=== PATIENT | female | born 1950 | race Caucasian/White ===

== ENCOUNTER 2019-11-19 10:35 | Outpatient (RCR) | payer MEDICARE, SELFPAY ==
[2019-11-18 21:00] VITALS: BP 155/68; PULSE 62; RESP 17; O2SAT 100
[2019-11-18 22:06] VITALS: BP 164/74; PULSE 69; RESP 18; O2SAT 100
[2019-11-19 11:00] VITALS: BP 130/63; PULSE 74; RESP 16; TEMP 36.9; O2SAT 100
== END 2020-02-17 23:59 | disposition home or self-care (01) ==
LOC: ANHVASCINF 10:35
PROVIDERS: PCP Family Medicine; Visit Provider Internal Medicine Nephrology
DX: N17.8 Other acute kidney failure (principal); M31.7 Microscopic polyangiitis; N05.7 Unspecified nephritic syndrome with diffuse crescentic glomerulonephritis
CPT/HCPCS: 96365; 96368; J2930

== ENCOUNTER 2020-03-14 13:57 | Inpatient (IN) | payer MEDICARE, SELFPAY ==
[2020-03-14] VITALS (19 sets, daily range): BP systolic 121–173; BP diastolic 90–115; PULSE 69–98; RESP 12–25; TEMP 36.1–37; O2SAT 96–100
--- NOTE | ~2020-03-14 | CT_ITS ---
EXAMINATION: CT brain wo con INDICATION: Confusion and generalized weakness COMPARISON: None TECHNIQUE: Standard unenhanced head CT. The dose-length product (DLP) was 605.33 mGy-cm. The mA was a djusted according to patient size. Iterative reconstruction technique was employed. FINDINGS: There is no acute intraparenchymal hemorrhage. No evidence of mass lesion. No evidence of a cute infarction. There is mild periventricular and subcortical hypodensity probably related to small vessel ischemic disease. There is mild prominence of the sulci and ventricles related to cerebral atr ophy. Intracranial calcified cerebral atherosclerosis is noted. There are no extra-axial collections. There is no mass effect or midline shift. The orbits and soft tissues are unremarkable. The visuali zed sinuses and mastoid air cells are well aerated. IMPRESSION: 1. No acute intracranial abnormality. 2. Age related findings. Reviewed, dictated and finalized at location A.
--- NOTE | ~2020-03-14 | MR_ITS ---
EXAMINATION: MRA brain wo con DATE: 03/16/2020 13:52 INDICATION: Altered mental status. TECHNIQUE: Magnetic resonance angiography (MRA) of the brain was performed without intravenous contra st with T1-weighted SPGR by the 3D [id number] technique. Maximum intensity projection 3D-reconstr uctions were obtained. COMPARISON: Head CT 03/14/2020 FINDINGS: Left vertebral artery is dominant. There is no significant stenosis of basilar artery or the posterio r cerebral arteries. There is no significant stenosis of the intracranial internal carotid arteries o r anterior or middle cerebral arteries. Anterior communicating artery is normal. The posterior commun icating arteries are normal. There is no aneurysm. IMPRESSION: 1. No aneurysm or significant intracranial arterial stenosis. Reviewed, dictated and finalized at location A.
--- NOTE | ~2020-03-14 | CT_ITS ---
EXAMINATION: CT abdomen pelvis wo con EXAM DATE: 03/18/2020 22:07 INDICATION: Abdominal pain. TECHNIQUE: Spiral CT of the abdomen and pelvis was performed without contrast. Axial, coronal and s agittal images were reviewed. The dose-length product (DLP) for this examination was 222.90 mGy-cm. The exposure was tailored according to patient size (auto mA exposure control), and iterative recons truction (ASIR) was used as additional dose reduction technique. There is no prior study for compari son. FINDINGS: The liver, spleen, adrenal glands and pancreas are unremarkable. There are cholecystectomy clips. There is no nephrolithiasis or hydronephrosis. The uterus is unremarkable. The bladder i s unremarkable. There is no retroperitoneal or pelvic lymphadenopathy. There is mild scattered art eriosclerotic disease. The appendix is not positively visualized. There is no pericecal inflammatory change to suggest appe ndicitis. There is small sliding gastroesophageal hiatal hernia. There is small duodenal diverticul um. Rectal vault measures 9 cm in diameter, fecal impaction. There is rather extensive adjacent inflammat ion, and inflammation in the presacral space, with pneumatosis suspected in the rectosigmoid wall, an d also small foci of extraluminal gas in the presacral space. There is moderate descending and sigmoi d colonic diverticulosis. No free intraperitoneal gas. There is mild cardiomegaly. Small pericardi al effusion. The lung bases are unremarkable. There are no osteoblastic or osteolytic lesions ident ified. IMPRESSION: 1. Fecal impaction, stercoral colitis. Rectosigmoid colonic pneumatosis with extraluminal gas in the presacral space, probably microperforation or leaked externally from the pneumatosis. No abscess or gross free intraperitoneal air. 2. Bladder is severely distended. 3. Moderate descending and sigmoid colonic colitis. Reviewed, dictated and finalized at location G. IMPRESSION: 1. Fecal impaction, stercoral colitis. Rectosigmoid colonic pneumatosis with e xtraluminal gas in the presacral space, probably microperforation or leaked ext ernally from the pneumatosis. No abscess or gross free intraperitoneal air. 2. Bladder is severely distended. 3. Moderate descending and sigmoid colonic colitis.
--- NOTE | ~2020-03-14 | XR_ITS ---
EXAMINATION: XR abdomen obstructive series DATE: 03/27/2020 15:35 INDICATION: Generalized abdominal pain. TECHNIQUE: Supine and upright views of the abdomen. FINDINGS: No prior studies for comparison. The visualized lung parenchyma is normal.. There is a nonobstructive bowel gas pattern. Gas and stool are seen throughout the colon to the level of the rectum. There is no free air. There are cholecyst ectomy clips. IMPRESSION: 1. No acute abdominal abnormality. Reviewed, dictated and finalized at location A.
--- NOTE | ~2020-03-14 | BM_ITS ---
EXAMINATION: CCL bone marrow asp w bx diag DATE: 03/18/2020 09:24 INDICATION: Pancytopenia. TECHNIQUE: A time-out was performed to verify the patient's name, date of , and procedure to b e performed. The procedure including the risks, benefits, and alternatives was discussed with the pat ient. Risks discussed included bleeding and infection. The patient understood the risks and agreed to proceed. The skin overlying the right ilium was prepped and draped in usual sterile fashion. Anest hetic was administered with 1% lidocaine subcutaneously. An 11 gauge needle was inserted into the efrain um with fluoroscopic guidance. Bone marrow was aspirated. An 8 gauge needle was then inserted into th e ilium with fluoroscopic guidance. A small core bone marrow biopsy was obtained. There were no immed iate complications. Fluoroscopy exposure time was 0.0 minutes. The total number of images was 19. FINDINGS: Real-time fluoroscopy demonstrates a marker overlying the right posterior superior iliac sp ine. IMPRESSION: 1. Fluoro-guided bone marrow aspiration. 2. Fluoro-guided bone marrow core biopsy. Reviewed, dictated and finalized at location A.
--- NOTE | ~2020-03-14 | MR_ITS ---
EXAMINATION: MR brain/brain stem wo con EXAM DATE: 03/17/2020 14:06 INDICATION: Encephalopathy. Immunocompromised. TECHNIQUE: Magnetic resonance imaging (MRI) of the brain/brain stem obtained without contrast. Sagitt al T1, axial diffusion, gradient echo (T2*), T1, T2, FLAIR sequences obtained. Comparison is made to prior examination from 03/14/2020. FINDINGS: There is abnormal increased T2, flair signal intensity within white matter of the cerebellu m, and scattered regions of subcortical white matter, peritrigonal white matter. Parietal and occipit al lobes appear more affected than other regions. There is also vaguely increased signal intensity wi thin the thalami bilaterally. Overall nonspecific encephalitis with differential diagnosis including progressive multifocal leukoencephalopathy (PML, reportedly this patient is immunocompromised), CMV, acute necrotizing encephalitis (possibly COVID 19 etiology), posterior reversible encephalopathy synd charli (PRES). Distribution is not typical for herpes or prion disease. No abscess, acute infarction, extra-axial collections or obstructive hydrocephalus. No acute hemorrha ge. Flow voids are seen in the cerebral arteries on the T2 weighted sequences consistent with their e xpected patency. IMPRESSION: Abnormal signal in the thalami, scattered subcortical white matter, cerebellar white ana paula er. Nonspecific encephalopathy with differential diagnosis including PML, viral encephalopathy, acute necrotizing encephalitis, PRES. I discussed abnormal findings with Dr. Zuñiga at 03/17/2020 15:27 CDT. Reviewed, dictated and finalized at location A. IMPRESSION: Abnormal signal in the thalami, scattered subcortical white matter, cerebellar white matter. Nonspecific encephalopathy with differential diagnosi s including PML, viral encephalopathy, acute necrotizing encephalitis, PRES. I discussed abnormal findings with Dr. Zuñiga at 03/17/2020 15:27 CDT.
--- NOTE | ~2020-03-14 | XR_ITS ---
XR chest 1V DATE: 03/14/2020 14:31 INDICATION: Weakness, confusion TECHNIQUE: AP view on 03/14/2020 at 1429 hours COMPARISON: None FINDINGS: Normal heart size. No hilar or mediastinal enlargement. No pulmonary infiltrate or consolid ation, pleural effusion or pulmonary vascular congestion or pneumothorax. Surgical clips overlie the right upper quadrant, consistent with cholecystectomy. There is evidence of bilateral rotator cuff atrophy. Bilateral glenohumeral osteoarthritis. Moderate osteopenia. An IV line is noted at the left antecubital fossa. IMPRESSION: No active cardiopulmonary disease Reviewed, dictated and finalized at location A.
--- NOTE | 2020-03-14 14:06 | ECG_ITS ---
Measurements Intervals [place] Rate: 93 P: 42 PA: 132 QRS: 11 QRSD: 97 T: 33 QT: 345 QTc: 430 Interpretive Statements SINUS RHYTHM POSSIBLE LEFT ATRIAL ENLARGEMENT DELAYED PRECORDIAL R/S TRANSITION BORDERLINE ECG Electronically Signed On 03-14-2020 15:17:50 CDT by Crispin Christiansen D.O.
--- NOTE | 2020-03-14 14:14 | ED.AMS ---
HPI - Altered Mental Status General Chief Complaint: Altered Mental Status Stated Complaint: weakness Time Seen by Provider: 03/14/20 14:05 History of Present Illness HPI narrative: Patient presents via EMS from home, for increasing weakness and confusion. Her was going to bring her but she fell coming out of the house, so they called EMS at that time. He says that she has had increasing weakness and confusion over the last week and a half. She had kidney failure in November and has been on a tapering prednisone dose since. Her only other medicines are an antidepressant and thyroid pills. She denies any pain or illness. She says her appetite is good and her bowels are moving, but her says she hardly eats at all. She is only oriented x2, and cannot give the current year number. She has a lot of bruising and petechiae, and her assures me that she has not been falling being injured or any other known cause of the bruising. He tells me that she does not smoke drink or do any drugs MD complaint: altered mental status, confusion and decreased responsiveness Related Data Allergies Allergy/AdvReac Type Severity Reaction Status Date / Time Penicillins Allergy Unknown Verified 03/14/20 14:06 Review of Systems Review of Systems: Narrative: CONSTITUTIONAL: Denies fever, chills, or sweats. EYES: Denies visual changes, redness, or discharge. ENT: Denies rhinorrhea, congestion, sore throat, or otalgia. CARDIOVASCULAR: Denies chest pain, palpitations, or edema. RESPIRATORY: Denies cough or dyspnea. GASTROINTESTINAL: Denies abdominal pain, nausea, vomiting, or diarrhea. GENITOURINARY: Denies dysuria or hematuria. SKIN: Denies rash or itching. MUSCULOSKELETAL: Denies back pain, joint pain, or myalgia. NEUROLOGIC: Denies headache, numbness, or weakness. PSYCHIATRIC: Denies anxiety or depression. All systems reviewed & are unremarkable except as noted in HPI and below (The adds information concerning her decreased appetite and bruising) [facility] Social History Social History (Updated 03/14/20 @ 14:19 by Megan Iyer MD) Smoking status: Never smoker Alcohol intake: never Substance use: never Gender identity (if verbalized by the patient): Female Exam Narrative: Exam Narrative: GENERAL:pale looking, poor eye contact, and in no acute distress. HEAD: Normocephalic, atraumatic. EYES: PERRLA and EOMI. ENT: Nares clear, no rhinorrhea or epistaxis. Mucous membranes moist. NECK: Supple. CHEST: Clear to auscultation. No respiratory distress. HEART: Regular rate and rhythm. No murmur heard. Normal peripheral pulses. ABDOMEN: Soft, nontender, nondistended, normal active bowel sounds. EXTREMITIES: Normal range of motion. No edema. SKIN: Warm, dry, multiple petechiae and bruises throughout the extremities and trunk, and around her mouth. NEURO: No focal deficits. Alert and oriented X2 PSYCH: Flat affect Course Reevaluation(s) Reevaluation #1: In to see the patient and her , to explain that her CAT scan came out fine, but that her blood counts are low and she will need a red blood cell transfusion. She and her agree with this. She denies having any bone marrow problems or cancer that she knows of. Date: 03/14/20 Time: 15:18 Consultations Consultation #1: Call for the hospitalist, to admit the patient. Naa accepts for Dr. Hicks, and requests an oncology consult. Date: 03/14/20 Time: 16:04 Consultation #2: Called for Dr. Strauss for an oncology consult. He called right back and requests an anemia panel done before the transfusion, and to be sure the diff is done on the CBC. He will consult. Date: 03/14/20 Time: 16:18 Vital Signs Vital signs: Vital Signs Temperature 98.2 F 03/14/20 13:57 Pulse Rate 98 03/14/20 13:57 Respiratory Rate 25 H 03/14/20 13:57 Blood Pressure 121/91 H 03/14/20 13:57 Pulse Oximetry 100 03/14/20 13:57 Temperature 98.2 F 03/14/20 13:57 Pulse Rate 98
[2020-03-14] MEDS: SODIUM CHLORIDE 0.9% IV 1,000 ML 999 ML IV CONT (14:17)
[2020-03-14 14:41] LABS: Glucose Point of Care 198 (65-105)
[2020-03-14 14:55] LABS: Mean Corpuscular HGB Conc 32.3 g/dl (32-36); Mean Corpuscular Hemoglobin 34.7 pg (26-34); Mean Corpuscular Volume 107.4 fl (80-100); Mean Platelet Volume 9.5 fl (7.4-10.4); Platelet Count Result 48 k/mm3 (150-375); Red Blood Count 1.76 M/mm3 (4.2-5.4); Red Cell Distribution Width 18.5 % (11.5-14.5); White Blood Count 2.8 K/mm3 (4.5-10.0)
[2020-03-14 14:59] LABS: Hematocrit 18.9 % (37.0-47.0); Hemoglobin 6.1 g/dL (12.0-15.0)
[2020-03-14 15:05] LABS: Prothrombin Time 12.7 Seconds (11.1-14.7)
[2020-03-14 15:06] LABS: Partial Thromboplastin Time 26.4 SECONDS (22.3-36.8)
[2020-03-14 15:08] LABS: Alanine Aminotransferase 23 U/L (4-35); Albumin Level 2.7 g/dL (3.5-5.1); Alkaline Phosphatase 73 U/L (38-126); Aspartate Amino Transferase 23 U/L (14-36); Bilirubin,Total 0.7 mg/dL (0.2-1.3); Blood Urea Nitrogen 27 mg/dL (7-17); Calcium 8.9 mg/dL (8.4-10.2); Carbon Dioxide 32 mmol/L (22-30); Chloride 102 mmol/L (98-107); Estimated CRCL calculation 29 ml/min; Estimated Glomerular Filt Rate 41; Glucose 191 mg/dL (65-105); Potassium 3.4 mmol/L (3.4-5.0); Sodium 136 mmol/L (137-145)
[2020-03-14 15:16] LABS: Band Neutrophils Percent 9 % (0-6); Lymphocytes Absolute Manual 0.53 K/mm3 (1.1-4.5); Monocytes Absolute Manual 0.08 K/mm3 (0.1-0.90); Monocytes Percent Manual 3 % (3-9); Neutrophils Absolute Manual 2.18 K/mm3 (1.7-7.2); Neutrophils Percent Manual 69 % (46-73); Total Cells Counted 100
[2020-03-14 15:17] LABS: Anisocytosis 2+ (NORMAL); D Dimer 0.93 ug/mL (<0.48); Platelet Estimate Decreased (Adequate)
[2020-03-14 15:18] LABS: Hypochromasia 2+ (NORMAL)
[2020-03-14 15:23] LABS: Troponin I 0.036 ng/mL (0.000-0.034)
[2020-03-14 15:45] LABS: Add Urine Microscopic? YES; Appearance Urine Clear (Clear); Bilirubin Urine Negative (Negative); Blood Urine 1+ (Negative); Color Urine Yellow (Yellow); Glucose Urine UA Negative (Negative); Ketones Urine Negative (Negative); Leukocyte Esterase Ur Negative LEU/UL (Negative); Mucus Urine Rare /lpf; Nitrate Urine Negative (Negative); Protein Urine 1+ mg/dL (Negative); Specific Grav Ur 1.012 (1.001-1.035); Squamous Epithelial Cell Urine Rare /hpf (Few); Urobilinogen Urine Negative mg/dL (<2.0)
[2020-03-14 16:01] LABS: Amphetamine Screen Urine Negative (Negative); Barbiturate Screen Urine Negative (Negative); Benzodiazepines Screen Urine Negative (Negative); Cannabinoid Screen Urine Negative (Negative); Cocaine Screen Urine Negative (Negative); Methadone Screen Urine Negative (Negative); Opiate Screen Urine Negative (Negative); Phencyclidine Screen Urine Negative (Negative)
[2020-03-14 16:51] LABS: Hemoglobin 6.4 g/dL (12.0-15.0)
[2020-03-14 16:52] LABS: Hematocrit 19.4 % (37.0-47.0)
[2020-03-14 18:13] LABS: Iron 98 ug/dL (37-170)
[2020-03-14 18:21] LABS: Percent Iron Saturation 53 % (20-50)
[2020-03-14] MEDS: SODIUM CHLORIDE 0.9% IV 1,000 ML 125 ML IV CONT (18:55)
--- NOTE | 2020-03-14 20:03 | PM.IMHP ---
H&P: HPI History of Present Illness Chief complaint: PANCYTOPENIA AND CONFUSION Narrative: This is a 69 year female with known glomerulonephritis who is being treated by Nephrology, Dr. Cage and presented to the hospital with her who complained that she had increased weakness and confusion for the past few days. The patient is known to have been on a prednisone taper since November and has also been on cyclophosphamide. The patient's had also reported that she had fallen today while trying to get into the car. She herself is quite confused and cannot tell me why she came to the hospital today. The patient was evaluated in the ER tonight and found to have pancytopenia. She has already been transfused 1 unit of pRBCs and she tells me that she is feeling better already. Currently she denies any fever, cough, shortness of breath, chest pain, headache, dizziness, abdominal pain, dysuria, hematuria, diarrhea, nausea, vomiting, rectal bleeding, black stools or focal neurological symptoms. Hematology, Dr. Strauss has been consulted by ER provider and we have been asked to admit the patient for further care. Review of Systems Review of Systems: All systems reviewed & are unremarkable except as noted in HPI and below PMFSH Past Medical History Medical History CKD (chronic kidney disease) Glomerulonephritis Hypothyroidism Surgical History Surgical History History of 2 sections History of cholecystectomy Family History Family History Mother Diabetes mellitus Social History Social History Smoking status: Unknown if ever smoked Alcohol intake: never Substance use: never Gender identity (if verbalized by the patient): Female Meds Home Medications and Allergies Home Medications Medication Instructions Recorded Confirmed Type cyclophosphamide 50 mg PO DAILY 03/14/20 03/14/20 History escitalopram oxalate 10 mg PO DAILY 03/14/20 03/14/20 History levothyroxine 75 mcg PO DAILY 03/14/20 03/14/20 History prednisone 40 mg PO BID 03/14/20 03/14/20 History Allergies Allergy/AdvReac Type Severity Reaction Status Date / Time Penicillins Allergy Unknown Verified 03/14/20 14:06 Vital Signs Vital Signs - 24 hr 03/14/20 13:57 03/14/20 14:19 03/14/20 17:07 Temperature 36.8 C 36.8 C Pulse Rate 98 82 Respiratory Rate 25 H 16 Blood Pressure 121/91 H 155/97 H Pulse Oximetry 100 100 100 03/14/20 17:12 03/14/20 17:18 03/14/20 17:23 Temperature 36.8 C 36.8 C 37.0 C Pulse Rate 81 80 90 Respiratory Rate 20 20 20 Blood Pressure 155/97 H 145/94 H 145/98 H Pulse Oximetry 97 96 96 03/14/20 17:24 03/14/20 17:25 03/14/20 17:35 Temperature 36.8 C 36.3 C L Pulse Rate 78 85 82 Respiratory Rate 24 H 12 18 Blood Pressure 145/98 H 145/98 H 172/115 H Pulse Oximetry 97 100 100 03/14/20 18:00 03/14/20 18:35 03/14/20 19:36 Temperature 36.6 C Pulse Rate 82 74 69 Respiratory Rate 16 Blood Pressure 149/105 H 169/90 H Pulse Oximetry 99 03/14/20 19:42 Temperature 36.2 C L Pulse Rate 84 Respiratory Rate 18 Blood Pressure 158/93 H Pulse Oximetry 98 Exam Const: General: cooperative, alert and awake Nutritional Appearance: well nourished Orientation/consciousness: oriented to person, oriented to place and No oriented to time HENMT: Head: normal to inspection General nose exam: Normal external nose present Face and sinus: normal facial exam Mouth: Yes Normal oral and palatal mucosa present and Yes oropharynx normal Eyes: Pupils: Equal, round and reactive pupils present EOM: EOMs intact bilaterally Neck: Neck: supple and no JVD Thyroid: thyroid normal Lymphatic: lymphadenopathy not noted Resp: Effort & Inspection: normal respiratory effort Auscultation: georgette
[2020-03-15] VITALS (14 sets, daily range): BP systolic 139–151; BP diastolic 82–101; PULSE 68–107; RESP 15–20; TEMP 36–36.8; O2SAT 97–100; BMI 23.2
[2020-03-15 00:13] LABS: Hematocrit 30.4 % (37.0-47.0); Hemoglobin 9.9 g/dL (12.0-15.0)
[2020-03-15 05:09] LABS: Blood Urea Nitrogen 20 mg/dL (7-17); Calcium 8.1 mg/dL (8.4-10.2); Carbon Dioxide 29 mmol/L (22-30); Chloride 107 mmol/L (98-107); Estimated CRCL calculation 42 ml/min; Estimated Glomerular Filt Rate > 60; Glucose 84 mg/dL (65-105); Potassium 2.9 mmol/L (3.4-5.0); Sodium 138 mmol/L (137-145)
[2020-03-15 05:20] LABS: Troponin I 0.171 ng/mL (0.000-0.034)
[2020-03-15] MEDS: SODIUM CHLORIDE 0.9% IV 1,000 ML 125 ML IV CONT ×2 (06:13→20:44)
[2020-03-15] MEDS: LEVOTHYROXINE SODIUM 75 MCG TABLET PO (06:49)
[2020-03-15 06:54] LABS: Basophils Percent Auto 0.6 % (0.2-1.2); Hematocrit 29.8 % (37.0-47.0); Hemoglobin 10.1 g/dL (12.0-15.0); Immature Granulocyte Absolute 0.17 K/mm3 (0.00-0.031); Immature Granulocyte Percent A 4.9 % (0-0.5); Immature Platelet Fraction Pct 0.8 % (0.9-11.2); Lymphocytes Absolute Auto 0.34 K/mm3 (0.9-3.2); Lymphocytes Percent Auto 9.7 % (18.3-44.2); Mean Corpuscular HGB Conc 33.9 g/dl (32-36); Mean Corpuscular Hemoglobin 31.1 pg (26-34); Mean Corpuscular Volume 91.7 fl (80-100); Monocytes Absolute Auto 0.2 K/mm3 (0.1-0.6); Neutrophils Absolute Auto 2.8 K/mm3 (1.3-6.7); Neutrophils Percent Auto 78.8 % (45.5-73.1); Nucleated Red Blood Cells Perc 0.9 % (0.0-0.2); Platelet Count Result 49 k/mm3 (150-375); Red Blood Count 3.25 M/mm3 (4.2-5.4); Red Cell Distribution Width 23.6 % (11.5-14.5); White Blood Count 3.5 K/mm3 (4.5-10.0)
[2020-03-15] MEDS: POTASSIUM CHLORIDE 20 MEQ TABLET 40 MEQ PO ×3 (08:45→18:25)
[2020-03-15] MEDS: predniSONE 10 MG TABLET 40 MG PO (08:45)
[2020-03-15] MEDS: ESCITALOPRAM OXALATE 10 MG TABLET PO (08:45)
--- NOTE | 2020-03-15 09:49 | ADMGEN ---
This patient, Megan Raza, was admitted to IMU Room 206-02 03/14/2020 at 1732. Patient/family oriented to hospital policies and general routines including ID bracelet, bed and alarms, visiting hours, pain management, procedures, bathroom and other care routines, personal items, smoking policy, room service/diet, and visiting hours. Valuables list has been completed. Information on how to activate the Rapid Response Team has been discussed. Patient/Family are encouraged to report perceived risks to care and to ask questions if they do not understand what they are told or what they should do.
--- NOTE | 2020-03-15 09:54 | PM.CNNEP ---
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 Her creatinine is now normal. She does have a bit of protein and blood in the urine which can take longer to resolve. For now it looks like she is in remission. She is on cyclophosphamide and has pancytopenia. The cyclophosphamide can be held. She is on prednisone 40 mg twice a day. We can cut this does back a little bit as well. (2) Petechial rash: Code(s): R23.3 - Spontaneous ecchymoses Status: Acute Assessment and Plan: Most likely due to the low platelets. This may be due to the cyclophosphamide. Dr. Jessica camara is on the case (3) Encephalopathy: Code(s): G93.40 - Encephalopathy, unspecified Status: Acute Assessment and Plan: Etiology of this is unclear. I do not think it is the vasculitis because everything else about this is better. She does not have a fever. Her B12 is okay and thyroids only slightly high which probably would not explain this. Consider infection. Possibly the immunosuppressives are preventing her from having a fever. We should probably get blood cultures and put her on broad-spectrum antibiotics. Will have Neurology see her. (4) Abnormal glucose: Code(s): R73.09 - Other abnormal glucose Status: Acute Assessment and Plan: His high sugars probably from the steroids. Will cut back the dose. (5) Pancytopenia: Code(s): D61.818 - Other pancytopenia Status: Acute Assessment and Plan: Dr. ceja showed to see. (6) Protein malnutrition: Code(s): E46 - Unspecified protein-calorie malnutrition Status: Acute Assessment and Plan: Albumin level is low. She has not been eating. (7) Hypothyroidism: Qualifiers: Hypothyroidism type: unspecified Qualified Code(s): E03.9 - Hypothyroidism, unspecified Code(s): E03.9 - Hypothyroidism, unspecified Status: Chronic Assessment and Plan: TSH is only slightly abnormal. History of Present Illness Reason for Consult Consult date: 03/15/20 Chief Complaint Chief complaint: PANCYTOPENIA AND CONFUSION History of Present Illness Narrative: Megan is a very pleasant 69-year-old lady who has acute kidney injury from ANCA positive glomerulonephritis. This is biopsy proven. She received pulse steroids and then Prednisone. She is also on oral cyclophosphamide. She was on 50 mg once a day. She had a [facility] health visit with Dr. Cage on 03/04 and she was feeling poorly. Her creatinine was actually better at 1.07 as compared to before her platelet count was 116 and her hemoglobin was 7 so her Cytoxan was cut to every other day. At the time of the visit she was feeling weak. She did not have much of an appetite. Her weakness progressed and she had trouble getting in and out of the car even and so her brought her over to the emergency room. She also was been a bit confused he said. In the emergency room she was evaluated. Was clear and CT of the brain showed no acute abnormality. Her white count was down to 3.5, hemoglobin 6.4, and platelet count 49. These are all lower than she had been as an outpatient. Her creatinine is normal. Her potassium is low. She has had no fever. Past history: Hypothyroidism, Anca positive glomerulonephritis. Social history: She does not smoke but she used to. She occasionally drinks alcohol. She lives at home with her . Family history negative for kidney disease or kidney stones. Allergies: Penicillin Review of Systems Constitutional: Constitutional: Reports no additional constitutional complaints Eyes: Eyes: Reports no additional eye complaints ENT: Reports system reviewed and no
[2020-03-15] MEDS: AZTREONAM 1 GM in DEXTROSE 5% IN WATER 50 ML IVPB ×2 (12:08→20:43)
--- NOTE | 2020-03-15 18:02 | PM.IMPN ---
Progress Note: A&P Assessment and Plan (1) Encephalopathy: Code(s): G93.40 - Encephalopathy, unspecified Status: Acute Assessment and Plan: Likely secondary to anemia, metabolic, or drug induced from prednisone or cyclophosphamide. CT brain WNL. TSH B12 levels are normal (2) Pancytopenia: Code(s): D61.818 - Other pancytopenia Status: Acute Assessment and Plan: Secondary to cyclophosphamide therapy. After 2 units of packed cells hemoglobin and absolute neutrophil count well in normal range Nephrology started vancomycin (3) CKD (chronic kidney disease): Qualifiers: Chronic kidney disease stage: stage 3 (moderate) Qualified Code(s): N18.3 - Chronic kidney disease, stage 3 (moderate) Code(s): N18.9 - Chronic kidney disease, unspecified Status: Chronic Assessment and Plan: appears to be secondary to GN. Continue nephrology recommendations. Creatinine at 1.0 today. Hold cyclophosphamide. And prednisone decreased to 20 b.i.d. per Nephrology (4) Abnormal glucose: Code(s): R73.09 - Other abnormal glucose Status: Acute Assessment and Plan: may be prednisone induced. r/o diabetes mellitus. Check HgbA1c. Accuchecks, SSI Coverage, (5) Elevated troponin: Code(s): R79.89 - Other specified abnormal findings of blood chemistry Status: Acute Assessment and Plan: No chest pain tonight. r/o ACS. Flat response no acute coronary syndrome (6) Petechial rash: Code(s): R23.3 - Spontaneous ecchymoses Status: Acute Assessment and Plan: Secondary to thrombocytopenia. Continue serial checking (7) Hypothyroidism: Qualifiers: Hypothyroidism type: unspecified Qualified Code(s): E03.9 - Hypothyroidism, unspecified Code(s): E03.9 - Hypothyroidism, unspecified Status: Chronic Assessment and Plan: Continue levothyroxine PO. TSH borderline high may need further adjustment later Subjective Date/time seen: 03/15/20 18:02 Interval history: Date of visit 03-15. 69-year-old white female with ANCA positive glomerular nephritis admitted with altered mental status, weakness, and pancytopenia. Cytoxan has been held and she received 2 units of packed cells. Today she is alert and oriented and conversant but states that she continues be very tired and continues to sleep like she has at home. Exam Narrative: Exam Narrative: Blood pressure 144/94 pulse 76 saturating 98% on room air afebrile Neck supple no adenopathy Pupils equal reactive to light sclera anicteric Lungs clear CV regular rate rhythm Abdomen soft nontender Extremities without edema distal pulses are 2+ Neuro drowsy but easily arousable, moves all extremities well with no focal deficits and appears oriented at present time Objective Data Vital Signs Vital Signs: Vital Signs - 24 hr 03/14/20 18:35 03/14/20 19:36 03/14/20 19:42 Temperature 36.6 C 36.2 C L Pulse Rate 74 69 84 Respiratory Rate 16 18 Blood Pressure 149/105 H 169/90 H 158/93 H Pulse Oximetry 99 98 03/14/20 19:54 03/14/20 20:00 03/14/20 20:54 Temperature 36.2 C L 36.2 C L Pulse Rate 73 86 77 Respiratory Rate 18 18 Blood Pressure 160/90 H 167/99 H Pulse Oximetry 98 99 03/14/20 21:54 03/14/20 22:00 03/14/20 23:42 Temperature 36.1 C L 36.1 C L Pulse Rate 76 90 80 Respiratory Rate 18 18 Blood Pressure 172/107 H 173/105 H Pulse Oximetry 98 100 03/15/20 00:00 03/15/20 02:00 03/15/20 04:00 Temperature 36.2 C L Pulse Rate 88 70 69 Respiratory Rate 16 Blood Pressure 151/94 H Pulse Oximetry 100 98 03/15/20 05:40 03/15/20 08:00 03/15/20 10:00 Temperature 36.2 C L Pulse Rate 82 79 87 Respiratory Rate 15 Blood Pressure 145/96 H Pulse Oximetry 99 03/15/20 11:46 03/15/20 12:00 03/15/20 14:00 Temperature 36.0 C L Pulse Rate 79 75 85 Respiratory Rate 20 Blood Pressure 146/101 H Pulse Oximetry 98 03/15/20
[2020-03-15] MEDS: predniSONE 20 MG TABLET PO (18:20)
[2020-03-16] VITALS (12 sets, daily range): BP systolic 142–169; BP diastolic 90–108; PULSE 69–101; RESP 18–20; TEMP 36.3–36.7; O2SAT 94–100; BMI 23.1
[2020-03-16 05:00] LABS: Basophils Percent Auto 0.6 % (0.2-1.2); Hematocrit 30.3 % (37.0-47.0); Hemoglobin 9.8 g/dL (12.0-15.0); Immature Granulocyte Absolute 0.18 K/mm3 (0.00-0.031); Immature Platelet Fraction Pct 1.3 % (0.9-11.2); Immature Reticulocyte Fraction 22.8 % (3.0-15.9); Lymphocytes Absolute Auto 0.36 K/mm3 (0.9-3.2); Mean Corpuscular HGB Conc 32.3 g/dl (32-36); Mean Corpuscular Hemoglobin 30.5 pg (26-34); Mean Corpuscular Volume 94.4 fl (80-100); Mean Platelet Volume 8.9 fl (7.4-10.4); Monocytes Absolute Auto 0.2 K/mm3 (0.1-0.6); Monocytes Percent Auto 5.6 % (2.6-8.5); Neutrophils Absolute Auto 2.8 K/mm3 (1.3-6.7); Neutrophils Percent Auto 78.8 % (45.5-73.1); Nucleated Red Blood Cells Perc 0.6 % (0.0-0.2); Platelet Count Result 51 k/mm3 (150-375); Red Blood Count 3.21 M/mm3 (4.2-5.4); Red Cell Distribution Width 23.5 % (11.5-14.5); Reticulocyte Hemoglobin Conten 37.6 pg (28.2-35.7); Reticulocyte Percent 3.79 % (0.7-4.3); Reticulocytes Absolute 0.12 B/L (32.2-175.7); White Blood Count 3.6 K/mm3 (4.5-10.0)
[2020-03-16 05:07] LABS: Albumin Level 2.8 g/dL (3.5-5.1); Blood Urea Nitrogen 18 mg/dL (7-17); Calcium 7.3 mg/dL (8.4-10.2); Carbon Dioxide 22 mmol/L (22-30); Chloride 111 mmol/L (98-107); Estimated CRCL calculation 40 ml/min; Estimated Glomerular Filt Rate > 60; Glucose 140 mg/dL (65-105); Lactate Dehydrogenase 1351 U/L (313-618); Phosphorus 2.1 mg/dL (2.5-4.5); Potassium 4.8 mmol/L (3.4-5.0); Sodium 137 mmol/L (137-145)
[2020-03-16 05:39] LABS: Hemoglobin A1C 6.3 % (<5.7)
[2020-03-16] MEDS: AZTREONAM 1 GM in DEXTROSE 5% IN WATER 50 ML IVPB ×3 (05:55→20:34)
[2020-03-16] MEDS: SODIUM CHLORIDE 0.9% IV 1,000 ML 125 ML IV CONT ×2 (05:57→17:48)
[2020-03-16] MEDS: predniSONE 20 MG TABLET PO ×2 (09:16→17:12)
[2020-03-16] MEDS: ESCITALOPRAM OXALATE 10 MG TABLET PO (09:16)
--- NOTE | 2020-03-16 09:21 | PCPTNOTE ---
Attempted to see patient for PT, however patient declined, reports she just wants to rest at this time.
--- NOTE | 2020-03-16 10:34 | CONS_ITS ---
DATE OF CONSULTATION: Patient of Adama Vaughn MD. HISTORY OF PRESENT ILLNESS: 69-year-old lady has been admitted to [facility] through the emergency room for the complaint of confusion. The patient has been treated by the Nephrology, presented to the hospital with her , complained of increasing weakness along with confusion of several days duration. The patient had been on prednisone, which was being tapered since November and has also been on cyclophosphamide. On the day of presentation to the hospital, she had fallen as per the . She herself was quite confused, was unable to give the account. The patient was initially evaluated in the ER and found to have pancytopenia. She has already been transfused 1 unit of packed RBCs and she was feeling somewhat better on the day of presentation, though she complained of no fever, shortness of breath, chest pain, headache, dizziness. She has been seen by the sebd teacher and has been consulted by the ER provider on presentation and was asked to be admitted to the hospital. PAST HISTORY: Consistent with: 1. Chronic kidney disease. 2. Glomerulonephritis. 3. Hypothyroidism. 4. x2. 5. Cholecystectomy. SOCIAL HISTORY: Never smoker or drinker. MEDICATIONS: At the time of admission to the hospital, she was taking cyclophosphamide 50 mg daily, escitalopram 10 mg daily, levothyroxine 75 mcg daily, prednisone 40 mg twice a day. ALLERGIES: SHE IS ALLERGIC TO PENICILLIN. PHYSICAL EXAMINATION: VITAL SIGNS: Up until now, evaluation revealed her to be afebrile with blood pressure 121/90, and pulse ox 100. GENERAL: General physical examination was fair. HEENT: Head normocephalic with no cranial bruit. EAR, NOSE, THROAT EXAMINATION: Normal. NECK: Supple with no cervical bruit. No thyromegaly. No lymphadenopathy. HEART: Regular. LUNGS: Clear. No rhonchi or crepitation. ABDOMEN: Soft with normal bowel sounds. SKIN: With diffuse petechiae, rash all over her body. NEUROLOGIC: Awake, alert, oriented x3, except not oriented to time. Pupils round regular. Melendez of vision full. Extraocular movements full. Face symmetrical. Tongue midline. Motor examination revealed her to have strength symmetrical. Reflexes sluggish but symmetrical. Plantars downgoing and so as the sensory examination. LABORATORY DATA: Evaluation up until now has revealed her to CBC with WBC 2.8, hemoglobin only 6.1 with a platelet count of only 48,000. Basic metabolic panel is normal with sodium 136, BUN 27, creatinine 1.30, glucose 191, calcium 8.9. Troponin 0.036. Herpetic enzymes normal, but albumin is only 2.7. UA is negative. CT scan of the head revealed no bleed or space-occupying lesion. Chest x-ray also revealed no acute cardiopulmonary disease. The patient has been admitted with the diagnosis of encephalopathy of acute in nature in addition to ongoing diagnosis of pancytopenia, chronic kidney disease, and hypothyroidism. At this stage, she is receiving all her medication as such. In the meantime, because of her underlying confusion, even though the CT scan has been done and is negative, I will obtain the MRI of the brain and further recommendation accordingly, in addition to the carotid study. NAI DIANE M.D. SIGN BOARD ERECTOR SIGN BOARD ERECTOR D I MT: Domitila
--- NOTE | 2020-03-16 14:49 | PCOTNOTE ---
Attempted to see patient this PM for skilled OT, however patient refused. Patient sleeping upon therapist arrival. Therapist woke patient, patient declined to participate in any functional ADL task or mobility at this time. Patient educated on importance of participating in therapy, however, patient stated, Just leave me alone, I just want to sleep. Patient not seen for OT this date. Will continue plan of care tomorrow, 03/17/2020.
--- NOTE | 2020-03-16 15:30 | PCPTNOTE ---
Patient refused treatment this session. Pt states I just want to sleep.
--- NOTE | 2020-03-16 17:25 | P.PNNP_ITS ---
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 * creatinine is normal following use of cytoxan and prednisone * still with a bit of protein and blood in the urine which can take longer to resolve * holding cytoxan and weaning prednisone given current medical issues * continue supportive therapy (2) Encephalopathy: Code(s): G93.40 - Encephalopathy, unspecified Status: Acute Assessment and Plan: * etiology of this is unclear * seems less likely her vasculitis given that it is improving * infection?? -- on antibiotics * Neurology recommendations noted (3) Abnormal glucose: Code(s): R73.09 - Other abnormal glucose Status: Acute Assessment and Plan: * presumably from steroids * will cut back the dosage and wean (4) Pancytopenia: Code(s): D61.818 - Other pancytopenia Status: Acute Assessment and Plan: * from cytoxan?? * somewhat surprising since she was on such a low dose * PRBC transfusion for anemia -- H/H better * Dr. Strauss to evaluate (5) Protein malnutrition: Code(s): E46 - Unspecified protein-calorie malnutrition Status: Acute Assessment and Plan: * albumin low * due to poor intake * liberalize diet Will continue to follow Subjective Date/time seen: 03/16/20 17:25 Sleeping comfortably before I woke her up -- overall, she states she is feeling better; no apparent distress at the time of my visit or earlier today. Exam Narrative: Exam Narrative: General: WD/WN female in NAD Heart: normal S1 and S2; no rub Lungs: clear to auscultation Abdomen: soft, nontender, nondistended, positive bowel sounds Extremities: no cyanosis or clubbing; no edema Skin: warm and dry Objective Data Vital Signs Vital Signs: Vital Signs Temp Pulse Resp BP Pulse Ox 03/16/20 16:00 36.3 C L 73 18 167/108 H 03/16/20 12:00 36.4 C L 86 20 160/100 H 98 03/16/20 10:00 88 03/16/20 08:00 36.6 C 70 18 169/99 H 100 03/16/20 06:00 79 03/16/20 04:00 36.7 C 81 18 142/91 H 97 03/16/20 02:00 98 03/16/20 00:00 36.6 C 87 20 157/99 H 94 03/15/20 22:00 91 03/15/20 20:00 73 03/15/20 19:51 36.6 C 79 20 146/82 H 97 03/15/20 18:00 98 Intake/Output Intake/Output: Intake & Output 03/13/20 03/14/20 03/15/20 03/16/20 23:59 23:59 23:59 23:59 Intake Total 1700 2400 1350 Output Total 550 1775 350 Balance 6459 577 2576 Meds/Results Medications: Active Medications Generic Name Dose Route Start Last Admin Trade Name Freq PRN Reason Stop Dose Admin Acetaminophen 650 mg 03/14/20 20:26 Tylenol Tablet PO Q4H PRN Mild Pain (1-3) or Fever Escitalopram Oxalate 10 mg 03/15/20 09:00 03/16/20 09:16 Lexapro PO 10 mg DAILY LAURYN Administration Sodium Chloride 1,000 mls @ 125 mls/hr 03/14/20 16:15 03/16/20 11:55 Normal Saline Iv IV CONT Not Given .Q8H LAURYN
--- NOTE | 2020-03-16 17:25 | PM.PNNEP ---
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 creatinine is normal following use of cytoxan and prednisone still with a bit of protein and blood in the urine which can take longer to resolve holding cytoxan and weaning prednisone given current medical issues continue supportive therapy (2) Encephalopathy: Code(s): G93.40 - Encephalopathy, unspecified Status: Acute Assessment and Plan: etiology of this is unclear seems less likely her vasculitis given that it is improving infection?? -- on antibiotics Neurology recommendations noted (3) Abnormal glucose: Code(s): R73.09 - Other abnormal glucose Status: Acute Assessment and Plan: presumably from steroids will cut back the dosage and wean (4) Pancytopenia: Code(s): D61.818 - Other pancytopenia Status: Acute Assessment and Plan: from cytoxan?? somewhat surprising since she was on such a low dose PRBC transfusion for anemia -- H/H better Dr. Strauss to evaluate (5) Protein malnutrition: Code(s): E46 - Unspecified protein-calorie malnutrition Status: Acute Assessment and Plan: albumin low due to poor intake liberalize diet Will continue to follow Subjective Date/time seen: 03/16/20 17:25 Sleeping comfortably before I woke her up -- overall, she states she is feeling better; no apparent distress at the time of my visit or earlier today. Exam Narrative: Exam Narrative: General: WD/WN female in NAD Heart: normal S1 and S2; no rub Lungs: clear to auscultation Abdomen: soft, nontender, nondistended, positive bowel sounds Extremities: no cyanosis or clubbing; no edema Skin: warm and dry Objective Data Vital Signs Vital Signs: Vital Signs Temp Pulse Resp BP Pulse Ox 03/16/20 16:00 36.3 C L 73 18 167/108 H 03/16/20 12:00 36.4 C L 86 20 160/100 H 98 03/16/20 10:00 88 03/16/20 08:00 36.6 C 70 18 169/99 H 100 03/16/20 06:00 79 03/16/20 04:00 36.7 C 81 18 142/91 H 97 03/16/20 02:00 98 03/16/20 00:00 36.6 C 87 20 157/99 H 94 03/15/20 22:00 91 03/15/20 20:00 73 03/15/20 19:51 36.6 C 79 20 146/82 H 97 03/15/20 18:00 98 Intake/Output Intake/Output: Intake & Output 03/13/20 03/14/20 03/15/20 03/16/20 23:59 23:59 23:59 23:59 Intake Total 1700 2400 1350 Output Total 550 1775 350 Balance 3194 047 4077 Meds/Results Medications: Active Medications Generic Name Dose Route Start Last Admin Trade Name Freq PRN Reason Stop Dose Admin Acetaminophen 650 mg 03/14/20 20:26 Tylenol Tablet PO Q4H PRN Mild Pain (1-3) or Fever Escitalopram Oxalate 10 mg 03/15/20 09:00 03/16/20 09:16 Lexapro PO 10 mg DAILY LAURYN Administration Sodium Chloride 1,000 mls @ 125 mls/hr 03/14/20 16:15 03/16/20 11:55 Normal Saline Iv IV CONT Not Given .Q8H LAURYN Aztreonam 1 gm/ Dextrose 50 mls @ 100 mls/hr 03/15/20 12:00 03/16/20 15:00 IVPB Infused Q8HR LAURYN Infusion Vancomycin HCl 1,000 mg in 250 mls @ 250 mls/hr 03/15/20 12:00 03/16/20 14:27 Vancomycin 1,000 Mg/D5w 250 Ml IVPB Infused Q24H LAURYN Infusion Levothyroxine Sodium 75 mcg 03/15/20 06:30 03/16/20 05:55 Synthroid PO Not Given DAILY@0630 LAURYN Prednisone 20 mg 03/15/20 17:00 03/16/20 09:16 Prednisone PO 20 mg BID LAURYN Administration Radiology Results: ITS Impressions Head CT 03/14/20 14:26 IMPRESSION: 1. No acute intracranial abnormality. 2. Age related findings. Chest X-Ray 03/14/20 14:44 IMPRESSION: No active cardiopulmonary disease Brain MRA 03/16/20 14:35 IMPRESSION: 1. No aneurysm or significan
--- NOTE | 2020-03-16 18:09 | CONS_ITS ---
DATE OF CONSULTATION: 03/16/2020 REASON FOR CONSULTATION: Pancytopenia. HISTORY OF PRESENTING ILLNESS: This is a 69-year-old female, who was recently diagnosed with glomerulonephritis in November of 2019. The patient is a poor historian due to patient mental status at this time. History was obtained with a discussion with the nursing staff and the on the phone. According to the , patient was diagnosed with glomerulonephritis and has been treated by Dr. Cage. She was started on cyclophosphamide and the prednisone. Cyclophosphamide was discontinued 5 days ago due to improvement in the kidney function. She was on prednisone taper. She developed mental status changes with refusal to eat, depression and she got incoherent about 2 weeks ago. She also has been losing weight. She came into the ER with a blood was checked that showed WBC of 2.8 with hemoglobin of 6.1, and platelet of 48,000. She denies any bleeding. She denies any melena or hematochezia. Denies any fever, chills, or cough. She denies any shortness of breath. REVIEW OF SYSTEMS: 12-point review of system was reviewed and as per HPI, otherwise negative. PAST MEDICAL HISTORY: Chronic kidney disease, glomerulonephritis, hypothyroidism. PAST SURGICAL HISTORY: x2, cholecystectomy. FAMILY HISTORY: Positive for diabetes in the mother. SOCIAL HISTORY: Denies any history of smoking and drinking. The patient is . HOME MEDICATIONS: Reviewed. ALLERGIES: REVIEWED. PHYSICAL EXAMINATION: GENERAL: This patient is slightly disoriented. VITAL SIGNS: Per nursing note. HEENT: Normocephalic, atraumatic. Clear oropharynx. LUNGS: Clear to auscultation bilaterally. CARDIOVASCULAR: Regular rate and rhythm. No murmurs. ABDOMEN: Soft, nontender, nondistended. Bowel sounds are positive in all 4 quadrants. No hepatosplenomegaly. EXTREMITIES: No edema. NEUROLOGIC: Grossly intact. LABORATORY DATA: WBC 3.6, hemoglobin 9.8, platelet 51,000, MCV 94.4, immature granulocyte 5%, neutrophils 78%, lymphocytes 10%, reticulocyte count 3.79. D-dimer 0.93. Creatinine 0.9, iron 98, iron saturation 53%, LDH 1351, vitamin B12 963. ASSESSMENT AND PLAN: Pancytopenia. The patient has a history of glomerulonephritis diagnosed early 2019. The patient was treated with Cytoxan as well as prednisone. Cytoxan was discontinued recently due to improvement in kidney function. The patient was on prednisone taper when she developed mental status changes, confusion, depression, loss of appetite. Labs reviewed. Brain MRA showed no aneurysm or intracranial arterial stenosis. CT head was also performed that showed no intracranial pathology. I have reviewed labs. The patient does have pancytopenia with normal WBC count and no evidence of iron deficiency. LDH is elevated with normal reticulocyte percentage. Total bilirubin and liver enzymes were also normal. I am concerned about underlying bone marrow problem like leukemia with elevated immature granulocytes. I have discussed this with the and will proceed with bone marrow aspiration and biopsy. Other possible etiologies for pancytopenia could be Cytoxan-induced pancytopenia. TTP and HUS are less likely, given the fact there is no schistocytes in the peripheral smear and kidney function is normal. PNH is also consideration, but less likely. We will proceed with bone marrow aspiration and biopsy. I have answered all the patient's 's questions to his satisfaction. MONICA MARQUIS M.D. HVAC SERVICE TECHNICIAN HVAC SERVICE TECHNICIAN D I MT: Domitila
--- NOTE | 2020-03-16 18:33 | PM.IMPN ---
Progress Note: A&P Assessment and Plan (1) Encephalopathy: Code(s): G93.40 - Encephalopathy, unspecified Status: Acute Assessment and Plan: Likely secondary to anemia, metabolic, or drug induced from prednisone or cyclophosphamide. CT brain WNL. TSH B12 levels are normal (2) Pancytopenia: Code(s): D61.818 - Other pancytopenia Status: Acute Assessment and Plan: Secondary to cyclophosphamide therapy. After 2 units of packed cells hemoglobin and absolute neutrophil count well in normal range Nephrology started vancomycin heme to do bone marrow to r/o other etiologies (3) CKD (chronic kidney disease): Qualifiers: Chronic kidney disease stage: stage 3 (moderate) Qualified Code(s): N18.3 - Chronic kidney disease, stage 3 (moderate) Code(s): N18.9 - Chronic kidney disease, unspecified Status: Chronic Assessment and Plan: appears to be secondary to GN. Continue nephrology recommendations. Creatinine at 1.0 today. Holding cyclophosphamide. And prednisone decreased to 20 b.i.d. per Nephrology (4) Abnormal glucose: Code(s): R73.09 - Other abnormal glucose Status: Acute Assessment and Plan: may be prednisone induced. r/o diabetes mellitus. HgbA1c 6.3 . Accuchecks, SSI Coverage, (5) Elevated troponin: Code(s): R79.89 - Other specified abnormal findings of blood chemistry Status: Acute Assessment and Plan: No chest pain tonight. Flat response no acute coronary syndrome (6) Petechial rash: Code(s): R23.3 - Spontaneous ecchymoses Status: Acute Assessment and Plan: Secondary to thrombocytopenia. Continue serial checking bone marrow , no schistoctes to suggest TTP but elevated LDH, (7) Hypothyroidism: Qualifiers: Hypothyroidism type: unspecified Qualified Code(s): E03.9 - Hypothyroidism, unspecified Code(s): E03.9 - Hypothyroidism, unspecified Status: Chronic Assessment and Plan: Continue levothyroxine PO. TSH borderline high may need further adjustment later Subjective Date/time seen: 03/16/20 18:33 Interval history: Date of visit 03-16. 69-year-old white female with ANCA positive glomerular nephritis admitted with altered mental status, weakness, and pancytopenia. Cytoxan has been held and she received 2 units of packed cells. Today she is alert and to person only and conversant but states that she continues be very tired and continues to sleep like she has at home. Exam Narrative: Exam Narrative: Blood pressure 160/80 pulse 82 saturating 98% on room air afebrile Neck supple no adenopathy Pupils equal reactive to light sclera anicteric Lungs clear CV regular rate rhythm Abdomen soft nontender Extremities without edema distal pulses are 2+ Neuro drowsy but easily arousable, moves all extremities well with no focal deficits and responds that it is 1950! Objective Data Vital Signs Vital Signs: Vital Signs - 24 hr 03/15/20 19:51 03/15/20 20:00 03/15/20 22:00 Temperature 36.6 C Pulse Rate 79 73 91 Respiratory Rate 20 Blood Pressure 146/82 H Pulse Oximetry 97 03/16/20 00:00 03/16/20 02:00 03/16/20 04:00 Temperature 36.6 C 36.7 C Pulse Rate 87 98 81 Respiratory Rate 20 18 Blood Pressure 157/99 H 142/91 H Pulse Oximetry 94 97 03/16/20 06:00 03/16/20 08:00 03/16/20 10:00 Temperature 36.6 C Pulse Rate 79 70 88 Respiratory Rate 18 Blood Pressure 169/99 H Pulse Oximetry 100 03/16/20 12:00 03/16/20 16:00 Temperature 36.4 C L 36.3 C L Pulse Rate 86 73 Respiratory Rate 20 18 Blood Pressure 160/100 H 167/108 H Pulse Oximetry 98 Intake/Output Intake/Output: Intake & Output 03/13/20 03/14/20 03/15/20 03/16/20 23:59 23:59 23:59 23:59 Intake Total 1700 2400 2550 Output Total 550 1775 1650 Balance 1150 625 900 Meds/Results Medications: Active Medications Generic Name Dose Route Start Last Admin Trade Nam
[2020-03-17] VITALS (16 sets, daily range): BP systolic 148–163; BP diastolic 91–106; PULSE 71–96; RESP 16–22; TEMP 36.4–36.7; O2SAT 94–100
[2020-03-17] MEDS: SODIUM CHLORIDE 0.9% IV 1,000 ML 125 ML IV CONT ×3 (01:57→20:30)
[2020-03-17 04:45] LABS: Basophils Percent Auto 0.7 % (0.2-1.2); Hematocrit 28.5 % (37.0-47.0); Hemoglobin 9.2 g/dL (12.0-15.0); Immature Granulocyte Absolute 0.15 K/mm3 (0.00-0.031); Immature Platelet Fraction Pct 0.8 % (0.9-11.2); Lymphocytes Absolute Auto 0.36 K/mm3 (0.9-3.2); Mean Corpuscular HGB Conc 32.3 g/dl (32-36); Mean Corpuscular Hemoglobin 30.5 pg (26-34); Mean Corpuscular Volume 94.4 fl (80-100); Mean Platelet Volume 8.9 fl (7.4-10.4); Monocytes Absolute Auto 0.2 K/mm3 (0.1-0.6); Monocytes Percent Auto 7.3 % (2.6-8.5); Neutrophils Absolute Auto 2.3 K/mm3 (1.3-6.7); Platelet Count Result 54 k/mm3 (150-375); Red Blood Count 3.02 M/mm3 (4.2-5.4); Red Cell Distribution Width 22.6 % (11.5-14.5)
[2020-03-17 04:56] LABS: Alanine Aminotransferase 28 U/L (4-35); Albumin Level 2.6 g/dL (3.5-5.1); Alkaline Phosphatase 66 U/L (38-126); Aspartate Amino Transferase 25 U/L (14-36); Bilirubin,Total 0.5 mg/dL (0.2-1.3); Blood Urea Nitrogen 15 mg/dL (7-17); Carbon Dioxide 23 mmol/L (22-30); Chloride 113 mmol/L (98-107); Estimated CRCL calculation 50 ml/min; Estimated Glomerular Filt Rate > 60; Glucose 95 mg/dL (65-105); Lactate Dehydrogenase 1282 U/L (313-618); Potassium 3.8 mmol/L (3.4-5.0); Sodium 138 mmol/L (137-145)
[2020-03-17] MEDS: AZTREONAM 1 GM in DEXTROSE 5% IN WATER 50 ML IVPB ×3 (05:55→20:28)
[2020-03-17] MEDS: LEVOTHYROXINE SODIUM 75 MCG TABLET PO (05:56)
--- NOTE | 2020-03-17 08:00 | NEURO_ITS ---
TEST: ELECTROENCEPHALOGRAM DIAGNOSIS: ALTERED MENTAL STATUS PATIENT NUMBER: [id number] EEG NUMBER: [id number] RECORDING DATE: 03/17/20 CONDITION OF RECORDING: Drowsy and sleep EEG DESCRIPTION: Record consists of low to medium voltage 5-7hz theta mixed with low voltage waxing and waning alpha and 15-21hz beta during drowsiness. Bilateral symmetrical sleep activity is seen during sleep. Hyperventilation and photic stimulation were not done. Nonparoxysmal. Nonfocal. Nonlateralizing. IMPRESSION: No significant abnormalities noted. MTDD
[2020-03-17] MEDS: predniSONE 20 MG TABLET PO ×2 (09:35→15:59)
[2020-03-17] MEDS: ESCITALOPRAM OXALATE 10 MG TABLET PO (09:35)
[2020-03-17 10:34] LABS: Hematocrit 29.1 % (37.0-47.0); Hemoglobin 9.8 g/dL (12.0-15.0)
--- NOTE | 2020-03-17 11:37 | PCOTNOTE ---
Attempted to work with patient for skilled OT this date. Initially, patient agreeable to participate in sponge bathing seated EOB and then sitting up in chair near bed side. However, during few minutes therapist spent to gather supplies, when therapist returned, patient declined to participate in sponge bath. Patient educated over importance of participating in therapy in order to go home, however, patient stated, I don't think I'm ever gonna go home, so why it doesn't even matter? Patient still very confused. Patient declined to participate in any other activities. Patient not seen for OT.
--- NOTE | 2020-03-17 11:43 | P.PNNP_ITS ---
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 * creatinine is normal following use of cytoxan and prednisone * still with a bit of protein and blood in the urine which can take longer to resolve * holding cytoxan and weaning prednisone given current medical issues * continue supportive therapy (2) Encephalopathy: Code(s): G93.40 - Encephalopathy, unspecified Status: Acute Assessment and Plan: * etiology of this is unclear * seems less likely her vasculitis given that it is improving * infection?? -- on antibiotics * medications?? * Neurology recommendations noted (3) Abnormal glucose: Code(s): R73.09 - Other abnormal glucose Status: Acute Assessment and Plan: * presumably from steroids * will cut back the dosage and wean (4) Pancytopenia: Code(s): D61.818 - Other pancytopenia Status: Acute Assessment and Plan: * from cytoxan?? * somewhat surprising since she was on such a low dose * PRBC transfusion for anemia -- H/H better * Dr. Strauss recommendations noted -- plan for bone marrow biopsy (5) Protein malnutrition: Code(s): E46 - Unspecified protein-calorie malnutrition Status: Acute Assessment and Plan: * albumin low * due to poor intake * liberalize diet Will continue to follow Subjective Date/time seen: 03/17/20 11:43 Still quite sleepy and conversant with stimulation; oriented 1 - 2 at the time of my visit; no apparent distress noted. Exam Narrative: Exam Narrative: General: WD/WN female in NAD Heart: normal S1 and S2; no rub Lungs: clear to auscultation Abdomen: soft, nontender, nondistended, positive bowel sounds Extremities: no cyanosis or clubbing; no edema Skin: warm and intact Objective Data Vital Signs Vital Signs: Vital Signs Temp Pulse Resp BP Pulse Ox 03/17/20 10:00 81 03/17/20 08:00 36.5 C 93 18 161/100 H 100 03/17/20 06:00 78 03/17/20 04:00 36.6 C 78 20 160/98 H 94 03/17/20 02:00 81 03/17/20 00:00 71 03/16/20 23:45 36.6 C 99 20 150/90 H 96 03/16/20 22:00 88 03/16/20 20:00 69 03/16/20 19:25 36.6 C 81 20 152/92 H 97 03/16/20 16:00 36.3 C L 73 18 167/108 H 03/16/20 12:00 36.4 C L 86 20 160/100 H 98 Intake/Output Intake/Output: Intake & Output 03/14/20 03/15/20 03/16/20 03/17/20 23:59 23:59 23:59 23:59 Intake Total 1700 2400 2550 1100 Output Total 550 1775 1650 Balance 1150 500 441 3041 Meds/Results Medications: Active Medications Generic Name Dose Route Start Last Admin Trade Name Freq PRN Reason Stop Dose Admin Acetaminophen 650 mg 03/14/20 20:26 Tylenol Tablet PO Q4H PRN Mild Pain (1-3) or Fever Escitalopram Oxalate 10 mg 03/15/20 09:00 03/17/20 09:35 Lexapro PO 10 mg DAILY LAURYN Administration
--- NOTE | 2020-03-17 11:43 | PM.PNNEP ---
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 -- on antibiotics medications?? Neurology recommendations noted (3) Abnormal glucose: Code(s): R73.09 - Other abnormal glucose Status: Acute Assessment and Plan: presumably from steroids will cut back the dosage and wean (4) Pancytopenia: Code(s): D61.818 - Other pancytopenia Status: Acute Assessment and Plan: from cytoxan?? somewhat surprising since she was on such a low dose PRBC transfusion for anemia -- H/H better Dr. Strauss recommendations noted -- plan for bone marrow biopsy (5) Protein malnutrition: Code(s): E46 - Unspecified protein-calorie malnutrition Status: Acute Assessment and Plan: albumin low due to poor intake liberalize diet Will continue to follow Subjective Date/time seen: 03/17/20 11:43 Still quite sleepy and conversant with stimulation; oriented 1 - 2 at the time of my visit; no apparent distress noted. Exam Narrative: Exam Narrative: General: WD/WN female in NAD Heart: normal S1 and S2; no rub Lungs: clear to auscultation Abdomen: soft, nontender, nondistended, positive bowel sounds Extremities: no cyanosis or clubbing; no edema Skin: warm and intact Objective Data Vital Signs Vital Signs: Vital Signs Temp Pulse Resp BP Pulse Ox 03/17/20 10:00 81 03/17/20 08:00 36.5 C 93 18 161/100 H 100 03/17/20 06:00 78 03/17/20 04:00 36.6 C 78 20 160/98 H 94 03/17/20 02:00 81 03/17/20 00:00 71 03/16/20 23:45 36.6 C 99 20 150/90 H 96 03/16/20 22:00 88 03/16/20 20:00 69 03/16/20 19:25 36.6 C 81 20 152/92 H 97 03/16/20 16:00 36.3 C L 73 18 167/108 H 03/16/20 12:00 36.4 C L 86 20 160/100 H 98 Intake/Output Intake/Output: Intake & Output 03/14/20 03/15/20 03/16/20 03/17/20 23:59 23:59 23:59 23:59 Intake Total 1700 2400 2550 1100 Output Total 550 1775 1650 Balance 1150 958 584 5696 Meds/Results Medications: Active Medications Generic Name Dose Route Start Last Admin Trade Name Freq PRN Reason Stop Dose Admin Acetaminophen 650 mg 03/14/20 20:26 Tylenol Tablet PO Q4H PRN Mild Pain (1-3) or Fever Escitalopram Oxalate 10 mg 03/15/20 09:00 03/17/20 09:35 Lexapro PO 10 mg DAILY LAURYN Administration Sodium Chloride 1,000 mls @ 125 mls/hr 03/14/20 16:15 03/17/20 01:57 Normal Saline Iv IV CONT 125 mls/hr .Q8H LAURYN Administration Aztreonam 1 gm/ Dextrose 50 mls @ 100 mls/hr 03/15/20 12:00 03/17/20 07:50 IVPB Infused Q8HR LAURYN Infusion Vancomycin HCl 1,000 mg in 250 mls @ 250 mls/hr 03/15/20 12:00 03/16/20 14:27 Vancomycin 1,000 Mg/D5w 250 Ml IVPB Infused Q24H LAURYN Infusion Levothyroxine Sodium 75 mcg 03/15/20 06:30 03/17/20 05:56 Synthroid PO 75 mcg DAILY@0630 LAURYN Administration Prednisone 20 mg 03/15/20 17:00 03/17/20 09:35 Prednisone PO 20 mg BID LAURYN Administration Radiology Results: ITS Impressions Head CT 03/14/20 14:26 IMPRESSION: 1. No acute intracranial abnormality. 2. Age rela
[2020-03-17 13:04] LABS: Vitamin B6 7.4 ng/mL (2.1-21.7)
--- NOTE | 2020-03-17 13:16 | PC.NURSE ---
Patient left floor for MRI, saline locked. 13:16
--- NOTE | 2020-03-17 14:33 | PC.NURSE ---
Patient returned from MRI at 13:59
--- NOTE | 2020-03-17 15:43 | WPDONCPN ---
Progress Note: A/P - Additional Plan Pancytopenia. Patient was on Cytoxan for glomerulonephritis but at the low dose. Bone marrow biopsy has been ordered for tomorrow morning. I have discussed this case with the in detail. Labs noted and remains unchanged. Glomerulonephritis. Nephrology input noted. He had Cytoxan has been discontinued. Mental status changes. MRI showed encephalopathy since likely secondary to viral encephalitis versus PML. Patient was on immunosuppressive therapy for the glomerulonephritis. - Time Spent With Patient Total time spent is greater than 50% in coordination of care (as documented) at patient's floor/unit and/or counseling patient: 15 - 25 minutes Subjective Interval history: Pancytopenia Glomerulonephritis Mental status changes secondary to encephalopathy Review of Systems - Review of Systems Patient remains quite sedated but looks comfortable. No fevers and chills. No cough no signs of infection. - Neurologic Reports system reviewed and no additional complaints, except as documented Exam Vital signs: Temp Pulse Resp BP Pulse Ox 36.7 C 85 20 149/91 H 100 03/17/20 11:50 03/17/20 14:00 03/17/20 11:50 03/17/20 11:50 03/17/20 11:50 Narrative: Lungs are clear to auscultation bilaterally Cardiovascular regular rate rhythm no murmurs Abdomen soft nontender nondistended Extremities no edema PN: Objective Data - Labs CBC & Chem 7: 03/17/20 10:28 03/17/20 04:27 Labs: Laboratory Results - last 24 hr 03/14/20 03/17/20 03/17/20 16:40 04:27 04:27 WBC 3.0 L RBC 3.02 L Hgb 9.2 L Hct 28.5 L MCV 94.4 MCH 30.5 MCHC 32.3 RDW 22.6 H Plt Count 54 L MPV 8.9 Immature Gran % (Auto) 5.0 H Neut % (Auto) 75.0 H Lymph % (Auto) 12.0 L [place] % (Auto) 7.3 Eos % (Auto) 0.0 Baso % (Auto) 0.7 Lymph # (Auto) 0.36 L [place] # (Auto) 0.2 Eos # (Auto) 0.0 Baso # (Auto) 0.0 Abs Immat Gran (auto) 0.15 H Absolute Neuts (auto) 2.3 Absolute Nucleated RBC 0.0 Nucleated RBC % 0.0 % Immature Plt Fraction 0.8 L Sodium 138 Potassium 3.8 Chloride 113 H Carbon Dioxide 23 BUN 15 Creatinine 0.70 Estim Creat Clear Calc 50 Estimated GFR > 60 Glucose 95 Calcium 7.0 L Total Bilirubin 0.5 AST 25 ALT 28 Alkaline Phosphatase 66 Lactate Dehydrogenase 1282 H Total Protein 5.0 L Albumin 2.6 L Vitamin B6 7.4 03/17/20 10:28 WBC RBC Hgb 9.8 L Hct 29.1 L MCV MCH MCHC RDW Plt Count MPV Immature Gran % (Auto) Neut % (Auto) Lymph % (Auto) [place] % (Auto) Eos % (Auto) Baso % (Auto) Lymph # (Auto) [place] # (Auto) Eos # (Auto) Baso # (Auto) Abs Immat Gran (auto) Absolute Neuts (auto) Absolute Nucleated RBC Nucleated RBC % % Immature Plt Fraction Sodium Potassium Chloride Carbon Dioxide BUN Creatinine Estim Creat Clear Calc Estimated GFR Glucose Calcium Total Bilirubin AST ALT Alkaline Phosphatase Lactate Dehydrogenase Total Protein Albumin Vitamin B6
--- NOTE | 2020-03-17 16:46 | PM.IMPN ---
Progress Note: A&P Assessment and Plan (1) Encephalopathy: Code(s): G93.40 - Encephalopathy, unspecified Status: Acute Assessment and Plan: Brain MRI showing abnormal signal in the thalami, scattered subcortical white matter and cerebellar white matter. Nonspecific encephalopathy with differential diagnosis including PML, viral encephalopathy, acute necrotizing encephalitis, or PRES. Discussed with radiology. Certain chemo agents can also cause this type of find. Cytoxan has been stopped. Mental status improving. Neurology is following. Continue to monitor for now. Discussed with patient's (2) Pancytopenia: Code(s): D61.818 - Other pancytopenia Status: Acute Assessment and Plan: Secondary to cyclophosphamide therapy. WBC 3.0 today with ANC 2250 Hgb 6.1 on admission; After 2 units of PRBC, Hgb running 9-10 range and stable Plt count running 40-50K range Nephrology started vancomycin and Aztreonam. CXR clear, UCx negative, BCx NGTD. H/O following as well and appreciate all involved. (3) CKD (chronic kidney disease): Qualifiers: Chronic kidney disease stage: stage 3 (moderate) Qualified Code(s): N18.3 - Chronic kidney disease, stage 3 (moderate) Code(s): N18.9 - Chronic kidney disease, unspecified Status: Chronic Assessment and Plan: Laura has CKD but currently, Cr running normal. 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 Nephrology following and appreciate their recommendations. Holding cyclophosphamide and prednisone has been decreased to 20 b.i.d. (4) Abnormal glucose: Code(s): R73.09 - Other abnormal glucose Status: Acute Assessment and Plan: A1c 6.3. Glucose elevated at 191 on admission and may be prednisone induced. Fasting glucose okay. (5) Elevated troponin: Code(s): R79.89 - Other specified abnormal findings of blood chemistry Status: Acute Assessment and Plan: No complaints of chest pain. Trop 0.036 on admission and climbed to 0.171. Will repeat Troponin. (6) Petechial rash: Code(s): R23.3 - Spontaneous ecchymoses Status: Acute Assessment and Plan: Secondary to thrombocytopenia. (7) Hypothyroidism: Qualifiers: Hypothyroidism type: unspecified Qualified Code(s): E03.9 - Hypothyroidism, unspecified Code(s): E03.9 - Hypothyroidism, unspecified Status: Chronic Assessment and Plan: TSH 4.72. Continue levothyroxine PO. Subjective Date/time seen: 03/17/20 16:46 Interval history: Date of visit 03-17. 69yo female with ANCA positive glomerular nephritis admitted with altered mental status, weakness, and pancytopenia. Cytoxan has been held and she received 2 units of packed cells. Assuming care. Chart reviewed. Patient is alert but mildly confused. She denies any chest pain, abdominal pain, palpitations or cough. No shortness of breath or headache. No nausea, vomiting or diarrhea. She is not eating well but cannot describe why. Exam Narrative: Exam Narrative: AF 97.5 148/97 96 22 94% Gen - NARD Chest - CTA bilaterally, nml RR CV - RRR S1/S2; telemetry showing no significant dysrhythmias. Abd - Soft, NT/ND, Positive BS Ext - No pedal edema. 2+ DP pulses bilaterally. Neuro -alert and oriented x3 (except month). Psych -normal mood but flat affect Skin -multiple petechiae mostly in the chest and abdomen Objective Data Vital Signs Vital Signs: Vital Signs - 24 hr 03/16/20 19:25 03/16/20 20:00 03/16/20 22:00 Temperature 97.8 F Pulse Rate 81 69 88 Respiratory Rate 20 Blood Pressure 152/92 H Pulse Oximetry 97 03/16/20 23:45 03/17/20 00:00 03/17/20 02:00 Temperature 97.9 F Pulse Rate 99 71 81 Respiratory Rate 20 Blood Pressure 150/90 H Pulse Oximetry 96 03/17/20 04:00 03/17/20 06:00 03/17/20 08:00 Temperature 97.9 F 97.7 F Pulse Rate 78 78 93 Respiratory
[2020-03-18] VITALS (16 sets, daily range): BP systolic 148–175; BP diastolic 90–101; PULSE 63–108; RESP 16–24; TEMP 35.9–36.6; O2SAT 97–100
[2020-03-18 04:40] LABS: Basophils Percent Auto 0.6 % (0.2-1.2); Hematocrit 27.4 % (37.0-47.0); Hemoglobin 9.1 g/dL (12.0-15.0); Immature Granulocyte Absolute 0.17 K/mm3 (0.00-0.031); Immature Granulocyte Percent A 5.5 % (0-0.5); Immature Platelet Fraction Pct 1.1 % (0.9-11.2); Lymphocytes Absolute Auto 0.35 K/mm3 (0.9-3.2); Lymphocytes Percent Auto 11.4 % (18.3-44.2); Mean Corpuscular HGB Conc 33.2 g/dl (32-36); Mean Corpuscular Hemoglobin 30.8 pg (26-34); Mean Corpuscular Volume 92.9 fl (80-100); Mean Platelet Volume 8.9 fl (7.4-10.4); Monocytes Absolute Auto 0.3 K/mm3 (0.1-0.6); Monocytes Percent Auto 8.4 % (2.6-8.5); Neutrophils Absolute Auto 2.3 K/mm3 (1.3-6.7); Neutrophils Percent Auto 74.1 % (45.5-73.1); Platelet Count Result 61 k/mm3 (150-375); Red Blood Count 2.95 M/mm3 (4.2-5.4); Red Cell Distribution Width 21.8 % (11.5-14.5); White Blood Count 3.1 K/mm3 (4.5-10.0)
[2020-03-18 04:55] LABS: Albumin Level 2.7 g/dL (3.5-5.1); Blood Urea Nitrogen 13 mg/dL (7-17); Calcium 7.1 mg/dL (8.4-10.2); Carbon Dioxide 20 mmol/L (22-30); Chloride 111 mmol/L (98-107); Estimated CRCL calculation 44 ml/min; Estimated Glomerular Filt Rate > 60; Glucose 79 mg/dL (65-105); Lactate Dehydrogenase 1190 U/L (313-618); Phosphorus 2.1 mg/dL (2.5-4.5); Sodium 137 mmol/L (137-145)
[2020-03-18 05:10] LABS: Troponin I 0.058 ng/mL (0.000-0.034)
[2020-03-18 05:26] LABS: Hypochromasia 1+ (NORMAL); Platelet Estimate Decreased (Adequate)
[2020-03-18 05:29] LABS: Macrocytosis 1+ (NORMAL)
[2020-03-18] MEDS: SODIUM CHLORIDE 0.9% IV 1,000 ML 125 ML IV CONT (05:33)
[2020-03-18] MEDS: AZTREONAM 1 GM in DEXTROSE 5% IN WATER 50 ML IVPB ×3 (05:34→20:19)
[2020-03-18] MEDS: ESCITALOPRAM OXALATE 10 MG TABLET PO (07:54)
[2020-03-18] MEDS: predniSONE 20 MG TABLET PO ×2 (07:54→17:15)
--- NOTE | 2020-03-18 09:19 | PCPTNOTE ---
Attempted therapy session. Pt out of room for a bone marrow sample. Will attempt again.
--- NOTE | 2020-03-18 10:28 | PM.CNNEP ---
History of Present Illness Reason for Consult Consult date: 03/18/20 Chief Complaint Chief complaint: PANCYTOPENIA AND CONFUSION PMFSH Past Medical History Medical History CKD (chronic kidney disease) Glomerulonephritis Hypothyroidism Surgical History Surgical History History of 2 sections History of cholecystectomy Family History Family History Mother Diabetes mellitus Social History Social History Smoking status: Unknown if ever smoked Alcohol intake: never Substance use: never Gender identity (if verbalized by the patient): Female Spiritual care concerns: No Meds Home Medications and Allergies Home Medications Medication Instructions Recorded Confirmed Type cyclophosphamide 50 mg PO DAILY 03/14/20 03/14/20 History escitalopram oxalate 10 mg PO DAILY 03/14/20 03/14/20 History levothyroxine 75 mcg PO DAILY 03/14/20 03/14/20 History prednisone 40 mg PO BID 03/14/20 03/14/20 History Allergies Allergy/AdvReac Type Severity Reaction Status Date / Time Penicillins Allergy Unknown Verified 03/14/20 14:06 Vital Signs Vital Signs Temp Pulse Resp BP Pulse Ox 03/18/20 07:55 36.3 C L 86 24 H 148/92 H 100 03/18/20 06:00 70 03/18/20 04:18 36.5 C 81 16 175/101 H 97 03/18/20 04:00 63 03/18/20 02:00 78 03/18/20 00:00 86 03/17/20 23:56 36.5 C 85 16 163/106 H 99 03/17/20 22:00 86 03/17/20 20:00 82 03/17/20 19:50 36.4 C L 85 16 152/102 H 98 03/17/20 18:00 85 03/17/20 16:00 96 03/17/20 15:56 36.4 C L 78 22 H 148/97 H 94 03/17/20 14:00 85 03/17/20 12:00 75 03/17/20 11:50 36.7 C 86 20 149/91 H 100 Results Lab Results Result Diagrams: 03/18/20 04:08 03/18/20 04:08 Lab results: Most recent lab results Calcium 7.1 mg/dL (8.4-10.2) L 03/18/20 04:08 Phosphorus 2.1 mg/dL (2.5-4.5) L 03/18/20 04:08 Magnesium 2.0 mg/dL (1.6-2.3) 03/14/20 14:45 Magnesium Cancelled 03/14/20 14:45
[2020-03-18] MEDS: KCL 20 MEQ/D5/0.9% SOD CHL 1,000 ML 70 ML IV CONT ×2 (10:29→20:19)
[2020-03-18] MEDS: POTASSIUM/PHOSPHORUS/SODIUM 1.5 GM PACKET 1 PACKET PO (10:30)
--- NOTE | 2020-03-18 11:48 | WPDNEUROPN ---
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: Code(s): N05.9 - Unspecified nephritic syndrome with unspecified morphologic changes; I77.89 - Other specified disorders of arteries and arterioles Status: Acute (2) Encephalopathy: Code(s): G93.40 - Encephalopathy, unspecified Status: Acute (3) Petechial rash: Code(s): R23.3 - Spontaneous ecchymoses Status: Acute (4) Elevated troponin: Code(s): R79.89 - Other specified abnormal findings of blood chemistry Status: Acute (5) Abnormal glucose: Code(s): R73.09 - Other abnormal glucose Status: Acute (6) CKD (chronic kidney disease): Qualifiers: Chronic kidney disease stage: stage 3 (moderate) Qualified Code(s): N18.3 - Chronic kidney disease, stage 3 (moderate) Code(s): N18.9 - Chronic kidney disease, unspecified Status: Chronic (7) Glomerulonephritis: Code(s): N05.9 - Unspecified nephritic syndrome with unspecified morphologic changes Status: Acute (8) Pancytopenia: Code(s): D61.818 - Other pancytopenia Status: Acute (9) Chronic renal insufficiency: Qualifiers: Chronic kidney disease stage: unspecified stage Qualified Code(s): N18.9 - Chronic kidney disease, unspecified Code(s): N18.9 - Chronic kidney disease, unspecified Status: Acute (10) Protein malnutrition: Code(s): E46 - Unspecified protein-calorie malnutrition Status: Acute (11) Positive D dimer: Code(s): R79.89 - Other specified abnormal findings of blood chemistry Status: Acute (12) Non-ST elevated myocardial infarction (non-STEMI): Code(s): I21.4 - Non-ST elevation (NSTEMI) myocardial infarction Status: Acute (13) Hypothyroidism: Qualifiers: Hypothyroidism type: unspecified Qualified Code(s): E03.9 - Hypothyroidism, unspecified Code(s): E03.9 - Hypothyroidism, unspecified Status: Chronic (14) Petechiae: Code(s): R23.3 - Spontaneous ecchymoses Status: Acute (15) Confusion: Code(s): R41.0 - Disorientation, unspecified Status: Acute (16) Renal failure: Code(s): N19 - Unspecified kidney failure Status: Acute Additional Plan reviewed treatment noted ,unchanged at present Exam Const: General: cooperative, comfortable and no acute distress Orientation/consciousness: oriented to person and oriented to place Limitations: no limitations Eyes: General: appearance normal, both eyes and all related structures Neck: Neck: normal visual inspection, full ROM and no lymphadenopathy Resp: Effort & Inspection: normal respiratory effort and able to speak in complete sentences Cardio: Rate: regular rate GI: Auscultation: normal bowel sounds Skin: General skin exam: no rashes or lesions noted Neuro: General: oriented to person, oriented to place, moves all extremities, no meningeal signs, no focal motor deficits and CN's II-XI intact bilaterally Cranial nerves: Yes Equal, round and reactive pupils present, Yes Bilaterally intact EOM present, Yes Nystagmus not present, Yes Normal facial strength present, Yes facial symmetry, Yes Midline tongue present and Yes Ability to bilaterally rotate head present Cognition (Neuro): normal cognition Speech: normal speech Motor exam (neuro): Pronator motor function not present Sensory Exam: normal sensation Deep tendon reflexes (DTR's): Right triceps reflex intensity grade: 1+, Left triceps reflex intensity grade: 1+, Rt Biceps (C5, C6): 1+, Left biceps reflex intensity grade: 1+, Right brachioradialis reflex intensity grade: 1+, Left brachioradialis reflex intensity grade: 1+, Right patellar reflex intensity grade: 1+, Left patellar reflex intensity grade: 1+, Right ankle reflex intensity grade: 1+ and Left ankle reflex intensity grade: 1+ Plantar Reflex Respon
[2020-03-18 12:32] LABS: Vancomycin Trough 12.3 ug/mL (10.0-20.0)
--- NOTE | 2020-03-18 16:30 | PM.IMPN ---
Progress Note: A&P Assessment and Plan (1) Encephalopathy: Code(s): G93.40 - Encephalopathy, unspecified Status: Acute Assessment and Plan: Brain MRI showing abnormal signal in the thalami, scattered subcortical white matter and cerebellar white matter. Nonspecific encephalopathy with differential diagnosis including PML, viral encephalopathy, acute necrotizing encephalitis, or PRES. Cytoxan stopped. Mental status improving. Neurology is following. Continue to monitor for now. (2) Pancytopenia: Code(s): D61.818 - Other pancytopenia Status: Acute Assessment and Plan: Secondary to cyclophosphamide therapy. WBC 3.1 today with ANC 2300 Hgb 6.1 on admission; After 2 units of PRBC, Hgb running 9-10 range and stable Plt count running 40-50K range past few days but better today at 61K Nephrology started vancomycin and Aztreonam. CXR clear, UCx negative, BCx NGTD. H/O following as well and appreciate all involved. (3) CKD (chronic kidney disease): Qualifiers: Chronic kidney disease stage: stage 3 (moderate) Qualified Code(s): N18.3 - Chronic kidney disease, stage 3 (moderate) Code(s): N18.9 - Chronic kidney disease, unspecified Status: Chronic Assessment and Plan: Laura has CKD but currently, Cr running normal. 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 Nephrology following and appreciate their recommendations. Holding cyclophosphamide; prednisone has been decreased to 20 b.i.d. Appetite poor. Supplements ordered. (4) Abnormal glucose: Code(s): R73.09 - Other abnormal glucose Status: Acute Assessment and Plan: A1c 6.3. Glucose elevated at 191 on admission and may be prednisone induced. Fasting glucose normal today. (5) Elevated troponin: Code(s): R79.89 - Other specified abnormal findings of blood chemistry Status: Acute Assessment and Plan: No complaints of chest pain. Trop 0.036 on admission and climbed to 0.171 but back down on repeat to 0.06. Probably related to cardiac strain from the severe anemia. (6) Petechial rash: Code(s): R23.3 - Spontaneous ecchymoses Status: Acute Assessment and Plan: Secondary to thrombocytopenia. As above (7) Hypothyroidism: Qualifiers: Hypothyroidism type: unspecified Qualified Code(s): E03.9 - Hypothyroidism, unspecified Code(s): E03.9 - Hypothyroidism, unspecified Status: Chronic Assessment and Plan: TSH 4.72. Continue levothyroxine PO. Additional Plan Hypokalemia with hypophos - Will replace and start maintenance IVF. Follow levels. Subjective Date/time seen: 03/18/20 16:30 Interval history: 69yo female with ANCA positive glomeruler nephritis admitted with altered mental status, weakness, and pancytopenia. Cytoxan has been held and she received 2 units of packed cells. She feels better. She is not eating much. She denies CP or abd pain. No SOB. Not out of bed. Exam Narrative: Exam Narrative: AF 97.2 [id number] 88 20 100% Gen - NARD lying almost flat in bed Chest - CTA bilaterally, nml RR CV - RRR S1/S2; telemetry showing occasional sinus tachycardia but otherwise no significant dysrhythmias. Abd - Soft, NT/ND, Positive BS Ext - No pedal edema. Neuro -alert and oriented x4 but still confused (thought her bx was 2 days ago). Psych -normal mood; more animated today Skin -multiple petechiae diffusely but with coalescing in the chest wall. Objective Data Vital Signs Vital Signs: Vital Signs - 24 hr 03/17/20 18:00 03/17/20 19:50 03/17/20 20:00 Temperature 97.5 F L Pulse Rate 85 85 82 Respiratory Rate 16 Blood Pressure 152/102 H Pulse Oximetry 98 03/17/20 22:00 03/17/20 23:56 03/18/20 00:00 Temperature 97.7 F Pulse Rate 86 85 86 Respiratory Rate 16 Blood Pressure 163/106 H Pulse Oximetry 99 03/18/20 02:00 03/18/20 04:00 03/18/20 04:18 Temp
--- NOTE | 2020-03-18 16:31 | WPDONCPN ---
Progress Note: A/P - Additional Plan Pancytopenia. Bone marrow biopsy was performed today and pathology is pending. Labs noted. Platelet slightly improved. No need for transfusion. Glomerulonephritis. Cytoxan has been discontinued. Kidney function remains normal. Mental status changes. This has much improved today. Neurology is following the patient. - Time Spent With Patient Total time spent is greater than 50% in coordination of care (as documented) at patient's floor/unit and/or counseling patient: 15 - 25 minutes Subjective Interval history: Pancytopenia Glomerulonephritis Mental status changes secondary to encephalopathy Review of Systems - Review of Systems Patient is much more awake and alert today. She denies any fevers and chills .Left upper extremity bleeding. Denies any headache. Remains tired and fatigued. - Neurologic Reports system reviewed and no additional complaints, except as documented Exam Vital signs: Katlyn Melo. Assessment of coma and impaired consciousness. A practical scale. Lancet 1974; 2:81-4. Narrative: Lungs are clear to auscultation bilaterally Cardiovascular regular rate rhythm no murmurs Abdomen soft nontender nondistended bowel sounds are positive Extremities no edema there is some bleeding from the left upper extremity skin is noted. PN: Objective Data - Labs CBC & Chem 7: 03/18/20 04:08 03/18/20 04:08 Labs: Laboratory Results - last 24 hr 03/18/20 03/18/20 03/18/20 04:08 04:08 04:08 WBC 3.1 L RBC 2.95 L Hgb 9.1 L Hct 27.4 L MCV 92.9 MCH 30.8 MCHC 33.2 RDW 21.8 H Plt Count 61 L MPV 8.9 Immature Gran % (Auto) 5.5 H Neut % (Auto) 74.1 H Lymph % (Auto) 11.4 L [place] % (Auto) 8.4 Eos % (Auto) 0.0 Baso % (Auto) 0.6 Lymph # (Auto) 0.35 L [place] # (Auto) 0.3 Eos # (Auto) 0.0 Baso # (Auto) 0.0 Abs Immat Gran (auto) 0.17 H Absolute Neuts (auto) 2.3 Absolute Nucleated RBC 0.0 Nucleated RBC % 0.0 Platelet Estimate Decreased % Immature Plt Fraction 1.1 Hypochromasia 1+ Macrocytosis 1+ Sodium 137 Potassium 3.0 L Chloride 111 H Carbon Dioxide 20 L BUN 13 Creatinine 0.80 Estim Creat Clear Calc 44 Estimated GFR > 60 Glucose 79 Calcium 7.1 L Phosphorus 2.1 L Ferritin 809.00 H Lactate Dehydrogenase 1190 H Troponin I 0.058 H* C-Reactive Protein 1.0 Albumin 2.7 L Vancomycin Trough 03/18/20 10:47 WBC RBC Hgb Hct MCV MCH MCHC RDW Plt Count MPV Immature Gran % (Auto) Neut % (Auto) Lymph % (Auto) [place] % (Auto) Eos % (Auto) Baso % (Auto) Lymph # (Auto) [place] # (Auto) Eos # (Auto) Baso # (Auto) Abs Immat Gran (auto) Absolute Neuts (auto) Absolute Nucleated RBC Nucleated RBC % Platelet Estimate % Immature Plt Fraction Hypochromasia Macrocytosis Sodium Potassium Chloride Carbon Dioxide BUN Creatinine Estim Creat Clear Calc Estimated GFR Glucose Calcium Phosphorus Ferritin Lactate Dehydrogenase Troponin I C-Reactive Protein Albumin Vancomycin Trough 12.3
--- NOTE | 2020-03-18 18:29 | P.PNNP_ITS ---
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 * creatinine is normal following use of cytoxan and prednisone * still with a bit of protein and blood in the urine which can take longer to resolve * holding cytoxan and weaning prednisone given current medical issues * continue supportive therapy (2) Encephalopathy: Code(s): G93.40 - Encephalopathy, unspecified Status: Acute Assessment and Plan: * etiology of this is unclear * mental staus is improving * seems less likely her vasculitis given that it is improving prior to admission * Neurology recommendations noted * MRI of brain noted * continue supportive therapy (3) Abnormal glucose: Code(s): R73.09 - Other abnormal glucose Status: Acute Assessment and Plan: * presumably from steroids * will cut back the dosage and wean (4) Pancytopenia: Code(s): D61.818 - Other pancytopenia Status: Acute Assessment and Plan: * from cytoxan?? * somewhat surprising since she was on such a low dose * PRBC transfusion for anemia -- H/H better * s/p bone marrow biopsy today * Dr. Strauss following (5) Hypertension: Code(s): I10 - Essential (primary) hypertension Status: Acute Assessment and Plan: * never an issue previously * given her history of #1 and proteinuria, consider adding TRISTEN-I * follow trend of hemodynamics (6) Protein malnutrition: Code(s): E46 - Unspecified protein-calorie malnutrition Status: Acute Assessment and Plan: * albumin low * due to poor intake * liberalize diet Will continue to follow Subjective Date/time seen: 03/18/20 18:29 Status post bone marrow biopsy today; mental status seems to be improving in general; appetite still remains suboptimal; no other acute issues or problems to report at this time. Exam Narrative: Exam Narrative: General: WD/WN female in NAD Heart: normal S1 and S2; no rub Lungs: clear to auscultation Abdomen: soft, nontender, nondistended, positive bowel sounds Extremities: no cyanosis or clubbing; no edema Skin: warm and dry Objective Data Vital Signs Vital Signs: Vital Signs Temp Pulse Resp BP Pulse Ox 03/18/20 16:22 36.2 C L 88 20 148/90 H 100 03/18/20 16:00 106 H 03/18/20 14:00 95 03/18/20 12:00 103 H 03/18/20 11:46 35.9 C L 107 H 22 H 152/94 H 99 03/18/20 10:00 102 H 03/18/20 08:00 85 03/18/20 07:55 36.3 C L 86 24 H 148/92 H 100 03/18/20 06:00 70 03/18/20 04:18 36.5 C 81 16 175/101 H 97 03/18/20 04:00 63 03/18/20 02:00 78 03/18/20 00:00 86 03/17/20 23:56 36.5 C 85 16 163/106 H 99 03/17/20 22:00 86 03/17/20 20:00 82 03/17/20 19:50 36.4 C L 85 16 152/102 H 98 Intake/Output Intake/Output: Intake & Output 03/15/20 03/16/20 03/17/20 03/18/20 23:59 23:59 23:59 23:59 Intake Total 2400 255
--- NOTE | 2020-03-18 18:29 | PM.PNNEP ---
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 creatinine is normal following use of cytoxan and prednisone still with a bit of protein and blood in the urine which can take longer to resolve holding cytoxan and weaning prednisone given current medical issues continue supportive therapy (2) Encephalopathy: Code(s): G93.40 - Encephalopathy, unspecified Status: Acute Assessment and Plan: etiology of this is unclear mental staus is improving seems less likely her vasculitis given that it is improving prior to admission Neurology recommendations noted MRI of brain noted continue supportive therapy (3) Abnormal glucose: Code(s): R73.09 - Other abnormal glucose Status: Acute Assessment and Plan: presumably from steroids will cut back the dosage and wean (4) Pancytopenia: Code(s): D61.818 - Other pancytopenia Status: Acute Assessment and Plan: from cytoxan?? somewhat surprising since she was on such a low dose PRBC transfusion for anemia -- H/H better s/p bone marrow biopsy today Dr. Strauss following (5) Hypertension: Code(s): I10 - Essential (primary) hypertension Status: Acute Assessment and Plan: never an issue previously given her history of #1 and proteinuria, consider adding TRISTEN-I follow trend of hemodynamics (6) Protein malnutrition: Code(s): E46 - Unspecified protein-calorie malnutrition Status: Acute Assessment and Plan: albumin low due to poor intake liberalize diet Will continue to follow Subjective Date/time seen: 03/18/20 18:29 Status post bone marrow biopsy today; mental status seems to be improving in general; appetite still remains suboptimal; no other acute issues or problems to report at this time. Exam Narrative: Exam Narrative: General: WD/WN female in NAD Heart: normal S1 and S2; no rub Lungs: clear to auscultation Abdomen: soft, nontender, nondistended, positive bowel sounds Extremities: no cyanosis or clubbing; no edema Skin: warm and dry Objective Data Vital Signs Vital Signs: Vital Signs Temp Pulse Resp BP Pulse Ox 03/18/20 16:22 36.2 C L 88 20 148/90 H 100 03/18/20 16:00 106 H 03/18/20 14:00 95 03/18/20 12:00 103 H 03/18/20 11:46 35.9 C L 107 H 22 H 152/94 H 99 03/18/20 10:00 102 H 03/18/20 08:00 85 03/18/20 07:55 36.3 C L 86 24 H 148/92 H 100 03/18/20 06:00 70 03/18/20 04:18 36.5 C 81 16 175/101 H 97 03/18/20 04:00 63 03/18/20 02:00 78 03/18/20 00:00 86 03/17/20 23:56 36.5 C 85 16 163/106 H 99 03/17/20 22:00 86 03/17/20 20:00 82 03/17/20 19:50 36.4 C L 85 16 152/102 H 98 Intake/Output Intake/Output: Intake & Output 03/15/20 03/16/20 03/17/20 03/18/20 23:59 23:59 23:59 23:59 Intake Total 2400 2550 3450 2357 Output Total 1775 1650 Balance 189 916 5821 2357 Meds/Results Medications: Active Medications Generic Name Dose Route Start Last Admin Trade Name Freq PRN Reason Stop Dose Admin Acetaminophen 650 mg 03/14/20 20:26 Tylenol Tablet PO Q4H PRN Mild Pain (1-3) or Fever Escitalopram Oxalate 10 mg 03/15/20 09:00 03/18/20 07:54 Lexapro PO 10 mg DAILY LAURYN Administration Aztreonam 1 gm/ Dextrose 50 mls @ 100 mls/hr 03/15/20 12:00 03/18/20 16:44 IVPB Infused Q8HR LAURYN Infusion Vancomycin HCl 1,000 mg in 250 mls @ 250 mls/hr 03/15/20 12:00 03/18/20 17:21 Vancomycin 1,000 Mg/D5w 250 Ml IVPB Infused Q24H LAURYN Infusion Potassium Ch
[2020-03-19] VITALS (17 sets, daily range): BP systolic 136–160; BP diastolic 81–101; PULSE 53–114; RESP 16–20; TEMP 35.8–37.2; O2SAT 97–100
[2020-03-19] MEDS: polyethylene glycoL 3350 17 GM POWD.PACK PO ×2 (04:30→10:05)
[2020-03-19 04:44] LABS: Basophils Percent Auto 0.5 % (0.2-1.2); Hemoglobin 8.4 g/dL (12.0-15.0); Immature Granulocyte Absolute 0.19 K/mm3 (0.00-0.031); Immature Granulocyte Percent A 4.4 % (0-0.5); Lymphocytes Absolute Auto 0.27 K/mm3 (0.9-3.2); Lymphocytes Percent Auto 6.2 % (18.3-44.2); Mean Corpuscular HGB Conc 33.6 g/dl (32-36); Mean Corpuscular Hemoglobin 30.8 pg (26-34); Mean Corpuscular Volume 91.6 fl (80-100); Mean Platelet Volume 8.6 fl (7.4-10.4); Monocytes Absolute Auto 0.3 K/mm3 (0.1-0.6); Monocytes Percent Auto 5.8 % (2.6-8.5); Neutrophils Absolute Auto 3.6 K/mm3 (1.3-6.7); Neutrophils Percent Auto 83.1 % (45.5-73.1); Platelet Count Result 72 k/mm3 (150-375); Red Blood Count 2.73 M/mm3 (4.2-5.4); White Blood Count 4.3 K/mm3 (4.5-10.0)
[2020-03-19 04:55] LABS: Albumin Level 2.6 g/dL (3.5-5.1); Blood Urea Nitrogen 16 mg/dL (7-17); Calcium 7.6 mg/dL (8.4-10.2); Carbon Dioxide 23 mmol/L (22-30); Chloride 111 mmol/L (98-107); Estimated CRCL calculation 44 ml/min; Estimated Glomerular Filt Rate > 60; Glucose 257 mg/dL (65-105); Phosphorus 2.4 mg/dL (2.5-4.5); Potassium 3.1 mmol/L (3.4-5.0); Sodium 138 mmol/L (137-145)
[2020-03-19 05:24] LABS: Hypochromasia 1+ (NORMAL); Microcytosis 1+ (NORMAL); Platelet Estimate Decreased (Adequate)
[2020-03-19] MEDS: AZTREONAM 1 GM in DEXTROSE 5% IN WATER 50 ML IVPB ×3 (05:30→21:48)
[2020-03-19] MEDS: LEVOTHYROXINE SODIUM 75 MCG TABLET PO (05:30)
--- NOTE | 2020-03-19 09:13 | WPDNEUROPN ---
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: Code(s): N05.9 - Unspecified nephritic syndrome with unspecified morphologic changes; I77.89 - Other specified disorders of arteries and arterioles Status: Acute (3) Encephalopathy: Code(s): G93.40 - Encephalopathy, unspecified Status: Acute (4) Petechial rash: Code(s): R23.3 - Spontaneous ecchymoses Status: Acute (5) Elevated troponin: Code(s): R79.89 - Other specified abnormal findings of blood chemistry Status: Acute (6) Abnormal glucose: Code(s): R73.09 - Other abnormal glucose Status: Acute (7) CKD (chronic kidney disease): Qualifiers: Chronic kidney disease stage: stage 3 (moderate) Qualified Code(s): N18.3 - Chronic kidney disease, stage 3 (moderate) Code(s): N18.9 - Chronic kidney disease, unspecified Status: Chronic (8) Glomerulonephritis: Code(s): N05.9 - Unspecified nephritic syndrome with unspecified morphologic changes Status: Acute (9) Pancytopenia: Code(s): D61.818 - Other pancytopenia Status: Acute (10) Chronic renal insufficiency: Qualifiers: Chronic kidney disease stage: unspecified stage Qualified Code(s): N18.9 - Chronic kidney disease, unspecified Code(s): N18.9 - Chronic kidney disease, unspecified Status: Acute (11) Positive D dimer: Code(s): R79.89 - Other specified abnormal findings of blood chemistry Status: Acute (12) Protein malnutrition: Code(s): E46 - Unspecified protein-calorie malnutrition Status: Acute (13) Non-ST elevated myocardial infarction (non-STEMI): Code(s): I21.4 - Non-ST elevation (NSTEMI) myocardial infarction Status: Acute (14) Hypothyroidism: Qualifiers: Hypothyroidism type: unspecified Qualified Code(s): E03.9 - Hypothyroidism, unspecified Code(s): E03.9 - Hypothyroidism, unspecified Status: Chronic (15) Confusion: Code(s): R41.0 - Disorientation, unspecified Status: Acute (16) Petechiae: Code(s): R23.3 - Spontaneous ecchymoses Status: Acute (17) Renal failure: Code(s): N19 - Unspecified kidney failure Status: Acute (18) Hypothyroidism: Code(s): E03.9 - Hypothyroidism, unspecified Status: Acute Additional Plan 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 generally week Review of Systems Review of Systems: All systems reviewed & are unremarkable except as noted in HPI and below Exam Const: General: alert, awake and anxious Nutritional Appearance: malnourished Orientation/consciousness: oriented to person and oriented to place Limitations: no limitations Eyes: General: appearance normal, both eyes and all related structures Visual Pathak: normal visual pathak by confrontation Alignment and Position: alignment normal Periorbital: periorbital findings normal Eyelids: eyelids normal Conjunctivae: conjunctivae normal Sclera: sclerae normal Cornea: corneas normal Pupils: Equal, round and reactive pupils present EOM: EOMs intact bilaterally Neck: Neck: full ROM Resp: Effort & Inspection: able to speak in complete sentences Auscultation: clear to auscultation bilaterally Cardio: Rate: regular rate Rhythm: regular rhythm GI: Auscultation: normal bowel sounds Skin: Lesions: lesion noted (petechiae) Neuro: General: oriented to person, oriented to place and moves all extremities Cranial nerves: Yes CN's II-XII intact bilaterally, Yes Equal, round and reactive pupils present, Yes Nystagmus not present, Yes Normal facial strength present, Yes Midline tongue present, Yes Ability to bilaterally rotate head present and Yes Ability to bilaterally elevate sh
[2020-03-19] MEDS: predniSONE 10 MG TABLET PO ×2 (10:05→18:27)
[2020-03-19] MEDS: ESCITALOPRAM OXALATE 10 MG TABLET PO (10:05)
[2020-03-19] MEDS: POTASSIUM/PHOSPHORUS/SODIUM 1.5 GM PACKET 1 PACKET PO (10:05)
--- NOTE | 2020-03-19 11:24 | PCDIET ---
Nutrition Follow-Up Complete: Nutrition Diagnosis: Inadequate oral intake r/t food refusal as evidence by 0% intake of all meals over the last three days. Nutrition Goal: Oral intake of 50% of meals and supplements. Goal not met. Spoke with MAXWELL Valdez via phone due to COVID-19 precautions. RN reports patient took cranberry juice this morning and ate ice cream yesterday. Recommend Ensure Clear (240kcal, 8g protein) TID with meals. Ensure Enlive has been stopped due to clear liquid diet order. Clear liquids appropriate, given stercoral colitis and fecal impaction; however, if unable/unexpected to advance diet in the next few days, would recommend nutrition support. Last recorded weight is 58 kg which is increased from last review. +I/O. Bowel Motility: No documented bowel movement. Labs Reviewed: Glu (257), K (3.1), PO4 (2.4), Aleshia Ca (8.72) Meds Noted: Aztreonam, Miralax, KCl, Prednisone, Vancomycin Additional Notes: s/p Dulcolax and Phos-NaK. Left arm with skin tears. No documented pressure sores. Will continue to monitor with same goal. Nutrition Monitoring and Evaluation: Follow up every 3 days.
--- NOTE | 2020-03-19 14:13 | PM.IMPN ---
Progress Note: A&P Assessment and Plan (1) Fecal impaction: Code(s): K56.41 - Fecal impaction Status: Acute Assessment and Plan: Patient complaining of back pain last night prompting CT scan. CT scan showing fecal impaction with stercoral colitis and rectosigmoid colonic pneumatosis with extraluminal gas in the presacral space and moderate descending and sigmoid colonic colitis. The small amount of presacral gas could potentially have been introduced during the bone biopsy procedure, rather than from the colon. Miralax started. No rectal suppositories or rectal exam given her immunodeficient state. General surgery consult due the pneumotosis. Plan for supportive care and abx for now. Gonzalez placed due to urine retention probably from the distended rectum. (2) Encephalopathy: Code(s): G93.40 - Encephalopathy, unspecified Status: Acute Assessment and Plan: Brain MRI showing abnormal signal in the thalami, scattered subcortical white matter and cerebellar white matter. Nonspecific encephalopathy with differential diagnosis including PML, viral encephalopathy, acute necrotizing encephalitis, or PRES. Cytoxan stopped. Mental status improving slowly. Still very weak. Discussed with Neurology. They recommend repeat brain MRI in 2-3 weeks. Continue to monitor. Continue PT/OT. Increase activity as toelrated. (3) Pancytopenia: Code(s): D61.818 - Other pancytopenia Status: Acute Assessment and Plan: Secondary to Cytoxan therapy. WBC 4.3 today with ANC 3570 Hgb 6.1 on admission; After 2 units of PRBC, Hgb was running 9-10 range but has dropped to 8.4 today Plt count slowly improving at 72K Nephrology started vancomycin and Aztreonam which should cover for colitis (4) CKD (chronic kidney disease): Qualifiers: Chronic kidney disease stage: stage 3 (moderate) Qualified Code(s): N18.3 - Chronic kidney disease, stage 3 (moderate) Code(s): N18.9 - Chronic kidney disease, unspecified Status: Chronic Assessment and Plan: Patietn has CKD but currently, Cr running normal. 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 Nephrology following and appreciate their recommendations. Holding cyclophosphamide; prednisone has been continued but weaning the dose. Appetite remains poor. Supplements ordered. (5) Abnormal glucose: Code(s): R73.09 - Other abnormal glucose Status: Acute Assessment and Plan: A1c 6.3. Glucose elevated at 191 on admission and now up to 257 this morning. May be prednisone induced. Prednisone being weaned. Continue to monitor for now. Also on dextrose in IV fluids. (6) Elevated troponin: Code(s): R79.89 - Other specified abnormal findings of blood chemistry Status: Acute Assessment and Plan: No complaints of chest pain. Trop 0.036 on admission and climbed to 0.171 but back down on repeat to 0.06. Probably related to cardiac strain from the severe anemia. (7) Petechial rash: Code(s): R23.3 - Spontaneous ecchymoses Status: Acute Assessment and Plan: Secondary to thrombocytopenia. (8) Hypothyroidism: Qualifiers: Hypothyroidism type: unspecified Qualified Code(s): E03.9 - Hypothyroidism, unspecified Code(s): E03.9 - Hypothyroidism, unspecified Status: Chronic Assessment and Plan: TSH 4.72. Continue levothyroxine PO. 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 Patient complained of back pain last night at the site of the bone bx site. She had a CT scan performed showing fecal impaction and intraluminal free air. Patient is oriented but has no memory of events last night. Patient up to the chair today but sherman
--- NOTE | 2020-03-19 16:42 | P.PNNP_ITS ---
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 * creatinine is normal following use of cytoxan and prednisone * still with a bit of protein and blood in the urine which can take longer to resolve * holding cytoxan and weaning prednisone given current medical issues * continue supportive therapy (2) Encephalopathy: Code(s): G93.40 - Encephalopathy, unspecified Status: Acute Assessment and Plan: * etiology of this is unclear * mental staus is improving * seems less likely her vasculitis given that it is improving prior to admission * Neurology recommendations noted * MRI of brain noted * continue supportive therapy (3) Abnormal glucose: Code(s): R73.09 - Other abnormal glucose Status: Acute Assessment and Plan: * presumably from steroids * will cut back the dosage and wean (4) Pancytopenia: Code(s): D61.818 - Other pancytopenia Status: Acute Assessment and Plan: * from cytoxan?? * somewhat surprising since she was on such a low dose * PRBC transfusion for anemia -- H/H better * s/p bone marrow biopsy yesterday * Dr. Strauss following (5) Hypertension: Code(s): I10 - Essential (primary) hypertension Status: Acute Assessment and Plan: * never an issue previously * given her history of #1 and proteinuria, consider adding TRISTEN-I * follow trend of hemodynamics (6) Protein malnutrition: Code(s): E46 - Unspecified protein-calorie malnutrition Status: Acute Assessment and Plan: * albumin low * due to poor intake * liberalize diet Will continue to follow Subjective Date/time seen: 03/19/20 16:42 Mentation noted to be improving albeit slowly; CT scan of abdomen done overnight for abdominal complaints with results noted; no apparent distress noted aside from ongoing weakness. Exam Narrative: Exam Narrative: General: WD/WN female in NAD Heart: normal S1 and S2; no rub Lungs: clear to auscultation Abdomen: soft, nontender, nondistended, positive bowel sounds Extremities: no cyanosis or clubbing; no edema Skin: warm and intact Objective Data Vital Signs Vital Signs: Vital Signs Temp Pulse Resp BP Pulse Ox 03/19/20 16:34 35.8 C L 78 16 144/81 H 98 03/19/20 12:23 35.9 C L 87 20 139/86 100 03/19/20 10:00 83 03/19/20 08:03 35.9 C L 83 20 139/85 100 03/19/20 08:00 84 03/19/20 06:00 80 03/19/20 04:00 37.0 C 66 18 160/101 H 100 03/19/20 02:00 67 03/19/20 00:00 37.2 C 79 18 136/90 97 03/18/20 22:00 71 03/18/20 20:00 36.6 C 86 18 157/97 H 100 03/18/20 18:00 108 H Intake/Output Intake/Output: Intake & Output 03/16/20 03/17/20 03/18/20 03/19/20 23:59 23:59 23:59 23:59 Intake Total 2550 3450 3020 170 Output Total 1650 1800 Balance 900 3450 3020 -1630 Meds/Results Medications: Active Medications
--- NOTE | 2020-03-19 16:42 | PM.PNNEP ---
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 creatinine is normal following use of cytoxan and prednisone still with a bit of protein and blood in the urine which can take longer to resolve holding cytoxan and weaning prednisone given current medical issues continue supportive therapy (2) Encephalopathy: Code(s): G93.40 - Encephalopathy, unspecified Status: Acute Assessment and Plan: etiology of this is unclear mental staus is improving seems less likely her vasculitis given that it is improving prior to admission Neurology recommendations noted MRI of brain noted continue supportive therapy (3) Abnormal glucose: Code(s): R73.09 - Other abnormal glucose Status: Acute Assessment and Plan: presumably from steroids will cut back the dosage and wean (4) Pancytopenia: Code(s): D61.818 - Other pancytopenia Status: Acute Assessment and Plan: from cytoxan?? somewhat surprising since she was on such a low dose PRBC transfusion for anemia -- H/H better s/p bone marrow biopsy yesterday Dr. Strauss following (5) Hypertension: Code(s): I10 - Essential (primary) hypertension Status: Acute Assessment and Plan: never an issue previously given her history of #1 and proteinuria, consider adding TRISTEN-I follow trend of hemodynamics (6) Protein malnutrition: Code(s): E46 - Unspecified protein-calorie malnutrition Status: Acute Assessment and Plan: albumin low due to poor intake liberalize diet Will continue to follow Subjective Date/time seen: 03/19/20 16:42 Mentation noted to be improving albeit slowly; CT scan of abdomen done overnight for abdominal complaints with results noted; no apparent distress noted aside from ongoing weakness. Exam Narrative: Exam Narrative: General: WD/WN female in NAD Heart: normal S1 and S2; no rub Lungs: clear to auscultation Abdomen: soft, nontender, nondistended, positive bowel sounds Extremities: no cyanosis or clubbing; no edema Skin: warm and intact Objective Data Vital Signs Vital Signs: Vital Signs Temp Pulse Resp BP Pulse Ox 03/19/20 16:34 35.8 C L 78 16 144/81 H 98 03/19/20 12:23 35.9 C L 87 20 139/86 100 03/19/20 10:00 83 03/19/20 08:03 35.9 C L 83 20 139/85 100 03/19/20 08:00 84 03/19/20 06:00 80 03/19/20 04:00 37.0 C 66 18 160/101 H 100 03/19/20 02:00 67 03/19/20 00:00 37.2 C 79 18 136/90 97 03/18/20 22:00 71 03/18/20 20:00 36.6 C 86 18 157/97 H 100 03/18/20 18:00 108 H Intake/Output Intake/Output: Intake & Output 03/16/20 03/17/20 03/18/20 03/19/20 23:59 23:59 23:59 23:59 Intake Total 2550 3450 3020 170 Output Total 1650 1800 Balance 900 3450 3020 -1630 Meds/Results Medications: Active Medications Generic Name Dose Route Start Last Admin Trade Name Freq PRN Reason Stop Dose Admin Acetaminophen 650 mg 03/14/20 20:26 Tylenol Tablet PO Q4H PRN Mild Pain (1-3) or Fever Hydrocodone Bitart/Acetaminophen 1 tab 03/18/20 22:42 [place] 5-325 Mg PO Q4H PRN Pain Rated 4-6 Escitalopram Oxalate 10 mg 03/15/20 09:00 03/19/20 10:05 Lexapro PO 10 mg DAILY LAURYN Administration Aztreonam 1 gm/ Dextrose 50 mls @ 100 mls/hr 03/15/20 12:00 03/19/20 15:05 IVPB 100 mls/hr Q8HR LAURYN Administration Vancomycin HCl 1,000 mg in 250 mls @ 250 mls/hr 03/15/20 12:00 03/19/20 15:04 Vancomycin 1,000 Mg/D5w 250 Ml IVPB 250 mls/hr Q24H LAURYN Administration Potassium Chlo
[2020-03-19] MEDS: KCL 20 MEQ/D5/0.9% SOD CHL 1,000 ML 70 ML IV CONT (18:24)
[2020-03-20] VITALS (15 sets, daily range): BP systolic 140–167; BP diastolic 86–99; PULSE 71–104; RESP 18–22; TEMP 36–36.9; O2SAT 99–100
[2020-03-20 04:48] LABS: Basophils Percent Auto 0.2 % (0.2-1.2); Hematocrit 24.1 % (37.0-47.0); Immature Granulocyte Absolute 0.22 K/mm3 (0.00-0.031); Immature Granulocyte Percent A 4.7 % (0-0.5); Immature Platelet Fraction Pct 1.1 % (0.9-11.2); Lymphocytes Absolute Auto 0.24 K/mm3 (0.9-3.2); Lymphocytes Percent Auto 5.1 % (18.3-44.2); Mean Corpuscular HGB Conc 33.2 g/dl (32-36); Mean Corpuscular Hemoglobin 30.5 pg (26-34); Mean Platelet Volume 8.8 fl (7.4-10.4); Monocytes Absolute Auto 0.3 K/mm3 (0.1-0.6); Monocytes Percent Auto 5.8 % (2.6-8.5); Neutrophils Percent Auto 84.2 % (45.5-73.1); Platelet Count Result 75 k/mm3 (150-375); Red Blood Count 2.62 M/mm3 (4.2-5.4); Red Cell Distribution Width 22.2 % (11.5-14.5); White Blood Count 4.7 K/mm3 (4.5-10.0)
[2020-03-20 05:06] LABS: Albumin Level 2.5 g/dL (3.5-5.1); Blood Urea Nitrogen 13 mg/dL (7-17); Calcium 7.4 mg/dL (8.4-10.2); Carbon Dioxide 23 mmol/L (22-30); Chloride 112 mmol/L (98-107); Estimated CRCL calculation 50 ml/min; Estimated Glomerular Filt Rate > 60; Glucose 164 mg/dL (65-105); Magnesium 1.4 mg/dL (1.6-2.3); Phosphorus 2.4 mg/dL (2.5-4.5); Potassium 3.1 mmol/L (3.4-5.0); Sodium 139 mmol/L (137-145)
[2020-03-20] MEDS: AZTREONAM 1 GM in DEXTROSE 5% IN WATER 50 ML IVPB ×3 (05:47→21:21)
[2020-03-20] MEDS: LEVOTHYROXINE SODIUM 75 MCG TABLET PO (05:47)
[2020-03-20] MEDS: POTASSIUM CHLORIDE 20 MEQ TABLET 40 MEQ PO (08:38)
[2020-03-20] MEDS: ESCITALOPRAM OXALATE 10 MG TABLET PO (08:38)
[2020-03-20] MEDS: MAGNESIUM SULF 2 GM/WATER 50ML 2 GM/50 ML BAG IVPB (08:38)
[2020-03-20] MEDS: polyethylene glycoL 3350 17 GM POWD.PACK PO ×2 (08:39→17:48)
[2020-03-20] MEDS: predniSONE 10 MG TABLET PO ×2 (08:39→17:48)
[2020-03-20] MEDS: POTASSIUM/PHOSPHORUS/SODIUM 1.5 GM PACKET 1 PACKET PO (09:21)
--- NOTE | 2020-03-20 10:01 | PM.CNGS ---
Assessment and Plan Assessment and plan (1) Stercoral ulcer of large intestine: Code(s): K63.3 - Ulcer of intestine Status: Acute Assessment and Plan: exam benign, cont serial exams, Miralax, if no results over weekend may need decompression via endoscopy (2) Pancytopenia: Code(s): D61.818 - Other pancytopenia Status: Acute Assessment and Plan: s/p BM bx, await results (3) CKD (chronic kidney disease): Qualifiers: Chronic kidney disease stage: stage 3 (moderate) Qualified Code(s): N18.3 - Chronic kidney disease, stage 3 (moderate) Code(s): N18.9 - Chronic kidney disease, unspecified Status: Chronic Assessment and Plan: cont current mgmt and workup History of Present Illness Consult details Consult date: 03/20/20 Reason for consult: other (stercoral ulcer) Requesting physician: Adama Vaughn MD Narrative: Pt is a 69 y/o F presenting to hospital c/o weakness, MS changes. Pt c multiple med issues including CKD. Pt found to be pancytopenic and extensive workup including BM bx done while in house. Pt began to c/o some pain at bx site and subsequent CT significant for stercoal ulcer, fecal impaction. Pt reports no h/o constipation and currently not uncomfortable. Pt reports no BM in last few days. Pt denies any significant rectal or abd pain. Pt seems very weak and depressed during interview and exam. Review of Systems Constitutional: Constitutional: Reports body ache(s), Denies chills, Reports fatigue, Reports lethargy and Reports weakness Eyes: Eyes: Reports no additional eye complaints and Denies loss of vision ENT: Reports Normal hearing present, Denies dysphagia, Denies headache(s), Denies hearing loss and Denies sore throat Cardiovascular: Cardiovascular: Denies chest pain, Denies syncope, Denies irregular heart rhythm, Denies leg edema, Denies palpitations and Denies dyspnea Respiratory: Respiratory: Denies cough and Denies dyspnea Gastrointestinal: Gastrointestinal: Denies abdominal pain, Denies bloating, Denies change in bowel habits, Denies change in stool character, Reports constipation, Denies dysphagia, Denies heartburn, Denies diarrhea, Denies nausea and Denies vomiting Genitourinary: Genitourinary: Denies urinary frequency, Denies dysuria and Denies urinary urgency Musculoskeletal: Musculoskeletal: Reports back pain, Reports myalgias, Reports arthralgias and Denies muscle cramps Integumentary/Breasts: Skin/Breast: Denies non-healing lesions and Denies rash Neurologic: Denies syncope, Denies headache(s) and Denies loss of vision Psychiatric: Psychiatric: Reports depression Endocrine: Endocrine: Denies change in body appearance and Denies fatigue Hematologic/Lymphatic: Hematologic/Lymphatic: Denies easy bleeding, Denies easy bruising and Denies lymphadenopathy PMFSH Past Medical History Medical History CKD (chronic kidney disease) Glomerulonephritis Hypothyroidism Surgical History Surgical History History of 2 sections History of cholecystectomy Family History Family History Mother Diabetes mellitus Social History Social History Smoking status: Unknown if ever smoked Alcohol intake: never Substance use: never Gender identity (if verbalized by the patient): Female Spiritual care concerns: No Meds Home Medications and Allergies Home Medications Medication Instructions Recorded Confirmed Type cyclophosphamide 50 mg PO DAILY 03/14/20 03/14/20 History escitalopram oxalate 10 mg PO DAILY 03/14/20 03/14/20 History levothyroxine 75 mcg PO DAILY 03/14/20 03/14/20 History prednisone 40 mg PO BID 03/14/20 03/14/20 History Allergies Allergy/AdvReac Type Severity Reaction Status Date
--- NOTE | 2020-03-20 13:28 | PCDIET ---
Nutrition Follow-Up Complete: Nutrition Diagnosis: Inadequate oral intake r/t food refusal as evidence by 0% intake of all meals over the last three days. Nutrition Goal: Intake of 50% of meals and supplements. Goal not met. Spoke with patient via phone due to COVID-19 precautions. Patient reports tolerating clear liquid diet, but is only taking small amounts. Does report taking Ensure Clear (240kcal, 8g protein) with meals. Encouraged patient to continue this for improved kcal/protein intake. If unable to advance diet in the next 2-3 days, would consider supplemental parenteral nutrition. Last recorded weight is 57 kg which is decreased from last review. -I/O. Bowel Motility: Still no BM, per patient. Labs Reviewed: Glu (164), K (3.1), Aleshia Ca (8.6), PO4 (2.6), Mg (1.4) Meds Noted: Aztreonam, Miralax, KCl, Prednisone, Vancomycin, Phos-NaK, Magnesium Sulfate Additional Notes: Skin tears on arms. No other skin breakdown documented. Will continue to monitor with same goal. Nutrition Monitoring and Evaluation: Follow up every 3 days.
[2020-03-20] MEDS: KCL 20 MEQ/D5/0.9% SOD CHL 1,000 ML 70 ML IV CONT (13:31)
--- NOTE | 2020-03-20 14:11 | PCOTNOTE ---
Attempted to see patient this pm. Assisted patient to sitting edge of bed, and patient start crying hysterically. Pt stated Every time I get up, I get dizzy. I can't do it. I can't do it. Pt laid herself back down and repeated that she Can't do it. Encouraged patient to participate, however patient refused.
--- NOTE | 2020-03-20 14:38 | P.PNNP_ITS ---
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 * creatinine is normal following use of cytoxan and prednisone * still with a bit of protein and blood in the urine which can take longer to resolve * holding cytoxan and weaning prednisone given current medical issues * continue supportive therapy (2) Encephalopathy: Code(s): G93.40 - Encephalopathy, unspecified Status: Acute Assessment and Plan: * etiology of this is unclear * mental staus is improving * seems less likely her vasculitis given that it is improving prior to admission * Neurology recommendations noted * MRI of brain noted * continue supportive therapy (3) Abnormal glucose: Code(s): R73.09 - Other abnormal glucose Status: Acute Assessment and Plan: * presumably from steroids * will cut back the dosage and wean (4) Pancytopenia: Code(s): D61.818 - Other pancytopenia Status: Acute Assessment and Plan: * from cytoxan?? * somewhat surprising since she was on such a low dose * PRBC transfusion for anemia -- H/H better (but dropping again) * s/p bone marrow biopsy * Dr. Strauss following (5) Hypertension: Code(s): I10 - Essential (primary) hypertension Status: Acute Assessment and Plan: * never an issue previously * given her history of #1 and proteinuria, consider adding TRISTEN-I * follow trend of hemodynamics (6) Stercoral ulcer of large intestine: Code(s): K63.3 - Ulcer of intestine Status: Acute Assessment and Plan: * Surgery recommendations noted * follow clinical exam (7) Protein malnutrition: Code(s): E46 - Unspecified protein-calorie malnutrition Status: Acute Assessment and Plan: * albumin low * due to poor intake * liberalize diet Will continue to follow Subjective Date/time seen: 03/20/20 14:38 No apparent distress noted -- sitting up in bed at times but has yet to do much physical activity out of bed; eating some but not much in general. Exam Narrative: Exam Narrative: General: WD/WN female in NAD Heart: normal S1 and S2; no rub Lungs: clear to auscultation Abdomen: soft, nontender, nondistended, positive bowel sounds Extremities: no cyanosis or clubbing; no edema Skin: warm and intact Objective Data Vital Signs Vital Signs: Vital Signs Temp Pulse Resp BP Pulse Ox 03/20/20 12:00 36.6 C 96 20 142/92 H 100 03/20/20 10:00 79 03/20/20 08:00 36.0 C L 89 18 155/97 H 100 03/20/20 06:00 92 03/20/20 04:00 36.5 C 82 20 167/99 H 99 03/20/20 02:00 71 03/20/20 00:00 94 100 03/19/20 23:53 36.4 C 53 L 20 153/83 H 98 03/19/20 22:00 74 03/19/20 20:00 82 100 03/19/20 19:41 36.8 C 85 20 139/86 100 03/19/20 18:00 114 H 03/19/20 16:34 35.8 C L 78 16 144/81 H 98 03/19/20 16:00 83 Intake/Output Intake/Output: Intake & Output 03/17/20 04/2
--- NOTE | 2020-03-20 14:38 | PM.PNNEP ---
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 creatinine is normal following use of cytoxan and prednisone still with a bit of protein and blood in the urine which can take longer to resolve holding cytoxan and weaning prednisone given current medical issues continue supportive therapy (2) Encephalopathy: Code(s): G93.40 - Encephalopathy, unspecified Status: Acute Assessment and Plan: etiology of this is unclear mental staus is improving seems less likely her vasculitis given that it is improving prior to admission Neurology recommendations noted MRI of brain noted continue supportive therapy (3) Abnormal glucose: Code(s): R73.09 - Other abnormal glucose Status: Acute Assessment and Plan: presumably from steroids will cut back the dosage and wean (4) Pancytopenia: Code(s): D61.818 - Other pancytopenia Status: Acute Assessment and Plan: from cytoxan?? somewhat surprising since she was on such a low dose PRBC transfusion for anemia -- H/H better (but dropping again) s/p bone marrow biopsy Dr. Strauss following (5) Hypertension: Code(s): I10 - Essential (primary) hypertension Status: Acute Assessment and Plan: never an issue previously given her history of #1 and proteinuria, consider adding TRISTEN-I follow trend of hemodynamics (6) Stercoral ulcer of large intestine: Code(s): K63.3 - Ulcer of intestine Status: Acute Assessment and Plan: Surgery recommendations noted follow clinical exam (7) Protein malnutrition: Code(s): E46 - Unspecified protein-calorie malnutrition Status: Acute Assessment and Plan: albumin low due to poor intake liberalize diet Will continue to follow Subjective Date/time seen: 03/20/20 14:38 No apparent distress noted -- sitting up in bed at times but has yet to do much physical activity out of bed; eating some but not much in general. Exam Narrative: Exam Narrative: General: WD/WN female in NAD Heart: normal S1 and S2; no rub Lungs: clear to auscultation Abdomen: soft, nontender, nondistended, positive bowel sounds Extremities: no cyanosis or clubbing; no edema Skin: warm and intact Objective Data Vital Signs Vital Signs: Vital Signs Temp Pulse Resp BP Pulse Ox 03/20/20 12:00 36.6 C 96 20 142/92 H 100 03/20/20 10:00 79 03/20/20 08:00 36.0 C L 89 18 155/97 H 100 03/20/20 06:00 92 03/20/20 04:00 36.5 C 82 20 167/99 H 99 03/20/20 02:00 71 03/20/20 00:00 94 100 03/19/20 23:53 36.4 C 53 L 20 153/83 H 98 03/19/20 22:00 74 03/19/20 20:00 82 100 03/19/20 19:41 36.8 C 85 20 139/86 100 03/19/20 18:00 114 H 03/19/20 16:34 35.8 C L 78 16 144/81 H 98 03/19/20 16:00 83 Intake/Output Intake/Output: Intake & Output 03/17/20 03/18/20 03/19/20 03/20/20 23:59 23:59 23:59 23:59 Intake Total 3450 3020 1640 1650 Output Total 4100 675 Balance 3450 3020 -2460 975 Meds/Results Medications: Active Medications Generic Name Dose Route Start Last Admin Trade Name Freq PRN Reason Stop Dose Admin Acetaminophen 650 mg 03/14/20 20:26 Tylenol Tablet PO Q4H PRN Mild Pain (1-3) or Fever Hydrocodone Bitart/Acetaminophen 1 tab 03/18/20 22:42 [place] 5-325 Mg PO Q4H PRN Pain Rated 4-6 Escitalopram Oxalate 10 mg 03/15/20 09:00 03/20/20 08:38 Lexapro PO 10 mg DAILY LAURYN Administration Aztreonam 1 gm/ Dextrose 50 mls @ 100 mls/hr 03/15/20 12:00 03/20/20 07:00
--- NOTE | 2020-03-20 15:07 | PCPTNOTE ---
Attempted therapy session at 14:50 Physician in with Pt. Will continue per POC tomorrow.
--- NOTE | 2020-03-20 15:33 | PM.IMPN ---
Progress Note: A&P Assessment and Plan (1) Fecal impaction: Code(s): K56.41 - Fecal impaction Status: Acute Assessment and Plan: Patient complaining of back pain at bx site prompting CT scan. CT scan showing fecal impaction with stercoral colitis and rectosigmoid colonic pneumatosis with extraluminal gas in the presacral space and moderate descending and sigmoid colonic colitis. The small amount of presacral gas could potentially have been introduced during the bone biopsy procedure, rather than from the colon. Currently on Miralax without benefit. 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 General surgery following and appreciate their input. Continue supportive care and abx for now. Gonzalez in place due to urine retention probably from the distended rectum. Replace electrolytes. Advance Miralax. Discussed with by phone. Advance diet (2) Encephalopathy: Code(s): G93.40 - Encephalopathy, unspecified Status: Acute Assessment and Plan: Brain MRI showing abnormal signal in the thalami, scattered subcortical white matter and cerebellar white matter. Nonspecific encephalopathy with differential diagnosis including PML, viral encephalopathy, acute necrotizing encephalitis, or PRES. [place] related to the the Cytoxan and this has been stopped. Mental status improving slowly. Still very weak but improving with PT/OT. Discussed with Neurology. They recommend repeat brain MRI in 2-3 weeks. Continue to monitor. Continue PT/OT. Increase activity as tolerated. (3) Pancytopenia: Code(s): D61.818 - Other pancytopenia Status: Acute Assessment and Plan: Secondary to Cytoxan therapy. WBC normal today Hgb 6.1 on admission; After 2 units of PRBC, Hgb was running 9-10 range but has dropped to 8.0 today Plt count slowly improving at 75K Pathology of BM Bx showing no lymphoma or other malignancy. Nephrology started vancomycin and Aztreonam which should cover for colitis. Continue to monitor (4) CKD (chronic kidney disease): Qualifiers: Chronic kidney disease stage: stage 3 (moderate) Qualified Code(s): N18.3 - Chronic kidney disease, stage 3 (moderate) Code(s): N18.9 - Chronic kidney disease, unspecified Status: Chronic Assessment and Plan: Patient has CKD but currently Cr running normal. 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 Nephrology following and appreciate their recommendations. Holding cyclophosphamide; prednisone has been continued but weaning the dose. Appetite remains poor. Supplements ordered. Remains on maintenance fluids. Advance diet (5) Abnormal glucose: Code(s): R73.09 - Other abnormal glucose Status: Acute Assessment and Plan: A1c 6.3. Glucose reviewed on 03/20/20 and elevated at times. May be prednisone induced. Also on maintenance fluids with dextrose in IV fluids. Prednisone being weaned so this should help. Continue to monitor for now. (6) Elevated troponin: Code(s): R79.89 - Other specified abnormal findings of blood chemistry Status: Acute Assessment and Plan: No complaints of chest pain. Trop 0.036 on admission and climbed to 0.171 but back down on repeat to 0.06. Probably related to cardiac strain from the severe anemia. No ASA due to above. (7) Petechial rash: Code(s): R23.3 - Spontaneous ecchymoses Status: Acute Assessment and Plan: Secondary to thrombocytopenia. (8) Hypothyroidism: Qualifiers: Hypothyroidism type: unspecified Qualified Code(s): E03.9 - Hypothyroidism, unspecified Code(s): E03.9 - Hypothyroidism, unspecified Status: Chronic Assessment and Plan: TSH 4.72. Continue levothyroxine PO. Subjective Date/time seen: 03/20/20 15:33 Interval history: 69yo female with ANCA positive glomeruler nephritis admitted with altered mental status,
[2020-03-21] VITALS (16 sets, daily range): BP systolic 147–165; BP diastolic 88–104; PULSE 74–128; RESP 12–18; TEMP 36.1–36.3; O2SAT 98–100
[2020-03-21 05:26] LABS: Basophils Percent Auto 0.7 % (0.2-1.2); Hematocrit 24.2 % (37.0-47.0); Immature Granulocyte Percent A 6.6 % (0-0.5); Lymphocytes Absolute Auto 0.29 K/mm3 (0.9-3.2); Lymphocytes Percent Auto 6.4 % (18.3-44.2); Mean Corpuscular HGB Conc 33.1 g/dl (32-36); Mean Corpuscular Volume 93.8 fl (80-100); Monocytes Absolute Auto 0.2 K/mm3 (0.1-0.6); Monocytes Percent Auto 4.6 % (2.6-8.5); Neutrophils Absolute Auto 3.7 K/mm3 (1.3-6.7); Neutrophils Percent Auto 81.7 % (45.5-73.1); Platelet Count Result 84 k/mm3 (150-375); Red Blood Count 2.58 M/mm3 (4.2-5.4); Red Cell Distribution Width 22.5 % (11.5-14.5); White Blood Count 4.5 K/mm3 (4.5-10.0)
[2020-03-21 05:43] LABS: Albumin Level 2.5 g/dL (3.5-5.1); Blood Urea Nitrogen 11 mg/dL (7-17); Calcium 7.8 mg/dL (8.4-10.2); Carbon Dioxide 23 mmol/L (22-30); Chloride 112 mmol/L (98-107); Estimated CRCL calculation 58 ml/min; Estimated Glomerular Filt Rate > 60; Glucose 150 mg/dL (65-105); Magnesium 1.9 mg/dL (1.6-2.3); Phosphorus 2.3 mg/dL (2.5-4.5); Potassium 3.6 mmol/L (3.4-5.0); Sodium 138 mmol/L (137-145)
[2020-03-21] MEDS: AZTREONAM 1 GM in DEXTROSE 5% IN WATER 50 ML IVPB ×3 (06:13→22:08)
[2020-03-21] MEDS: LEVOTHYROXINE SODIUM 75 MCG TABLET PO (06:15)
[2020-03-21] MEDS: KCL 20 MEQ/D5/0.9% SOD CHL 1,000 ML 70 ML IV CONT ×2 (07:31→23:13)
[2020-03-21] MEDS: ESCITALOPRAM OXALATE 10 MG TABLET PO (08:53)
[2020-03-21] MEDS: predniSONE 10 MG TABLET PO ×2 (08:53→16:39)
[2020-03-21] MEDS: polyethylene glycoL 3350 17 GM POWD.PACK PO ×2 (08:53→16:39)
--- NOTE | 2020-03-21 10:54 | P.PNNP_ITS ---
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 * creatinine is normal following use of cytoxan and prednisone * still with a bit of protein and blood in the urine which can take longer to resolve * holding cytoxan and weaning prednisone given current medical issues * continue supportive therapy (2) Encephalopathy: Code(s): G93.40 - Encephalopathy, unspecified Status: Acute Assessment and Plan: * etiology of this is unclear * mental staus is improving * seems less likely her vasculitis given that it is improving prior to admission * Neurology recommendations noted * MRI of brain noted * continue supportive therapy (3) Abnormal glucose: Code(s): R73.09 - Other abnormal glucose Status: Acute Assessment and Plan: * presumably from steroids * will cut back the dosage and wean (4) Pancytopenia: Code(s): D61.818 - Other pancytopenia Status: Acute Assessment and Plan: * from cytoxan?? * somewhat surprising since she was on such a low dose * PRBC transfusion for anemia -- H/H better (but dropping again) * s/p bone marrow biopsy * Dr. Strauss following (5) Hypertension: Code(s): I10 - Essential (primary) hypertension Status: Acute Assessment and Plan: * never an issue previously * given her history of #1 and proteinuria, consider adding TRISTEN-I * follow trend of hemodynamics (6) Stercoral ulcer of large intestine: Onset Date: ~03/20/20 Code(s): K63.3 - Ulcer of intestine Status: Acute Assessment and Plan: * Surgery recommendations noted * follow clinical exam (7) Protein malnutrition: Code(s): E46 - Unspecified protein-calorie malnutrition Status: Acute Assessment and Plan: * albumin low * due to poor intake * liberalize diet Will continue to follow Subjective Date/time seen: 03/21/20 10:54 Still feels weak/tired but better overall; still with issues related to constipation despite interventions to date although does not appears in any d isress with regard to this issue; no acute distress voiced at the time of my visit. Exam Narrative: Exam Narrative: General: WD/WN female in NAD Heart: normal S1 and S2; no rub Lungs: clear to auscultation Abdomen: soft, nontender, nondistended, positive bowel sounds Extremities: no cyanosis or clubbing; no edema Skin: + petechia noted Objective Data Vital Signs Vital Signs: Vital Signs Temp Pulse Resp BP Pulse Ox 03/21/20 10:09 88 03/21/20 08:00 36.3 C L 87 12 155/96 H 100 03/21/20 06:00 80 03/21/20 04:00 83 18 100 03/21/20 03:52 36.1 C L 79 18 155/88 H 100 03/21/20 02:00 76 03/21/20 00:00 81 18 99 03/20/20 23:55 36.3 C L 82 18 158/92 H 99 03/20/20 22:00 88 03/20/20 20:00 80 20 99 03/20/20 19:36 36.1 C L 88 20 150/94 H 99 03/20/20 18:00 88 03/20/20 16:30 36.9 C 89 22 H 140/86 99 03/20/20 16:00 87 05/0
--- NOTE | 2020-03-21 10:54 | PM.PNNEP ---
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 creatinine is normal following use of cytoxan and prednisone still with a bit of protein and blood in the urine which can take longer to resolve holding cytoxan and weaning prednisone given current medical issues continue supportive therapy (2) Encephalopathy: Code(s): G93.40 - Encephalopathy, unspecified Status: Acute Assessment and Plan: etiology of this is unclear mental staus is improving seems less likely her vasculitis given that it is improving prior to admission Neurology recommendations noted MRI of brain noted continue supportive therapy (3) Abnormal glucose: Code(s): R73.09 - Other abnormal glucose Status: Acute Assessment and Plan: presumably from steroids will cut back the dosage and wean (4) Pancytopenia: Code(s): D61.818 - Other pancytopenia Status: Acute Assessment and Plan: from cytoxan?? somewhat surprising since she was on such a low dose PRBC transfusion for anemia -- H/H better (but dropping again) s/p bone marrow biopsy Dr. Strauss following (5) Hypertension: Code(s): I10 - Essential (primary) hypertension Status: Acute Assessment and Plan: never an issue previously given her history of #1 and proteinuria, consider adding TRISTEN-I follow trend of hemodynamics (6) Stercoral ulcer of large intestine: Onset Date: ~03/20/20 Code(s): K63.3 - Ulcer of intestine Status: Acute Assessment and Plan: Surgery recommendations noted follow clinical exam (7) Protein malnutrition: Code(s): E46 - Unspecified protein-calorie malnutrition Status: Acute Assessment and Plan: albumin low due to poor intake liberalize diet Will continue to follow Subjective Date/time seen: 03/21/20 10:54 Still feels weak/tired but better overall; still with issues related to constipation despite interventions to date although does not appears in any disress with regard to this issue; no acute distress voiced at the time of my visit. Exam Narrative: Exam Narrative: General: WD/WN female in NAD Heart: normal S1 and S2; no rub Lungs: clear to auscultation Abdomen: soft, nontender, nondistended, positive bowel sounds Extremities: no cyanosis or clubbing; no edema Skin: + petechia noted Objective Data Vital Signs Vital Signs: Vital Signs Temp Pulse Resp BP Pulse Ox 03/21/20 10:09 88 03/21/20 08:00 36.3 C L 87 12 155/96 H 100 03/21/20 06:00 80 03/21/20 04:00 83 18 100 03/21/20 03:52 36.1 C L 79 18 155/88 H 100 03/21/20 02:00 76 03/21/20 00:00 81 18 99 03/20/20 23:55 36.3 C L 82 18 158/92 H 99 03/20/20 22:00 88 03/20/20 20:00 80 20 99 03/20/20 19:36 36.1 C L 88 20 150/94 H 99 03/20/20 18:00 88 03/20/20 16:30 36.9 C 89 22 H 140/86 99 03/20/20 16:00 87 03/20/20 14:00 90 03/20/20 12:00 36.6 C 96 20 142/92 H 100 Intake/Output Intake/Output: Intake & Output 03/18/20 03/19/20 03/20/20 03/21/20 23:59 23:59 23:59 23:59 Intake Total 3020 1640 2135 1240 Output Total 4100 1575 850 Balance 3020 -2460 560 390 Meds/Results Medications: Active Medications Generic Name Dose Route Start Last Admin Trade Name Freq PRN Reason Stop Dose Admin Acetaminophen 650 mg 03/14/20 20:26 Tylenol Tablet PO Q4H PRN Mild Pain (1-3) or Fever Hydrocodone Bitart/Acetaminophen 1 tab 03/18/20 22:42 [place] 5-325 Mg PO Q4H PRN Pain Rated 4-6 Escitalopram
--- NOTE | 2020-03-21 13:39 | PCOTNOTE ---
Patient refused treatment this date. Pt. initially agreed to tx, but once she was up on the side of the bed she stated no that's it, I am not doing anything else, I am going back to sleep . An attempt was made to motivate pt. to participate but she refused. Educated pt. on importance of participation.
--- NOTE | 2020-03-21 16:50 | PM.PNGS ---
Progress Note: A&P Assessment and Plan (1) Fecal impaction: Onset Date: ~03/20/20 Code(s): K56.41 - Fecal impaction Status: Acute Assessment and Plan: Patient and MiraLax last night and this morning without significant results. Will try duplex suppository x1 today. Agree with GI consultation and consideration of inspection of the rectum via sigmoidoscopy if patient does not start having bowel movements overnight. (2) Stercoral ulcer of large intestine: Onset Date: ~03/20/20 Code(s): K63.3 - Ulcer of intestine Status: Acute Assessment and Plan: Seen at CT scan several days ago. (3) Pancytopenia: Code(s): D61.818 - Other pancytopenia Status: Acute Assessment and Plan: Hemoglobin stable today. Platelet count adequate about 84,000 now. White count at low normal range. (4) Chronic renal insufficiency: Qualifiers: Chronic kidney disease stage: unspecified stage Qualified Code(s): N18.9 - Chronic kidney disease, unspecified Code(s): N18.9 - Chronic kidney disease, unspecified Status: Acute (5) Hypothyroidism: Code(s): E03.9 - Hypothyroidism, unspecified Status: Acute Assessment and Plan: Consider flexible sigmoidoscopy in the next several days if patient does not start having stools that are reasonable. Agree with continuing b.i.d. MiraLax Will try 1 dulcalax suppository this afternoon. Subjective Subjective Date/Time Seen: 03/21/20 15:50 Patient is sleeping on her left side when I entered the room. She awakened easily. She denies abdominal pain. She denies rectal pain. Has not had a bowel movement today. Review of Systems Constitutional: Constitutional: Reports no additional constitutional complaints ENT: Reports other (Mucous Membranes moist.) Cardiovascular: Cardiovascular: Denies dyspnea Respiratory: Respiratory: Denies pain on inspiration and Denies dyspnea Gastrointestinal: Gastrointestinal: Denies belching, Denies GI cramping, Denies dyspepsia and Denies vomiting Comments: States her appetite is poor. Nurse reports patient ate 15% of lunch. Musculoskeletal: Musculoskeletal: Reports other (No calf swelling or edema) Integumentary/Breasts: Skin/Breast: Reports system reviewed and no additional complaints, except as docu Exam Const: General: cooperative, no acute distress, alert and awake Orientation/consciousness: patient oriented x3 HENMT: Mouth: Yes moist mucous membranes Neck: Neck: normal visual inspection Resp: Effort & Inspection: normal respiratory effort Auscultation: clear to auscultation bilaterally Cardio: Jugular venous distension: no JVD Rate: regular rate Rhythm: regular rhythm GI: Percussion: Yes normal to percussion Auscultation: Hyperactive bowel sounds present Rectal Exam: deferred Neuro: General: patient oriented x3 and moves all extremities Speech: normal speech Psych: Mental Status: mental status grossly normal Speech and movement: Normal speech and movement present Affect: normal affect Thought content: Yes Normal thought content present Objective Data Vital Signs Vital Signs: Vital Signs - 24 hr 03/20/20 18:00 03/20/20 19:36 03/20/20 20:00 Temperature 36.1 C L Pulse Rate 88 88 80 Respiratory Rate 20 20 Blood Pressure 150/94 H Pulse Oximetry 99 99 03/20/20 22:00 03/20/20 23:55 03/21/20 00:00 Temperature 36.3 C L Pulse Rate 88 82 81 Respiratory Rate 18 18 Blood Pressure 158/92 H Pulse Oximetry 99 99 03/21/20 02:00 03/21/20 03:52 03/21/20 04:00 Temperature 36.1 C L Pulse Rate 76 79 83 Respiratory Rate 18 18 Blood Pressure 155/88 H Pulse Oximetry 100 100 03/21/20 06:00 03/21/20 08:00 03/21/20 10:09 Temperature 36.3 C L Pulse Rate 80 87 88 Respiratory Rate 12 Blood Pressure 155/96 H Pulse Oximetry 100 03/21/20 11:47 03/21/20 12:00 03/21/20 14:21 Temperature 36.3 C L Pulse Ra
--- NOTE | 2020-03-21 17:07 | PM.IMPN ---
Progress Note: A&P Assessment and Plan (1) Fecal impaction: Onset Date: ~03/20/20 Code(s): K56.41 - Fecal impaction Status: Acute Assessment and Plan: Patient complaining of back pain at bx site prompting CT scan. CT scan showing fecal impaction with stercoral colitis and rectosigmoid colonic pneumatosis with extraluminal gas in the presacral space and moderate descending and sigmoid colonic colitis. The small amount of presacral gas could potentially have been introduced during the bone biopsy procedure, rather than from the colon. Currently on Miralax without benefit. 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 General surgery following and appreciate their input. Continue supportive care and abx for now. Gonzalez in place due to urine retention probably from the distended rectum. Replace electrolytes. Advance Miralax. today 03/21/2020 patient stats she is passing gas but no BM and does not remember when she had BM, she denies any abdominal pain, nausea or vomiting, patient is seen by surgery no intervention is needed recommend consult GI, will consult GI for their recommendation hx of chronic back pain, (2) Encephalopathy: Code(s): G93.40 - Encephalopathy, unspecified Status: Acute Assessment and Plan: Brain MRI showing abnormal signal in the thalami, scattered subcortical white matter and cerebellar white matter. Nonspecific encephalopathy with differential diagnosis including PML, viral encephalopathy, acute necrotizing encephalitis, or PRES. [place] related to the the Cytoxan and this has been stopped. Mental status improving slowly. Still very weak but improving with PT/OT. Discussed with Neurology. They recommend repeat brain MRI in 2-3 weeks. Continue to monitor. Continue PT/OT. Increase activity as tolerated. (3) Pancytopenia: Code(s): D61.818 - Other pancytopenia Status: Acute Assessment and Plan: Secondary to Cytoxan therapy. WBC normal today Hgb 6.1 on admission; After 2 units of PRBC, Hgb was running 9-10 range but has dropped to 8.0 today Plt count slowly improving at 75K Pathology of BM Bx showing no lymphoma or other malignancy. Nephrology started vancomycin and Aztreonam which should cover for colitis. Continue to monitor (4) CKD (chronic kidney disease): Qualifiers: Chronic kidney disease stage: stage 3 (moderate) Qualified Code(s): N18.3 - Chronic kidney disease, stage 3 (moderate) Code(s): N18.9 - Chronic kidney disease, unspecified Status: Chronic Assessment and Plan: Patient has CKD but currently Cr running normal. 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 Nephrology following and appreciate their recommendations. Holding cyclophosphamide; prednisone has been continued but weaning the dose. Appetite remains poor. Supplements ordered. Remains on maintenance fluids. Advance diet (5) Abnormal glucose: Code(s): R73.09 - Other abnormal glucose Status: Acute Assessment and Plan: A1c 6.3. Glucose reviewed on 03/20/20 and elevated at times. May be prednisone induced. Also on maintenance fluids with dextrose in IV fluids. Prednisone being weaned so this should help. Continue to monitor for now. (6) Elevated troponin: Code(s): R79.89 - Other specified abnormal findings of blood chemistry Status: Acute Assessment and Plan: No complaints of chest pain. Trop 0.036 on admission and climbed to 0.171 but back down on repeat to 0.06. Probably related to cardiac strain from the severe anemia. No ASA due to above. (7) Petechial rash: Code(s): R23.3 - Spontaneous ecchymoses Status: Acute Assessment and Plan: Secondary to thrombocytopenia. (8) Hypothyroidism: Qualifiers: Hypothyroidism type: unspecified Qualified Code(s): E03.9 - Hypothyroidism, unspecified Code(s): E03.9 - H
[2020-03-22] VITALS (11 sets, daily range): BP systolic 132–176; BP diastolic 79–107; PULSE 70–101; RESP 16–20; TEMP 36–36.8; O2SAT 98–100
[2020-03-22 04:37] LABS: Basophils Percent Auto 0.2 % (0.2-1.2); Eosinophils Percent Auto 0.2 % (0-4.4); Hematocrit 24.4 % (37.0-47.0); Immature Granulocyte Absolute 0.29 K/mm3 (0.00-0.031); Immature Granulocyte Percent A 6.4 % (0-0.5); Lymphocytes Percent Auto 6.6 % (18.3-44.2); Mean Corpuscular HGB Conc 32.8 g/dl (32-36); Mean Corpuscular Hemoglobin 30.8 pg (26-34); Mean Corpuscular Volume 93.8 fl (80-100); Mean Platelet Volume 8.8 fl (7.4-10.4); Monocytes Absolute Auto 0.2 K/mm3 (0.1-0.6); Monocytes Percent Auto 5.3 % (2.6-8.5); Neutrophils Absolute Auto 3.7 K/mm3 (1.3-6.7); Neutrophils Percent Auto 81.3 % (45.5-73.1); Platelet Count Result 94 k/mm3 (150-375); Red Cell Distribution Width 22.9 % (11.5-14.5); White Blood Count 4.6 K/mm3 (4.5-10.0)
[2020-03-22 04:55] LABS: Albumin Level 2.4 g/dL (3.5-5.1); Blood Urea Nitrogen 11 mg/dL (7-17); Calcium 7.8 mg/dL (8.4-10.2); Carbon Dioxide 24 mmol/L (22-30); Chloride 112 mmol/L (98-107); Estimated CRCL calculation 58 ml/min; Estimated Glomerular Filt Rate > 60; Glucose 121 mg/dL (65-105); Magnesium 1.7 mg/dL (1.6-2.3); Phosphorus 2.7 mg/dL (2.5-4.5); Potassium 3.9 mmol/L (3.4-5.0); Sodium 138 mmol/L (137-145)
[2020-03-22] MEDS: AZTREONAM 1 GM in DEXTROSE 5% IN WATER 50 ML IVPB ×3 (06:04→21:22)
[2020-03-22] MEDS: LEVOTHYROXINE SODIUM 75 MCG TABLET PO (06:06)
--- NOTE | 2020-03-22 08:01 | WPDGICN ---
Assessment and Plan Assessment and plan (1) Stercoral ulcer of large intestine: Onset Date: ~03/20/20 Code(s): K63.3 - Ulcer of intestine Status: Acute Assessment and Plan: Plan is to continue MiraLax daily. Will give her a dose of magnesium citrate today. To collect suppositories will be given b.i.d. if necessary. Consider flex sig in several days after she is cleansed to assess rectal abnormality seen on CT scan. Abnormality seen on CT scanner of some concern. But no evidence for free perforation. Surgery is following. I have discussed the case with them in no surgery is anticipated. (2) Fecal impaction: Onset Date: ~03/20/20 Code(s): K56.41 - Fecal impaction Status: Acute Assessment and Plan: If laxatives failed to clear her fecal impaction in soap suds enemas may be of some benefit. Will defer this as she has begun to have some bowel movements already from the MiraLax. 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: Code(s): N05.9 - Unspecified nephritic syndrome with unspecified morphologic changes; I77.89 - Other specified disorders of arteries and arterioles Status: Acute (4) CKD (chronic kidney disease): Qualifiers: Chronic kidney disease stage: stage 3 (moderate) Qualified Code(s): N18.3 - Chronic kidney disease, stage 3 (moderate) Code(s): N18.9 - Chronic kidney disease, unspecified Status: Chronic (5) Pancytopenia: Code(s): D61.818 - Other pancytopenia Status: Acute (6) Confusion: Code(s): R41.0 - Disorientation, unspecified Status: Acute GI Consult Note Consult date/time: 03/22/20 08:01 HPI: Megan Raza is a 69 year old female seen in evaluation at the request of the hospitalist. Patient admitted 03/14/2020 with altered mental status. She was felt to have some degree of encephalopathy. For past history is significant for ANCA positive [place] earlier nephritis. She has been treated with Cytoxan and was found to have pancytopenia. She reports no bowel movements for 1 week until last evening when laxatives were given. Her history is difficult to obtain because of encephalopathy. Nursing staff reports much of the history. She complained of back pain several days ago a CT scan of the abdomen was subsequently performed on 03/18/2020. CT scan suggested a stercoral ulceration. Fecal impaction and acquire question of air within the colon and in the presacral space. Patient denies any specific abdominal pain. She was given MiraLax last evening with a small to moderate amount of stool return. No bleeding was described. Review of Systems Review of Systems: ROS unobtainable: Yes unobtainable due to mental status PMFSH Past Medical History Medical History CKD (chronic kidney disease) Glomerulonephritis Hypothyroidism Surgical History Surgical History History of 2 sections History of cholecystectomy Family History Family History Mother Diabetes mellitus Social History Social History Smoking status: Unknown if ever smoked Alcohol intake: never Substance use: never Gender identity (if verbalized by the patient): Female Spiritual care concerns: No Meds Home Medications and Allergies Home Medications Medication Instructions Recorded Confirmed Type cyclophosphamide 50 mg PO DAILY 03/14/20 03/14/20 History escitalopram oxalate 10 mg PO DAILY 03/14/20 03/14/20 History levothyroxine 75 mcg PO DAILY 03/14/20 03/14/20 History prednisone 40 mg PO BID 03/14/20 03/14/20 History Allergies Allergy/AdvReac Type Severity Reaction Status Date / Time Penicillins Allergy Unknown Verified 03/14/20 14:06 Vital Signs Vital
[2020-03-22] MEDS: ESCITALOPRAM OXALATE 10 MG TABLET PO (09:36)
[2020-03-22] MEDS: predniSONE 10 MG TABLET PO ×2 (09:36→17:51)
[2020-03-22] MEDS: polyethylene glycoL 3350 17 GM POWD.PACK PO ×2 (09:37→17:44)
[2020-03-22] MEDS: MAGNESIUM CITRATE 300 ML BTL PO (09:37)
--- NOTE | 2020-03-22 09:45 | P.PNNP_ITS ---
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 * creatinine is normal following use of cytoxan and prednisone (disease in remission as creatinine was in the 3ish range prior to treatment) * still with a bit of protein and blood in the urine which can take longer to resolve * holding cytoxan and weaning prednisone given current medical issues * continue supportive therapy (2) Encephalopathy: Code(s): G93.40 - Encephalopathy, unspecified Status: Acute Assessment and Plan: * etiology of this is unclear * mental staus is better (still fluctuates) * seems less likely her vasculitis given that it is improving prior to admission * Neurology recommendations noted * MRI of brain noted * continue supportive therapy (3) Abnormal glucose: Code(s): R73.09 - Other abnormal glucose Status: Acute Assessment and Plan: * presumably from steroids * will cut back the dosage and wean (4) Pancytopenia: Code(s): D61.818 - Other pancytopenia Status: Acute Assessment and Plan: * from cytoxan?? * somewhat surprising since she was on such a low dose * PRBC transfusion for anemia -- H/H better (but dropping again) * s/p bone marrow biopsy * Dr. Strauss following (5) Hypertension: Code(s): I10 - Essential (primary) hypertension Status: Acute Assessment and Plan: * never an issue previously * given her history of #1 and proteinuria, consider adding TRISTEN-I * follow trend of hemodynamics (6) Stercoral ulcer of large intestine: Onset Date: ~03/20/20 Code(s): K63.3 - Ulcer of intestine Status: Acute Assessment and Plan: * Surgery recommendations noted * seen by Gastroenterology today * follow clinical exam (7) Protein malnutrition: Code(s): E46 - Unspecified protein-calorie malnutrition Status: Acute Assessment and Plan: * albumin low * due to poor intake * liberalize diet Will continue to follow Subjective Date/time seen: 03/22/20 09:45 Seen by Gastroenterology this AM with recommendations noted; answers questions to some degree with stimulation but then quickly falls back to sleep; finally has some small bowel movements yesterday evening and she states she felt better following this. Exam Narrative: Exam Narrative: General: WD/WN female in NAD Heart: normal S1 and S2; no rub Lungs: clear to auscultation Abdomen: soft, nontender, nondistended, positive bowel sounds Extremities: no cyanosis or clubbing; no edema Skin: warm and intact Objective Data Vital Signs Vital Signs: Vital Signs Temp Pulse Resp BP Pulse Ox 03/22/20 08:24 36.7 C 94 20 157/93 H 99 03/22/20 05:55 88 03/22/20 04:00 36.0 C L 86 16 176/107 H 100 03/22/20 02:00 70 03/22/20 00:00 76 18 98 03/21/20 23:54 36.1 C L 76 18 150/98 H 98 03/21/20 22:00 106 H 03/21/20 20:00 74 18 98 03/21/20 19:44 36.2 C L 80 18 165/104 H 99 03/21/20 18:19 78 03/21/20 16:00 3
--- NOTE | 2020-03-22 09:45 | PM.PNNEP ---
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 creatinine is normal following use of cytoxan and prednisone (disease in remission as creatinine was in the 3ish range prior to treatment) still with a bit of protein and blood in the urine which can take longer to resolve holding cytoxan and weaning prednisone given current medical issues continue supportive therapy (2) Encephalopathy: Code(s): G93.40 - Encephalopathy, unspecified Status: Acute Assessment and Plan: etiology of this is unclear mental staus is better (still fluctuates) seems less likely her vasculitis given that it is improving prior to admission Neurology recommendations noted MRI of brain noted continue supportive therapy (3) Abnormal glucose: Code(s): R73.09 - Other abnormal glucose Status: Acute Assessment and Plan: presumably from steroids will cut back the dosage and wean (4) Pancytopenia: Code(s): D61.818 - Other pancytopenia Status: Acute Assessment and Plan: from cytoxan?? somewhat surprising since she was on such a low dose PRBC transfusion for anemia -- H/H better (but dropping again) s/p bone marrow biopsy Dr. Strauss following (5) Hypertension: Code(s): I10 - Essential (primary) hypertension Status: Acute Assessment and Plan: never an issue previously given her history of #1 and proteinuria, consider adding TRISTEN-I follow trend of hemodynamics (6) Stercoral ulcer of large intestine: Onset Date: ~03/20/20 Code(s): K63.3 - Ulcer of intestine Status: Acute Assessment and Plan: Surgery recommendations noted seen by Gastroenterology today follow clinical exam (7) Protein malnutrition: Code(s): E46 - Unspecified protein-calorie malnutrition Status: Acute Assessment and Plan: albumin low due to poor intake liberalize diet Will continue to follow Subjective Date/time seen: 03/22/20 09:45 Seen by Gastroenterology this AM with recommendations noted; answers questions to some degree with stimulation but then quickly falls back to sleep; finally has some small bowel movements yesterday evening and she states she felt better following this. Exam Narrative: Exam Narrative: General: WD/WN female in NAD Heart: normal S1 and S2; no rub Lungs: clear to auscultation Abdomen: soft, nontender, nondistended, positive bowel sounds Extremities: no cyanosis or clubbing; no edema Skin: warm and intact Objective Data Vital Signs Vital Signs: Vital Signs Temp Pulse Resp BP Pulse Ox 03/22/20 08:24 36.7 C 94 20 157/93 H 99 03/22/20 05:55 88 03/22/20 04:00 36.0 C L 86 16 176/107 H 100 03/22/20 02:00 70 03/22/20 00:00 76 18 98 03/21/20 23:54 36.1 C L 76 18 150/98 H 98 03/21/20 22:00 106 H 03/21/20 20:00 74 18 98 03/21/20 19:44 36.2 C L 80 18 165/104 H 99 03/21/20 18:19 78 03/21/20 16:00 36.2 C L 94 12 154/102 H 99 03/21/20 14:21 87 03/21/20 12:00 128 H 03/21/20 11:47 36.3 C L 92 12 147/89 H 99 03/21/20 10:09 88 Intake/Output Intake/Output: Intake & Output 03/19/20 03/20/20 03/21/20 03/22/20 23:59 23:59 23:59 23:59 Intake Total 1640 2135 2630 350 Output Total 4100 1575 1650 750 Balance -2460 560 980 -400 Meds/Results Medications: Active Medications Generic Name Dose Route Start Last Admin Trade Name Freq PRN Reason Stop Dose Admin Acetaminophen 650 mg 03/14/20 20:26 Tylenol Tablet PO Q4H PRN Mild Pain (1-3) or Fever
[2020-03-22 11:49] LABS: Vancomycin Trough 14.9 ug/mL (10.0-20.0)
--- NOTE | 2020-03-22 13:19 | PM.IMPN ---
Progress Note: A&P Assessment and Plan (1) Fecal impaction: Onset Date: ~03/20/20 Code(s): K56.41 - Fecal impaction Status: Acute Assessment and Plan: Patient complaining of back pain at bx site prompting CT scan. CT scan showing fecal impaction with stercoral colitis and rectosigmoid colonic pneumatosis with extraluminal gas in the presacral space and moderate descending and sigmoid colonic colitis. The small amount of presacral gas could potentially have been introduced during the bone biopsy procedure, rather than from the colon. Currently on Miralax without benefit. 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 General surgery following and appreciate their input. Continue supportive care and abx for now. Gonzalez in place due to urine retention probably from the distended rectum. Replace electrolytes. Advance Miralax. 03/22/20 13:19 on 03/21/2020 patient stated she is passing gas but no BM and does not remember when she had BM, patient was continued on MiraLax and abx, today patient did have BMs, patient is seen by GI today and added magnesium citrate and if needed recommended soap duds anema, today patient is feeling better after BMs and pain is better denies any nausea or vomiting fever or chills, patient symptoms are improving will continue present management and monitor (2) Encephalopathy: Code(s): G93.40 - Encephalopathy, unspecified Status: Acute Assessment and Plan: Brain MRI showing abnormal signal in the thalami, scattered subcortical white matter and cerebellar white matter. Nonspecific encephalopathy with differential diagnosis including PML, viral encephalopathy, acute necrotizing encephalitis, or PRES. [place] related to the the Cytoxan and this has been stopped. Mental status improving slowly. Still very weak but improving with PT/OT. Discussed with Neurology. They recommend repeat brain MRI in 2-3 weeks. Continue to monitor. Continue PT/OT. Increase activity as tolerated. (3) Pancytopenia: Code(s): D61.818 - Other pancytopenia Status: Acute Assessment and Plan: Secondary to Cytoxan therapy. WBC normal today Hgb 6.1 on admission; After 2 units of PRBC, Hgb was running 9-10 range but has dropped to 8.0 today Plt count slowly improving at 75K Pathology of BM Bx showing no lymphoma or other malignancy. Nephrology started vancomycin and Aztreonam which should cover for colitis. Continue to monitor (4) CKD (chronic kidney disease): Qualifiers: Chronic kidney disease stage: stage 3 (moderate) Qualified Code(s): N18.3 - Chronic kidney disease, stage 3 (moderate) Code(s): N18.9 - Chronic kidney disease, unspecified Status: Chronic Assessment and Plan: Patient has CKD but currently Cr running normal. 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 Nephrology following and appreciate their recommendations. Holding cyclophosphamide; prednisone has been continued but weaning the dose. Appetite remains poor. Supplements ordered. Remains on maintenance fluids. Advance diet (5) Abnormal glucose: Code(s): R73.09 - Other abnormal glucose Status: Acute Assessment and Plan: A1c 6.3. Glucose reviewed on 03/20/20 and elevated at times. May be prednisone induced. Also on maintenance fluids with dextrose in IV fluids. Prednisone being weaned so this should help. Continue to monitor for now. (6) Elevated troponin: Code(s): R79.89 - Other specified abnormal findings of blood chemistry Status: Acute Assessment and Plan: No complaints of chest pain. Trop 0.036 on admission and climbed to 0.171 but back down on repeat to 0.06. Probably related to cardiac strain from the severe anemia. No ASA due to above. (7) Petechial rash: Code(s): R23.3 - Spontaneous ecchymoses Status: Acute Assessment and Plan: Secondary to thrombocytopenia
--- NOTE | 2020-03-22 13:34 | PM.PNGS ---
Progress Note: A&P Assessment and Plan (1) Fecal impaction: Onset Date: ~03/20/20 Code(s): K56.41 - Fecal impaction Status: Acute Assessment and Plan: Patient on MiraLax BID with some results. Will try dulcalax suppository x1 today. Agree with GI consultation and consideration of inspection of the rectum via sigmoidoscopy if patient does not start having bowel movements overnight. ( Review GI is note and agree with possible cleansing followed by inspection of the rectum lower sigmoid later in the week. (2) Stercoral ulcer of large intestine: Onset Date: ~03/20/20 Code(s): K63.3 - Ulcer of intestine Status: Acute Assessment and Plan: Seen at CT scan several days ago. No evidence of rectal bleeding yet. (3) Pancytopenia: Code(s): D61.818 - Other pancytopenia Status: Acute Assessment and Plan: Hemoglobin stable today. Platelet count adequate about 84,000 now. White count at low normal range. (4) Chronic renal insufficiency: Qualifiers: Chronic kidney disease stage: unspecified stage Qualified Code(s): N18.9 - Chronic kidney disease, unspecified Code(s): N18.9 - Chronic kidney disease, unspecified Status: Acute (5) Hypothyroidism: Code(s): E03.9 - Hypothyroidism, unspecified Status: Acute Assessment and Plan: Consider flexible sigmoidoscopy in the next several days if patient does not start having stools that are reasonable. Agree with continuing b.i.d. MiraLax Will try 1 dulcalax suppository this afternoon for further rectal cleansing. Subjective Subjective Date/Time Seen: 03/22/20 09:34 Patient lying in bed when I entered the room. Denies much abdominal pain. In explain her petechiae. I discussed her low platelets with her. She states she did have bowel movement and didn't notice any blood in it. Review of Systems Constitutional: Constitutional: Reports no additional constitutional complaints, Reports body ache(s), Denies chills, Denies fatigue, Denies headache(s), Reports lethargy and Reports weakness Eyes: Eyes: Reports no additional eye complaints and Denies loss of vision ENT: Reports Normal hearing present, Denies dysphagia, Denies headache(s), Denies hearing loss, Denies sore throat and Reports other (Mucous Membranes moist.) Cardiovascular: Cardiovascular: Denies chest pain, Denies syncope, Denies irregular heart rhythm, Denies leg edema, Denies palpitations and Denies dyspnea Respiratory: Respiratory: Denies cough, Denies pain on inspiration and Denies dyspnea Gastrointestinal: Gastrointestinal: Denies abdominal pain, Denies belching, Denies bloating, Denies change in bowel habits, Denies change in stool character, Reports constipation, Denies GI cramping, Denies dysphagia, Denies dyspepsia, Denies heartburn, Denies diarrhea, Denies nausea and Denies vomiting Comments: Did pass a bowel movement last evening without a suppository. She was not able to explain the density of the stool. Genitourinary: Genitourinary: Denies urinary frequency, Denies dysuria and Denies urinary urgency Musculoskeletal: Musculoskeletal: Reports back pain, Reports myalgias, Reports arthralgias, Denies muscle cramps and Reports other (No calf swelling or edema) Integumentary/Breasts: Skin/Breast: Reports system reviewed and no additional complaints, except as docu, Denies non-healing lesions and Denies rash Neurologic: Reports Normal hearing present, Denies syncope, Denies headache(s), Denies loss of vision and Reports weakness Psychiatric: Psychiatric: Reports depression Endocrine: Endocrine: Denies change in body appearance, Denies fatigue and Denies palpitations Hematologic/Lymphatic: Hematologic/Lymphatic: Denies easy bleeding, Denies easy bruising and Denies lymphadenopathy Exam Const: General: cooperative, no acute distress, alert and awake Orientation/consciousness: patient oriented x3 HENMT: Head: no
--- NOTE | 2020-03-22 13:35 | PC.NURSE ---
This patient, Megan Raza, was transferred to [facility] on 03/22/20 at 1335. Personal belongings sent with patient. Belongings list checked and signed with receiving RN. Report given to MAXWELL Rodriguez. Appropriate documentation sent with patient.
--- NOTE | 2020-03-22 15:24 | PC.NURSE ---
This patient, Megan Raza, was received from 206[ ] on 03/22/20 at 1525. Personal belongings list checked and signed. Patient/family oriented to unit policies and routines
[2020-03-22] MEDS: KCL 20 MEQ/D5/0.9% SOD CHL 1,000 ML 70 ML IV CONT (17:42)
--- NOTE | 2020-03-22 18:12 | PC.NURSE ---
CHARTING WAS DONE BY ADRIAN GRAY RN BUT MAXIMINO NAME APPEARED IN CHARTING
--- NOTE | 2020-03-22 18:38 | PC.NURSE ---
This patient, Megan Raza, was received from [ IMU] on 03/22/20 at 1325 . Personal belongings list checked and signed. Patient/family oriented to unit policies and routines
[2020-03-23] MEDS: KCL 20 MEQ/D5/0.9% SOD CHL 1,000 ML 70 ML IV CONT ×2 (04:32→17:01)
[2020-03-23] MEDS: AZTREONAM 1 GM in DEXTROSE 5% IN WATER 50 ML IVPB ×3 (05:54→21:26)
[2020-03-23 05:57] LABS: Basophils Percent Auto 0.9 % (0.2-1.2); Hematocrit 23.8 % (37.0-47.0); Hemoglobin 7.8 g/dL (12.0-15.0); Immature Granulocyte Absolute 0.29 K/mm3 (0.00-0.031); Immature Granulocyte Percent A 6.3 % (0-0.5); Lymphocytes Absolute Auto 0.23 K/mm3 (0.9-3.2); Mean Corpuscular HGB Conc 32.8 g/dl (32-36); Mean Corpuscular Hemoglobin 30.7 pg (26-34); Mean Corpuscular Volume 93.7 fl (80-100); Mean Platelet Volume 8.7 fl (7.4-10.4); Monocytes Absolute Auto 0.2 K/mm3 (0.1-0.6); Monocytes Percent Auto 5.2 % (2.6-8.5); Neutrophils Absolute Auto 3.8 K/mm3 (1.3-6.7); Neutrophils Percent Auto 82.6 % (45.5-73.1); Platelet Count Result 111 k/mm3 (150-375); Red Blood Count 2.54 M/mm3 (4.2-5.4); Red Cell Distribution Width 22.5 % (11.5-14.5); White Blood Count 4.6 K/mm3 (4.5-10.0)
[2020-03-23 06:00] LABS: Albumin Level 2.5 g/dL (3.5-5.1); Blood Urea Nitrogen 12 mg/dL (7-17); Calcium 7.8 mg/dL (8.4-10.2); Carbon Dioxide 25 mmol/L (22-30); Chloride 111 mmol/L (98-107); Estimated CRCL calculation 58 ml/min; Estimated Glomerular Filt Rate > 60; Glucose 128 mg/dL (65-105); Magnesium 1.9 mg/dL (1.6-2.3); Phosphorus 2.8 mg/dL (2.5-4.5); Potassium 3.3 mmol/L (3.4-5.0); Sodium 137 mmol/L (137-145)
[2020-03-23 06:20] VITALS: BP 164/82; PULSE 85; RESP 20; TEMP 36.5; O2SAT 100
[2020-03-23] MEDS: LEVOTHYROXINE SODIUM 75 MCG TABLET PO (06:23)
--- NOTE | 2020-03-23 08:52 | WPDGIPROGNO ---
Progress Note: A&P Additional Plan Patient reports large bowel movement yesterday after laxatives. No bleeding described. Physical exam reveals her to be alert. Lungs are clear. Heart without murmur. Abdomen is softer and nontender. Impression 1. Constipation. Fecal impaction identified by CT scan appears improved with laxative therapy. Plan to continue stool softeners long-term. 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 Plan is for endoscopy to evaluate this in the morning. Preparation today. 3. Glomerular nephritis. Chronic kidney disease followed by your Nephrology service. 4. Pancytopenia felt to be secondary to medications. Currently stable. Subjective Date/time seen: 03/23/20 08:52 Objective Data Vital Signs Vital Signs: Vital Signs - 24 hr 03/22/20 10:11 03/22/20 12:00 03/22/20 13:25 Temperature 36.8 C Pulse Rate 97 91 101 H Respiratory Rate 18 Blood Pressure 132/79 Pulse Oximetry 100 03/22/20 15:20 03/22/20 22:54 03/23/20 06:20 Temperature 36.7 C 36.5 C Pulse Rate 91 80 85 Respiratory Rate 20 20 20 Blood Pressure 152/89 H 164/82 H Pulse Oximetry 99 99 100 Intake/Output Intake/Output: Intake & Output 03/20/20 03/21/20 03/22/20 03/23/20 23:59 23:59 23:59 23:59 Intake Total 2135 2630 2100 1600 Output Total 1575 1650 3200 700 Balance 560 980 -1100 900 Meds/Results Medications: Active Medications Generic Name Dose Route Start Last Admin Trade Name Rubénq PRN Reason Stop Dose Admin Acetaminophen 650 mg 03/14/20 20:26 Tylenol Tablet PO Q4H PRN Mild Pain (1-3) or Fever Hydrocodone Bitart/Acetaminophen 1 tab 03/18/20 22:42 03/21/20 22:09 Lawler 5-325 Mg PO 1 tab Q4H PRN Administration Pain Rated 4-6 Bisacodyl 10 mg 03/22/20 07:41 Dulcolax Suppository RECTAL BID PRN Constipation Escitalopram Oxalate 10 mg 03/15/20 09:00 03/22/20 09:36 Lexapro PO 10 mg DAILY LAURYN Administration Aztreonam 1 gm/ Dextrose 50 mls @ 100 mls/hr 03/15/20 12:00 03/23/20 06:24 IVPB Infused Q8HR LAURYN Infusion Vancomycin HCl 1,000 mg in 250 mls @ 250 mls/hr 03/15/20 12:00 03/22/20 13:25 Vancomycin 1,000 Mg/D5w 250 Ml IVPB Infused Q24H LAURYN Infusion Potassium Chloride/Dextrose/Sod Cl 1,000 mls @ 70 mls/hr 03/18/20 09:00 03/23/20 04:32 Kcl 20 Meq/D5/0.9% Sod Chl IV CONT 70 mls/hr .[id number] LAURYN Administration Levothyroxine Sodium 75 mcg 03/15/20 06:30 03/23/20 06:23 Synthroid PO 75 mcg DAILY@0630 LAURYN Administration Polyethylene Glycol 17 gm 03/20/20 17:00 03/22/20 17:44 Miralax PO 17 gm BID LAURYN Administration Prednisone 10 mg 03/19/20 09:00 03/22/20 17:51 Prednisone PO 10 mg BID LAURYN Administration Radiology Results: ITS Impressions Head CT 03/14/20 14:26 IMPRESSION: 1. No acute intracranial abnormality. 2. Age related findings. Chest X-Ray 03/14/20 14:44 IMPRESSION: No active cardiopulmonary disease Brain MRA 03/16/20 14:35 IMPRESSION: 1. No aneurysm or significant intracranial arterial stenosis. Brain MRI 03/17/20 15:02 IMPRESSION: Abnormal signal in the thalami, scattered subcortical white matter, cerebellar white matter. Nonspecific encephalopathy with differential diagnosis including PML, viral encephalopathy, acute necrotizing encephalitis, PRES. I discussed abnormal findings with Dr. Zuñiga at 03/17/2020 15:27 CDT. Biopsy,Fluoroscopy Guided 03/18/20 09:36 IMPRESSION: 1. Fluoro-guided bone marrow aspiration. 2. Fluoro-guided bone marrow core biopsy. Abdomen/Pelvis CT 03/18/20 22:12 IMPRESSION: 1. Fecal impaction, stercoral colitis. Rectosigmoid colonic pneumatosis with extraluminal gas in the presacral space, probably microperforation or leaked externally from the pneumatosis. No abscess or gross free intraperitoneal air. 2. Bladder is severely distended. 3. Moderate descending and sigmoid colonic colitis
[2020-03-23] MEDS: polyethylene glycoL 3350 17 GM POWD.PACK PO ×2 (09:12→17:00)
[2020-03-23] MEDS: ESCITALOPRAM OXALATE 10 MG TABLET PO (09:12)
[2020-03-23] MEDS: POTASSIUM CHLORIDE 20 MEQ PACKET (FOR LIQUID) 40 MEQ PO (09:12)
[2020-03-23] MEDS: predniSONE 10 MG TABLET PO ×2 (09:13→17:00)
--- NOTE | 2020-03-23 10:15 | WPDNEUROPN ---
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: Code(s): N05.9 - Unspecified nephritic syndrome with unspecified morphologic changes; I77.89 - Other specified disorders of arteries and arterioles Status: Acute (5) Encephalopathy: Code(s): G93.40 - Encephalopathy, unspecified Status: Acute (6) Petechial rash: Code(s): R23.3 - Spontaneous ecchymoses Status: Acute (7) Abnormal glucose: Code(s): R73.09 - Other abnormal glucose Status: Acute (8) Elevated troponin: Code(s): R79.89 - Other specified abnormal findings of blood chemistry Status: Acute (9) CKD (chronic kidney disease): Qualifiers: Chronic kidney disease stage: stage 3 (moderate) Qualified Code(s): N18.3 - Chronic kidney disease, stage 3 (moderate) Code(s): N18.9 - Chronic kidney disease, unspecified Status: Chronic (10) Glomerulonephritis: Code(s): N05.9 - Unspecified nephritic syndrome with unspecified morphologic changes Status: Acute (11) Pancytopenia: Code(s): D61.818 - Other pancytopenia Status: Acute (12) Chronic renal insufficiency: Qualifiers: Chronic kidney disease stage: unspecified stage Qualified Code(s): N18.9 - Chronic kidney disease, unspecified Code(s): N18.9 - Chronic kidney disease, unspecified Status: Acute (13) Protein malnutrition: Code(s): E46 - Unspecified protein-calorie malnutrition Status: Acute (14) Positive D dimer: Code(s): R79.89 - Other specified abnormal findings of blood chemistry Status: Acute (15) Non-ST elevated myocardial infarction (non-STEMI): Code(s): I21.4 - Non-ST elevation (NSTEMI) myocardial infarction Status: Acute (16) Hypothyroidism: Qualifiers: Hypothyroidism type: unspecified Qualified Code(s): E03.9 - Hypothyroidism, unspecified Code(s): E03.9 - Hypothyroidism, unspecified Status: Chronic (17) Petechiae: Code(s): R23.3 - Spontaneous ecchymoses Status: Acute (18) Confusion: Code(s): R41.0 - Disorientation, unspecified Status: Acute (19) Renal failure: Code(s): N19 - Unspecified kidney failure Status: Acute (20) Hypothyroidism: Code(s): E03.9 - Hypothyroidism, unspecified Status: Acute Additional Plan improving slowly Exam Const: General: cooperative, comfortable and no acute distress Nutritional Appearance: average body habitus Orientation/consciousness: oriented to person and oriented to place Limitations: no limitations Eyes: General: appearance normal, both eyes and all related structures Neck: Neck: full ROM Resp: Effort & Inspection: normal respiratory effort and able to speak in complete sentences Auscultation: clear to auscultation bilaterally Cardio: Rate: regular rate Rhythm: regular rhythm GI: Auscultation: normal bowel sounds Skin: General skin exam: no rashes or lesions noted Neuro: General: patient oriented x3 and moves all extremities Cranial nerves: Yes CN's II-XII intact bilaterally, Yes Nystagmus not present, Yes Normal facial strength present, Yes Midline tongue present, Yes Symmetric palate elevation present, Yes Normal hearing present and Yes Ability to bilaterally rotate head present Cognition (Neuro): normal cognition Speech: normal speech Gait exam (Neuro): Unable to assess gait Motor exam (neuro): 5/5 motor strength present throughout (decreased) and Normal motor muscle tone present throughout D
--- NOTE | 2020-03-23 10:41 | PM.PNGS ---
Progress Note: A&P Assessment and Plan (1) Fecal impaction: Onset Date: ~03/20/20 Code(s): K56.41 - Fecal impaction Status: Acute Assessment and Plan: Fecal impaction and stercoral colitis noted on CT currently on laxatives and seems to be clinically improving. Bowels are moving and abdominal exam benign. Currently refusing any further testing or treatment. No surgical indication at this time. We will sign off at this point and the patient can follow-up with Dr. Ford as an outpatient in our office. Agree with GI and I discussed with the patient that she will need a sigmoidoscopy at some point. Could consider doing this as an outpatient if she is refusing care at this time, but this is deferred to GI. Please let us know if you need anything further prior to discharge. (2) Stercoral ulcer of large intestine: Onset Date: ~03/20/20 Code(s): K63.3 - Ulcer of intestine Status: Acute Assessment and Plan: Seen at CT scan several days ago. See plan above. (3) Pancytopenia: Code(s): D61.818 - Other pancytopenia Status: Acute Assessment and Plan: [place] this is secondary to medications. Hemoglobin at 7.8 today. Platelet count up to 111,000. Hematology following. (4) Chronic renal insufficiency: Qualifiers: Chronic kidney disease stage: unspecified stage Qualified Code(s): N18.9 - Chronic kidney disease, unspecified Code(s): N18.9 - Chronic kidney disease, unspecified Status: Acute Assessment and Plan: Recently treated for glomerulonephritis. Nephrology following. (5) Hypothyroidism: Code(s): E03.9 - Hypothyroidism, unspecified Status: Acute Assessment and Plan: Formulated plan of care with Dr. Ford today after discussing the patient's case. (6) Encephalopathy: Code(s): G93.40 - Encephalopathy, unspecified Status: Acute Subjective Subjective Date/Time Seen: 03/23/20 10:00 Patient reports: no new complaints, feels better, flatus and bowel movement Interval history: Patient reports frustration immediately when speaking to her after entering the room. She reports that she is refusing any care at this point and will not do any further testing. She tells me she is currently refusing to take any more laxatives and refusing endoscopy at this time. She did allow me to examine her and she did answer my questions. Denies any abdominal pain, nausea, vomiting, or bloating. Reports multiple large bowel movements through the night and denies any blood in BMs. No new complaints today. Review of Systems Review of Systems: All systems reviewed & are unremarkable except as noted in HPI and below Gastrointestinal: Gastrointestinal: Denies abdominal pain, Denies bloating, Denies nausea and Denies vomiting Exam Const: General: comfortable, no acute distress, alert and awake Orientation/consciousness: patient oriented x3 GI: Inspection: normal to inspection and non-distended GI Palp: Yes Soft to palpation, No Tenderness to palpation present (GI), No Guarding due to palpation present (GI), No Rigid due to palpation and No Rebound tenderness present Auscultation: normal bowel sounds Skin: General skin exam: normal color and petechiae (diffusely spread) Neuro: General: moves all extremities and no focal motor deficits Speech: normal speech Psych: Speech and movement: Psychomotor agitation in speech present Affect: Irritable affect present Attitude: cooperative Insight: Fair insight present (Psych) Judgement: Fair judgement present (Psych) Objective Data Vital Signs Vital Signs: Vital Signs - 24 hr 03/22/20 12:00 03/22/20 13:25 03/22/20 15:20 Temperature 36.8 C Pulse Rate 91 101 H 91 Respiratory Rate 18 20 Blood Pressure 132/79 Pulse Oximetry 100 99 03/22/20 22:54 03/23/20 06:20 Temperature 36.7 C 36.5 C Pulse Rate 80 85 Respiratory Rate 20 20 Blood Pressure 152/89 H 164/82 H Pulse Oximetry 99
--- NOTE | 2020-03-23 11:15 | PCNFU ---
Nutrition Follow-Up Complete: Inadequate oral intake r/t food refusal as evidence by 0% intake of all meals over the last three days Goal: PO intake of 50% of meals and supplements limited progress towards goal. We will continue current goal. Pt current nutrition is Soft and Bite Sized,Level 6. Nutrition recommendation:Soft and Bite Sized, Level 6 Last recorded weight is 57.1 kg. Bowel Motility:+BM 5/3-Multiple reported. Labs Reviewed:K 3.3,Glu 128,Cr 0.6,Hct 23.8, Hgb 7.8 Meds Noted:Prednisone,Vancomycin,Synthroid,Miralax. Additional Notes: Spoke with nursing via Telephone due to COVID 19 precautions. Patient will be Clear Liquid for dinner and NPO after midnight for endoscopy tomorrow. Oral Intake has been poor. 5/3-refused all meal trays. Breakfast today had 20% of eggs, cream of wheat, OJ and coffee. Ensure Clear will come on clear liquid tray at dinner meal providing an additional 240 kcals and 8 gms proteins. PO intake is encouraged. Monitoring: PO intake, wt, labs every three days
--- NOTE | 2020-03-23 12:10 | PM.IMPN ---
Progress Note: A&P Assessment and Plan (1) Fecal impaction: Onset Date: ~03/20/20 Code(s): K56.41 - Fecal impaction Status: Acute Assessment and Plan: Patient complaining of back pain at bx site prompting CT scan. CT scan showing fecal impaction with stercoral colitis and rectosigmoid colonic pneumatosis with extraluminal gas in the presacral space and moderate descending and sigmoid colonic colitis. The small amount of presacral gas could potentially have been introduced during the bone biopsy procedure, rather than from the colon. Currently on Miralax without benefit. 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 General surgery following and appreciate their input. Continue supportive care and abx for now. Gonzalez in place due to urine retention probably from the distended rectum. Replace electrolytes. Advance Miralax. 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 Nonspecific encephalopathy with differential diagnosis including PML, viral encephalopathy, acute necrotizing encephalitis, or PRES. Lexa related to the the Cytoxan and this has been stopped. Mental status improving slowly. Still very weak but improving with PT/OT. Discussed with Neurology. They recommend repeat brain MRI in 2-3 weeks. Continue to monitor. Continue PT/OT. Increase activity as tolerated. patient is slowly improving. (3) Pancytopenia: Code(s): D61.818 - Other pancytopenia Status: Acute Assessment and Plan: Secondary to Cytoxan therapy. WBC normal today Hgb 6.1 on admission; After 2 units of PRBC, Hgb was running 9-10 range but has dropped to 8.0 today Plt count slowly improving at 111k today Pathology of BM Bx showing no lymphoma or other malignancy. Nephrology started vancomycin and Aztreonam which should cover for colitis. Continue to monitor (4) CKD (chronic kidney disease): Qualifiers: Chronic kidney disease stage: stage 3 (moderate) Qualified Code(s): N18.3 - Chronic kidney disease, stage 3 (moderate) Code(s): N18.9 - Chronic kidney disease, unspecified Status: Chronic Assessment and Plan: Patient has CKD but currently Cr running normal. 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 Nephrology following and appreciate their recommendations. Holding cyclophosphamide; prednisone has been continued but weaning the dose. Appetite remains poor. Supplements ordered. Remains on maintenance fluids. Advance diet (5) Abnormal glucose: Code(s): R73.09 - Other abnormal glucose Status: Acute Assessment and Plan: A1c 6.3. Glucose reviewed on 03/20/20 and elevated at times. May be prednisone induced. Also on maintenance fluids with dextrose in IV fluids. Prednisone being weaned so this should help. Continue to monitor for now. (6) Elevated troponin: Code(s): R79.89 - Other specified abnormal findings of blood chemistry Status: Acute Assessment and Plan: No complaints of chest pain. Trop 0.036 on admission and climbed to 0.171 but back down on repeat to 0.06. Probably related to cardiac strain from the severe anemia. No ASA due to above. (7) Petechial rash: Code(s): R23.3 - Spon
[2020-03-23 13:54] VITALS: BP 145/92; PULSE 95; RESP 14; TEMP 36.6; O2SAT 99
[2020-03-23] MEDS: PEG (High)/E-LYTE SOLN 4,000 ML BTL 4000 ML PO (14:07)
--- NOTE | 2020-03-23 15:27 | PC.NURSE ---
1500 pt leaves floor to [facility] via bed w/all belongings and d/c instructions.
--- NOTE | 2020-03-23 16:16 | P.PNNP_ITS ---
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 (2) Encephalopathy: Code(s): G93.40 - Encephalopathy, unspecified Status: Acute Assessment and Plan: * etiology of this is unclear * This seems to be doing pretty well. (3) Abnormal glucose: Code(s): R73.09 - Other abnormal glucose Status: Acute Assessment and Plan: * presumably from steroids * will cut back the dosage and wean (4) Pancytopenia: Code(s): D61.818 - Other pancytopenia Status: Acute Assessment and Plan: * from cytoxan?? * somewhat surprising since she was on such a low dose * PRBC transfusion for anemia -- H/H better (but dropping again) * bone marrow biopsy done * Dr. Strauss following (5) Hypertension: Code(s): I10 - Essential (primary) hypertension Status: Acute Assessment and Plan: * never an issue previously * given her history of #1 and proteinuria, consider adding TRISTEN-I * bp is good at 145 (6) Stercoral ulcer of large intestine: Onset Date: ~03/20/20 Code(s): K63.3 - Ulcer of intestine Status: Acute Assessment and Plan: * Surgery recommendations noted * seen by Gastroenterology today (7) Protein malnutrition: Code(s): E46 - Unspecified protein-calorie malnutrition Status: Acute Assessment and Plan: * albumin low * due to poor intake * liberalize diet Subjective Date/time seen: 03/23/20 16:16 Interval history: The patient is sad. She is tired of being in the hospital. She did realize that agreeing to colonoscopy required her to undergo this prep. She does not think she can get through this but will try. She also agreed to do a bone marrow biopsy. Long discussion with the patient. Review of Systems Cardiovascular: Cardiovascular: Reports no additional cardiovascular complaints Respiratory: Respiratory: Reports no additional respiratory complaints Gastrointestinal: Gastrointestinal: Reports no additional gastrointestinal complaints Genitourinary: Genitourinary: Reports no additional female genitourinary complaints Exam Narrative: Exam Narrative: WDWN in NAD skin no rash head ncat lungs clear cor reg no rub abd BS+ nontender and soft ext no edema. Objective Data Vital Signs Vital Signs: Vital Signs - 24 hr 03/22/20 22:54 03/23/20 06:20 03/23/20 13:54 Temperature 36.7 C 36.5 C 36.6 C Pulse Rate 80 85 95 Respiratory Rate 20 20 14 Blood Pressure 152/89 H 164/82 H 145/92 H Pulse Oximetry 99 100 99 Intake/Output Intake/Output: Intake & Output 03/20/20 03/21/20 03/22/20 03/23/20 23:59 23:59 23:59 23:59 Intake Total 9032 2135 0349
--- NOTE | 2020-03-23 16:16 | PM.PNNEP ---
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 (2) Encephalopathy: Code(s): G93.40 - Encephalopathy, unspecified Status: Acute Assessment and Plan: etiology of this is unclear This seems to be doing pretty well. (3) Abnormal glucose: Code(s): R73.09 - Other abnormal glucose Status: Acute Assessment and Plan: presumably from steroids will cut back the dosage and wean (4) Pancytopenia: Code(s): D61.818 - Other pancytopenia Status: Acute Assessment and Plan: from cytoxan?? somewhat surprising since she was on such a low dose PRBC transfusion for anemia -- H/H better (but dropping again) bone marrow biopsy done Dr. Strauss following (5) Hypertension: Code(s): I10 - Essential (primary) hypertension Status: Acute Assessment and Plan: never an issue previously given her history of #1 and proteinuria, consider adding TRISTEN-I bp is good at 145 (6) Stercoral ulcer of large intestine: Onset Date: ~03/20/20 Code(s): K63.3 - Ulcer of intestine Status: Acute Assessment and Plan: Surgery recommendations noted seen by Gastroenterology today (7) Protein malnutrition: Code(s): E46 - Unspecified protein-calorie malnutrition Status: Acute Assessment and Plan: albumin low due to poor intake liberalize diet Subjective Date/time seen: 03/23/20 16:16 Interval history: The patient is sad. She is tired of being in the hospital. She did realize that agreeing to colonoscopy required her to undergo this prep. She does not think she can get through this but will try. She also agreed to do a bone marrow biopsy. Long discussion with the patient. Review of Systems Cardiovascular: Cardiovascular: Reports no additional cardiovascular complaints Respiratory: Respiratory: Reports no additional respiratory complaints Gastrointestinal: Gastrointestinal: Reports no additional gastrointestinal complaints Genitourinary: Genitourinary: Reports no additional female genitourinary complaints Exam Narrative: Exam Narrative: WDWN in NAD skin no rash head ncat lungs clear cor reg no rub abd BS+ nontender and soft ext no edema. Objective Data Vital Signs Vital Signs: Vital Signs - 24 hr 03/22/20 22:54 03/23/20 06:20 03/23/20 13:54 Temperature 36.7 C 36.5 C 36.6 C Pulse Rate 80 85 95 Respiratory Rate 20 20 14 Blood Pressure 152/89 H 164/82 H 145/92 H Pulse Oximetry 99 100 99 Intake/Output Intake/Output: Intake & Output 03/20/20 03/21/20 03/22/20 03/23/20 23:59 23:59 23:59 23:59 Intake Total 2135 2630 2100 1910 Output Total 1575 1650 3200 700 Balance 560 980 -1100 1210 Meds/Results Medications: Active Medications Generic Name Dose Route Start Last Admin Trade Name Freq PRN Reason Stop Dose Admin Acetaminophen 650 mg 03/14/20 20:26 Tylenol Tablet PO Q4H PRN Mild Pain (1-3) or Fever Hydrocodone Bitart/Acetaminophen 1 tab 03/18/20 22:42 03/21/20 22:09 [place] 5-325 Mg PO 1 tab Q4H PRN Administration Pain Rated 4-6 Bisacodyl 10 mg 03/22/20 07:41 Dulcolax Suppository RECTAL BID PRN Constipation Escitalopram Oxalate 10 mg 03/15/20 09:00 03/23/20 09:12 Lexapro PO 10 mg DAILY LAURYN Administration Aztreonam 1 gm/
[2020-03-23 22:00] VITALS: BP 160/96; PULSE 94; RESP 16; TEMP 36.6; O2SAT 99
[2020-03-24] VITALS (7 sets, daily range): BP systolic 115–176; BP diastolic 72–111; PULSE 87–107; RESP 14–26; TEMP 36.6–36.7; O2SAT 97–99
[2020-03-24] MEDS: AZTREONAM 1 GM in DEXTROSE 5% IN WATER 50 ML IVPB ×3 (05:35→21:19)
--- NOTE | 2020-03-24 06:59 | WPDANESEPPF ---
Anes - Initial Pre Proc Eval Procedure: Operation Date: 03/18/20 08:30 Proposed Procedures p Bone Aspiration + Biopsy - Manny Khan MD Operation Date: 03/24/20 07:30 Proposed Procedures p Colonoscopy - Blaze Loaiza MD Date/Time: 03/24/20 06:59 Surgeon: Ronald Power MD Pre Op Diagnosis: PANCYTOPENIA AND CONFUSION Patient Data Age: 69 Gender: F Height: 5 ft 1 in Weight: 57.1 kg Last Vital Signs Temp 36.6 C 03/24/20 06:50 Pulse 107 H 03/24/20 06:50 Resp 20 03/24/20 06:50 BP 156/111 H 03/24/20 06:50 Pulse Ox 98 03/24/20 06:50 Allergies Allergy/AdvReac Type Severity Reaction Status Date / Time Penicillins Allergy Unknown Verified 03/14/20 14:06 Home Medications Medication Instructions Recorded Confirmed Type cyclophosphamide 50 mg PO DAILY 03/14/20 03/14/20 History escitalopram oxalate 10 mg PO DAILY 03/14/20 03/14/20 History levothyroxine 75 mcg PO DAILY 03/14/20 03/14/20 History prednisone 40 mg PO BID 03/14/20 03/14/20 History Laboratory Tests 03/23/20 05:16 WBC 4.6 K/mm3 K/mm3 (4.5-10.0) RBC 2.54 M/mm3 L M/mm3 (4.2-5.4) Hgb 7.8 g/dL L g/dL (12.0-15.0) Hct 23.8 % L % (37.0-47.0) MCV 93.7 fl fl (80-100) MCH 30.7 pg pg (26-34) MCHC 32.8 g/dl g/dl (32-36) RDW 22.5 % H % (11.5-14.5) Plt Count 111 k/mm3 L k/mm3 (150-375) MPV 8.7 fl fl (7.4-10.4) Immature Gran % (Auto) 6.3 % H % (0-0.5) Neut % (Auto) 82.6 % H % (45.5-73.1) Lymph % (Auto) 5.0 % L % (18.3-44.2) [place] % (Auto) 5.2 % % (2.6-8.5) Eos % (Auto) 0.0 % % (0-4.4) Baso % (Auto) 0.9 % % (0.2-1.2) Lymph # (Auto) 0.23 K/mm3 L K/mm3 (0.9-3.2) [place] # (Auto) 0.2 K/mm3 K/mm3 (0.1-0.6) Eos # (Auto) 0.0 K/mm3 K/mm3 (0-0.3) Baso # (Auto) 0.0 K/mm3 K/mm3 (0.0-0.1) Abs Immat Gran (auto) 0.29 K/mm3 H K/mm3 (0.00-0.031) Absolute Neuts (auto) 3.8 K/mm3 K/mm3 (1.3-6.7) Absolute Nucleated RBC 0.0 K/mm3 K/mm3 (0.0-0.012) Nucleated RBC % 0.0 % % (0.0-0.2) Patient hx anesthesia problems: none Family hx anesthesia problems: none [facility] Past Medical History Medical History CKD (chronic kidney disease) Glomerulonephritis Hypothyroidism Surgical History Surgical History History of 2 sections History of cholecystectomy Family History Family History Mother Diabetes mellitus Social History Social History Smoking status: Unknown if ever smoked Alcohol intake: never Substance use: never Gender identity (if verbalized by the patient): Female Spiritual care concerns: No Anes - Eval Final PreProcedure Day of Procedure 03/24/20 06:59 Patient weight: normal Heart: regular rate and rhythm Lungs: clear to auscultation Airway: Mallampati scale class III Neurological: alert and oriented Last oral intake: >/= 8 hours ASA classification: IV Emergent: no Anesthetic plan: proceed Anesthesia type and monitoring: general GIVS and standard monitoring Informed Consent: The patient's anesthetic plan and its attendant risks and benefits were discussed with the patient/family/POA. Questions were solicited and answers provided to the satisfaction of the patient/family/POA.
[2020-03-24] MEDS: LACTATED RINGERS 1,000 ML 150 ML IV CONT (07:16)
--- NOTE | 2020-03-24 07:36 | WPDGIPROGNO ---
Progress Note: A&P Additional Plan Patient not prepped at adequately for colonoscopy today. Physical exam reveals abdomen to be soft and nontender. Large amount of stool reported. Digital rectal exam reveals fecal impaction Remains. Impression 1. Inadequate prep for colonoscopy. 2. Fecal impaction. patient disimpacted under anesthesia at colonoscopy unable to be performed today. 3. Abnormal CT scan stercal colitis suspected. Plan is for repeat attempt at colonoscopy tomorrow after additional colon prep today. 4. Chronic kidney disease. Glomerular nephritis followed by Nephrology service. Subjective Date/time seen: 03/24/20 07:36 Objective Data Vital Signs Vital Signs: Vital Signs - 24 hr 03/23/20 13:54 03/23/20 22:00 03/24/20 06:50 Temperature 36.6 C 36.6 C 36.6 C Pulse Rate 95 94 107 H Respiratory Rate 14 16 20 Blood Pressure 145/92 H 160/96 H 156/111 H Pulse Oximetry 99 99 98 Intake/Output Intake/Output: Intake & Output 03/21/20 03/22/20 03/23/20 03/24/20 23:59 23:59 23:59 23:59 Intake Total 2630 2100 3360 50 Output Total 1650 3200 2200 Balance 980 -1100 1160 50 Meds/Results Medications: Active Medications Generic Name Dose Route Start Last Admin Trade Name Freq PRN Reason Stop Dose Admin Acetaminophen 650 mg 03/14/20 20:26 Tylenol Tablet PO Q4H PRN Mild Pain (1-3) or Fever Hydrocodone Bitart/Acetaminophen 1 tab 03/18/20 22:42 03/21/20 22:09 [place] 5-325 Mg PO 1 tab Q4H PRN Administration Pain Rated 4-6 Bisacodyl 10 mg 03/22/20 07:41 Dulcolax Suppository RECTAL BID PRN Constipation Escitalopram Oxalate 10 mg 03/15/20 09:00 03/23/20 09:12 Lexapro PO 10 mg DAILY LAURYN Administration Aztreonam 1 gm/ Dextrose 50 mls @ 100 mls/hr 03/15/20 12:00 03/24/20 06:05 IVPB Infused Q8HR LAURYN Infusion Vancomycin HCl 1,000 mg in 250 mls @ 250 mls/hr 03/15/20 12:00 03/23/20 13:11 Vancomycin 1,000 Mg/D5w 250 Ml IVPB Infused Q24H LAURYN Infusion Potassium Chloride/Dextrose/Sod Cl 1,000 mls @ 70 mls/hr 03/18/20 09:00 03/23/20 17:01 Kcl 20 Meq/D5/0.9% Sod Chl IV CONT 70 mls/hr .[id number] LAURYN Administration Lactated Ringer's 1,000 mls @ 150 mls/hr 03/24/20 06:05 03/24/20 07:33 Lr - Lactated Ringers Iv IV CONT 0 mls/hr .[id number] LAURYN Infusion Levothyroxine Sodium 75 mcg 03/15/20 06:30 03/24/20 05:36 Synthroid PO Not Given DAILY@0630 LAURYN Polyethylene Glycol 17 gm 03/20/20 17:00 03/23/20 17:00 Miralax PO 17 gm BID LAURYN Administration Prednisone 10 mg 03/19/20 09:00 03/23/20 17:00 Prednisone PO 10 mg BID LAURYN Administration Radiology Results: ITS Impressions Head CT 03/14/20 14:26 IMPRESSION: 1. No acute intracranial abnormality. 2. Age related findings. Chest X-Ray 03/14/20 14:44 IMPRESSION: No active cardiopulmonary disease Brain MRA 03/16/20 14:35 IMPRESSION: 1. No aneurysm or significant intracranial arterial stenosis. Brain MRI 03/17/20 15:02 IMPRESSION: Abnormal signal in the thalami, scattered subcortical white matter, cerebellar white matter. Nonspecific encephalopathy with differential diagnosis including PML, viral encephalopathy, acute necrotizing encephalitis, PRES. I discussed abnormal findings with Dr. Zuñiga at 03/17/2020 15:27 CDT. Biopsy,Fluoroscopy Guided 03/18/20 09:36 IMPRESSION: 1. Fluoro-guided bone marrow aspiration. 2. Fluoro-guided bone marrow core biopsy. Abdomen/Pelvis CT 03/18/20 22:12 IMPRESSION: 1. Fecal impaction, stercoral colitis. Rectosigmoid colonic pneumatosis with extraluminal gas in the presacral space, probably microperforation or leaked externally from the pneumatosis. No abscess or gross free intraperitoneal air. 2. Bladder is severely distended. 3. Moderate descending and sigmoid colonic colitis.
[2020-03-24] MEDS: predniSONE 10 MG TABLET PO ×2 (09:15→17:00)
[2020-03-24] MEDS: ESCITALOPRAM OXALATE 10 MG TABLET PO (09:15)
[2020-03-24] MEDS: polyethylene glycoL 3350 17 GM POWD.PACK PO ×2 (09:15→17:00)
[2020-03-24] MEDS: KCL 20 MEQ/D5/0.9% SOD CHL 1,000 ML 70 ML IV CONT (09:15)
--- NOTE | 2020-03-24 11:03 | P.PNNP_ITS ---
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 * On prednisone 10 mg twice a day. Off Cytoxan. * Seems like she is in remission. (2) Encephalopathy: Code(s): G93.40 - Encephalopathy, unspecified Status: Acute Assessment and Plan: * etiology of this is unclear * This seems to be doing pretty well. (3) Abnormal glucose: Code(s): R73.09 - Other abnormal glucose Status: Acute Assessment and Plan: * presumably from steroids (4) Pancytopenia: Code(s): D61.818 - Other pancytopenia Status: Acute Assessment and Plan: * from cytoxan?? * somewhat surprising since she was on such a low dose * PRBC transfusion for anemia -- H/H better (but dropping again) * bone marrow biopsy done and shows no lymphoma nor other neoplasm. Just a hypocellular marrow with maturing trilineage hemoatopoiesis. * Dr. Strauss following (5) Hypertension: Code(s): I10 - Essential (primary) hypertension Status: Acute Assessment and Plan: * never an issue previously * given her history of #1 and proteinuria, consider adding TRISTEN-I * bp is good at 145 (6) Stercoral ulcer of large intestine: Onset Date: ~03/20/20 Code(s): K63.3 - Ulcer of intestine Status: Acute Assessment and Plan: * Surgery recommendations noted * seen by Gastroenterology today (7) Protein malnutrition: Code(s): E46 - Unspecified protein-calorie malnutrition Status: Acute Assessment and Plan: * albumin low * due to poor intake * liberalize diet Subjective Date/time seen: 03/24/20 11:03 Interval history: The patient had the colonoscopy yesterday. Was an inadequate prep. She apparently needs repeat tomorrow. Review of Systems Cardiovascular: Cardiovascular: Reports no additional cardiovascular complaints Respiratory: Respiratory: Reports no additional respiratory complaints Gastrointestinal: Gastrointestinal: Reports no additional gastrointestinal complaints Genitourinary: Genitourinary: Reports no additional female genitourinary complaints Exam Narrative: Exam Narrative: WDWN in NAD skin no rash head ncat lungs clear to auscultation cor reg no rub abd BS+ nontender and soft ext no edema. Objective Data Vital Signs Vital Signs: Vital Signs - 24 hr 03/23/20 13:54 03/23/20 22:00 03/24/20 06:00 Temperature 36.6 C 36.6 C 36.6 C Pulse Rate 95 94 102 H Respiratory Rate 14 16 20 Blood Pressure 145/92 H 160/96 H 176/89 H Pulse Oximetry 99 99 99 03/24/20 06:50 03/24/20 07:37 03/24/20 07:47 Temperature 36.6 C Pulse Rate 107 H 87 87 Respiratory Rate 20 14 26 H Blood Pressure 156/111 H 115/72 120/83 Pulse Oximetry 98 97 97 03/24/20
--- NOTE | 2020-03-24 11:03 | PM.PNNEP ---
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 On prednisone 10 mg twice a day. Off Cytoxan. Seems like she is in remission. (2) Encephalopathy: Code(s): G93.40 - Encephalopathy, unspecified Status: Acute Assessment and Plan: etiology of this is unclear This seems to be doing pretty well. (3) Abnormal glucose: Code(s): R73.09 - Other abnormal glucose Status: Acute Assessment and Plan: presumably from steroids (4) Pancytopenia: Code(s): D61.818 - Other pancytopenia Status: Acute Assessment and Plan: from cytoxan?? somewhat surprising since she was on such a low dose PRBC transfusion for anemia -- H/H better (but dropping again) bone marrow biopsy done and shows no lymphoma nor other neoplasm. Just a hypocellular marrow with maturing trilineage hemoatopoiesis. Dr. Strauss following (5) Hypertension: Code(s): I10 - Essential (primary) hypertension Status: Acute Assessment and Plan: never an issue previously given her history of #1 and proteinuria, consider adding TRISTEN-I bp is good at 145 (6) Stercoral ulcer of large intestine: Onset Date: ~03/20/20 Code(s): K63.3 - Ulcer of intestine Status: Acute Assessment and Plan: Surgery recommendations noted seen by Gastroenterology today (7) Protein malnutrition: Code(s): E46 - Unspecified protein-calorie malnutrition Status: Acute Assessment and Plan: albumin low due to poor intake liberalize diet Subjective Date/time seen: 03/24/20 11:03 Interval history: The patient had the colonoscopy yesterday. Was an inadequate prep. She apparently needs repeat tomorrow. Review of Systems Cardiovascular: Cardiovascular: Reports no additional cardiovascular complaints Respiratory: Respiratory: Reports no additional respiratory complaints Gastrointestinal: Gastrointestinal: Reports no additional gastrointestinal complaints Genitourinary: Genitourinary: Reports no additional female genitourinary complaints Exam Narrative: Exam Narrative: WDWN in NAD skin no rash head ncat lungs clear to auscultation cor reg no rub abd BS+ nontender and soft ext no edema. Objective Data Vital Signs Vital Signs: Vital Signs - 24 hr 03/23/20 13:54 03/23/20 22:00 03/24/20 06:00 Temperature 36.6 C 36.6 C 36.6 C Pulse Rate 95 94 102 H Respiratory Rate 14 16 20 Blood Pressure 145/92 H 160/96 H 176/89 H Pulse Oximetry 99 99 99 03/24/20 06:50 03/24/20 07:37 03/24/20 07:47 Temperature 36.6 C Pulse Rate 107 H 87 87 Respiratory Rate 20 14 26 H Blood Pressure 156/111 H 115/72 120/83 Pulse Oximetry 98 97 97 03/24/20 07:57 Temperature Pulse Rate 88 Respiratory Rate 18 Blood Pressure 121/81 Pulse Oximetry 97 Intake/Output Intake/Output: Intake & Output 03/21/20 03/22/20 03/23/20 03/24/20 23:59 23:59 23:59 23:59 Intake Total 2630 2100 3360 4850 Output Total 1650 3200 2200 2000 Balance 980 -1100 1160 2850 Meds/Results Medications: Active Medications Generic Name Dose Route Start Last Admin Trade Name Freq PRN Reason Stop Dose Admin Acetaminophen 650 mg 03/14/20 20:26 Tylenol Tablet PO Q4H PRN Mild Pain (1-3) or Fever Hydrocodone Bitart/Acetaminophen 1 tab 03/18/20 22:42 03/21/20 22:09 [place] 5-325 Mg PO 1 tab Q4H PRN Administration Pain Rated 4-6 B
--- NOTE | 2020-03-24 12:59 | PM.IMPN ---
Progress Note: A&P Assessment and Plan (1) Fecal impaction: Onset Date: ~03/20/20 Code(s): K56.41 - Fecal impaction Status: Acute Assessment and Plan: Awaiting colonscopy, continue bowel prep (2) Encephalopathy: Code(s): G93.40 - Encephalopathy, unspecified Status: Acute Assessment and Plan: Brain MRI showing abnormal signal in the thalami, scattered subcortical white matter and cerebellar white matter. pt will need repeat brain MRI in 2-3 weeks. Continue to monitor. Continue PT/OT. Pt will be discharged to [facility] on dischrage. (3) Pancytopenia: Code(s): D61.818 - Other pancytopenia Status: Acute Assessment and Plan: Secondary to Cytoxan therapy. 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 Nephrology following and appreciate their recommendations. Holding cyclophosphamide; prednisone has been continued (5) Abnormal glucose: Code(s): R73.09 - Other abnormal glucose Status: Acute Assessment and Plan: A1c 6.3. on prednisone Continue to monitor for now. (6) Elevated troponin: Code(s): R79.89 - Other specified abnormal findings of blood chemistry Status: Acute Assessment and Plan: No complaints of chest pain. . (7) Petechial rash: Code(s): R23.3 - Spontaneous ecchymoses Status: Acute Assessment and Plan: Secondary to thrombocytopenia. (8) Hypothyroidism: Qualifiers: Hypothyroidism type: unspecified Qualified Code(s): E03.9 - Hypothyroidism, unspecified Code(s): E03.9 - Hypothyroidism, unspecified Status: Chronic Assessment and Plan: TSH 4.72. Continue levothyroxine PO. Subjective Date/time seen: 03/24/20 12:59 Interval history: Patient stated she is passing gas but no BM and does not remember when she had BM, pt shows - Stercal proctitis seen on a CT scan, pt to have colonscopy tomorrow, inadequate bowel prep today. 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 Review of Systems Review of Systems: All systems reviewed & are unremarkable except as noted in HPI and below Exam Narrative: Exam Narrative: Patient appears chronically ill, tired appearing Resp: Effort & Inspection: normal respiratory effort Auscultation: clear to auscultation bilaterally Cardio: Rate: regular rate Rhythm: regular rhythm Heart sounds: no murmurs GI: Inspection: normal to inspection Auscultation: normal bowel sounds Neuro: Motor exam (neuro): 5/5 motor strength present throughout Sensory Exam: normal sensation Extrem: General: normal to inspection and no edema Psych: Mental Status: mental status grossly normal Affect: normal affect and Anxious affect present Objective Data Vital Signs Vital Signs: Vital Signs - 24 hr 03/23/20 13:54 03/23/20 22:00 03/24/20 06:00 Temperature 36.6 C 36.6 C 36.6 C Pulse Rate 95 94 102 H Respiratory Rate 14 16 20 Blood Pressure 145/92 H 160/96 H 176/89 H Pulse Oximetry 99 99 99 03/24/20 06:50 03/24/20 07:37 03/24/20 07:47 Temperature 36.6 C Pulse Rate 107 H 87 87 Respiratory Rate 20 14 26 H Blood Pressure 156/111 H 115/72 120/83 Pulse Oximetry 98 97 97 03/24/20 07:57 Temperature Pulse Rate 88 Respiratory Rate 18 Blood Pressure 121/81 Pulse Oximetry 97 Intake/Output Intake/Output: Intake & Output 03/21/20 03/22/20 03/23/20 03/24/20 23:59 23:59 23:59 23:59 Intake Total 2630 2100 3360 4850 Output Total 1650 3200 2200 2000 Balance 980 -1100 1160 2850 Meds/Results Medications: Active Medications Generic Name Dose Route Start Last Admin Trade Name Freq PRN Reason
[2020-03-24] MEDS: BISACODYL 10 MG SUPPOSITORY RECTAL (14:27)
--- NOTE | 2020-03-24 16:34 | PCPTNOTE ---
The patient treatment was not able to be completed today due to prep for G.I. procedure tomorrow. Will plan to continue treatment per plan of care.
--- NOTE | 2020-03-24 17:00 | P.PNONC_ITS ---
Progress Note: A/P - Additional Plan Pancytopenia. Bone marrow biopsy showed hypocellular bone marrow without any evidence of leukemia and lymphoma. Differential diagnosis include autoimmune pancytopenia/infection more possibility of myelodysplasia. Platelet count has been slowly improving. Hemoglobin remains low. No need for blood transfusion. Cytoxan has been discontinued. Most likely hemoglobin was improved upon a clin ical recovery. Glomerulonephritis. Kidney function remains normal. She is on low-dose steroid. Mental status changes. Clinically she has been improving. We will see her in the office after discharge for repeat blood count and monitoring. - Time Spent With Patient Total time spent is greater than 50% in coordination of care (as documented) at patient's floor/unit and/or counseling patient: 15 - 25 minutes Subjective Interval history: Pancytopenia Glomerulonephritis Mental status changes secondary to encephalopathy Review of Systems - Review of Systems Patient seems to be much more awake and alert today. She remains tired and weak. Denies any bleeding and bruising. Denies any abdominal pain. No other new complaints. - Neurologic Reports system reviewed and no additional complaints, except as documented, Reports hearing normal, Reports weakness, Denies syncope, Denies headache(s), Denies loss of vision Exam Vital signs: Katlyn Melo. Assessment of coma and impaired consciousness. A practical scale. Lancet 1974; 2:81-4. Narrative: Lungs are clear to auscultation bilaterally Cardiovascular regular rate rhythm no murmurs Abdomen soft nontender nondistended bowel sounds are positive Extremities no edema PN: Objective Data - Labs CBC & Chem 7: 03/23/20 05:16 03/23/20 05:16
[2020-03-25] VITALS (7 sets, daily range): BP systolic 101–157; BP diastolic 71–98; PULSE 85–103; RESP 15–27; TEMP 36.1–36.6; O2SAT 97–100
[2020-03-25] MEDS: KCL 20 MEQ/D5/0.9% SOD CHL 1,000 ML 70 ML IV CONT ×2 (01:05→21:28)
[2020-03-25] MEDS: AZTREONAM 1 GM in DEXTROSE 5% IN WATER 50 ML IVPB ×3 (05:34→21:30)
[2020-03-25] MEDS: LEVOTHYROXINE SODIUM 75 MCG TABLET PO (05:35)
--- NOTE | 2020-03-25 09:09 | P.CDI_ITS ---
CDI Query Clarification Request -Encephalopathy has been documented - [place] related to the the Cytoxan and this has been stopped has been documented Please further specify type of encephalopathy: * Toxic * Metabolic * Hypertensive * Anoxid * Hepatic * Other * Unable to determine
--- NOTE | 2020-03-25 09:09 | WPDCDIQUERY2 ---
CDI Query Clarification Request -Encephalopathy has been documented - [place] related to the the Cytoxan and this has been stopped has been documented Please further specify type of encephalopathy: Toxic Metabolic Hypertensive Anoxid Hepatic Other Unable to determine
--- NOTE | 2020-03-25 10:11 | WPDANESEFPP ---
Anes - Eval Final PreProcedure Day of Procedure 03/25/20 10:11 Patient weight: normal Heart: regular rate and rhythm Lungs: clear to auscultation Airway: Mallampati scale class III Neurological: alert and oriented Last oral intake: >/= 8 hours ASA classification: IV Emergent: no Anesthetic plan: proceed Anesthesia type and monitoring: general GIVS and standard monitoring Informed Consent: The patient's anesthetic plan and its attendant risks and benefits were discussed with the patient/family/POA. Questions were solicited and answers provided to the satisfaction of the patient/family/POA.
[2020-03-25] MEDS: LACTATED RINGERS 1,000 ML 150 ML IV CONT (10:28)
[2020-03-25] MEDS: MAGNESIUM CITRATE 300 ML BTL PO (12:25)
--- NOTE | 2020-03-25 13:09 | PC.NURSE ---
Patient is upset about having to do bowel prep for another colonoscopy. Dr. Owen was at bedside and educated patient on the reason for the bowel prep. Patient visibly upset and requesting to speak to her . 's number dialed for the patient. This RN spoke with the and updated him on the situation. plans to try to convince the patient to cooperate with the plan of care. Patient is currently A&Ox4 and verbalizes understanding of all education given to her.
--- NOTE | 2020-03-25 14:16 | PM.IMPN ---
Progress Note: A&P Assessment and Plan (1) Fecal impaction: Onset Date: ~03/20/20 Code(s): K56.41 - Fecal impaction Status: Acute Assessment and Plan: Awaiting colonscopy, continue bowel prep, Pt is very disraught that she did not have colonoscopy yet and feels like she is not getting anywhere since admission. (2) Encephalopathy: Code(s): G93.40 - Encephalopathy, unspecified Status: Acute Assessment and Plan: Brain MRI showing abnormal signal in the thalami, scattered subcortical white matter and cerebellar white matter. pt will need repeat brain MRI in 2-3 weeks. Continue to monitor. Continue PT/OT. Pt will be discharged to [facility] on dischrage. (3) Pancytopenia: Code(s): D61.818 - Other pancytopenia Status: Acute Assessment and Plan: Secondary to Cytoxan therapy. 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 Nephrology following and appreciate their recommendations. Holding cyclophosphamide; prednisone has been continued (5) Abnormal glucose: Code(s): R73.09 - Other abnormal glucose Status: Acute Assessment and Plan: A1c 6.3. on prednisone Continue to monitor for now. (6) Elevated troponin: Code(s): R79.89 - Other specified abnormal findings of blood chemistry Status: Acute Assessment and Plan: No complaints of chest pain. . (7) Petechial rash: Code(s): R23.3 - Spontaneous ecchymoses Status: Acute Assessment and Plan: Secondary to thrombocytopenia. (8) Hypothyroidism: Qualifiers: Hypothyroidism type: unspecified Qualified Code(s): E03.9 - Hypothyroidism, unspecified Code(s): E03.9 - Hypothyroidism, unspecified Status: Chronic Assessment and Plan: TSH 4.72. Continue levothyroxine PO. Subjective Date/time seen: 03/25/20 14:16 Interval history: Patient stated she is passing gas but no BM and does not remember when she had BM, pt shows - Stercal proctitis seen on a CT scan, pt to have colonoscopy tomorrow, unfortunately could not have colonoscopy because of inadequate prep. Pt has a known history of GN and anemic with hb of 7.8. Pt is very disraught that she did not have colonoscopy yet and feels like she is not getting anywhere since admission. Review of Systems Review of Systems: All systems reviewed & are unremarkable except as noted in HPI and below Gastrointestinal: Gastrointestinal: Reports constipation Exam Narrative: Exam Narrative: Patient appears chronically ill, tired appearing, refusing examination Objective Data Vital Signs Vital Signs: Vital Signs - 24 hr 03/24/20 22:00 03/25/20 06:00 03/25/20 10:00 Temperature 36.6 C 36.6 C Pulse Rate 104 H 86 103 H Respiratory Rate 18 18 20 Blood Pressure 149/99 H 157/94 H 154/94 H Pulse Oximetry 98 97 97 03/25/20 11:27 03/25/20 11:37 03/25/20 11:47 Temperature Pulse Rate 90 85 86 Respiratory Rate 15 27 H 25 H Blood Pressure 101/71 114/76 156/98 H Pulse Oximetry 100 98 98 Intake/Output Intake/Output: Intake & Output 03/22/20 03/23/20 03/24/20 03/25/20 23:59 23:59 23:59 23:59 Intake Total 2100 3360 5860 1250 Output Total 3200 2200 2950 1100 Balance -1100 1160 2910 150 Meds/Results Medications: Active Medications Generic Name Dose Route Start Last Admin Trade Name Freq PRN Reason Stop Dose Admin Acetaminophen 650 mg 03/14/20 20:26 Tylenol Tablet PO Q4H PRN Mild Pain (1-3) or Fever Hydrocodone Bitart/Acetaminophen 1 tab 03/18/20 22:42 03/21/20 22:09 [place] 5-325 Mg PO 1 tab Q4H PRN Administration Pain
[2020-03-25] MEDS: polyethylene glycoL 3350 17 GM POWD.PACK PO (17:50)
[2020-03-25] MEDS: predniSONE 10 MG TABLET PO (17:50)
--- NOTE | 2020-03-25 18:36 | P.PNNP_ITS ---
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 Off Cytoxan. * Seems like she is in remission. (2) Encephalopathy: Code(s): G93.40 - Encephalopathy, unspecified Status: Acute Assessment and Plan: * etiology of this is unclear * This seems to be doing pretty well. (3) Abnormal glucose: Code(s): R73.09 - Other abnormal glucose Status: Acute Assessment and Plan: * presumably from steroids (4) Pancytopenia: Code(s): D61.818 - Other pancytopenia Status: Acute Assessment and Plan: * from cytoxan?? * somewhat surprising since she was on such a low dose * PRBC transfusion for anemia -- H/H better (but dropping again) * bone marrow biopsy done and shows no lymphoma nor other neoplasm. Just a hypocellular marrow with maturing trilineage hemoatopoiesis. * Dr. Strauss following (5) Hypertension: Code(s): I10 - Essential (primary) hypertension Status: Acute Assessment and Plan: * never an issue previously * given her history of #1 and proteinuria, consider adding TRISTNE-I * bp is good at 145 (6) Stercoral ulcer of large intestine: Onset Date: ~03/20/20 Code(s): K63.3 - Ulcer of intestine Status: Acute Assessment and Plan: * Surgery recommendations noted * seen by Gastroenterology today (7) Protein malnutrition: Code(s): E46 - Unspecified protein-calorie malnutrition Status: Acute Assessment and Plan: * albumin low * On clear liquid diet. Subjective Date/time seen: 03/25/20 18:36 Interval history: The patient had the colonoscopy again today. Fecal impaction found. Patient has no appetite. Review of Systems Cardiovascular: Cardiovascular: Reports no additional cardiovascular complaints Respiratory: Respiratory: Reports no additional respiratory complaints Gastrointestinal: Gastrointestinal: Reports no additional gastrointestinal complaints Genitourinary: Genitourinary: Reports no additional female genitourinary complaints Exam Narrative: Exam Narrative: WDWN in NAD skin no rash or subcu nodules head ncat lungs clear to auscultation cor reg no rub or gallop abd BS+ nontender and soft ext no edema. Or cyanosis Objective Data Vital Signs Vital Signs: Vital Signs - 24 hr 03/24/20 22:00 03/25/20 06:00 03/25/20 10:00 Temperature 36.6 C 36.6 C Pulse Rate 104 H 86 103 H Respiratory Rate 18 18 20 Blood Pressure 149/99 H 157/94 H 154/94 H Pulse Oximetry 98 97 97 03/25/20 11:27 03/25/20 11:37 03/25/20 11:47 Temperature Pulse Rate 90 85 86 Respiratory Rate 15 27 H 25 H Blood Pressure 101/71 114/76 156/98 H Pulse Oximetry 100 98 98 Intake/Output Intake/Outpu
--- NOTE | 2020-03-25 18:36 | PM.PNNEP ---
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 Off Cytoxan. Seems like she is in remission. (2) Encephalopathy: Code(s): G93.40 - Encephalopathy, unspecified Status: Acute Assessment and Plan: etiology of this is unclear This seems to be doing pretty well. (3) Abnormal glucose: Code(s): R73.09 - Other abnormal glucose Status: Acute Assessment and Plan: presumably from steroids (4) Pancytopenia: Code(s): D61.818 - Other pancytopenia Status: Acute Assessment and Plan: from cytoxan?? somewhat surprising since she was on such a low dose PRBC transfusion for anemia -- H/H better (but dropping again) bone marrow biopsy done and shows no lymphoma nor other neoplasm. Just a hypocellular marrow with maturing trilineage hemoatopoiesis. Dr. Strauss following (5) Hypertension: Code(s): I10 - Essential (primary) hypertension Status: Acute Assessment and Plan: never an issue previously given her history of #1 and proteinuria, consider adding TRISTEN-I bp is good at 145 (6) Stercoral ulcer of large intestine: Onset Date: ~03/20/20 Code(s): K63.3 - Ulcer of intestine Status: Acute Assessment and Plan: Surgery recommendations noted seen by Gastroenterology today (7) Protein malnutrition: Code(s): E46 - Unspecified protein-calorie malnutrition Status: Acute Assessment and Plan: albumin low On clear liquid diet. Subjective Date/time seen: 03/25/20 18:36 Interval history: The patient had the colonoscopy again today. Fecal impaction found. Patient has no appetite. Review of Systems Cardiovascular: Cardiovascular: Reports no additional cardiovascular complaints Respiratory: Respiratory: Reports no additional respiratory complaints Gastrointestinal: Gastrointestinal: Reports no additional gastrointestinal complaints Genitourinary: Genitourinary: Reports no additional female genitourinary complaints Exam Narrative: Exam Narrative: WDWN in NAD skin no rash or subcu nodules head ncat lungs clear to auscultation cor reg no rub or gallop abd BS+ nontender and soft ext no edema. Or cyanosis Objective Data Vital Signs Vital Signs: Vital Signs - 24 hr 03/24/20 22:00 03/25/20 06:00 03/25/20 10:00 Temperature 36.6 C 36.6 C Pulse Rate 104 H 86 103 H Respiratory Rate 18 18 20 Blood Pressure 149/99 H 157/94 H 154/94 H Pulse Oximetry 98 97 97 03/25/20 11:27 03/25/20 11:37 03/25/20 11:47 Temperature Pulse Rate 90 85 86 Respiratory Rate 15 27 H 25 H Blood Pressure 101/71 114/76 156/98 H Pulse Oximetry 100 98 98 Intake/Output Intake/Output: Intake & Output 03/22/20 03/23/20 03/24/20 03/25/20 23:59 23:59 23:59 23:59 Intake Total 2100 3360 5860 1790 Output Total 3200 2200 2950 1100 Balance -1100 1160 2910 690 Meds/Results Medications: Active Medications Generic Name Dose Route Start Last Admin Trade Name Freq PRN Reason Stop Dose Admin Acetaminophen 650 mg 03/14/20 20:26 Tylenol Tablet PO Q4H PRN Mild Pain (1-3) or Fever Hydrocodone Bitart/Acetaminophen 1 tab 03/18/20 22:42 03/21/20 22:09 [place] 5-325 Mg PO 1 tab Q4H PRN Administration Pain Rated 4-6 Bisacodyl 10 mg 03/22/20 07:41 03/24/20 14:27 Dulcolax Suppository RECTAL 10 mg BID PRN Administration Con
[2020-03-26] MEDS: LEVOTHYROXINE SODIUM 75 MCG TABLET PO (05:45)
[2020-03-26] MEDS: AZTREONAM 1 GM in DEXTROSE 5% IN WATER 50 ML IVPB ×3 (05:45→22:01)
[2020-03-26 05:58] VITALS: BP 159/98; PULSE 83; RESP 18; TEMP 36.3; O2SAT 98
[2020-03-26 06:25] LABS: Hematocrit 23.3 % (37.0-47.0); Hemoglobin 7.8 g/dL (12.0-15.0); Mean Corpuscular HGB Conc 33.5 g/dl (32-36); Mean Corpuscular Hemoglobin 31.2 pg (26-34); Mean Corpuscular Volume 93.2 fl (80-100); Mean Platelet Volume 8.4 fl (7.4-10.4); Platelet Count Result 135 k/mm3 (150-375); Red Cell Distribution Width 21.6 % (11.5-14.5); White Blood Count 4.5 K/mm3 (4.5-10.0)
[2020-03-26 06:45] LABS: Blood Urea Nitrogen 9 mg/dL (7-17); Calcium 7.6 mg/dL (8.4-10.2); Carbon Dioxide 31 mmol/L (22-30); Chloride 107 mmol/L (98-107); Estimated CRCL calculation 58 ml/min; Estimated Glomerular Filt Rate > 60; Glucose 81 mg/dL (65-105); Sodium 139 mmol/L (137-145)
--- NOTE | 2020-03-26 08:09 | WPDGIPROGNO ---
Progress Note: A&P Additional Plan Patient had another attempted colonoscopy yesterday but remained impacted. She was disimpacted once again. Laxatives and enemas were given again last evening. Physical exam reveals her to be alert. Vital signs are stable. She is anicteric. Lungs are clear. Heart without murmur. Abdomen is soft and nontender. Impression 1. Fecal impaction. 2. Abnormal CT scan suggesting a air in the wall of the rectum. 3. Glomerular nephritis with chronic kidney disease. Cytoxan on hold because of pancytopenia. Plan is for daily laxatives. Frequent enemas are suggest at this point to relieve her impaction. Consider repeat attempt at colonoscopy on Monday. Subjective Date/time seen: 03/26/20 08:09 Objective Data Vital Signs Vital Signs: Vital Signs - 24 hr 03/25/20 10:00 03/25/20 11:27 03/25/20 11:37 Temperature Pulse Rate 103 H 90 85 Respiratory Rate 20 15 27 H Blood Pressure 154/94 H 101/71 114/76 Pulse Oximetry 97 100 98 03/25/20 11:47 03/25/20 18:35 03/25/20 22:00 Temperature 36.1 C L 36.6 C Pulse Rate 86 91 87 Respiratory Rate 25 H 16 16 Blood Pressure 156/98 H 155/96 H 150/90 H Pulse Oximetry 98 98 98 03/26/20 05:58 Temperature 36.3 C L Pulse Rate 83 Respiratory Rate 18 Blood Pressure 159/98 H Pulse Oximetry 98 Intake/Output Intake/Output: Intake & Output 03/23/20 03/24/20 03/25/20 03/26/20 23:59 23:59 23:59 23:59 Intake Total 3360 5860 3530 Output Total 2200 2950 2600 706 Balance 1160 2910 930 -706 Meds/Results Medications: Active Medications Generic Name Dose Route Start Last Admin Trade Name Freq PRN Reason Stop Dose Admin Acetaminophen 650 mg 03/14/20 20:26 Tylenol Tablet PO Q4H PRN Mild Pain (1-3) or Fever Hydrocodone Bitart/Acetaminophen 1 tab 03/18/20 22:42 03/21/20 22:09 [place] 5-325 Mg PO 1 tab Q4H PRN Administration Pain Rated 4-6 Bisacodyl 10 mg 03/22/20 07:41 03/24/20 14:27 Dulcolax Suppository RECTAL 10 mg BID PRN Administration Constipation Escitalopram Oxalate 10 mg 03/15/20 09:00 03/25/20 09:52 Lexapro PO Not Given DAILY LAURYN Aztreonam 1 gm/ Dextrose 50 mls @ 100 mls/hr 03/15/20 12:00 03/26/20 05:45 IVPB 03/27/20 12:01 100 mls/hr Q8HR LAURYN Administration Vancomycin HCl 1,000 mg in 250 mls @ 250 mls/hr 03/15/20 12:00 03/25/20 13:25 Vancomycin 1,000 Mg/D5w 250 Ml IVPB 03/27/20 12:01 Infused Q24H LAURYN Infusion Potassium Chloride/Dextrose/Sod Cl 1,000 mls @ 70 mls/hr 03/18/20 09:00 03/25/20 21:28 Kcl 20 Meq/D5/0.9% Sod Chl IV CONT 70 mls/hr .[id number] LAURYN Administration Levothyroxine Sodium 75 mcg 03/15/20 06:30 03/26/20 05:45 Synthroid PO 75 mcg DAILY@0630 LAURYN Administration Polyethylene Glycol 17 gm 03/20/20 17:00 03/25/20 17:50 Miralax PO 17 gm BID LAURYN Administration Prednisone 10 mg 03/19/20 09:00 03/25/20 17:50 Prednisone PO 10 mg BID LAURYN Administration Radiology Results: ITS Impressions Head CT 03/14/20 14:26 IMPRESSION: 1. No acute intracranial abnormality. 2. Age related findings. Chest X-Ray 03/14/20 14:44 IMPRESSION: No active cardiopulmonary disease Brain MRA 03/16/20 14:35 IMPRESSION: 1. No aneurysm or significant intracranial arterial stenosis. Brain MRI 03/17/20 15:02 IMPRESSION: Abnormal signal in the thalami, scattered subcortical white matter, cerebellar white matter. Nonspecific encephalopathy with differential diagnosis including PML, viral encephalopathy, acute necrotizing encephalitis, PRES. I discussed abnormal findings with Dr. Zuñiga at 03/17/2020 15:27 CDT. Biopsy,Fluoroscopy Guided 03/18/20 09:36 IMPRESSION: 1. Fluoro-guided bone marrow aspiration. 2. Fluoro-guided bone marrow core biopsy. Abdomen/Pelvis CT 03/18/20 22:12 IMPRESSION: 1. Fecal impaction, stercoral colitis. Rectosigmoid colonic pneumatosis with extraluminal gas i
[2020-03-26] MEDS: ESCITALOPRAM OXALATE 10 MG TABLET PO (08:20)
[2020-03-26] MEDS: polyethylene glycoL 3350 17 GM POWD.PACK PO ×2 (08:20→16:36)
[2020-03-26] MEDS: POTASSIUM CHLORIDE 20 MEQ TABLET 40 MEQ PO (08:21)
[2020-03-26] MEDS: predniSONE 10 MG TABLET PO ×2 (08:21→16:36)
--- NOTE | 2020-03-26 08:23 | P.PNNP_ITS ---
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 Off Cytoxan. * Seems like she is in remission. * She has been on Cytoxan for about 3-4 months. She would probably be okay to stay off Cytoxan and start mycophenolate once her counts recover as a maintenance therapy. (2) Encephalopathy: Code(s): G93.40 - Encephalopathy, unspecified Status: Acute Assessment and Plan: * etiology of this is unclear * This seems to be doing pretty well. (3) Abnormal glucose: Code(s): R73.09 - Other abnormal glucose Status: Acute Assessment and Plan: * presumably from steroids (4) Pancytopenia: Code(s): D61.818 - Other pancytopenia Status: Acute Assessment and Plan: * from cytoxan?? * somewhat surprising since she was on such a low dose * PRBC transfusion for anemia -- H/H better (but dropping again) * bone marrow biopsy done and shows no lymphoma nor other neoplasm. Just a hypocellular marrow with maturing trilineage hemoatopoiesis. * Platelet count is improving. White cell count is now normal. Hemoglobin still low. Will start Epogen. Iron levels are okay. * Dr. Strauss following (5) Hypertension: Code(s): I10 - Essential (primary) hypertension Status: Acute Assessment and Plan: * never an issue previously * given her history of #1 and proteinuria, consider adding TRISTEN-I * bp is good at 145 (6) Stercoral ulcer of large intestine: Onset Date: ~03/20/20 Code(s): K63.3 - Ulcer of intestine Status: Acute Assessment and Plan: * Surgery recommendations noted * seen by Gastroenterology today (7) Protein malnutrition: Code(s): E46 - Unspecified protein-calorie malnutrition Status: Acute Assessment and Plan: * albumin low * On clear liquid diet. Subjective Date/time seen: 03/26/20 08:23 Interval history: The patient has had a few small bowel movements. Stools are firm. Patient has no appetite. Patient is weak. Eager to moved to the next level of care Review of Systems Cardiovascular: Cardiovascular: Reports no additional cardiovascular complaints Respiratory: Respiratory: Reports no additional respiratory complaints Gastrointestinal: Gastrointestinal: Reports no additional gastrointestinal complaints Genitourinary: Genitourinary: Reports no additional female genitourinary complaints Exam Narrative: Exam Narrative: WDWN in NAD skin no rash or subcu nodules head ncat lungs clear bilaterally cor reg no rub or gallop abd BS+ nontender and soft ext no edema Objective Data Vital Signs Vital Signs: Vital Signs - 24 hr 03/25/20 10:00 03/25/20 11:27 03/25/20 11:37 Temperature Pulse Rate 103 H 90 85 Respiratory Rate 20 15 27 H Blood Pressure 154/94 H 101/71 114/76
--- NOTE | 2020-03-26 08:23 | PM.PNNEP ---
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 Off Cytoxan. Seems like she is in remission. She has been on Cytoxan for about 3-4 months. She would probably be okay to stay off Cytoxan and start mycophenolate once her counts recover as a maintenance therapy. (2) Encephalopathy: Code(s): G93.40 - Encephalopathy, unspecified Status: Acute Assessment and Plan: etiology of this is unclear This seems to be doing pretty well. (3) Abnormal glucose: Code(s): R73.09 - Other abnormal glucose Status: Acute Assessment and Plan: presumably from steroids (4) Pancytopenia: Code(s): D61.818 - Other pancytopenia Status: Acute Assessment and Plan: from cytoxan?? somewhat surprising since she was on such a low dose PRBC transfusion for anemia -- H/H better (but dropping again) bone marrow biopsy done and shows no lymphoma nor other neoplasm. Just a hypocellular marrow with maturing trilineage hemoatopoiesis. Platelet count is improving. White cell count is now normal. Hemoglobin still low. Will start Epogen. Iron levels are okay. Dr. Strauss following (5) Hypertension: Code(s): I10 - Essential (primary) hypertension Status: Acute Assessment and Plan: never an issue previously given her history of #1 and proteinuria, consider adding TRISTEN-I bp is good at 145 (6) Stercoral ulcer of large intestine: Onset Date: ~03/20/20 Code(s): K63.3 - Ulcer of intestine Status: Acute Assessment and Plan: Surgery recommendations noted seen by Gastroenterology today (7) Protein malnutrition: Code(s): E46 - Unspecified protein-calorie malnutrition Status: Acute Assessment and Plan: albumin low On clear liquid diet. Subjective Date/time seen: 03/26/20 08:23 Interval history: The patient has had a few small bowel movements. Stools are firm. Patient has no appetite. Patient is weak. Eager to moved to the next level of care Review of Systems Cardiovascular: Cardiovascular: Reports no additional cardiovascular complaints Respiratory: Respiratory: Reports no additional respiratory complaints Gastrointestinal: Gastrointestinal: Reports no additional gastrointestinal complaints Genitourinary: Genitourinary: Reports no additional female genitourinary complaints Exam Narrative: Exam Narrative: WDWN in NAD skin no rash or subcu nodules head ncat lungs clear bilaterally cor reg no rub or gallop abd BS+ nontender and soft ext no edema Objective Data Vital Signs Vital Signs: Vital Signs - 24 hr 03/25/20 10:00 03/25/20 11:27 03/25/20 11:37 Temperature Pulse Rate 103 H 90 85 Respiratory Rate 20 15 27 H Blood Pressure 154/94 H 101/71 114/76 Pulse Oximetry 97 100 98 03/25/20 11:47 03/25/20 18:35 03/25/20 22:00 Temperature 36.1 C L 36.6 C Pulse Rate 86 91 87 Respiratory Rate 25 H 16 16 Blood Pressure 156/98 H 155/96 H 150/90 H Pulse Oximetry 98 98 98 03/26/20 05:58 Temperature 36.3 C L Pulse Rate 83 Respiratory Rate 18 Blood Pressure 159/98 H Pulse Oximetry 98 Intake/Output Intake/Output: Intake & Output 03/23/20 03/24/20 03/25/20 03/26/20 23:59 23:59 23:59 23:59 Intake Total 3360 5860 3530 Output Total 2200 2950 2600 706 Balance 1160 2910 930 -706 Meds/Results Medications: Active Medications Generic Nam
[2020-03-26] MEDS: EPOETIN ALFA 10,000 UNITS/ML VIAL 10000 UNITS SUB-Q (09:46)
[2020-03-26] MEDS: PEG (High)/E-LYTE SOLN 4,000 ML BTL 4000 ML PO (11:15)
[2020-03-26 12:09] LABS: ANCA Screen Negative (Negative)
[2020-03-26 12:16] LABS: Vancomycin Trough 14.8 ug/mL (10.0-20.0)
--- NOTE | 2020-03-26 13:46 | PCNFU ---
Nutrition Follow-Up Complete: Inadequate oral intake r/t food refusal as evidence by 0% intake of all meals over the last three days Goal: PO intake of 50% of meals and supplements limited progress towards goal. We will continue current goal. Pt current nutrition is clear liquids. Nutrition recommendation:clear liquid then advance as tolerated. Last recorded weight is 58.5 kg. Bowel Motility:+BM x6 today Labs Reviewed: Cr 0.6,K 3.0, Hct 23.3 Meds Noted:Synthroid, Miralax,Vacomycin,Prednisone Additional Notes: Spoke with nursing today for nutrition follow up due to COVID 19 precautions. Patient to have colonoscopy tomorrow, unable to have colonoscopy because of inadequate prep. Currently on a clear liquid diet with bowel prep and tolerating with multiple bowel movements reported. Monitoring: PO intake, wt, labs every 5 days
[2020-03-26 14:00] VITALS: BP 160/100; PULSE 91; RESP 16; TEMP 36.4; O2SAT 98
--- NOTE | 2020-03-26 15:13 | PM.IMPN ---
Progress Note: A&P Assessment and Plan (1) Fecal impaction: Onset Date: ~03/20/20 Code(s): K56.41 - Fecal impaction Status: Acute Assessment and Plan: CT abdomen/pelvis on 03/18/2020 with fecal impaction, stercoral colitis. Appreciate help from GI. Previous attempts colonoscopy unsuccessful. Repeating bowel prep today with hope for colonoscopy tomorrow. Will continue to monitor. 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 Patient is biopsy-proven. current ANCA now negative. Remains on prednisone twice daily. No longer on Cytoxan which she was previously on. Creatinine normal at 0.60. Will follow. (3) Hypokalemia: Code(s): E87.6 - Hypokalemia Status: Acute Assessment and Plan: Potassium 3.0 today with oral replacement given. Will continue to monitor and replace as needed. (4) Encephalopathy: Code(s): G93.40 - Encephalopathy, unspecified Status: Acute Assessment and Plan: Brain MRI with abnormal signal in the thalami, scattered subcortical white matter and cerebellar white matter. Plan to repeat MRI brain in 2-3 weeks. Vitamin B12, vitamin B6, and TSH normal. Will continue to monitor with other treatments. Continue PT/OT. Plan for SNF when ready for discharge. (5) Pancytopenia: Code(s): D61.818 - Other pancytopenia Status: Acute Assessment and Plan: Most likely secondary to Cytoxan therapy. Appreciate input from Dr. Strauss. Bone marrow biopsy with hypocellular bone marrow without any evidence of leukemia and lymphoma. WBC 4.5 today with hemoglobin 7.8, hematocrit 23.3 and platelets 135,000. Will monitor. (6) Abnormal glucose: Code(s): R73.09 - Other abnormal glucose Status: Acute Assessment and Plan: Hemoglobin A1c 6.3. Glucose reviewed on 03/26/2020 and presently stable. Will continue to monitor. (7) Elevated troponin: Code(s): R79.89 - Other specified abnormal findings of blood chemistry Status: Acute Assessment and Plan: Mild elevation. No complaints of chest pain. No further evaluation at this time. (8) Petechial rash: Code(s): R23.3 - Spontaneous ecchymoses Status: Acute Assessment and Plan: Secondary to thrombocytopenia. (9) Hypothyroidism: Qualifiers: Hypothyroidism type: unspecified Qualified Code(s): E03.9 - Hypothyroidism, unspecified Code(s): E03.9 - Hypothyroidism, unspecified Status: Chronic Assessment and Plan: TSH 4.72. Continue levothyroxine. (10) DVT prophylaxis: Code(s): Z29.9 - Encounter for prophylactic measures, unspecified Status: Acute Assessment and Plan: SCDs. Time Spent With Patient Time with patient: 15 - 25 minutes Subjective Date/time seen: 03/26/20 15:13 Interval history: Date of Service: 03/26/2020. Initially admitted with encephalopathy and pancytopenia. Found to have fecal impaction and glomerulonephritis. Patient currently in process of prep for another attempt at colonoscopy. She is having bowel movements. Denies abdominal pain. No nausea or vomiting. No chest pain. No shortness of breath. Review of Systems Constitutional: Constitutional: Denies chills and Denies fever(s) ENT: Denies dysphagia Cardiovascular: Cardiovascular: Denies chest pain Respiratory: Respiratory: Denies dyspnea Gastrointestinal: Gastrointestinal: Denies abdominal pain, Denies nausea and Denies vomiting Genitourinary: Comments: catheter in place Musculoskeletal: Musculoskeletal: Reports no additional musculoskeletal complaints Integumentary/Breasts: Skin/Breast: Denies rash Neurologi
--- NOTE | 2020-03-26 15:15 | PCPTNOTE ---
The PT treatment was unable to be completed today due to patient prepping for procedure. Will continue per Plan of Care frequency and duration.
[2020-03-26] MEDS: KCL 20 MEQ/D5/0.9% SOD CHL 1,000 ML 70 ML IV CONT (16:36)
[2020-03-26 17:43] VITALS: BP 161/95
[2020-03-26 22:00] VITALS: BP 160/90; PULSE 98; RESP 18; TEMP 36.8; O2SAT 100
[2020-03-27] MEDS: AZTREONAM 1 GM in DEXTROSE 5% IN WATER 50 ML IVPB (05:09)
[2020-03-27 06:00] VITALS: BP 174/94; PULSE 84; RESP 16; TEMP 36.7; O2SAT 99
[2020-03-27 07:38] LABS: Hematocrit 25.5 % (37.0-47.0); Hemoglobin 8.5 g/dL (12.0-15.0); Mean Corpuscular HGB Conc 33.3 g/dl (32-36); Mean Corpuscular Hemoglobin 30.7 pg (26-34); Mean Corpuscular Volume 92.1 fl (80-100); Mean Platelet Volume 8.1 fl (7.4-10.4); Platelet Count Result 169 k/mm3 (150-375); Red Blood Count 2.77 M/mm3 (4.2-5.4); Red Cell Distribution Width 21.3 % (11.5-14.5); White Blood Count 4.4 K/mm3 (4.5-10.0)
[2020-03-27 07:50] LABS: Albumin Level 2.6 g/dL (3.5-5.1); Blood Urea Nitrogen 8 mg/dL (7-17); Calcium 7.8 mg/dL (8.4-10.2); Carbon Dioxide 34 mmol/L (22-30); Chloride 104 mmol/L (98-107); Estimated CRCL calculation 68 ml/min; Estimated Glomerular Filt Rate > 60; Glucose 100 mg/dL (65-105); Phosphorus 2.1 mg/dL (2.5-4.5); Sodium 138 mmol/L (137-145)
--- NOTE | 2020-03-27 09:09 | PCPTNOTE ---
The PT treatment was unable to be completed this AM due to patient prepping for procedure. Will continue per Plan of Care frequency and duration.
[2020-03-27] MEDS: KCL 20 MEQ/D5/0.9% SOD CHL 1,000 ML 70 ML IV CONT ×2 (09:29→22:48)
--- NOTE | 2020-03-27 09:59 | WPDGIPROGNO ---
Progress Note: A&P Additional Plan Patient alert this morning. Reported to have had results with enema last evening. Still with stool in rectal vault this morning. Physical exam reveals abdomen to be soft and nontender. No organomegaly. Bowel sounds are present. Digital rectal exam reveals stool in the rectal vault. Impression 1. Constipation and fecal impaction. Patient still not clear enough for endoscopy. No evidence for surgical abdomen at this point. Abnormal CT scan noted. Plan is for colonoscopy at a later date after she can be prepped. Continue laxatives and enemas. Subjective Date/time seen: 03/27/20 09:59 Objective Data Vital Signs Vital Signs: Vital Signs - 24 hr 03/26/20 14:00 03/26/20 17:43 03/26/20 22:00 Temperature 36.4 C 36.8 C Pulse Rate 91 98 Respiratory Rate 16 18 Blood Pressure 160/100 H 161/95 H 160/90 H Pulse Oximetry 98 100 03/27/20 06:00 Temperature 36.7 C Pulse Rate 84 Respiratory Rate 16 Blood Pressure 174/94 H Pulse Oximetry 99 Intake/Output Intake/Output: Intake & Output 03/24/20 03/25/20 03/26/20 03/27/20 23:59 23:59 23:59 23:59 Intake Total 5860 3530 5400 1450 Output Total 2950 2600 2056 1350 Balance 2910 930 3344 100 Meds/Results Medications: Active Medications Generic Name Dose Route Start Last Admin Trade Name Freq PRN Reason Stop Dose Admin Acetaminophen 650 mg 03/14/20 20:26 Tylenol Tablet PO Q4H PRN Mild Pain (1-3) or Fever Hydrocodone Bitart/Acetaminophen 1 tab 03/18/20 22:42 03/21/20 22:09 [place] 5-325 Mg PO 1 tab Q4H PRN Administration Pain Rated 4-6 Bisacodyl 10 mg 03/22/20 07:41 03/24/20 14:27 Dulcolax Suppository RECTAL 10 mg BID PRN Administration Constipation Epoetin Zheng 10,000 units 03/26/20 09:00 03/26/20 09:46 Epogen SUB-Q 10,000 units TuThSa@0900 LAURYN Administration Escitalopram Oxalate 10 mg 03/15/20 09:00 03/26/20 08:20 Lexapro PO 10 mg DAILY LAURYN Administration Aztreonam 1 gm/ Dextrose 50 mls @ 100 mls/hr 03/15/20 12:00 03/27/20 05:39 IVPB 03/27/20 12:01 Infused Q8HR LAURYN Infusion Vancomycin HCl 1,000 mg in 250 mls @ 250 mls/hr 03/15/20 12:00 03/26/20 14:00 Vancomycin 1,000 Mg/D5w 250 Ml IVPB 03/27/20 12:01 Infused Q24H LAURYN Infusion Potassium Chloride/Dextrose/Sod Cl 1,000 mls @ 70 mls/hr 03/18/20 09:00 03/27/20 09:29 Kcl 20 Meq/D5/0.9% Sod Chl IV CONT 70 mls/hr .[id number] LAURYN Administration Levothyroxine Sodium 75 mcg 03/15/20 06:30 03/27/20 05:53 Synthroid PO Not Given DAILY@0630 LAURYN Polyethylene Glycol 17 gm 03/20/20 17:00 03/26/20 16:36 Miralax PO 17 gm BID LAURYN Administration Prednisone 10 mg 03/19/20 09:00 03/26/20 16:36 Prednisone PO 10 mg BID LAURYN Administration Radiology Results: ITS Impressions Head CT 03/14/20 14:26 IMPRESSION: 1. No acute intracranial abnormality. 2. Age related findings. Chest X-Ray 03/14/20 14:44 IMPRESSION: No active cardiopulmonary disease Brain MRA 03/16/20 14:35 IMPRESSION: 1. No aneurysm or significant intracranial arterial stenosis. Brain MRI 03/17/20 15:02 IMPRESSION: Abnormal signal in the thalami, scattered subcortical white matter, cerebellar white matter. Nonspecific encephalopathy with differential diagnosis including PML, viral encephalopathy, acute necrotizing encephalitis, PRES. I discussed abnormal findings with Dr. Zuñiga at 03/17/2020 15:27 CDT. Biopsy,Fluoroscopy Guided 03/18/20 09:36 IMPRESSION: 1. Fluoro-guided bone marrow aspiration. 2. Fluoro-guided bone marrow core biopsy. Abdomen/Pelvis CT 03/18/20 22:12 IMPRESSION: 1. Fecal impaction, stercoral colitis. Rectosigmoid colonic pneumatosis with extraluminal gas in the presacral space, probably microperforation or leaked externally from the pneumatosis. No abscess or gross free intraperitoneal air. 2. Bladder is severely distended. 3. Mo
[2020-03-27] MEDS: predniSONE 10 MG TABLET PO ×2 (10:34→16:38)
[2020-03-27] MEDS: polyethylene glycoL 3350 17 GM POWD.PACK PO ×2 (10:34→16:38)
[2020-03-27] MEDS: ESCITALOPRAM OXALATE 10 MG TABLET PO (10:34)
--- NOTE | 2020-03-27 11:58 | PM.IMPN ---
Progress Note: A&P Assessment and Plan (1) Fecal impaction: Onset Date: ~03/20/20 Code(s): K56.41 - Fecal impaction Status: Acute Assessment and Plan: CT abdomen/pelvis on 03/18/2020 with fecal impaction, stercoral colitis. Appreciate help from GI. once again on able to have colonoscopy today as still with stool in rectal vault. Patient to have additional enema per GI today. Per GI, plan for colonoscopy at a later date. Will continue to monitor. Continue PT/ OT. Awaiting placement as will need rehab at discharge. Called by nurse this afternoon with patient noted to have increased pain after enema given. I advised nurse to call GI but patient may need KUB. KUB ordered per Dr. Loaiza with nonobstructive gas pattern but stool throughout the colon to level of rectum. Will continue to monitor. 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 Patient is biopsy-proven. Current ANCA test now negative. Remains on prednisone twice daily. No longer on Cytoxan. Creatinine normal at 0.50. Will follow. (3) Hypokalemia: Code(s): E87.6 - Hypokalemia Status: Acute Assessment and Plan: Potassium 3.0 again today with oral replacement given. Will continue to monitor and replace as needed. (4) Encephalopathy: Code(s): G93.40 - Encephalopathy, unspecified Status: Acute Assessment and Plan: Brain MRI with abnormal signal in the thalami, scattered subcortical white matter and cerebellar white matter. Plan to repeat MRI brain in 2-3 weeks. Vitamin B12, vitamin B6, and TSH normal. Will continue to monitor with other treatments. (5) Pancytopenia: Code(s): D61.818 - Other pancytopenia Status: Acute Assessment and Plan: Most likely secondary to Cytoxan therapy. Appreciate input from Dr. Strauss. Bone marrow biopsy with hypocellular bone marrow without any evidence of leukemia and lymphoma. WBC 4.4 today with hemoglobin 8.5, hematocrit 25.5 and platelets [id number]. Will continue to monitor. (6) Abnormal glucose: Code(s): R73.09 - Other abnormal glucose Status: Acute Assessment and Plan: Hemoglobin A1c 6.3. Glucose reviewed on 03/27/2020 and remains stable in normal range. Will continue to monitor. (7) Elevated troponin: Code(s): R79.89 - Other specified abnormal findings of blood chemistry Status: Acute Assessment and Plan: Mild elevation. No complaints of chest pain. No further evaluation at this time. (8) Petechial rash: Code(s): R23.3 - Spontaneous ecchymoses Status: Acute Assessment and Plan: Secondary to thrombocytopenia. (9) Hypothyroidism: Qualifiers: Hypothyroidism type: unspecified Qualified Code(s): E03.9 - Hypothyroidism, unspecified Code(s): E03.9 - Hypothyroidism, unspecified Status: Chronic Assessment and Plan: TSH 4.72. Continue levothyroxine. (10) DVT prophylaxis: Code(s): Z29.9 - Encounter for prophylactic measures, unspecified Status: Acute Assessment and Plan: SCDs. Time Spent With Patient Time with patient: 15 - 25 minutes Subjective Date/time seen: 03/27/20 11:58 Interval history: Date of Service: 03/27/2020. Initially admitted with encephalopathy and pancytopenia. Found to have fecal impaction and glomerulonephritis. Eating lunch. Was not able to have colonoscopy this morning as still with stool in rectal vault. Denies abdominal pain. No nausea or vomiting. No chest pain. No shortness of breath. Review of Systems Constitutional: Constitutional: Denies chills and Denies fever(s) ENT: Denies dysphagia [facility]
--- NOTE | 2020-03-27 12:39 | WPDNEUROPN ---
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: Code(s): N05.9 - Unspecified nephritic syndrome with unspecified morphologic changes; I77.89 - Other specified disorders of arteries and arterioles Status: Acute (7) Encephalopathy: Code(s): G93.40 - Encephalopathy, unspecified Status: Acute (8) Petechial rash: Code(s): R23.3 - Spontaneous ecchymoses Status: Acute (9) Elevated troponin: Code(s): R79.89 - Other specified abnormal findings of blood chemistry Status: Acute (10) CKD (chronic kidney disease): Qualifiers: Chronic kidney disease stage: stage 3 (moderate) Qualified Code(s): N18.3 - Chronic kidney disease, stage 3 (moderate) Code(s): N18.9 - Chronic kidney disease, unspecified Status: Chronic (11) Abnormal glucose: Code(s): R73.09 - Other abnormal glucose Status: Acute (12) Glomerulonephritis: Code(s): N05.9 - Unspecified nephritic syndrome with unspecified morphologic changes Status: Acute (13) Pancytopenia: Code(s): D61.818 - Other pancytopenia Status: Acute (14) Chronic renal insufficiency: Qualifiers: Chronic kidney disease stage: unspecified stage Qualified Code(s): N18.9 - Chronic kidney disease, unspecified Code(s): N18.9 - Chronic kidney disease, unspecified Status: Acute (15) Protein malnutrition: Code(s): E46 - Unspecified protein-calorie malnutrition Status: Acute (16) Positive D dimer: Code(s): R79.89 - Other specified abnormal findings of blood chemistry Status: Acute (17) Non-ST elevated myocardial infarction (non-STEMI): Code(s): I21.4 - Non-ST elevation (NSTEMI) myocardial infarction Status: Acute (18) Hypothyroidism: Qualifiers: Hypothyroidism type: unspecified Qualified Code(s): E03.9 - Hypothyroidism, unspecified Code(s): E03.9 - Hypothyroidism, unspecified Status: Chronic (19) Petechiae: Code(s): R23.3 - Spontaneous ecchymoses Status: Acute (20) Confusion: Code(s): R41.0 - Disorientation, unspecified Status: Acute (21) Renal failure: Code(s): N19 - Unspecified kidney failure Status: Acute (22) Hypothyroidism: Code(s): E03.9 - Hypothyroidism, unspecified Status: Acute Additional Plan stable also slowly improving considering significant white matter disease of cytoxan Review of Systems Review of Systems: All systems reviewed & are unremarkable except as noted in HPI and below Exam Const: General: cooperative, comfortable and no acute distress Nutritional Appearance: average body habitus Limitations: no limitations Eyes: General: appearance normal, both eyes and all related structures Neck: Neck: full ROM and no lymphadenopathy Resp: Effort & Inspection: normal respiratory effort and able to speak in complete sentences Auscultation: clear to auscultation bilaterally Cardio: Rate: regular rate GI: Auscultation: normal bowel sounds Neuro: General: oriented to person Cranial nerves: Yes CN's II-XII intact bilaterally Gait exam (Neuro): Unable to assess gait Motor exam (neuro): 5/5 motor strength present throughout (decreased strength) and Normal motor muscle tone present throughout Deep tendon reflexes (DTR's): Right
--- NOTE | 2020-03-27 14:18 | PCPTNOTE ---
The PT treatment was unable to be completed today due to patient refusal. Will continue per Plan of Care frequency and duration.
--- NOTE | 2020-03-27 15:58 | PM.PNNEP ---
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 Will and that weaning prednisone gradually. Dr. Cage will do this. (2) Encephalopathy: Code(s): G93.40 - Encephalopathy, unspecified Status: Acute Assessment and Plan: etiology of this is unclear This seems to be doing pretty well. (3) Abnormal glucose: Code(s): R73.09 - Other abnormal glucose Status: Acute Assessment and Plan: presumably from steroids (4) Pancytopenia: Code(s): D61.818 - Other pancytopenia Status: Acute Assessment and Plan: Counts are improving. On Epogen now. (5) Hypertension: Code(s): I10 - Essential (primary) hypertension Status: Acute Assessment and Plan: Blood pressure is a bit higher. We will start lisinopril (6) Stercoral ulcer of large intestine: Onset Date: ~03/20/20 Code(s): K63.3 - Ulcer of intestine Status: Acute Assessment and Plan: Follow-up by surgery and GI (7) Protein malnutrition: Code(s): E46 - Unspecified protein-calorie malnutrition Status: Acute Assessment and Plan: albumin low On clear liquid diet. Subjective Date/time seen: 03/27/20 15:58 Interval history: Patient is alert. Trying to have a bowel movement. She is miserable. Nursing is calling Dr. Loaiza Review of Systems Cardiovascular: Cardiovascular: Reports no additional cardiovascular complaints Respiratory: Respiratory: Reports no additional respiratory complaints Gastrointestinal: Gastrointestinal: Reports no additional gastrointestinal complaints Genitourinary: Genitourinary: Reports no additional female genitourinary complaints Exam Narrative: Exam Narrative: WDWN in NAD skin no rash or subcu nodules head ncat lungs clear bilaterally cor reg no rub or gallop abd BS+ nontender and soft ext no edema or cyanosis Objective Data Vital Signs Vital Signs: Vital Signs - 24 hr 03/26/20 17:43 03/26/20 22:00 03/27/20 06:00 Temperature 36.8 C 36.7 C Pulse Rate 98 84 Respiratory Rate 18 16 Blood Pressure 161/95 H 160/90 H 174/94 H Pulse Oximetry 100 99 Intake/Output Intake/Output: Intake & Output 03/24/20 03/25/20 03/26/20 03/27/20 23:59 23:59 23:59 23:59 Intake Total 5860 3530 5400 1690 Output Total 2950 2600 2056 1350 Balance 2910 930 3344 340 Meds/Results Medications: Active Medications Generic Name Dose Route Start Last Admin Trade Name Freq PRN Reason Stop Dose Admin Acetaminophen 650 mg 03/14/20 20:26 Tylenol Tablet PO Q4H PRN Mild Pain (1-3) or Fever Hydrocodone Bitart/Acetaminophen 1 tab 03/18/20 22:42 03/21/20 22:09 [place] 5-325 Mg PO 1 tab Q4H PRN Administration Pain Rated 4-6 Bisacodyl 10 mg 03/22/20 07:41 03/24/20 14:27 Dulcolax Suppository RECTAL 10 mg BID PRN Administration Constipation Epoetin Zheng 10,000 units 03/26/20 09:00 03/26/20 09:46 Epogen SUB-Q 10,000 units TuThSa@0900 LAURYN Administration Escitalopram Oxalate 10 mg 03/15/20 09:00 03/27/20 10:34 Lexapro PO 10 mg DAILY LAURYN Administration Potassium Chloride/Dextrose/Sod Cl 1,000 mls @ 70 mls/hr 03/18/20 09:00 03/27/20 09:29 Kcl 20 Meq/D5/0.9% Sod Chl IV CONT 70 mls/hr .[id number] LAURYN Administration Levothyroxine Sodium 75 mcg 03/15/20 06:30 03/27/20 05:53 Synthroid PO Not Given DAILY@0630 LAURYN P
[2020-03-27 16:00] VITALS: BP 157/97; PULSE 110; RESP 18; TEMP 36.5; O2SAT 100
[2020-03-27] MEDS: POTASSIUM CHLORIDE 20 MEQ TABLET 40 MEQ PO (16:38)
[2020-03-27] MEDS: lisinopriL 10 MG TABLET PO (16:38)
[2020-03-27 21:10] VITALS: BP 149/89; PULSE 94; RESP 18; TEMP 36.6; O2SAT 100
[2020-03-28] MEDS: LEVOTHYROXINE SODIUM 75 MCG TABLET PO (06:07)
[2020-03-28 06:31] LABS: Albumin Level 2.5 g/dL (3.5-5.1); Blood Urea Nitrogen 9 mg/dL (7-17); Calcium 7.6 mg/dL (8.4-10.2); Carbon Dioxide 33 mmol/L (22-30); Chloride 106 mmol/L (98-107); Estimated CRCL calculation 50 ml/min; Estimated Glomerular Filt Rate > 60; Glucose 106 mg/dL (65-105); Potassium 3.4 mmol/L (3.4-5.0); Sodium 139 mmol/L (137-145)
[2020-03-28 06:47] VITALS: BP 167/107; BP 179/112; PULSE 82; RESP 18; TEMP 36.4; O2SAT 98
[2020-03-28] MEDS: CLONIDINE HCL 0.1 MG TABLET PO (06:50)
--- NOTE | 2020-03-28 09:17 | PM.IMPN ---
Progress Note: A&P Assessment and Plan (1) Fecal impaction: Onset Date: ~03/20/20 Code(s): K56.41 - Fecal impaction Status: Acute Assessment and Plan: CT abdomen/pelvis on 03/18/2020 with fecal impaction, stercoral colitis. Appreciate help from Dr. Loaiza for GI. Repeated unsuccessful attempts at colonoscopy on 03/24/2020, 03/25/2020 and 03/27/2020 due to continued impaction/stool in vault. Did have increased abdominal pain after enema given yesterday afternoon with KUB revealing nonobstructive gas pattern but stool throughout the colon to level of rectum. Continue MiraLax bid. Patient to receive Magnesium citrate today. Will continue to monitor. Eventual plan is to go to [facility] once ready for discharge. 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 Patient is biopsy-proven. Current ANCA test now negative. Continue prednisone twice daily with plan to taper. No longer on Cytoxan. Creatinine normal at 0.70 today. Will follow. (3) Hypokalemia: Code(s): E87.6 - Hypokalemia Status: Acute Assessment and Plan: Potassium 3.4 today. Scheduled oral replacement with IV fluids discontinued. Will continue to monitor and replace as needed. (4) Encephalopathy: Code(s): G93.40 - Encephalopathy, unspecified Status: Acute Assessment and Plan: Brain MRI with abnormal signal in the thalami, scattered subcortical white matter and cerebellar white matter. Plan to repeat MRI brain in 2-3 weeks. Vitamin B12, vitamin B6, and TSH normal. Mental status now normal. Will continue to monitor with other treatments. (5) Pancytopenia: Code(s): D61.818 - Other pancytopenia Status: Acute Assessment and Plan: Most likely secondary to Cytoxan therapy. Appreciate input from Dr. Strauss. Bone marrow biopsy with hypocellular bone marrow without any evidence of leukemia and lymphoma. WBC 4.4 with hemoglobin 8.5, hematocrit 25.5 and platelets 136,9000 on 03/27/2020. Will continue to monitor periodically. (6) Abnormal glucose: Code(s): R73.09 - Other abnormal glucose Status: Acute Assessment and Plan: Hemoglobin A1c 6.3. Glucose reviewed on 03/28/2020. Remains stable in normal range. Will continue to monitor. (7) Elevated troponin: Code(s): R79.89 - Other specified abnormal findings of blood chemistry Status: Acute Assessment and Plan: Mild elevation. No complaints of chest pain. No further evaluation at this time. (8) Petechial rash: Code(s): R23.3 - Spontaneous ecchymoses Status: Acute Assessment and Plan: Secondary to thrombocytopenia. (9) Hypothyroidism: Qualifiers: Hypothyroidism type: unspecified Qualified Code(s): E03.9 - Hypothyroidism, unspecified Code(s): E03.9 - Hypothyroidism, unspecified Status: Chronic Assessment and Plan: TSH 4.72. Continue levothyroxine. (10) DVT prophylaxis: Code(s): Z29.9 - Encounter for prophylactic measures, unspecified Status: Acute Assessment and Plan: SCDs. Time Spent With Patient Time with patient: 15 - 25 minutes Subjective Date/time seen: 03/28/20 09:17 Interval history: Date of Service: 03/28/2020. Initially admitted with encephalopathy and pancytopenia. Found to have fecal impaction and glomerulonephritis. Was unable to have colonoscopy yesterday due to incomplete prep. No abdominal pain. No nausea or vomiting. Eating breakfast thought difficulties. No chest pain. No shortness of breath. Review of Systems Constitutional: Constitutional: Denies chills and Denies fever(s) ENT: Denies dy
--- NOTE | 2020-03-28 09:20 | WPDGIPROGNO ---
Progress Note: A&P Additional Plan Patient alert and appears comfortable this morning. Denies abdominal pain. Physical exam reveals abdomen to be soft and nontender with no organomegaly. Impression 1. Constipation. Fecal impaction noted. Still not certain if she is totally cleared. 2. Glomerular nephritis. 3. Resolving pancytopenia. Plan is to continue laxatives. A few more enemas may be of some benefit. Colonoscopy can be arranged as an outpatient unless she remains on hospital next week. Subjective Date/time seen: 03/28/20 09:20 Objective Data Vital Signs Vital Signs: Vital Signs - 24 hr 03/27/20 16:00 03/27/20 21:10 03/28/20 06:47 Temperature 36.5 C 36.6 C 36.4 C L Pulse Rate 110 H 94 82 Respiratory Rate 18 18 18 Blood Pressure 157/97 H 149/89 H 179/112 H Pulse Oximetry 100 100 98 Intake/Output Intake/Output: Intake & Output 03/25/20 03/26/20 03/27/20 03/28/20 23:59 23:59 23:59 23:59 Intake Total 3530 5400 2930 100 Output Total 2600 2056 2700 1400 Balance 930 3344 230 -1300 Meds/Results Medications: Active Medications Generic Name Dose Route Start Last Admin Trade Name Freq PRN Reason Stop Dose Admin Acetaminophen 650 mg 03/14/20 20:26 Tylenol Tablet PO Q4H PRN Mild Pain (1-3) or Fever Hydrocodone Bitart/Acetaminophen 1 tab 03/18/20 22:42 03/21/20 22:09 [place] 5-325 Mg PO 1 tab Q4H PRN Administration Pain Rated 4-6 Bisacodyl 10 mg 03/22/20 07:41 03/24/20 14:27 Dulcolax Suppository RECTAL 10 mg BID PRN Administration Constipation Epoetin Zheng 10,000 units 03/26/20 09:00 03/26/20 09:46 Epogen SUB-Q 10,000 units TuThSa@0900 LAURYN Administration Escitalopram Oxalate 10 mg 03/15/20 09:00 03/27/20 10:34 Lexapro PO 10 mg DAILY LAURYN Administration Levothyroxine Sodium 75 mcg 03/15/20 06:30 03/28/20 06:07 Synthroid PO 75 mcg DAILY@0630 LAURYN Administration Lisinopril 10 mg 03/27/20 16:05 03/27/20 16:38 Prinivil PO 10 mg DAILY LAURYN Administration Polyethylene Glycol 17 gm 03/20/20 17:00 03/27/20 16:38 Miralax PO 17 gm BID LAURYN Administration Potassium Chloride 40 meq 03/28/20 08:25 Kcl Tablet PO DAILY@0800 LAURYN Prednisone 10 mg 03/19/20 09:00 03/27/20 16:38 Prednisone PO 10 mg BID LAURYN Administration Radiology Results: ITS Impressions Head CT 03/14/20 14:26 IMPRESSION: 1. No acute intracranial abnormality. 2. Age related findings. Chest X-Ray 03/14/20 14:44 IMPRESSION: No active cardiopulmonary disease Brain MRA 03/16/20 14:35 IMPRESSION: 1. No aneurysm or significant intracranial arterial stenosis. Brain MRI 03/17/20 15:02 IMPRESSION: Abnormal signal in the thalami, scattered subcortical white matter, cerebellar white matter. Nonspecific encephalopathy with differential diagnosis including PML, viral encephalopathy, acute necrotizing encephalitis, PRES. I discussed abnormal findings with Dr. Zuñiga at 03/17/2020 15:27 CDT. Biopsy,Fluoroscopy Guided 03/18/20 09:36 IMPRESSION: 1. Fluoro-guided bone marrow aspiration. 2. Fluoro-guided bone marrow core biopsy. Abdomen/Pelvis CT 03/18/20 22:12 IMPRESSION: 1. Fecal impaction, stercoral colitis. Rectosigmoid colonic pneumatosis with extraluminal gas in the presacral space, probably microperforation or leaked externally from the pneumatosis. No abscess or gross free intraperitoneal air. 2. Bladder is severely distended. 3. Moderate descending and sigmoid colonic colitis. Abdomen X-Ray 03/27/20 15:37 IMPRESSION: 1. No acute abdominal abnormality. Labs Labs: Laboratory Results - last 24 hr 03/28/20 05:50 Sodium 139 Potassium 3.4 Chloride 106 Carbon Dioxide 33 H BUN 9 Creatinine 0.70 Estim Creat Clear Calc 50 Estimated GFR > 60 Glucose 106 H Calcium 7.6 L Phosphorus 3.0 Albumin 2.5 L
[2020-03-28] MEDS: lisinopriL 10 MG TABLET PO (09:44)
[2020-03-28] MEDS: POTASSIUM CHLORIDE 20 MEQ TABLET.ER 40 MEQ PO (09:45)
[2020-03-28] MEDS: predniSONE 10 MG TABLET PO ×2 (09:45→17:34)
[2020-03-28] MEDS: polyethylene glycoL 3350 17 GM POWD.PACK PO ×2 (09:45→17:34)
[2020-03-28] MEDS: ESCITALOPRAM OXALATE 10 MG TABLET PO (09:46)
[2020-03-28] MEDS: EPOETIN ALFA 10,000 UNITS/ML VIAL 10000 UNITS SUB-Q (09:48)
[2020-03-28] MEDS: MAGNESIUM CITRATE 300 ML BTL PO ×2 (09:49→13:07)
[2020-03-28 14:00] VITALS: BP 140/92; PULSE 98; RESP 18; TEMP 36.2; O2SAT 98
[2020-03-28 22:00] VITALS: BP 147/95; PULSE 82; RESP 20; TEMP 36.7; O2SAT 100
[2020-03-29 06:00] VITALS: BP 161/95; PULSE 91; RESP 18; TEMP 36.4; O2SAT 97
[2020-03-29] MEDS: LEVOTHYROXINE SODIUM 75 MCG TABLET PO (06:02)
[2020-03-29 06:20] LABS: Hematocrit 23.4 % (37.0-47.0); Hemoglobin 7.5 g/dL (12.0-15.0); Mean Corpuscular HGB Conc 32.1 g/dl (32-36); Mean Corpuscular Hemoglobin 30.7 pg (26-34); Mean Corpuscular Volume 95.9 fl (80-100); Mean Platelet Volume 8.4 fl (7.4-10.4); Platelet Count Result 173 k/mm3 (150-375); Red Blood Count 2.44 M/mm3 (4.2-5.4); Red Cell Distribution Width 21.7 % (11.5-14.5); White Blood Count 7.6 K/mm3 (4.5-10.0)
[2020-03-29 06:38] LABS: Albumin Level 2.5 g/dL (3.5-5.1); Blood Urea Nitrogen 13 mg/dL (7-17); Calcium 7.7 mg/dL (8.4-10.2); Carbon Dioxide 32 mmol/L (22-30); Chloride 108 mmol/L (98-107); Estimated CRCL calculation 44 ml/min; Estimated Glomerular Filt Rate > 60; Glucose 79 mg/dL (65-105); Phosphorus 2.8 mg/dL (2.5-4.5); Potassium 3.4 mmol/L (3.4-5.0); Sodium 141 mmol/L (137-145)
--- NOTE | 2020-03-29 08:39 | WPDGIPROGNO ---
Progress Note: A&P Additional Plan Patient alert this morning. She appears more oriented. On physical exam patient is alert. Anicteric. Lungs are clear. Heart without murmur. Abdomen is soft and nontender. No stool evident rectal vault at this time. Impression 1. Constipation and fecal impaction. Patient has had cleansing enemas and laxatives frequently this past week. CT scan suspicious for stercoral colitis. Pneumatosis noted in the wall of the rectum. Plan is for colonoscopy to evaluate more thoroughly. Will plan this in the morning Monday as patient remains hospitalized. 2. Glomerular nephritis. Chronic kidney disease. Followed by Nephrology service. Subjective Date/time seen: 03/29/20 08:39 Objective Data Vital Signs Vital Signs: Vital Signs - 24 hr 03/28/20 14:00 03/28/20 22:00 03/29/20 06:00 Temperature 36.2 C L 36.7 C 36.4 C Pulse Rate 98 82 91 Respiratory Rate 18 20 18 Blood Pressure 140/92 H 147/95 H 161/95 H Pulse Oximetry 98 100 97 Intake/Output Intake/Output: Intake & Output 03/26/20 03/27/20 03/28/20 03/29/20 23:59 23:59 23:59 23:59 Intake Total 5400 2930 825 200 Output Total 2056 2700 2100 750 Balance 3344 095 -3138 -876 Meds/Results Medications: Active Medications Generic Name Dose Route Start Last Admin Trade Name Freq PRN Reason Stop Dose Admin Acetaminophen 650 mg 03/14/20 20:26 Tylenol Tablet PO Q4H PRN Mild Pain (1-3) or Fever Hydrocodone Bitart/Acetaminophen 1 tab 03/18/20 22:42 03/21/20 22:09 [place] 5-325 Mg PO 1 tab Q4H PRN Administration Pain Rated 4-6 Bisacodyl 10 mg 03/22/20 07:41 03/24/20 14:27 Dulcolax Suppository RECTAL 10 mg BID PRN Administration Constipation Epoetin Zheng 10,000 units 03/26/20 09:00 03/28/20 09:48 Epogen SUB-Q 10,000 units TuThSa@0900 LAURYN Administration Escitalopram Oxalate 10 mg 03/15/20 09:00 03/28/20 09:46 Lexapro PO 10 mg DAILY LAURYN Administration Levothyroxine Sodium 75 mcg 03/15/20 06:30 03/29/20 06:02 Synthroid PO 75 mcg DAILY@0630 LAURYN Administration Lisinopril 10 mg 03/27/20 16:05 03/28/20 09:44 Prinivil PO 10 mg DAILY LAURYN Administration Polyethylene Glycol 17 gm 03/20/20 17:00 03/28/20 17:34 Miralax PO 17 gm BID LAURYN Administration Potassium Chloride 40 meq 03/28/20 08:25 03/28/20 09:45 Kcl Tablet PO 40 meq DAILY@0800 LAURYN Administration Prednisone 10 mg 03/19/20 09:00 03/28/20 17:34 Prednisone PO 10 mg BID LAURYN Administration Radiology Results: ITS Impressions Head CT 03/14/20 14:26 IMPRESSION: 1. No acute intracranial abnormality. 2. Age related findings. Chest X-Ray 03/14/20 14:44 IMPRESSION: No active cardiopulmonary disease Brain MRA 03/16/20 14:35 IMPRESSION: 1. No aneurysm or significant intracranial arterial stenosis. Brain MRI 03/17/20 15:02 IMPRESSION: Abnormal signal in the thalami, scattered subcortical white matter, cerebellar white matter. Nonspecific encephalopathy with differential diagnosis including PML, viral encephalopathy, acute necrotizing encephalitis, PRES. I discussed abnormal findings with Dr. Zuñiga at 03/17/2020 15:27 CDT. Biopsy,Fluoroscopy Guided 03/18/20 09:36 IMPRESSION: 1. Fluoro-guided bone marrow aspiration. 2. Fluoro-guided bone marrow core biopsy. Abdomen/Pelvis CT 03/18/20 22:12 IMPRESSION: 1. Fecal impaction, stercoral colitis. Rectosigmoid colonic pneumatosis with extraluminal gas in the presacral space, probably microperforation or leaked externally from the pneumatosis. No abscess or gross free intraperitoneal air. 2. Bladder is severely distended. 3. Moderate descending and sigmoid colonic colitis. Abdomen X-Ray 03/27/20 15:37 IMPRESSION: 1. No acute abdominal abnormality. Labs Labs: Laboratory Results - last 24 hr 03/29/20 03/29/20 05:41 05:41 WBC 7.6 RBC 2.
--- NOTE | 2020-03-29 09:38 | WPDANESEPP ---
Anes - Eval Pre Procedure Procedure: Colonoscopy Operation Date: 03/18/20 08:30 Proposed Procedures p Bone Aspiration + Biopsy - Manny Khan MD Operation Date: 03/24/20 07:30 Proposed Procedures p Colonoscopy - Blaze Loaiza MD Operation Date: 03/25/20 11:30 Proposed Procedures p Colonoscopy - Blaze Loaiza MD Operation Date: 03/27/20 11:00 Proposed Procedures p Colonoscopy - Blaze Loaiza MD Date/Time: 03/29/20 09:38 Surgeon: Fadia Preop Diagnosis: Stercoral colitis Pre Op Diagnosis: PANCYTOPENIA AND CONFUSION Patient Data Age: 69 Gender: F Height: 5 ft 1 in Weight: 53.8 kg Last Vital Signs Temp 36.4 C 03/29/20 06:00 Pulse 91 03/29/20 06:00 Resp 18 03/29/20 06:00 BP 161/95 H 03/29/20 06:00 Pulse Ox 97 03/29/20 06:00 Allergies Allergy/AdvReac Type Severity Reaction Status Date / Time Penicillins Allergy Unknown Verified 03/14/20 14:06 Home Medications Medication Instructions Recorded Confirmed Type cyclophosphamide 50 mg PO DAILY 03/14/20 03/14/20 History escitalopram oxalate 10 mg PO DAILY 03/14/20 03/14/20 History levothyroxine 75 mcg PO DAILY 03/14/20 03/14/20 History prednisone 40 mg PO BID 03/14/20 03/14/20 History Laboratory Tests 03/29/20 03/29/20 05:41 05:41 WBC 7.6 K/mm3 K/mm3 (4.5-10.0) RBC 2.44 M/mm3 L M/mm3 (4.2-5.4) Hgb 7.5 g/dL L g/dL (12.0-15.0) Hct 23.4 % L % (37.0-47.0) MCV 95.9 fl fl (80-100) MCH 30.7 pg pg (26-34) MCHC 32.1 g/dl g/dl (32-36) RDW 21.7 % H % (11.5-14.5) Plt Count 173 k/mm3 k/mm3 (150-375) MPV 8.4 fl fl (7.4-10.4) Sodium 141 mmol/L mmol/L (137-145) Potassium 3.4 mmol/L mmol/L (3.4-5.0) Chloride 108 mmol/L H mmol/L (98-107) Carbon Dioxide 32 mmol/L H mmol/L (22-30) BUN 13 mg/dL mg/dL (7-17) Creatinine 0.80 mg/dL mg/dL (0.7-1.0) Estim Creat Clear Calc 44 ml/min ml/min Estimated GFR > 60 (59 - ) Glucose 79 mg/dL mg/dL (65-105) Calcium 7.7 mg/dL L mg/dL (8.4-10.2) Phosphorus 2.8 mg/dL mg/dL (2.5-4.5) Albumin 2.5 g/dL L g/dL (3.5-5.1) ECG: SR 93, LAE Patient hx anesthesia problems: none Family hx anesthesia problems: none Prior Surgeries: C section x2, cholecystectomy PMFSH Past Medical History Medical History CKD (chronic kidney disease) Glomerulonephritis Hypothyroidism Surgical History Surgical History History of 2 sections History of cholecystectomy Family History Family History Mother Diabetes mellitus Social History Social History Smoking status: Unknown if ever smoked Alcohol intake: never Substance use: never Gender identity (if verbalized by the patient): Female Spiritual care concerns: No Exam Day of Procedure 03/29/20 09:38
[2020-03-29] MEDS: POTASSIUM CHLORIDE 20 MEQ TABLET.ER 40 MEQ PO (09:43)
[2020-03-29] MEDS: polyethylene glycoL 3350 17 GM POWD.PACK PO ×2 (09:44→16:42)
[2020-03-29] MEDS: lisinopriL 10 MG TABLET PO (09:44)
[2020-03-29] MEDS: predniSONE 10 MG TABLET PO ×2 (09:44→16:42)
[2020-03-29] MEDS: ESCITALOPRAM OXALATE 10 MG TABLET PO (09:44)
[2020-03-29] MEDS: PEG (High)/E-LYTE SOLN 4,000 ML BTL 4000 ML PO (11:14)
--- NOTE | 2020-03-29 11:24 | PM.IMPN ---
Progress Note: A&P Assessment and Plan (1) Fecal impaction: Onset Date: ~03/20/20 Code(s): K56.41 - Fecal impaction Status: Acute Assessment and Plan: CT abdomen/pelvis on 03/18/2020 with fecal impaction, stercoral colitis. Appreciate help from Dr. Loaiza for GI. Repeated unsuccessful attempts at colonoscopy on 03/24/2020, 03/25/2020 and 03/27/2020 due to continued impaction/stool in vault. Did have increased abdominal pain after enema given on the afternoon of 03/27/2020 with KUB at that time revealing nonobstructive gas pattern but stool throughout the colon to level of rectum. Has remained on MiraLax b.i.d.. Did receive magnesium citrate yesterday. As patient did not [facility] to [facility], plan is now to re-attempt colonoscopy tomorrow morning. Patient in process of preparation for colonoscopy. Hopefully will be able to accomplish colonoscopy tomorrow. Possible discharge to [facility] [place] tomorrow pending results of colonoscopy. 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 Patient is biopsy-proven. Current ANCA test now negative. Remains on prednisone twice daily with plan to taper. No longer on Cytoxan. Creatinine remains normal at 0.80 today. Will continue to follow. (3) Hypokalemia: Code(s): E87.6 - Hypokalemia Status: Acute Assessment and Plan: Potassium 3.4 again today. Continue scheduled oral replacement. With preparation for colonoscopy tomorrow, will give additional oral replacement this evening. Will continue to monitor and adjust replacement as needed. (4) Encephalopathy: Code(s): G93.40 - Encephalopathy, unspecified Status: Resolved Assessment and Plan: Now appears resolved with mental status stable. Brain MRI with abnormal signal in the thalami, scattered subcortical white matter and cerebellar white matter. Plan to repeat MRI brain in 2-3 weeks. Vitamin B12, vitamin B6, and TSH normal. Will continue to monitor with other treatments. (5) Pancytopenia: Code(s): D61.818 - Other pancytopenia Status: Acute Assessment and Plan: Most likely secondary to Cytoxan therapy. Appreciate input from Dr. Strauss. Bone marrow biopsy with hypocellular bone marrow without any evidence of leukemia and lymphoma. WBC normal at 7.6 today with hemoglobin 7.5, hematocrit 23.4 and platelets 173,000. Will continue to monitor periodically. (6) Abnormal glucose: Code(s): R73.09 - Other abnormal glucose Status: Resolved Assessment and Plan: Hemoglobin A1c 6.3. Glucose reviewed on 03/29/2020 and remains controlled without medication. Will continue to monitor. (7) Elevated troponin: Code(s): R79.89 - Other specified abnormal findings of blood chemistry Status: Acute Assessment and Plan: Mild elevation. Stable. No complaints of chest pain. No further evaluation at this time. (8) Petechial rash: Code(s): R23.3 - Spontaneous ecchymoses Status: Acute Assessment and Plan: Secondary to thrombocytopenia. (9) Hypothyroidism: Qualifiers: Hypothyroidism type: unspecified Qualified Code(s): E03.9 - Hypothyroidism, unspecified Code(s): E03.9 - Hypothyroidism, unspecified Status: Chronic Assessment and Plan: TSH 4.72. Will continue levothyroxine. (10) DVT prophylaxis: Code(s): Z29.9 - Encounter for prophylactic measures, unspecified Status: Acute Assessment and Plan: SCDs. Time Spent With Patient Time with patient: 15 - 25 minutes Subjective Date/time seen: 03/29/20 11:24 Interval history: Date of Service: 03/29/2020. Leia
--- NOTE | 2020-03-29 12:54 | WPDNEUROPN ---
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: Code(s): N05.9 - Unspecified nephritic syndrome with unspecified morphologic changes; I77.89 - Other specified disorders of arteries and arterioles Status: Acute (7) Encephalopathy: Code(s): G93.40 - Encephalopathy, unspecified Status: Acute (8) Petechial rash: Code(s): R23.3 - Spontaneous ecchymoses Status: Acute (9) Elevated troponin: Code(s): R79.89 - Other specified abnormal findings of blood chemistry Status: Acute (10) Abnormal glucose: Code(s): R73.09 - Other abnormal glucose Status: Acute (11) CKD (chronic kidney disease): Qualifiers: Chronic kidney disease stage: stage 3 (moderate) Qualified Code(s): N18.3 - Chronic kidney disease, stage 3 (moderate) Code(s): N18.9 - Chronic kidney disease, unspecified Status: Chronic (12) Glomerulonephritis: Code(s): N05.9 - Unspecified nephritic syndrome with unspecified morphologic changes Status: Acute (13) Pancytopenia: Code(s): D61.818 - Other pancytopenia Status: Acute (14) Chronic renal insufficiency: Qualifiers: Chronic kidney disease stage: unspecified stage Qualified Code(s): N18.9 - Chronic kidney disease, unspecified Code(s): N18.9 - Chronic kidney disease, unspecified Status: Acute (15) Protein malnutrition: Code(s): E46 - Unspecified protein-calorie malnutrition Status: Acute (16) Positive D dimer: Code(s): R79.89 - Other specified abnormal findings of blood chemistry Status: Acute (17) Non-ST elevated myocardial infarction (non-STEMI): Code(s): I21.4 - Non-ST elevation (NSTEMI) myocardial infarction Status: Acute (18) Hypothyroidism: Qualifiers: Hypothyroidism type: unspecified Qualified Code(s): E03.9 - Hypothyroidism, unspecified Code(s): E03.9 - Hypothyroidism, unspecified Status: Chronic (19) Petechiae: Code(s): R23.3 - Spontaneous ecchymoses Status: Acute (20) Confusion: Code(s): R41.0 - Disorientation, unspecified Status: Acute (21) Renal failure: Code(s): N19 - Unspecified kidney failure Status: Acute (22) Hypothyroidism: Code(s): E03.9 - Hypothyroidism, unspecified Status: Acute Additional Plan significant and gradual improvement in mental satatus off cytoxan Review of Systems Review of Systems: All systems reviewed & are unremarkable except as noted in HPI and below Exam Const: General: no acute distress Nutritional Appearance: average body habitus Limitations: no limitations HENMT: Head: normal to inspection General nose exam: No nasal discharge present Mouth: Yes Normal oral and palatal mucosa present Eyes: General: appearance normal, both eyes and all related structures Neck: Neck: full ROM Resp: Auscultation: clear to auscultation bilaterally Cardio: Rate: regular rate Rhythm: regular rhythm GI: Auscultation: normal bowel sounds Skin: General skin exam: no rashes or lesions noted Neuro: General: oriented to person, oriented to place, tone normal and moves all extremities Cranial nerves: Yes CN's II-XII intact bilaterally Speech: normal speech Sensory Exam: normal sensation Psych: Appearance: well kempt Mental
[2020-03-29 14:00] VITALS: BP 139/93; PULSE 85; RESP 20; TEMP 36.6; O2SAT 98
[2020-03-29] MEDS: POTASSIUM CHLORIDE 20 MEQ TABLET 40 MEQ PO (18:00)
[2020-03-29 22:00] VITALS: BP 151/97; PULSE 84; RESP 20; TEMP 36.4; O2SAT 100
[2020-03-30] VITALS (7 sets, daily range): BP systolic 144–164; BP diastolic 91–111; PULSE 80–108; RESP 16–23; TEMP 36.3–36.8; O2SAT 96–100
[2020-03-30 06:10] LABS: Blood Urea Nitrogen 12 mg/dL (7-17); Carbon Dioxide 33 mmol/L (22-30); Chloride 106 mmol/L (98-107); Estimated CRCL calculation 50 ml/min; Estimated Glomerular Filt Rate > 60; Glucose 83 mg/dL (65-105); Magnesium 2.1 mg/dL (1.6-2.3); Sodium 142 mmol/L (137-145)
--- NOTE | 2020-03-30 06:30 | PC.NURSE ---
Patient taken to GI lab via stretcher.
[2020-03-30] MEDS: LACTATED RINGERS 1,000 ML 150 ML IV CONT (06:46)
--- NOTE | 2020-03-30 07:07 | WPDANESEFPP ---
Anes - Eval Final PreProcedure Day of Procedure 03/30/20 07:07 Patient weight: normal Heart: regular rate and rhythm Lungs: clear to auscultation Airway: Mallampati scale class II Neurological: confused Last oral intake: >/= 8 hours ASA classification: IV Emergent: no Anesthetic plan: proceed Anesthesia type and monitoring: general GIVS and standard monitoring Informed Consent: The patient's anesthetic plan and its attendant risks and benefits were discussed with the patient/family/POA. Questions were solicited and answers provided to the satisfaction of the patient/family/POA.
[2020-03-30] MEDS: polyethylene glycoL 3350 17 GM POWD.PACK PO (09:33)
[2020-03-30] MEDS: POTASSIUM CHLORIDE 20 MEQ TABLET.ER 40 MEQ PO (09:33)
[2020-03-30] MEDS: ESCITALOPRAM OXALATE 10 MG TABLET PO (09:33)
[2020-03-30] MEDS: lisinopriL 10 MG TABLET PO (09:33)
[2020-03-30] MEDS: predniSONE 10 MG TABLET PO (09:34)
[2020-03-30 11:31] LABS: Vancomycin Random 6.2 ug/mL (10-20)
--- NOTE | 2020-03-30 12:55 | PM.IMPN ---
Progress Note: A&P Assessment and Plan (1) Fecal impaction: Onset Date: ~03/20/20 Code(s): K56.41 - Fecal impaction Status: Resolved Assessment and Plan: CT abdomen/pelvis on 03/18/2020 with fecal impaction, stercoral colitis. Appreciate help from Dr. Loaiza for GI. Repeated unsuccessful attempts at colonoscopy on 03/24/2020, 03/25/2020 and 03/27/2020 due to continued impaction/stool in vault. Did have increased abdominal pain after enema given on the afternoon of 03/27/2020 with KUB at that time revealing nonobstructive gas pattern but stool throughout the colon to level of rectum. Patient was able to have successful colonoscopy today with fecal impaction resolved. Diverticulosis, internal hemorrhoids and rectal ulcer. Will continue MiraLax b.i.d.. Patient has actually been accepted at [facility]. As she is otherwise stable, will discharge today. Continue PT/OT. Will discontinue Gonzalez catheter prior to discharge. 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 Patient is biopsy-proven. Current ANCA test now negative. Remains on prednisone twice daily with plan to taper. No longer on Cytoxan. Creatinine remains normal at 0.70 today. Follow as outpatient. (3) Hypokalemia: Code(s): E87.6 - Hypokalemia Status: Acute Assessment and Plan: Potassium 4.0 today. Continue scheduled oral replacement but will decrease amount as no longer requiring clean outs for procedures. Will need to monitor at facility. (4) Encephalopathy: Code(s): G93.40 - Encephalopathy, unspecified Status: Resolved Assessment and Plan: Now appears resolved with mental status stable. Brain MRI with abnormal signal in the thalami, scattered subcortical white matter and cerebellar white matter. Will need to repeat MRI brain in 2-3 weeks as outpatient. Vitamin B12, vitamin B6, and TSH normal. Will continue to monitor with other treatments. (5) Pancytopenia: Code(s): D61.818 - Other pancytopenia Status: Acute Assessment and Plan: Most likely secondary to Cytoxan therapy. Appreciate input from Dr. Strauss. Bone marrow biopsy with hypocellular bone marrow without any evidence of leukemia and lymphoma. WBC normal at 7.6 with hemoglobin 7.5, hematocrit 23.4 and platelets 173,000 on 03/29/2020. Will need to follow periodically. (6) Abnormal glucose: Code(s): R73.09 - Other abnormal glucose Status: Resolved Assessment and Plan: Hemoglobin A1c 6.3. Glucose reviewed on 03/30/2020. In normal range without medication. Will continue to monitor. (7) Elevated troponin: Code(s): R79.89 - Other specified abnormal findings of blood chemistry Status: Acute Assessment and Plan: Mild elevation. Stable. No complaints of chest pain. No further evaluation at this time. (8) Petechial rash: Code(s): R23.3 - Spontaneous ecchymoses Status: Acute Assessment and Plan: Secondary to thrombocytopenia. (9) Hypothyroidism: Qualifiers: Hypothyroidism type: unspecified Qualified Code(s): E03.9 - Hypothyroidism, unspecified Code(s): E03.9 - Hypothyroidism, unspecified Status: Chronic Assessment and Plan: TSH 4.72. Will continue levothyroxine. (10) DVT prophylaxis: Code(s): Z29.9 - Encounter for prophylactic measures, unspecified Status: Acute Assessment and Plan: SCDs. Time Spent With Patient Time with patient: 15 - 25 minutes Subjective Date/time seen: 03/30/20 12:55 Interval history: Date of Service: 03/30/2020. Initially admitted with encephalopathy and pancytopenia. Found to have fecal
--- NOTE | 2020-03-30 13:46 | PM.PNNEP ---
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 continue to wean off steroids (2) Encephalopathy: Code(s): G93.40 - Encephalopathy, unspecified Status: Resolved Assessment and Plan: etiology of this is unclear however, significant and clinical improvement noted (3) Abnormal glucose: Code(s): R73.09 - Other abnormal glucose Status: Resolved Assessment and Plan: presumably from steroids (4) Pancytopenia: Code(s): D61.818 - Other pancytopenia Status: Acute Assessment and Plan: counts are improving. follow trend (5) Hypertension: Code(s): I10 - Essential (primary) hypertension Status: Acute Assessment and Plan: still a little high start lisinopril follow trend ramila (6) Stercoral ulcer of large intestine: Onset Date: ~03/20/20 Code(s): K63.3 - Ulcer of intestine Status: Acute Assessment and Plan: Surgery and GI following s/p colonoscopy today supportive stea (7) Protein malnutrition: Code(s): E46 - Unspecified protein-calorie malnutrition Status: Acute Assessment and Plan: albumin low advance diet as tolerated Will continue to follow. Subjective Date/time seen: 03/30/20 13:46 Chart/Interim reviewed since last seen -- overall, appears to be doing significantly better but remains quite weak; s/p colonoscopy earlier today with results noted; no apparent distress. Exam Narrative: Exam Narrative: General: WD/WN female in NAD Heart: normal S1 and S2; no rub Lungs: clear to auscultation Abdomen: soft, nontender, nondistended, positive bowel sounds Extremities: no cyanosis or clubbing; no edema Skin: warm and intact Objective Data Vital Signs Vital Signs: Vital Signs Temp Pulse Resp BP Pulse Ox 03/30/20 14:00 36.6 C 99 20 144/98 H 97 03/30/20 11:16 36.3 C L 108 H 16 150/98 H 100 03/30/20 08:36 88 20 164/111 H 96 03/30/20 08:25 91 23 H 147/102 H 98 03/30/20 08:16 91 21 H 151/102 H 100 03/30/20 06:44 36.8 C 90 22 H 163/107 H 96 03/30/20 06:00 36.4 C L 80 16 154/91 H 99 03/29/20 22:00 36.4 C L 84 20 151/97 H 100 Intake/Output Intake/Output: Intake & Output 03/27/20 03/28/20 03/29/20 03/30/20 23:59 23:59 23:59 23:59 Intake Total 2930 825 590 600 Output Total 2700 2100 1250 1350 Balance 883 -9720 -056 -122 Meds/Results Medications: Active Medications Generic Name Dose Route Start Last Admin Trade Name Freq PRN Reason Stop Dose Admin Acetaminophen 650 mg 03/14/20 20:26 Tylenol Tablet PO Q4H PRN Mild Pain (1-3) or Fever Hydrocodone Bitart/Acetaminophen 1 tab 03/18/20 22:42 03/30/20 09:45 [place] 5-325 Mg PO 1 tab Q4H PRN Administration Pain Rated 4-6 Bisacodyl 10 mg 03/22/20 07:41 03/24/20 14:27 Dulcolax Suppository RECTAL 10 mg BID PRN Administration Constipation Epoetin Zheng 10,000 units 03/26/20 09:00 03/28/20 09:48 Epogen SUB-Q 10,000 units TuThSa@0900 [facility] Administration Escitalopram Oxalate 10 mg 03/15/20 09:00 03/30/20 09:33 Lexapro PO 10 mg DAILY LAURYN Administration Levothyroxine Sodium 75 mcg 03/15/20 06:30 03/30/20 06:32 Synthroid PO Not Given DAILY@0630 [facility] Lisinopril 10 mg 03/27/20 16:05 03/30/20 09:33 Prinivil PO 10 mg DAILY LAURYN Administration Polyethylene Glycol 17 gm 03/20/20 1
--- NOTE | 2020-03-30 13:46 | P.PNNP_ITS ---
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 * continue to wean off steroids (2) Encephalopathy: Code(s): G93.40 - Encephalopathy, unspecified Status: Resolved Assessment and Plan: * etiology of this is unclear * however, significant and clinical improvement noted (3) Abnormal glucose: Code(s): R73.09 - Other abnormal glucose Status: Resolved Assessment and Plan: * presumably from steroids (4) Pancytopenia: Code(s): D61.818 - Other pancytopenia Status: Acute Assessment and Plan: * counts are improving. * follow trend (5) Hypertension: Code(s): I10 - Essential (primary) hypertension Status: Acute Assessment and Plan: * still a little high * start lisinopril * follow trend fonow (6) Stercoral ulcer of large intestine: Onset Date: ~03/20/20 Code(s): K63.3 - Ulcer of intestine Status: Acute Assessment and Plan: * Surgery and GI following * s/p colonoscopy today * supportive stea (7) Protein malnutrition: Code(s): E46 - Unspecified protein-calorie malnutrition Status: Acute Assessment and Plan: * albumin low * advance diet as tolerated Will continue to follow. Subjective Date/time seen: 03/30/20 13:46 Chart/Interim reviewed since last seen -- overall, appears to be doing significantly better but remains quite weak; s/p colonoscopy earlier today with results noted; no apparent distress. Exam Narrative: Exam Narrative: General: WD/WN female in NAD Heart: normal S1 and S2; no rub Lungs: clear to auscultation Abdomen: soft, nontender, nondistended, positive bowel sounds Extremities: no cyanosis or clubbing; no edema Skin: warm and intact Objective Data Vital Signs Vital Signs: Vital Signs Temp Pulse Resp BP Pulse Ox 03/30/20 14:00 36.6 C 99 20 144/98 H 97 03/30/20 11:16 36.3 C L 108 H 16 150/98 H 100 03/30/20 08:36 88 20 164/111 H 96 03/30/20 08:25 91 23 H 147/102 H 98 03/30/20 08:16 91 21 H 151/102 H 100 03/30/20 06:44 36.8 C 90 22 H 163/107 H 96 03/30/20 06:00 36.4 C L 80 16 154/91 H 99 03/29/20 22:00 36.4 C L 84 20 151/97 H 100 Intake/Output Intake/Output: Intake & Output 03/27/20 03/28/20 03/29/20 03/30/20 23:59 23:59 23:59 23:59 Intake Total 2930 825 590 600 Output Total 2700 2100 1250 1350 Balance 835 -6023 -660 -750 Meds/Results Medications: Active Medications Generic Name Dose Route Start Last Admin Trade Name Freq PRN Reason Stop Dose Admin Acetaminophen 650 mg 03/14/20 20:26 Tylenol Tablet PO Q4H PRN Mild Pain (1-3) or Fever Hydrocodone Bitart/Acetamino
--- NOTE | 2020-03-30 17:56 | PM.DS ---
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: Code(s): N05.9 - Unspecified nephritic syndrome with unspecified morphologic changes; I77.89 - Other specified disorders of arteries and arterioles Status: Acute (3) Hypokalemia: Code(s): E87.6 - Hypokalemia Status: Acute (4) Encephalopathy: Code(s): G93.40 - Encephalopathy, unspecified Status: Resolved (5) Pancytopenia: Code(s): D61.818 - Other pancytopenia Status: Acute (6) Abnormal glucose: Code(s): R73.09 - Other abnormal glucose Status: Resolved (7) Elevated troponin: Code(s): R79.89 - Other specified abnormal findings of blood chemistry Status: Acute (8) Petechial rash: Code(s): R23.3 - Spontaneous ecchymoses Status: Acute (9) Hypothyroidism: Qualifiers: Hypothyroidism type: unspecified Qualified Code(s): E03.9 - Hypothyroidism, unspecified Code(s): E03.9 - Hypothyroidism, unspecified Status: Chronic DS: Summary Hospital Course Reason for hospitalization: Increased weakness and confusion. Hospital Course: Date of Service of Discharge: March 30, 2020. History of Present Illness: Patient is a 69-year-old with known glomerular nephritis being treated by Dr. Cage who presented to the emergency room with complaint of increased weakness and confusion for the past few days. Patient has been noted to be on prednisone taper since November and recently completed cyclophosphamide. Patient's reported patient had fallen on the day of presentation while trying to get into the car. Patient quite confused herself and unable to answer questions. In the emergency room, she was found to be pancytopenic requiring transfusion of 1 unit PRBC. No recent fever, chills or sweats. No recent cough or shortness of breath. No recent nausea or vomiting. Hematology was consulted from the emergency room. Given her findings, she was admitted for further evaluation and treatment. Course in Hospital: Patient was admitted with hematology as well as Nephrology consultations. She additionally was seen by Neurology at the beginning of her stay. Patient with a significant pancytopenia eventually felt to be result of the cyclophosphamide use for her glomerular nephritis. She did have a bone marrow biopsy performed with hypocellular bone marrow without any evidence of leukemia and lymphoma. Did receive transfusion of total of 2 units PRBC on 03/14/2020. CBC was followed throughout her stay with WBC in normal range time of discharge with hemoglobin 7.5, hematocrit 23.4 and platelets 173,000 also at that time. As noted, Neurology did continue to follow. Patient was continued on prednisone which was at twice daily by the time of discharge with plan to continue taper as an outpatient. Repeat ANCA testing negative. Creatinine remained normal and would be followed as an outpatient. With her encephalopathy, she did have imaging performed. MRI of the brain was noted to have abnormal signal in the thalami, scattered subcortical white matter in cerebellar white matter. Vitamin B12, vitamin B6 and TSH were all normal. No additional treatment was given with plan to repeat MRI as an outpatient. Mentation did improve with correction of other health issues. During her stay, patient did have CT scan of the abdomen/pelvis done on 03/18/2020 with fecal impaction, stercoral colitis. Gastroenterology was consulted as well as General surgery. She did not require any surgical intervention but Dr. Loaiza did unsuccessfully attempted colonoscopy on 03/24/2020, 03/25/2020 and 03/27/2020. Colonoscopy is were unsuccessful due to incomplete clearing of co
== END 2020-03-30 17:45 | DRG 699 ==
LOC: ANHED 16:21 → ANHIMU 16:40 → ANH3MEDSUR 03-22 13:39
PROVIDERS: Family Medicine; Internal Medicine; Internal Medicine Gastroenterology; Internal Medicine Nephrology; Radiology Diagnostic Radiology; Admitting Provider Hospitalist; Emergency Provider Emergency Medicine; Referring Provider Internal Medicine Hematology & Oncology; Visit Provider Hospitalist
PROC: 07DR3ZX Extraction of Iliac Bone Marrow, Percutaneous Approach, Diagnostic (ICD-10-PCS; principal; 2020-03-18 08:30)
PROC: 0DJD8ZZ Inspection of Lower Intestinal Tract, Via Natural or Artificial Opening Endoscopic (ICD-10-PCS; CPT 45378; principal; 2020-03-24 07:30)
DX: N05.9 Unspecified nephritic syndrome with unspecified morphologic changes (principal); D61.818 Other pancytopenia; G93.40 Encephalopathy, unspecified; E46 Unspecified protein-calorie malnutrition; K63.3 Ulcer of intestine; E03.9 Hypothyroidism, unspecified; Z68.22 Body mass index [BMI] 22.0-22.9, adult; N18.3 Chronic kidney disease, stage 3 (moderate); K56.41 Fecal impaction; I77.89 Other specified disorders of arteries and arterioles; E87.6 Hypokalemia
CPT/HCPCS: 36415; 36430; 38222; 51701; 70450; 70544; 70551; 71045; 74019; 74176; 80048; 80053; 80069; 80202; 80307; 81001; 82607; 82728; 82948; 83036; 83540; 83550; 83615; 83735; 84207; 84443; 84484; 85014; 85018; 85025; 85027; 85046; 85055; 85380; 85610; 85730; 86021; 86140; 86850; 86900; 86901; 86923; 87040; 87086; 87804; 88305; 88311; 88313; 93005; 95816; 96360; 97110; 97116; 97162; 97164; 97165; 97168; 97530; 97535; 99291; A9270; J2405; J2704; J3370; J3475; J3480; J7030; J7120; J7512; P9016; Q4081

== ENCOUNTER → 2020-11-03 13:00 | Outpatient (CLI) | payer MEDICARE, SELFPAY ==
--- NOTE | ~2020-11-03 | DEXA_ITS ---
Bone Density Report Name: Megan Raza Age: 70 Sex: Female Ethnicity: White Date of : 1950 Indication: postmenopausal; screening for osteoporosis; Referring Provider: Freeman, Tesha Chiang Study: Bone densitometry was performed. Exam Date: November 03, 2020 Accession number: [id number] Bone Density: Region BMD T-score Z-score Classification AP Spine (L1-L4) 1.054 0.1 2.1 Normal Femoral Neck (Left) 0.558 -2.6 -0.9 Osteoporosis Total Hip (Left) 0.696 -2.0 -0.5 Osteopenia Femoral Neck (Right) 0.553 -2.7 -0.9 Osteoporosis Total Hip (Right) 0.697 -2.0 -0.5 Osteopenia Total Hip Mean 0.697 -2.0 -0.5 Osteopenia World Health Organization criteria for BMD impression classify patients as: Normal (T-score at or above -1.0), Osteopenia (T-score between -1.0 and -2.5), or Osteoporosis (T-score at or below -2.5). 10-year Fracture Risk: FRAX not reported because: Some T-score for Spine Total or Hip Total or Femoral Neck at or below -2.5 Previous Exams: Region Exam Age BMD T-score BMD Change BMD Change Date g/cm2 vs Baseline vs Previous AP Spine(L1-L4) 11/03/2020 70 1.054 0.1 -0.080* -0.040* 10/26/2015 65 1.095 0.4 -0.040* -0.040* 05/12/2010 60 1.134 0.8 Total Hip(Left) 11/03/2020 70 0.696 -2.0 -0.165* -0.119* 10/26/2015 65 0.815 -1.0 -0.045* -0.045* 05/12/2010 60 0.860 -0.7 Total Hip(Right) 11/03/2020 70 0.697 -2.0 -0.170* -0.118* 10/26/2015 65 0.815 -1.0 -0.052* -0.052* 05/12/2010 60 0.867 -0.6 *Denotes significance at 95% confidence level, LSC for AP Spine = 0.022 g/cm2, LSC for Total Hip = 0.027 g/cm2 Clinical Information Provided by Patient: Has used the following medications: Calcium Patient maximum height was 62 Menopause Age: 54 No regular weight bearing exercise Drinks caffeinated beverages Onset of menses at age 14 Number of children 2 Impression: The patient has osteoporosis, based on the Right Femoral Neck T-score. The BMD for the AP Spine(L1-L4) decreased, changing by -0.040 since the last DXA exam. The BMD for the Total Hip(Left) decreased, changing by -0.119 since the last DXA exam. The BMD for the Total Hip(Right) decreased, changing by -0.118 since the last DXA exam. Discussion: INCREASED RISK OF FRACTURE. BONE DENSITY IS UNDESIRABLY LOW AT ONE OR MORE SKELETAL SITES, CONSISTENT WITH POSTMENOPAUSAL OSTEO
--- NOTE | ~2020-11-03 | MMUS_ITS ---
EXAMINATION: MM diagnostic silvia BI w maria luisa, US breast RT limited HISTORY: Palpable lump in the lower inner quadrant of the right breast TECHNIQUE: Craniocaudal, mediolateral, and mediolateral oblique 3-D tomosynthesis images of the breas ts were performed and synthetic 2-D images were generated. Spot compression views of the right breast are also obtained. CAD analysis was submitted and interpreted. High resolution limited right breast ultrasound was performed. COMPARISON: 10/26/2015, 09/28/2011, 05/19/2010 BREAST PARENCHYMAL COMPOSITION: The breasts are almost entirely fatty. FINDINGS: MAMMOGRAPHIC FINDINGS: Right breast: There is a focal asymmetry in the posterior third of the breast at the 8:00 location 8 cm deep to the nipple corresponding to the palpable abnormality of concern. There is no suspicious ca lcification or architectural distortion. Left breast: There is no evidence of suspicious mass, calcification, or architectural distortion to suggest malignancy. There has been no suspicious interval change. ULTRASOUND: There is an 8 mm x 5 mm irregular hypoechoic mass with posterior acoustic enhancement corresponding t o the palpable abnormality of concern at the 8:00 location 6 cm from the nipple. IMPRESSION: 1. Findings suggestive of focal trauma/hematoma or possible focal area of infection corresponding to the reported palpable abnormality of concern. 2. Recommend targeted right breast ultrasound in 4-6 weeks after appropriate therapy. If no interval improvement is demonstrated, ultrasound-guided biopsy would be recommended. BI-RADS category 4, suspicious findings. Reviewed, dictated and finalized at location A. DENT RESPONSE MANAGER IMPRESSION: 1. Findings suggestive of focal trauma/hematoma or possible focal area of infec tion corresponding to the reported palpable abnormality of concern. 2. Recommend targeted right breast ultrasound in 4-6 weeks after appropriate th erapy. If no interval improvement is demonstrated, ultrasound-guided biopsy wou ld be recommended. BI-RADS category 4, suspicious findings.
== END ==
PROVIDERS: Visit Provider Nurse Practitioner Obstetrics & Gynecology
DX: R92.8 Other abnormal and inconclusive findings on diagnostic imaging of breast (principal); Z78.0 Asymptomatic menopausal state; N63.10 Unspecified lump in the right breast, unspecified quadrant
CPT/HCPCS: 76642; 77062; 77066; 77080; G0279

== ENCOUNTER 2020-12-11 08:22 | Outpatient (CLI) | payer MEDICARE, SELFPAY ==
[2020-12-11 12:33] LABS: Anion Gap 6 mmol/L (8-16); Blood Urea Nitrogen 34 mg/dL (7-17); Calcium 9.7 mg/dL (8.4-10.2); Carbon Dioxide 31 mmol/L (22-30); Chloride 106 mmol/L (98-107); Cholesterol 199 mg/dL (0-200); Estimated Glomerular Filt Rate 45; Glucose 100 mg/dL (65-105); HDL Direct 48 mg/dL; Potassium 4.6 mmol/L (3.4-5.0); Sodium 143 mmol/L (137-145); Triglycerides 125 mg/dL (<150)
[2020-12-11 12:37] LABS: Hemoglobin A1C 5.1 % (<5.7)
[2020-12-11 12:44] LABS: LDL Cholesterol Direct 123 mg/dL
== END 2020-12-11 08:23 | disposition home or self-care (01) ==
LOC: ANHLAB 08:24
PROVIDERS: PCP Internal Medicine; Visit Provider Internal Medicine
DX: N18.9 Chronic kidney disease, unspecified (principal); R73.03 Prediabetes; E03.9 Hypothyroidism, unspecified; Z13.220 Encounter for screening for lipoid disorders
CPT/HCPCS: 36415; 80048; 80061; 83036; 84443

== ENCOUNTER → 2022-03-21 09:01 | Outpatient (CLI) | payer MEDICARE, SELFPAY ==
[2022-03-21 10:38] LABS: SARS-CoV-2 RNA PCR Positive
== END ==
PROVIDERS: PCP Internal Medicine; Visit Provider Internal Medicine
DX: U07.1 COVID-19 (principal)
CPT/HCPCS: C9803; U0003; U0005

== ENCOUNTER → 2022-03-31 07:15 | Outpatient (CLI) | payer MEDICARE, SELFPAY ==
--- NOTE | ~2022-03-31 | XR_ITS ---
XR knee LT 3V 03/31/2022 07:31 Indication: Left knee pain Procedure: 3 views left knee Comparison: No prior studies for comparison. Findings: No fracture, subluxation or dislocation. No significant joint effusion. No foreign bodies. There is mild osteoarthritis. Impression: 1: Mild osteoarthritis of the left knee. Reviewed, dictated and finalized at location A. Impression: 1: Mild osteoarthritis of the left knee.
== END ==
PROVIDERS: PCP Internal Medicine; Visit Provider Nurse Practitioner
DX: M17.12 Unilateral primary osteoarthritis, left knee (principal)
CPT/HCPCS: 73562

== ENCOUNTER 2023-10-11 14:30 | Outpatient (CLI) | payer MEDICARE, SELFPAY ==
--- NOTE | ~2023-10-11 | MM_ITS ---
EXAMINATION: MM screening silvia BI w maria luisa HISTORY: Screening mammogram TECHNIQUE: Craniocaudal and mediolateral oblique 3-D tomosynthesis images were obtained and synthetic 2-D images were generated. CAD analysis was submitted and interpreted. COMPARISON: 11/03/2020 diagnostic bilateral mammogram and limited right breast ultrasound BREAST PARENCHYMAL COMPOSITION: There are scattered areas of fibroglandular density. FINDINGS: There is no evidence of suspicious mass, calcification, or architectural distortion to sugg est malignancy in either breast. There has been no suspicious interval change. IMPRESSION: 1. No mammographic evidence of malignancy. 2. Recommend routine screening mammography in one year. BI-RADS Category 1: Negative Reviewed, dictated and finalized at location A. [employer]
--- NOTE | ~2023-10-11 | DEXA_ITS ---
Bone Density Report Name: JANNY RANDOLPH Age: 73 Sex: Female Ethnicity: White Date of : 1950 Indication: postmenopausal; screening for osteoporosis; height loss; Referring Provider: JANIS VELASQUEZ Study: Bone densitometry was performed. Exam Date: October 11, 2023 Accession number: [id number] Bone Density: Region BMD T-score Z-score Classification AP Spine(L1-L4) 1.024 -0.2 2.0 Normal Femoral Neck (Left) 0.508 -3.1 -1.1 Osteoporosis Total Hip (Left) 0.658 -2.3 -0.7 Osteopenia Femoral Neck (Right) 0.579 -2.4 -0.5 Osteopenia Total Hip (Right) 0.680 -2.2 -0.5 Osteopenia Total Hip Mean 0.669 -2.3 -0.6 Osteopenia World Health Organization criteria for BMD impression classify patients as: Normal (T-score at or above -1.0), Osteopenia (T-score between -1.0 and -2.5), or Osteoporosis (T-score at or below -2.5). 10-year Fracture Risk: FRAX not reported because: Some T-score for Spine Total or Hip Total or Femoral Neck at or below -2.5 Clinical Information Provided by Patient: Has used the following medications: Vitamin D, Calcium Patient maximum height was 62 Menopause Age: 51 Does not regularly consume dairy products Drinks caffeinated beverages Onset of menses at age 13 Number of children 3 Impression: The patient has osteoporosis, based on the Left Femoral Neck T-score. Discussion: INCREASED RISK OF FRACTURE. BONE DENSITY IS UNDESIRABLY LOW AT ONE OR MORE SKELETAL SITES, CONSISTENT WITH POSTMENOPAUSAL OSTEOPOROSIS. This patient's lowest T-score meets the World Health Organization's (WHO) criteria for osteoporosis at one or more sites (T-score -2.5 or below). In untreated patients, the risk of osteoporotic fracture increases approximately two-fold for each 1.0 SD decrease in T-score. Low bone density is not the only risk factor for fracture; also consider factors such as patient's age, frailty or poor health, risk of falling, risk of injury, previous osteoporotic fracture, family history of osteoporosis, cigarette smoking, low body weight, etc. Not everyone with low bone mineral density has osteoporosis; osteomalacia and other metabolic bone disorders should also be considered. Patients who have osteoporosis should be evaluated for specific diseases and conditions (secondary causes) that may cause or contribute to bone loss. The [place] [employer]ocrinologists (AACE) and National Osteoporosis Foundation (NOF) recommend pharmacologic intervention for all postmenopausal women whose T-score is in this range. The patient should follow a healthful lifestyle (good nutrition with adequate calcium and vitamin D, and appropriate weight-bearing exercise). Follow-Up: Consider a repeat BMD and Vertebral Fracture Assessment (VFA) exam in 2 years or sooner if medically necessary, to r
== END 2023-10-11 14:31 | disposition home or self-care (01) ==
LOC: ANHIMG 14:33
PROVIDERS: PCP Family Medicine; Visit Provider Family Medicine
DX: Z12.31 Encounter for screening mammogram for malignant neoplasm of breast (principal); M81.0 Age-related osteoporosis without current pathological fracture; M85.852 Other specified disorders of bone density and structure, left thigh; M85.851 Other specified disorders of bone density and structure, right thigh
CPT/HCPCS: 77063; 77067; 77080

== ENCOUNTER 2024-07-12 09:15 | Inpatient (IN) | payer MEDICARE, SELFPAY ==
[2024-07-12] VITALS (19 sets, daily range): BP systolic 106–143; BP diastolic 66–101; PULSE 90–128; RESP 16–38; TEMP 36.4–37.2; O2SAT 92–97; BMI 26.1
--- NOTE | ~2024-07-12 | MR_ITS ---
MRI of the cervical spine Clinical History: Myelopathy, pain Technique: Axial T2-weighted and gradient images, and sagittal T1-weighted, T2-weighted, and STIR clement ges were acquired. Findings: There is no fracture of the cervical spine. There is minimal grade 1 anterolisthesis of C3 over C4. No suspicious bone marrow signal abnormality seen. At C2-C3, there is no disc bulge or herniation. No spinal canal stenosis, cord compression, or neural foraminal narrowing. At C3-C4, there is moderate degenerative disc narrowing. There is disc osteophyte complex, most promi nent at the right paracentral to right foraminal region. There is severe right facet arthropathy, and moderate to advanced left facet arthropathy. No central canal stenosis or cord compression. There is advanced right neural foraminal narrowing, and probable mild left neural foraminal narrowing. At C4-C5, there is severe degenerative disc narrowing, with mild disc osteophyte complex. There is bi lateral facet arthropathy with bilateral neural foraminal narrowing. No central canal stenosis or cor d compression. At C5-C6, there is severe degenerative disc narrowing, with minimal disc osteophyte complex. No centr al canal stenosis or cord compression. There is bilateral facet arthropathy with bilateral neural for aminal narrowing. At C6-C7, there is advanced degenerative disc narrowing. No disc bulge or herniation. No spinal canal stenosis, cord compression, or neural foraminal narrowing. No abnormal signal seen in the spinal cord. Paravertebral soft tissues are unremarkable. Impression: Moderate to advanced degenerative spondylosis, especially at C3-C4, C4-C5, C5-C6. Please see details above. Reviewed, dictated and finalized at [facility] M. Impression: Moderate to advanced degenerative spondylosis, especially at C3-C4, C4-C5, C5-C 6. Please see details above.
--- NOTE | ~2024-07-12 | MR_ITS ---
MRI of the brain Clinical History: Pain, shaking Technique: Axial and sagittal T1-weighted images were acquired. These were followed by axial T2-weigh jillian, diffusion weighted, gradient, and FLAIR images. Following intravenous administration of 12 cc Mu ltiHance gadolinium, T1-weighted fat-sat imaging was performed in the axial and coronal planes. COMPARISON: 03/17/2020 Findings: There is no acute infarct, intracranial hemorrhage or mass lesion. There are mild chronic w tere matter changes in the periventricular white matter bilaterally. Ventricles and subarachnoid spaces are unremarkable. Orbits are unremarkable. Paranasal sinuses and m astoid air cells are clear. Major intracranial flow voids are intact. Sagittal midline structures are intact. No abnormal postcontrast enhancement identified. IMPRESSION: Mild chronic microvascular ischemic changes, otherwise unremarkable exam. Reviewed, dictated and finalized at location .
--- NOTE | ~2024-07-12 | CT_ITS ---
EXAMINATION: CT lumbar spine wo con DATE: 07/13/2024 15:10 INDICATION: CT lumbosacral spine/ Low back pain . TECHNIQUE: Computed tomography (CT) of the lumbar spine was performed with intravenous contrast. Auto mated exposure control and iterative reconstruction technique were employed. The dose-length product was 700.25 mGy-cm. COMPARISON: 07/12/2024, images only; CT abdomen pelvis 07/12/2024. FINDINGS: 5 nonrib-bearing lumbar-type vertebral bodies. Mild lumbar scoliosis. Pedicles intact. Norm al vertebral body alignment. Vertebral body heights preserved. Multilevel degenerative disc disease, moderate at L2-3 and L4-5. Facet arthropathy at all lumbar levels, severe in the mid and lower lumbar spine. Multilevel moderate central canal narrowing secondary to degenerative disc and facet change. Multilevel left-sided moderate neural foraminal narrowing secondary to degenerative changes. Divertic ulosis. Atherosclerotic arterial calcifications. Multiple splenic hypodensities, stable, likely granu lomatous disease. 8 mm indeterminate density right upper pole lesion. Multiple additional subcentimet er bilateral renal hypodensities, too small to characterize but likely represent cysts. IMPRESSION: No acute fracture or traumatic malalignment in the lumbar spine. 8 mm indeterminate right upper pole lesion, consider nonemergent but timely MR or CT without and with contrast for further evaluation. Reviewed, dictated and finalized at location K.
--- NOTE | ~2024-07-12 | CT_ITS ---
EXAMINATION: CT abdomen pelvis w con DATE: 07/12/2024 10:08 INDICATION: Lower abdominal pain. Back pain. TECHNIQUE: Computed tomography (CT) of the abdomen and pelvis was performed with 100 mL Omnipaque 350 intravenous contrast. Automated exposure control and iterative reconstruction technique were employe d. The dose-length product was 700.25 mGy-cm. COMPARISON: CT abdomen and pelvis 03/18/2020, chest CT 07/16/2012 FINDINGS: The visualized portions of the lung bases demonstrate mild atelectasis. No pleural effusion . Cardiomegaly is noted. No pericardial effusion. The liver is normal. There are changes of cholecyst ectomy. The common duct is dilated to 11 mm, stable from 03/18/20. There are innumerable low-attenuati on masses in the spleen measuring up to 10 mm, which is chronic, most likely granulomatous disease. T here is a small sliding hiatal hernia. The pancreas and adrenal glands are normal. There are cysts in the kidneys measuring up to 4 mm. There is diverticulosis of the colon without evidence of diverticu litis. The appendix is visualized. There is calcified atherosclerosis of the aorta and many of the ot her arteries. The bladder is distended. There are no pathologically enlarged lymph nodes. There is no free intraperitoneal fluid. There is moderate lumbar spondylosis and thoracic spondylosis. IMPRESSION: 1. Small sliding hiatal hernia. Reviewed, dictated and finalized at location A.
--- NOTE | ~2024-07-12 | MR_ITS ---
EXAMINATION: MR sacrum wo con DATE: 07/15/2024 09:07 INDICATION: Lower extremity pain and shaking TECHNIQUE: Magnetic resonance imaging (MRI) of the sacrum and coccyx was performed without intravenou s contrast. Sequences included sagittal PD-weighted FS FSE, coronal oblique T2-weighted FS FSE, cayden nal oblique T1-weighted FSE, oblique axial T2-weighted FS FSE and oblique axial T1-weighted FSE. COMPARISON: CT abdomen and pelvis dated 07/12/2024 FINDINGS: Bone marrow signal is normal throughout. No fracture or pathologic marrow replacing process. There is moderate lumbar spondylosis including severe bilateral lower lumbar facet osteoarthritis. See separa te lumbar spine MRI report for further detail. 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 No erosions to s uggest inflammatory sacroiliitis. There are multiple sigmoid diverticula without adjacent fat strandi ng to suggest diverticulitis. IMPRESSION: 1. Moderate lumbar spondylosis with severe lower lumbar facet osteoarthritis. 2. 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 3. Sigmoid diverticulosis. Reviewed, dictated and finalized at location A.
--- NOTE | ~2024-07-12 | NM_ITS ---
EXAMINATION: NM lung vent and perfusion DATE: 07/12/2024 15:16 INDICATION: Tachycardia and tachypnea TECHNIQUE: 15.2 mCi xenon-133 by inhalation and 5.5 mCi Tc-99m MAA by intravenous route. Scintigraph ic images of the chest were obtained. COMPARISON: Radiograph dated 07/12/2024 FINDINGS: There is homogeneous radiotracer activity throughout the lungs on the single breath ventilation seque nce with enlarged cardiac silhouette. There is relatively homogeneous perfusion throughout the lungs . No discrete ventilation and perfusion mismatch is identified. IMPRESSION: 1. Low probability for pulmonary embolism. Reviewed, dictated and finalized at location A.
--- NOTE | ~2024-07-12 | XR_ITS ---
EXAMINATION: XR chest 1V portable DATE: 07/12/2024 10:37 INDICATION: Shortness of breath. TECHNIQUE: A single frontal view of the chest was obtained. COMPARISON: Chest view 03/14/2020, CT abdomen and pelvis 07/12/2024 FINDINGS: There is no pneumonia, pleural effusion, or pneumothorax. Cardiomegaly is noted. IMPRESSION: 1. Cardiomegaly. Reviewed, dictated and finalized at location A. IMPRESSION: 1. Cardiomegaly.
--- NOTE | ~2024-07-12 | CT_ITS ---
EXAMINATION: CT brain wo con DATE: 07/12/2024 14:02 INDICATION: Possible seizure TECHNIQUE: Computed tomography (CT) of the head was performed without intravenous contrast. Sagittal and coronal reconstructions were performed. The mA was adjusted according to patient size. Iterative reconstruction technique was employed. The dose-length product was 681.00 mGy-cm. COMPARISON: Brain MR dated 03/17/2020 FINDINGS: No acute intracranial hemorrhage, acute infarction or abnormal extra axial fluid collection. There is mild scattered white matter hypoattenuation consistent with chronic small vessel ischemic disease. T here is contrast in the cerebral arteries, venous sinuses and along the falx and tentorium related to the earlier contrast-enhanced CT of the abdomen and pelvis. Symmetric prominence of the sulci and james barachnoid space overlying the convexities consistent with mild age-appropriate diffuse cerebral volu me loss. Ventricles are normal and symmetric. No mass/mass effect. Changes of bilateral intraocular l ens replacement. The orbits, paranasal sinuses and mastoid air cells are normal. IMPRESSION: 1. Normal aging brain. No acute intracranial process. Reviewed, dictated and finalized at location A.
--- NOTE | ~2024-07-12 | MR_ITS ---
MRI of the thoracic spine Clinical History: Myelopathy Technique: Axial T2-weighted and gradient images, and sagittal T1-weighted, T2-weighted, and STIR clement ges were acquired. Findings: There is no fracture or subluxation of the thoracic spine. Vertebral bodies maintain normal height and alignment. No suspicious bone marrow signal reality seen. No significant disc bulge or herniation seen at any thoracic level. There is no spinal canal stenosis or cord compression thoracic spine. No definite neural foraminal narrowing identified. Paravertebral soft tissues demonstrate multiple small splenic T2 hyperintense lesions. No other soft tissue abnormality evident. Impression: No significant abnormality of the thoracic spine itself. Multiple small T2 hyperintense splenic lesions, nonspecific. Correlate for possible cysts versus any possibility of small splenic microabscesses. Reviewed, dictated and finalized at [facility]. Impression: No significant abnormality of the thoracic spine itself. Multiple small T2 hyperintense splenic lesions, nonspecific. Correlate for poss ible cysts versus any possibility of small splenic microabscesses.
--- NOTE | ~2024-07-12 | MR_ITS ---
MRI of the lumbar spine Clinical History: Pain, myelopathy Technique: Axial T2-weighted images, and sagittal T1-weighted, T2-weighted, and T2 fat-sat images wer e acquired. Findings: There is no fracture or subluxation of the lumbar spine. Vertebral bodies maintain normal h eight and alignment. No bone marrow signal abnormality seen. At L1-L2, there is minimal disc bulge and mild to moderate facet arthropathy. No central canal stenos is or neural foraminal narrowing. At L2-L3, there is mild to moderate degenerative disc narrowing. There is mild disc bulge with severe facet arthropathy. No central canal stenosis or neural foraminal narrowing. L3-L4, there is moderate to severe facet arthropathy. Minimal disc bulge present. No central canal st enosis or neural foraminal narrowing. At L4-L5, there is disc bulge with small annular fissure. There is severe facet arthropathy. No centr al canal stenosis. There is moderate to severe left neural foraminal narrowing. There is mild right n eural foraminal narrowing. At L5-S1, there is minimal disc bulge with severe facet arthropathy. No central canal stenosis. Neura l foramina are preserved. Paravertebral soft tissues are unremarkable. Impression: Moderate degenerative change overall, as detailed above. Reviewed, dictated and finalized at location . Impression: Moderate degenerative change overall, as detailed above.
[2024-07-12 09:23] LABS: Hematocrit 37.5 % (37.0-47.0); Hemoglobin 12.5 g/dL (12.0-15.0); Mean Corpuscular HGB Conc 33.3 g/dl (32-36); Mean Corpuscular Hemoglobin 31.5 pg (26-34); Mean Corpuscular Volume 94.5 fl (80-100); Mean Platelet Volume 8.2 fl (7.4-10.4); Platelet Count Result 103 k/mm3 (150-375); Red Blood Count 3.97 M/mm3 (4.2-5.4); Red Cell Distribution Width 15.7 % (11.5-14.5)
[2024-07-12 09:39] LABS: Band Neutrophils Percent 10 % (0-6); Eosinophils Absolute Manual 0.07 K/mm3 (0.02-0.50); Eosinophils Percent Manual 1 % (0-4); Lymphocytes Absolute Manual 0.49 K/mm3 (1.1-4.5); Monocytes Absolute Manual 0.21 K/mm3 (0.1-0.90); Monocytes Percent Manual 3 % (3-9); Neutrophils Absolute Manual 6.23 K/mm3 (1.7-7.2); Neutrophils Percent Manual 79 % (46-73); Total Cells Counted 100
[2024-07-12 09:40] LABS: Alanine Aminotransferase 29 U/L (6-35); Albumin Level 3.8 g/dL (3.5-5.1); Alkaline Phosphatase 73 U/L (38-126); Anion Gap 10 mmol/L (4-12); Aspartate Amino Transferase 27 U/L (14-36); Bilirubin,Total 0.5 mg/dL (0.2-1.3); Blood Urea Nitrogen 40 mg/dL (7-17); Calcium 8.9 mg/dL (8.4-10.2); Carbon Dioxide 27 mmol/L (22-30); Chloride 101 mmol/L (98-107); Estimated CRCL calculation 22 ml/min; Estimated Glomerular Filt Rate 32; Glucose 85 mg/dL (65-110); Platelet Estimate Slightly Decreased (Adequate); Potassium 4.5 mmol/L (3.4-5.0); Schistocytes None Seen; Sodium 138 mmol/L (137-145)
--- NOTE | 2024-07-12 09:43 | ECG_ITS ---
Test Date: 2024-07-12 08:34:30 Measurements Intervals [place] Rate: 129 P: -58 NM: 109 QRS: 1 QRSD: 86 T: 31 QT: 263 QTc: 386 Interpretive Statements SINUS TACHYCARDIA WITH SHORT NM INTERVAL ABNORMAL RHYTHM ECG No previous ECG available for comparison Electronically Signed On 07-12-2024 12:54:06 CDT by Anjum Lay M.D.
--- NOTE | 2024-07-12 09:45 | ED.BACK ---
HPI - Back Pain/Injury General Chief Complaint: Back Pain/Injury Stated Complaint: back pain Time Seen by Provider: 07/12/24 09:44 History of Present Illness HPI Narrative: 74-year-old female presenting with generalized weakness. She actually called EMS for lower back pain which had completely resolved by the time she arrived here. Currently she denies any pain. Reports mild shortness of breath and maybe some nausea. No lightheadedness. No focal numbness or weakness. Related Data Home Medications Medication Instructions Recorded Confirmed multivitamin 1 tablet PO DAILY 11/11/19 07/12/24 Allergies Allergy/AdvReac Type Severity Reaction Status Date / Time Penicillins Allergy Unknown Hives Verified 04/16/24 07:09 Review of Systems Review of Systems: All systems reviewed & are unremarkable except as noted in HPI and below PMFSH Past Medical History Medical History (Updated 07/14/24 @ 17:44 by Danielle Hatch MD) Anemia of chronic renal failure, stage 3 (moderate) CKD (chronic kidney disease) Confusion DVT prophylaxis Encephalopathy Fecal impaction (~03/20/20) 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 Hypokalemia Hypothyroidism Iron deficiency Myelopathy Pancytopenia Petechiae Prediabetes Protein malnutrition RLS (restless legs syndrome) Stercoral ulcer of large intestine (~03/20/20) Vitamin D deficiency, unspecified Surgical History Surgical History History of 2 sections History of cholecystectomy Family History Family History Mother Diabetes mellitus Father Alzheimer dementia Social History Social History Smoking status: Never smoker Second hand tobacco smoke exposure: No Alcohol intake: never Alcohol use details: hardly at all per patient Substance use: never Substance use type: does not use Do You Feel Safe in your Home?: Yes Lack of Transportation: No Lack of Food: Never True Current Housing: I Have Housing Concerned About Future Housing: No Difficulty Paying Gas/Electric Bills: No Difficulty Paying for Meds: No Currently Unemployed: No Education: High School Diploma/GED Difficulty w/ Childcare or Family Care: No Living arrangements: with family Gender identity (if verbalized by the patient): Female Spiritual care concerns: No Exam Narrative: GENERAL: Appears fatigued but nontoxic, pleasant cooperative HEAD: Normocephalic, atraumatic. EYES: PERRLA and EOMI. ENT: Nares clear, no rhinorrhea or epistaxis. Mucous membranes dry NECK: Supple. CHEST: Clear to auscultation. No respiratory distress. HEART: Tachycardic, regular rhythm ABDOMEN: Soft, mild tenderness bilateral lower quadrants without guarding or rebound EXTREMITIES: Normal range of motion. No edema. SKIN: Warm, dry, no rash. NEURO: No focal deficits. Alert and oriented x3. PSYCH: Normal mood and affect. Course Vital Signs Vital signs: Vital Signs Pulse Rate 128 H 07/12/24 08:35 Respiratory Rate 16 07/12/24 08:35 Blood Pressure 143/101 H 07/12/24 08:35 Pulse Oximetry 94 07/12/24 08:35 Oxygen Delivery Room Air 07/12/24 08:35 Temperature 98.0 F 07/14/24 16:00 Pulse Rate 92 07/14/24 16:00 Respiratory Rate 20 07/14/24 16:00 Blood Pressure 122/75 07/14/24 16:00 Pulse Oximetry 96 07/14/24 16:00 Oxygen Delivery Nasal Cannula 07/14/24 14:27 Oxygen Flow Rate 2 07/14/24 14:27 MDM - Back Pain/Injury MDM Narrative Medical decision making narrative: 74-year-old female presenting with an episode of lower back pain, lower abdominal pain. Prior to my evaluation, her heart rate was in the 120s 130s. Patient attempted to get out of bed to urinate and her heart rate spiked to the 170s. EKG per my interpretation shows sinus ta
--- NOTE | 2024-07-12 09:52 | PC.NURSE ---
pt sat self to edge of bed and HR increased to 178. Pt reports she was going to bathroom. Alert skin pale and cool to touch. ERP notifed and at bedside with pt, new orders entered
--- NOTE | 2024-07-12 09:54 | ECG_ITS ---
Test Date: 2024-07-12 09:54:23 Measurements Intervals [place] Rate: 126 P: 255 ID: 110 QRS: 18 QRSD: 93 T: 36 QT: 260 QTc: 377 Interpretive Statements SINUS TACHYCARDIA ABNORMAL RHYTHM ECG Compared to ECG 07/12/2024 08:34:30 NO SIGNIFICANT CHANGE Electronically Signed On 07-12-2024 12:55:45 CDT by Anjmu Lay M.D.
[2024-07-12 10:02] LABS: Lipase 179 U/L (23-300); Magnesium 1.8 mg/dL (1.6-2.3)
[2024-07-12 10:08] LABS: Prothrombin Time 13.3 Seconds (11.1-14.7)
[2024-07-12 10:09] LABS: Partial Thromboplastin Time 26.1 Seconds (22.3-36.8)
[2024-07-12] MEDS: SODIUM CHLORIDE 0.9% IV 1,000 ML 999 ML IV CONT ×2 (10:17)
[2024-07-12 10:26] LABS: Lactic Acid Reflex 4.9 mmol/L (0.7-2.0)
[2024-07-12 10:26] LABS: Troponin I 0.043 ng/mL (0.000-0.034)
[2024-07-12 10:30] LABS: Add Urine Microscopic? YES; Appearance Urine Clear (Clear); Bacteria Urine None Seen /hpf; Bilirubin Urine Negative (Negative); Blood Urine 3+ (Negative); Color Urine Yellow (Yellow); Glucose Urine UA Negative (Negative); Ketones Urine Negative (Negative); Leukocyte Esterase Ur Negative LEU/UL (Negative); Nitrate Urine Negative (Negative); Non Pathogenic Casts 0-2; Protein Urine 2+ mg/dL (Negative); RBC Urine >100 /hpf (0-2); Specific Grav Ur 1.011 (1.001-1.035); Squamous Epithelial Cell Urine None Seen /hpf (Few); Urobilinogen Urine 0.2 mg/dL (<2.0); WBC Urine 0-5 /hpf (0-3); pH Urine 7.5 (5.0-9.0)
[2024-07-12 10:40] LABS: Influenza A QL RT-PCR Negative (Negative); Influenza B QL RT-PCR Negative (Negative); RSV RNA, RT-PCR Negative (Negative); SARS-CoV-2 RNA PCR Negative (Negative)
[2024-07-12 11:41] LABS: Thyroid Stimulating Hormone Reflex 0.428 uIU/mL (0.465-4.68)
[2024-07-12 11:49] LABS: Creatine Kinase 22 U/L (30-135)
[2024-07-12 12:26] LABS: Free T4 Free Thyroxine Reflex 2.13 ng/dL (0.78-2.19)
--- NOTE | 2024-07-12 12:46 | ECG_ITS ---
Test Date: 2024-07-12 12:52:18 Measurements Intervals [place] Rate: 109 P: -48 PA: 116 QRS: 0 QRSD: 89 T: 15 QT: 313 QTc: 423 Interpretive Statements SINUS TACHYCARDIA ABNORMAL RHYTHM ECG Compared to ECG 07/12/2024 09:54:23 NO DIFFERENCE Electronically Signed On 07-12-2024 12:59:43 CDT by Anjum Lay M.D.
[2024-07-12 12:51] LABS: Troponin I 0.086 ng/mL (0.000-0.034)
[2024-07-12 13:02] LABS: Reflex Lactic Acid Yes or No Add Lactic
[2024-07-12 13:28] LABS: Total Triiodothyronine (T3) 0.75 NG/ML (0.97-1.69)
[2024-07-12 14:03] LABS: Lactic Acid 2.1 mmol/L (0.7-2.0)
--- NOTE | 2024-07-12 14:47 | PM.IMHP ---
H&P: HPI History of Present Illness Date/Time: 07/12/24 14:47 Chief Complaint: Low Back Pain Narrative: 74 y/o F presents here with low back pain with PMH of CKD, glomerulonephritis ANCA, and hypothyroidism. The patient presents here from home via EMS with low back pain and generalized weakness. She reports onset of generalized weakness approximately 2 weeks ago, patient was not overly concerned because she typically feels weak/does not tolerate heat well. Patient then had episode of low back pain around lunch time while she was heading back to bed after she had used the restroom. During pain she reports her bilateral lower extremities became weak and began to shake. She reports she was not able to lift them up. No associated urinary or fecal incontinence, confusion/fogginess, syncope or subsequent fall. She further described pain as odd, right sided, nonradiating, brief, and no aggravating/alleviating factors. Episode of back pain/leg shaking lasted for 30 mins, leg tremors/shaking continued despite laying down, and had resolved prior to arrival to the emergency department. Patient also endorsing mild shortness of breath, lightheadedness, and nausea that started with the back pain. Denying dizziness, lightheadedness, focal numbness, focal weakness, dysarthria, changes in vision, or chest pain. No fever, chills, or body aches. Initial VS at presentation: 98.4? F, HR 128, RR 16, 143/101, and 94% on RA. ED workup showed: No leukocytosis, no anemia, normal coags, creatinine 1.6 and GFR 32 (previously 1.62 and GFR 33 on 07/02/2024), lactic 4.9, initial troponin 0.043, TSH 0.428, CK 22, and UA showed 2+ protein, 3+ blood, and greater than 100 RBC. Viral PCR negative. CT of the abdomen/pelvis showed small sliding hiatal hernia. CXR showed cardiomegaly. Head CT showed a normal aging brain and no acute intracranial process. Initial EKG showed sinus tachycardia, rate 129, short [place] interval. Repeat 2 and 3 showed no significant difference compared to prior. 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 Hypokalemia Hypothyroidism Iron deficiency Pancytopenia Petechiae Prediabetes Protein malnutrition RLS (restless legs syndrome) Stercoral ulcer of large intestine (~03/20/20) Vitamin D deficiency, unspecified Surgical History Surgical History History of 2 sections History of cholecystectomy Family History Family History Mother Diabetes mellitus Father Alzheimer dementia Social History Social History Smoking status: Never smoker Second hand tobacco smoke exposure: No Alcohol intake: never Alcohol use details: hardly at all per patient Substance use: never Substance use type: does not use Do You Feel Safe in your Home?: Yes Lack of Transportation: No Lack of Food: Never True Current Housing: I Have Housing Concerned About Future Housing: No Difficulty Paying Gas/Electric Bills: No Difficulty Paying for Meds: No Currently Unemployed: No Education: High School Diploma/GED Difficulty w/ Childcare or Family Care: No Living arrangements: with family Gender identity (if verbalized by the patient): Female Spiritual care concerns: No Meds Home Medications and Allergies Home Medications Medication Instructions Recorded Confirmed Type multivitamin 1 tablet PO DAILY 11/11/19 07/12/24 History lisinopril 5 mg tablet 5 mg PO
--- NOTE | 2024-07-12 15:47 | ECG_ITS ---
Test Date: 2024-07-12 15:53:28 Measurements Intervals [place] Rate: 106 P: 220 CA: 115 QRS: 37 QRSD: 90 T: 31 QT: 317 QTc: 421 Interpretive Statements SINUS TACHYCARDIA Compared to ECG 07/12/2024 12:52:18 NO SIGNIFICANT CHANGES Electronically Signed On 07-13-2024 10:33:38 CDT by Juan Ortega M.D.
--- NOTE | 2024-07-12 16:59 | ADMGEN ---
This patient, Megan Raza, was admitted to IMU Room 205-01 at 1625. Patient/family oriented to hospital policies and general routines including ID bracelet, bed and alarms, visiting hours, pain management, procedures, bathroom and other care routines, personal items, smoking policy, room service/diet, and visiting hours. Information on how to activate the Rapid Response Team has been discussed. Patient/Family are encouraged to report perceived risks to care and to ask questions if they do not understand what they are told or what they should do.
[2024-07-12 18:18] LABS: Procalcitonin 0.2 ng/mL
--- NOTE | 2024-07-12 18:18 | PC.NURSE ---
Voicemail left for PAOLO Barone notifying no MRI coverage or Neuro coverage over the weekend.
[2024-07-12] MEDS: HEPARIN SOD/D5W 100 UNITS/ML 25,000 UNITS/250 ML BAG 7 UNITS IV CONT (18:45)
[2024-07-12] MEDS: LACTATED RINGERS 1,000 ML 75 ML IV CONT (18:55)
[2024-07-12 19:32] LABS: Hematocrit 33.2 % (37.0-47.0); Hemoglobin 10.8 g/dL (12.0-15.0); Immature Platelet Fraction Pct 0.7 % (0.9-11.2); Mean Corpuscular HGB Conc 32.5 g/dl (32-36); Mean Corpuscular Volume 95.4 fl (80-100); Mean Platelet Volume 8.1 fl (7.4-10.4); Platelet Count Result 126 k/mm3 (150-375); Red Blood Count 3.48 M/mm3 (4.2-5.4); White Blood Count 8.1 K/mm3 (4.5-10.0)
[2024-07-12 19:40] LABS: INR 1.1; Prothrombin Time 14.5 Seconds (11.1-14.7)
[2024-07-12 19:41] LABS: Partial Thromboplastin Time 33.5 Seconds (22.3-36.8)
[2024-07-12 20:04] LABS: Band Neutrophils Percent 6 % (0-6); Lymphocytes Absolute Manual 0.48 K/mm3 (1.1-4.5); Monocytes Absolute Manual 0.32 K/mm3 (0.1-0.90); Monocytes Percent Manual 4 % (3-9); Neutrophils Absolute Manual 7.29 K/mm3 (1.7-7.2); Neutrophils Percent Manual 84 % (46-73); Total Cells Counted 100
[2024-07-12 20:05] LABS: Anisocytosis 1+; Platelet Estimate Slightly Decreased (Adequate); Schistocytes None Seen
[2024-07-13] VITALS (14 sets, daily range): BP systolic 116–142; BP diastolic 69–84; PULSE 85–101; RESP 16–36; TEMP 36.8–37.2; O2SAT 90–100
--- NOTE | 2024-07-13 | ECHO_ITS ---
Patient Info Name: Megan Raza Age: 74 years : 1950 Gender: Female Ht: 62 in Wt: 132 lbs BSA: 1.63 m2 HR: 93 bpm BP: 133 / 84 mmHg Heart Rhythm: Sinus Rhythm Technical Quality: Good Exam Date: 07/13/2024 12:43 PM Exam Location: Echo Lab Patient Status: Inpatient Admit Date: 07/13/2024 Staff Ordering Physician: Juan Ortega MD ([email or web address]/trino) [employer] Technician: Karl Macdonald RDCS Attending Provider: Jayme Whitehead MD Referring Physician: Jordan RYAN; Exam Type: CA echo doppler color flow Study Info Indications - elevated troponin Complete two-dimensional, color flow and Doppler transthoracic echocardiogram is performed. Summary 1. Left ventricular chamber dimension is normal. 2. Left ventricular systolic function is normal, estimated at 65-70%. 3. There is mildly increased left ventricular wall thickness. 4. The left ventricular diastolic function is grade I diastolic dysfunction. 5. Right ventricular systolic function is normal. 6. There is mild tricuspid valve regurgitation. Left Ventricle Left ventricular chamber dimension is normal. Left ventricular systolic function is normal, estimated at 65-70%. There is mildly increased left ventricular wall thickness. The left ventricular diastolic function is grade I diastolic dysfunction. Right Ventricle Right ventricular chamber dimension is normal. Right ventricular systolic function is normal. Left Atria Left atrial chamber dimension is normal. Right Atria Right atrial chamber dimension is normal. Atrial Septum Intact interatrial septum visualized by color flow imaging. Aortic Valve The aortic valve is probable trileaflet. There is mild aortic valve sclerosis. There is no aortic valve stenosis. There is no aortic valve regurgitation. Pulmonic Valve The pulmonic valve is not well visualized. There is no pulmonic regurgitation. Mitral Valve There is trace mitral valve regurgitation. Tricuspid Valve There is mild tricuspid valve regurgitation. Pericardium/Pleural The pericardium appears epicardial fat pad. There is no pericardial effusion. Inferior Vena Cava Normal inferior vena cava with >50% collapse upon inspiration consistent with normal right atrial pressure, 3 mmHg. Aorta The aortic root size at the sinus of Valsalva is normal. Left Ventricular Outflow Tract Name Value Normal LVOT 2D LVOT Diameter 1.9 cm LVOT Doppler LVOT Peak Gradient 5 mmHg LVOT Mean Gradient 3 mmHg LVOT VTI 16 cm LVOT VTI/AV VTI Ratio 0.9 LVOT Stroke Volume 46 ml LVOT CO 4.5 l/min LVOT CI 2.7 l/min/m2 Pulmonic Valve Name Value Normal PV Doppler PV Peak Gradient 3 mmHg Mitral Valve
[2024-07-13 02:04] LABS: Partial Thromboplastin Time 153.2 Seconds (22.3-36.8)
[2024-07-13] MEDS: LEVOTHYROXINE SODIUM 125 MCG TABLET PO (07:44)
[2024-07-13] MEDS: LACTATED RINGERS 1,000 ML 75 ML IV CONT (07:46)
[2024-07-13 09:24] LABS: Hematocrit 30.3 % (37.0-47.0); Hemoglobin 9.9 g/dL (12.0-15.0); Immature Platelet Fraction Pct 0.8 % (0.9-11.2); Mean Corpuscular HGB Conc 32.7 g/dl (32-36); Mean Corpuscular Hemoglobin 30.8 pg (26-34); Mean Corpuscular Volume 94.4 fl (80-100); Mean Platelet Volume 8.3 fl (7.4-10.4); Platelet Count Result 118 k/mm3 (150-375); Red Blood Count 3.21 M/mm3 (4.2-5.4); Red Cell Distribution Width 15.9 % (11.5-14.5); White Blood Count 6.3 K/mm3 (4.5-10.0)
[2024-07-13 09:30] LABS: Alanine Aminotransferase 22 U/L (6-35); Albumin Level 2.9 g/dL (3.5-5.1); Alkaline Phosphatase 60 U/L (38-126); Anion Gap 7 mmol/L (4-12); Aspartate Amino Transferase 34 U/L (14-36); Bilirubin,Total 0.6 mg/dL (0.2-1.3); Blood Urea Nitrogen 34 mg/dL (7-17); Calcium 8.5 mg/dL (8.4-10.2); Carbon Dioxide 25 mmol/L (22-30); Chloride 107 mmol/L (98-107); Estimated CRCL calculation 24 ml/min; Estimated Glomerular Filt Rate 34; Glucose 91 mg/dL (65-110); Potassium 3.7 mmol/L (3.4-5.0); Sodium 139 mmol/L (137-145)
[2024-07-13 09:32] LABS: Partial Thromboplastin Time 94.4 Seconds (22.3-36.8)
[2024-07-13] MEDS: MULTIVITAMINS THERAPEUTIC TAB (*BKC) 1 TABLET PO (10:28)
[2024-07-13] MEDS: predniSONE 20 MG TABLET 40 MG PO (10:28)
--- NOTE | 2024-07-13 11:02 | PM.IMPN ---
Progress Note: A&P Assessment and Plan (1) Tachycardia: Code(s): R00.0 - Tachycardia, unspecified Status: Acute Assessment and Plan: - EKG, initial: Sinus tachycardia with short IN interval, rate 129. - EKG, repeat (1): No significant change when compared to EKG done earlier today. - EKG, repeat (2): No significant change when compared to EKG done earlier today. - CXR: cardiomegaly - Troponin: 0.043 -> 0.086 -> 0.1 - VQ Scan ordered, showed low probability for PE - started on heparin gtt - cardiology consulted, awaiting formal recs - suspicion for NSTEMI, however may be elevated/increasing due to hypoxia/CKD - telemetry monitoring (2) Elevated troponin: Code(s): R79.89 - Other specified abnormal findings of blood chemistry Status: Acute Assessment and Plan: - see above (3) Lactic acidemia: Code(s): E87.20 - Acidosis, unspecified Status: Acute (4) Episode of shaking: Code(s): R25.1 - Tremor, unspecified Status: Acute (5) Stage 3b chronic kidney disease: Code(s): N18.32 - Chronic kidney disease, stage 3b Status: Chronic (6) Hypertension: Qualifiers: Hypertension type: unspecified Qualified Code(s): I10 - Essential (primary) hypertension Code(s): I10 - Essential (primary) hypertension Status: Chronic Plan This 74-year-old female presented with generalized weakness and lower back pain which completely resolved by the time she arrived. Also had mild shortness of breath and nausea no lightheadedness numbness or weakness. In the ED evaluation see was tachycardic in 120s. Patient noted to get out of bed to urinate and her heart rate spike to 100 and 70s. EKG showed sinus tachycardia with no acute ST-T changes. Patient was feeling trembly and shaky with some mild discomfort in her lower back. No flank pain. She was outside doing a lot of yd work throughout the day yesterday. No chest pain shortness of breath or lightheadedness. No dysuria or hematuria. 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 Urinalysis showed more than 100 rbc's. Does not appear infected. Initial troponin was mildly elevated at 0.043 subsequent level came at 0.086 followed by 0.100. WBC count was normal however there was bandemia. No clear source of infection. CT scan of the head was negative for any acute abnormality. She was received IV fluids with improvement in her tachycardia. She has baseline chronic kidney disease with concern of PE a V/Q scan was performed which came back normal. She does require mild oxygen supplementation via nasal cannula. Possibility of partial seizure due to shaking episode however patient does not have any history of seizure in the past. CT head was negative as well. MRI brain has been ordered for further evaluation Initial lactic acid was elevated at 4.9 which improved down to 2.1 subsequently with IV hydration. TSH was 0.428 with normal free T4. SARs COVID flu swab was negative. CK level was low at 22. Cardiology has been consulted for possible non ST elevation HI. patient has been started on heparin drip. Due to apprise in her troponin. PT OT would be consulted. Her right leg shakiness could be related to generalized weakness will rule out lumbar disc disorder with perhaps myelopathy. Will get spine to further evaluate. Neurology has also been consulted await their recommendations well. CK level was normal negating against myopathy. However steroid induced myopathy is certainly a possibility as well. Will also get CT in the interim to further evaluate any bony injury due to chronic steroid therapy. No features of adrenal insufficiency noted. Elevated troponin echo ordered. Off heparin drip. 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
--- NOTE | 2024-07-13 11:23 | PM.CNCAR ---
Assessment and Plan Assessment and plan (1) Elevated troponin: Code(s): R79.89 - Other specified abnormal findings of blood chemistry Status: Acute Assessment and Plan: This is not an acute coronary syndrome. EKG without ischemic changes. No anginal symptoms. Troponin elevation likely due to demand ischemia from tachycardia, lactic acidosis, CKD. I am going to stop the Heparin drip. Does not need to be NPO from my standpoint. Will obtain TTE. If echocardiogram without significant abnormality, then no additional cardiac workup needed. (2) Episode of shaking: Code(s): R25.1 - Tremor, unspecified Status: Acute Assessment and Plan: Neurology consultation pending. MRI of the brain pending. (3) Tachycardia: Code(s): R00.0 - Tachycardia, unspecified Status: Acute Assessment and Plan: Sinus tachycardia resolved with IVFs. (4) Hypothyroidism: Code(s): E03.9 - Hypothyroidism, unspecified Status: Acute Assessment and Plan: TSH level is low, which may be contributing to her symptoms. On Levothyroxine at home. Management as per primary team. (5) Stage 3b chronic kidney disease: Code(s): N18.32 - Chronic kidney disease, stage 3b Status: Chronic Assessment and Plan: Stable. (6) Hypertension: Qualifiers: Hypertension type: unspecified Qualified Code(s): I10 - Essential (primary) hypertension Code(s): I10 - Essential (primary) hypertension Status: Chronic Assessment and Plan: Stable. (7) Calcification of aorta: Code(s): I70.0 - Atherosclerosis of aorta Status: Acute Assessment and Plan: CT abdomen/pelvis this admission shows calcified atherosclerosis of the aorta and many of the other arteries. Will start her on ASA 81mg once daily and high intensity statin. Check lipid panel. Plan Recommendations and plan discussed with Hospitalist. History of Present Illness History of Present Illness Consult date/time: 07/13/24 11:23 Requesting physician: Lizabeth Almonte APRN Consult reason: Other (Elevated troponin level) Reason For Visit: Elevated Troponin/Lactic Acidosis Narrative: We are consulted for elevated troponin level. This is a 74 year old female with chronic kidney disease, glomerulonephritis ANCA, hypertension, hypothyroidism who presented with low back pain, weakness, and tremors of her legs. Patient reports that she got sudden onset tremors of her legs, where her legs were shaking quite a bit. No chest pain, palpitations, lightheadedness/dizziness. In the ED, she was noted to be in sinus tachycardia. Given IVFs with improvement in her tachycardia. Lactate elevated at 4.9. Improved to 2.1 after IVFs. Troponins are 0.043, 0.086, 0.100. CT A/P shows small sliding hiatal hernia. CXR with cardiomegaly. CT head negative. V/Q scan with low probability for PE. Patient still reports some shaking of her legs when she raises them up. Neurology consultation pending. MRI of the brain pending. 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
[2024-07-13 12:41] LABS: Band Neutrophils Percent 5 % (0-6); Lymphocytes Absolute Manual 0.12 K/mm3 (1.1-4.5); Metamyelocytes Percent 1 %; Monocytes Absolute Manual 0.25 K/mm3 (0.1-0.90); Monocytes Percent Manual 4 % (3-9); Neutrophils Absolute Manual 5.85 K/mm3 (1.7-7.2); Neutrophils Percent Manual 88 % (46-73); Platelet Estimate Decreased (Adequate); Total Cells Counted 100
[2024-07-13 12:42] LABS: Anisocytosis 1+; Schistocytes None Seen
[2024-07-13 12:47] LABS: Cholesterol 185 mg/dL (0-200); HDL Direct 45 mg/dL; Triglycerides 159 mg/dL (<150)
[2024-07-13 12:48] LABS: Lactic Acid Reflex 1.3 mmol/L (0.7-2.0)
[2024-07-13 12:58] LABS: LDL Cholesterol Direct 106 mg/dL
[2024-07-13 13:05] LABS: Troponin I 0.048 ng/mL (0.000-0.034)
--- NOTE | 2024-07-13 17:42 | WPDNEURCNPN ---
Assessment and Plan Assessment and plan (1) Episode of shaking: Code(s): R25.1 - Tremor, unspecified Status: Acute (2) Myelopathy: Code(s): G95.9 - Disease of spinal cord, unspecified Status: Acute Plan The presentation with the tremor of the legs he is rather strange and difficult to explain. Nevertheless, there is no paralysis or weakness of lower limbs nor she has any bowel or bladder involvement nor did I find any weakness in the lower limbs. Sensory exam very the weakness [place] the overall evaluation however there does appear to be some sensory loss her and the never the a to T9 on both sides for at least 50% compared to the upper body. Of his an MRI of the entire spine while continue to observe her and take safety precautions. I shall be glad to follow. Consult date: 07/13/24 HPI: Megan Raza is a 74 year old female Presented to the hospital with shaking of both lower limbs. She denies any bladder or bowel disturbance. She had difficulty in walking although the tremor of better than before. She never had any symptoms like that. She relates to working on her flower bed the night before and she developed this problem in the morning. She denies any symptoms upper limb. No difficulty speech or thinking or memory or any other systems. No history of diabetes mellitus or stroke or cardiac disease in the past. She has not suffer from chronic lower back pain although she may have occasional problem. History of chronic kidney disease on steroids. 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 Hypokalemia Hypothyroidism Iron deficiency Myelopathy Pancytopenia Petechiae Prediabetes Protein malnutrition RLS (restless legs syndrome) Stercoral ulcer of large intestine (~03/20/20) Vitamin D deficiency, unspecified Surgical History Surgical History History of 2 sections History of cholecystectomy Family History Family History Mother Diabetes mellitus Father Alzheimer dementia Social History Social History Smoking status: Never smoker Second hand tobacco smoke exposure: No Alcohol intake: never Alcohol use details: hardly at all per patient Substance use: never Substance use type: does not use Do You Feel Safe in your Home?: Yes Lack of Transportation: No Lack of Food: Never True Current Housing: I Have Housing Concerned About Future Housing: No Difficulty Paying Gas/Electric Bills: No Difficulty Paying for Meds: No Currently Unemployed: No Education: High School Diploma/GED Difficulty w/ Childcare or Family Care: No Living arrangements: with family Gender identity (if verbalized by the patient): Female Spiritual care concerns: No Meds Home Medications and Allergies Home Medications Medication Instructions Recorded Confirmed Type multivitamin 1 tablet PO DAILY 11/11/19 07/12/24 History lisinopril 5 mg tablet 5 mg PO DAILY #90 tabs 01/29/24 07/12/24 Rx levothyroxine 125 mcg tablet 125 mcg PO DAILY #90 tabs 04/16/24 07/12/24 Rx prednisone 20 mg tablet 40 mg PO DAILY #60 tabs 04/25/24 07/12/24 Rx rituximab-abbs 10 mg/mL 1,000 mg (100 mL) IV Q14D 2 doses 05/14/24 07/12/24 Rx intravenous solution (Truxima) Allergies Allergy/AdvReac Type Severity Reaction Status Date / Time Penicillins Allergy Unknown Hives Verified 04/16/24 07:09 Vital Signs Vital Signs - 24 hr 07/12
[2024-07-14] VITALS (15 sets, daily range): BP systolic 122–139; BP diastolic 72–87; PULSE 72–106; RESP 16–32; TEMP 36–37.2; O2SAT 92–97
[2024-07-14 04:50] LABS: Basophils Percent Auto 0.2 % (0.2-1.2); Hematocrit 27.9 % (37.0-47.0); Hemoglobin 9.3 g/dL (12.0-15.0); Immature Granulocyte Absolute 0.28 K/mm3 (0.00-0.031); Immature Granulocyte Percent A 4.6 % (0-0.5); Immature Platelet Fraction Pct 1.3 % (0.9-11.2); Lymphocytes Absolute Auto 0.17 K/mm3 (0.9-3.2); Lymphocytes Percent Auto 2.8 % (18.3-44.2); Mean Corpuscular HGB Conc 33.3 g/dl (32-36); Monocytes Absolute Auto 0.3 K/mm3 (0.1-0.6); Monocytes Percent Auto 4.3 % (2.6-8.5); Neutrophils Absolute Auto 5.3 K/mm3 (1.3-6.7); Neutrophils Percent Auto 88.1 % (45.5-73.1); Platelet Count Result 113 k/mm3 (150-375); Red Cell Distribution Width 15.3 % (11.5-14.5)
[2024-07-14 05:04] LABS: Alanine Aminotransferase 19 U/L (6-35); Albumin Level 2.9 g/dL (3.5-5.1); Alkaline Phosphatase 56 U/L (38-126); Anion Gap 11 mmol/L (4-12); Aspartate Amino Transferase 36 U/L (14-36); Bilirubin,Total 0.5 mg/dL (0.2-1.3); Blood Urea Nitrogen 42 mg/dL (7-17); Calcium 8.7 mg/dL (8.4-10.2); Carbon Dioxide 21 mmol/L (22-30); Chloride 106 mmol/L (98-107); Estimated CRCL calculation 22 ml/min; Estimated Glomerular Filt Rate 32; Glucose 104 mg/dL (65-110); Magnesium 2.1 mg/dL (1.6-2.3); Potassium 3.7 mmol/L (3.4-5.0); Sodium 138 mmol/L (137-145)
[2024-07-14] MEDS: LEVOTHYROXINE SODIUM 125 MCG TABLET PO (05:21)
[2024-07-14] MEDS: MULTIVITAMINS THERAPEUTIC TAB (*BKC) 1 TABLET PO (09:33)
[2024-07-14] MEDS: ATORVASTATIN 40 MG TABLET 80 MG PO (09:33)
[2024-07-14] MEDS: predniSONE 20 MG TABLET 40 MG PO (09:33)
[2024-07-14] MEDS: ASPIRIN 81 MG ENTERIC TABLET PO (09:34)
--- NOTE | 2024-07-14 15:23 | PC.NURSE ---
Reviewed and approve documentation of Abelardo [facility]
--- NOTE | 2024-07-14 15:33 | PM.IMPN ---
Progress Note: A&P Assessment and Plan (1) Tachycardia: Code(s): R00.0 - Tachycardia, unspecified Status: Acute (2) Elevated troponin: Code(s): R79.89 - Other specified abnormal findings of blood chemistry Status: Acute (3) Lactic acidemia: Code(s): E87.20 - Acidosis, unspecified Status: Acute (4) Episode of shaking: Code(s): R25.1 - Tremor, unspecified Status: Acute (5) Stage 3b chronic kidney disease: Code(s): N18.32 - Chronic kidney disease, stage 3b Status: Chronic (6) Hypertension: Qualifiers: Hypertension type: unspecified Qualified Code(s): I10 - Essential (primary) hypertension Code(s): I10 - Essential (primary) hypertension Status: Chronic Plan This 74-year-old female presented with generalized weakness and lower back pain which completely resolved by the time she arrived. Also had mild shortness of breath and nausea no lightheadedness numbness or weakness. In the ED evaluation see was tachycardic in 120s. Patient noted to get out of bed to urinate and her heart rate spike to 100 and 70s. EKG showed sinus tachycardia with no acute ST-T changes. Patient was feeling trembly and shaky with some mild discomfort in her lower back. No flank pain. She was outside doing a lot of yd work throughout the day yesterday. No chest pain shortness of breath or lightheadedness. No dysuria or hematuria. 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 Urinalysis showed more than 100 rbc's. Does not appear infected. Initial troponin was mildly elevated at 0.043 subsequent level came at 0.086 followed by 0.100. WBC count was normal however there was bandemia. No clear source of infection. CT scan of the head was negative for any acute abnormality. She was received IV fluids with improvement in her tachycardia. She has baseline chronic kidney disease with concern of PE a V/Q scan was performed which came back normal. She does require mild oxygen supplementation via nasal cannula. Possibility of partial seizure due to shaking episode however patient does not have any history of seizure in the past. CT head was negative as well. MRI brain has been ordered for further evaluation Initial lactic acid was elevated at 4.9 which improved down to 2.1 subsequently with IV hydration. TSH was 0.428 with normal free T4. SARs COVID flu swab was negative. CK level was low at 22. Cardiology has been consulted for possible non ST elevation MD. patient has been started on heparin drip. Due to apprise in her troponin. PT OT would be consulted. Her right leg shakiness could be related to generalized weakness will rule out lumbar disc disorder with perhaps myelopathy. Will get spine to further evaluate. Neurology has also been consulted and appreciate his recommendations. CK level was normal negating against myopathy. However steroid induced myopathy is certainly a possibility as well. CT lumbar spine reviewed. No features of adrenal insufficiency noted. Elevated troponin echo sent grade 1 diastolic dysfunction, no significant valvular abnormality.. Off heparin drip. 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 Wants to ambulate. Denies any chest pain or shortness of breath Review of Systems Review of Systems: All systems reviewed & are unremarkable except as noted in HPI and below Exam Narrative: GENERAL: Nontoxic, pleasant cooperative not in acute distress HEAD: Normocephalic, atraumatic. EYES: PERRLA and EOMI. ENT: Nares clear, no rhinorrhea or epistaxis. Mucous membranes dry NECK: Supple. CHEST: Clear to auscultation. No respiratory dist
--- NOTE | 2024-07-14 19:27 | WPDNEUROPN ---
Progress Note: A&P Assessment and Plan (1) Myelopathy: Code(s): G95.9 - Disease of spinal cord, unspecified Status: Acute (2) Episode of shaking: Code(s): R25.1 - Tremor, unspecified Status: Acute Plan We should wait for the MRI of the spine as previously discussed. the ports were residual volume was 209 cc and hence I have advised the nursing staff to check daily for next 2 days. Subjective Date/time seen: 07/14/24 19:27 Interval history: The patient is 74-year-old with history of shaking of both lower limbs and a findings was sensory level previously was evaluated again. She feels that today is about the same and at the tremulousness is better although I do not see any tremor of the legs. No other additional new symptoms were reported. However postvoid residual volume according to the nursing staff was 209 CC. She is waiting to get MRI of the spine. Review of Systems Review of Systems: All systems reviewed & are unremarkable except as noted in HPI and below Exam Narrative: Examination mental status memory and speech are within normal limits. Cranial seizure testing intact. Motor system normal power in both upper and lower limbs. Since he on reed was questionable with regard to any definite sensory level but this still appears to be some loss of sensation below T8-T9 however findings are less consistent than yesterday no involuntary movements seen. Objective Data Vital Signs Vital Signs: Vital Signs - 24 hr 07/13/24 20:00 07/13/24 20:00 07/13/24 23:52 Temperature 98.5 F 98.4 F Pulse Rate 92 92 88 Respiratory Rate 16 16 18 Blood Pressure 127/78 116/69 Pulse Oximetry 95 95 97 Oxygen Delivery Nasal Cannula Oxygen Flow Rate 2 07/14/24 00:00 07/13/24 20:00 07/13/24 22:00 Temperature Pulse Rate 88 88 85 Respiratory Rate 18 Blood Pressure Pulse Oximetry 97 Oxygen Delivery Nasal Cannula Oxygen Flow Rate 2 07/14/24 00:00 07/14/24 01:53 07/14/24 04:00 Temperature Pulse Rate 86 86 90 Respiratory Rate Blood Pressure Pulse Oximetry Oxygen Delivery Oxygen Flow Rate 07/14/24 05:09 07/14/24 04:00 07/14/24 04:00 Temperature 98.9 F Pulse Rate 88 87 87 Respiratory Rate 20 20 Blood Pressure 135/87 Pulse Oximetry 95 95 Oxygen Delivery Nasal Cannula Oxygen Flow Rate 2 07/14/24 08:00 07/14/24 08:53 07/14/24 11:52 Temperature 98.1 F 98.0 F 98.1 F Pulse Rate 93 72 92 Respiratory Rate 32 H 20 28 H Blood Pressure 122/79 127/77 128/72 Pulse Oximetry 93 92 96 Oxygen Delivery Oxygen Flow Rate 07/14/24 08:00 07/14/24 08:00 07/14/24 12:00 Temperature Pulse Rate 94 92 93 Respiratory Rate 28 H Blood Pressure Pulse Oximetry 96 Oxygen Delivery Nasal Cannula Oxygen Flow Rate 2 07/14/24 12:00 07/14/24 14:00 07/14/24 14:27 Temperature Pulse Rate 92 99 Respiratory Rate 18 Blood Pressure Pulse Oximetry 96 95 Oxygen Delivery Nasal Cannula Nasal Cannula Oxygen Flow Rate 2 2 07/14/24 16:00 07/14/24 16:00 07/14/24 16:00 Temperature 98.0 F Pulse Rate 92 86 92 Respiratory Rate 20 20 Blood Pressure 122/75 Pulse Oximetry 96 96 Oxygen Delivery Nasal Cannula Oxygen Flow Rate 2 07/14/24 18:00 Temperature Pulse Rate 106 H Respiratory Rate Blood Pressure Pulse Oximetry Oxygen Delivery Oxygen Flow Rate Intake/Output Intake/Output: Intake & Output 07/11/24 07/12/24 07/13/24 07/14/24 23:59 23:59 23:59 23:59 Intake Total 1999 1796.3 650 Output Total 950 2650 300 Balance 1050 -853.7 350 Meds/Results Medications: Active Medications Generic Name Dose Route Start Last Admin Trade Name Zoe PRN Reason Stop Dose Admin Acetaminophen 650 mg 07/13/24 10:31 Acetaminophen 325 Mg Tablet PO Q6H PRN Mild Pain (1-3) or Fever Aspirin 81 mg 07/14/24 09:00 07/14/24 09:34 Aspirin 81 Mg Enteric Tablet PO 81 mg [facility] Admini
[2024-07-15] VITALS (12 sets, daily range): BP systolic 131–134; BP diastolic 83–86; PULSE 62–126; RESP 16–20; TEMP 36.1–36.4; O2SAT 94–100
--- NOTE | 2024-07-15 00:12 | PC.NURSE ---
Patient voided 300, post void residual 40ml.
--- NOTE | 2024-07-15 04:10 | PC.NURSE ---
Patient woke up with tremors and confused as to place and time. Easily reoriented.
[2024-07-15 05:37] LABS: Basophils Percent Auto 0.3 % (0.2-1.2); Hematocrit 29.1 % (37.0-47.0); Hemoglobin 9.7 g/dL (12.0-15.0); Immature Granulocyte Absolute 0.23 K/mm3 (0.00-0.031); Immature Granulocyte Percent A 3.6 % (0-0.5); Lymphocytes Absolute Auto 0.22 K/mm3 (0.9-3.2); Lymphocytes Percent Auto 3.5 % (18.3-44.2); Mean Corpuscular HGB Conc 33.3 g/dl (32-36); Mean Corpuscular Hemoglobin 31.2 pg (26-34); Mean Corpuscular Volume 93.6 fl (80-100); Monocytes Absolute Auto 0.2 K/mm3 (0.1-0.6); Monocytes Percent Auto 3.8 % (2.6-8.5); Neutrophils Absolute Auto 5.6 K/mm3 (1.3-6.7); Neutrophils Percent Auto 88.8 % (45.5-73.1); Platelet Count Result 119 k/mm3 (150-375); Red Blood Count 3.11 M/mm3 (4.2-5.4); Red Cell Distribution Width 15.2 % (11.5-14.5); White Blood Count 6.3 K/mm3 (4.5-10.0)
[2024-07-15 06:03] LABS: Alanine Aminotransferase 20 U/L (6-35); Albumin Level 3.3 g/dL (3.5-5.1); Alkaline Phosphatase 62 U/L (38-126); Anion Gap 8 mmol/L (4-12); Aspartate Amino Transferase 35 U/L (14-36); Bilirubin,Total 0.4 mg/dL (0.2-1.3); Blood Urea Nitrogen 58 mg/dL (7-17); Calcium 9.5 mg/dL (8.4-10.2); Carbon Dioxide 25 mmol/L (22-30); Chloride 106 mmol/L (98-107); Estimated CRCL calculation 18 ml/min; Estimated Glomerular Filt Rate 24; Glucose 118 mg/dL (65-110); Magnesium 2.2 mg/dL (1.6-2.3); Sodium 139 mmol/L (137-145)
[2024-07-15 06:07] LABS: Anisocytosis 1+; Microcytosis 1+ (NORMAL); Platelet Estimate Decreased (Adequate); Schistocytes None Seen
[2024-07-15] MEDS: LEVOTHYROXINE SODIUM 125 MCG TABLET PO (06:07)
--- NOTE | 2024-07-15 07:25 | PC.NURSE ---
PT off unit for MRI at this time, w/o nurse. reza cade
[2024-07-15] MEDS: ASPIRIN 81 MG ENTERIC TABLET PO (09:32)
[2024-07-15] MEDS: ATORVASTATIN 40 MG TABLET 80 MG PO (09:32)
[2024-07-15] MEDS: predniSONE 20 MG TABLET 40 MG PO (09:32)
[2024-07-15] MEDS: MULTIVITAMINS THERAPEUTIC TAB (*BKC) 1 TABLET PO (09:33)
--- NOTE | 2024-07-15 12:03 | PC.NURSE ---
Patient back from MRI at 09:15 am
--- NOTE | 2024-07-15 12:57 | WPDNEUROPN ---
Progress Note: A&P Assessment and Plan (1) Myoclonus, segmental: Code(s): G25.3 - Myoclonus Status: Acute Plan At this time the suspicion regarding myelopathy is resolved. The MRI of the cervical and thoracic spine did not show any spinal cord compression. Postvoid residual volume was 44 cc. The since a young seen findings were inconsistent compared to the previous initial examination. MRI of the lumbosacral spine does show significant arthritic changes which is not unexpected for the age of the patient. She has renal disease and that also can cause myoclonic disorder however the less likely to occur in the lower limbs nevertheless individual variations can occur. Serum calcium and magnesium level were also normal. Hence at this time since the patient is doing well I do not have any other specific recommendations from neurologic point of view however if the symptoms recur I will be glad to re-evaluate her for peripheral neuromuscular problems. She does have any Mell and a chronic renal failure and requires continued medical attention for these. Subjective Date/time seen: 07/15/24 12:57 Interval history: the patient is 74-year-old with the history of tremor of both lower limbs. She underwent various investigations. MRI of the brain, cervical, thoracic, lumbosacral spine were performed. There is no evidence for spinal cord compression. Postvoid residual volume repeated last night was 44 cc. She has improved significantly. She does not have any weakness in the lower limbs since he was able to walk independently up to the bathroom by herself. Review of Systems Review of Systems: No additional new symptoms. Exam Narrative: No additional new findings noted. No involuntary movements seen. Objective Data Vital Signs Vital Signs: Vital Signs - 24 hr 07/14/24 14:00 07/14/24 14:27 07/14/24 16:00 Temperature 98.0 F Pulse Rate 99 92 Respiratory Rate 20 Blood Pressure 122/75 Pulse Oximetry 95 96 Oxygen Delivery Nasal Cannula Oxygen Flow Rate 2 07/14/24 16:00 07/14/24 16:00 07/14/24 18:00 Temperature Pulse Rate 86 92 106 H Respiratory Rate 20 Blood Pressure Pulse Oximetry 96 Oxygen Delivery Nasal Cannula Oxygen Flow Rate 2 07/14/24 20:00 07/14/24 20:00 07/14/24 20:00 Temperature 96.8 F L Pulse Rate 106 H 94 99 Respiratory Rate 20 20 Blood Pressure 124/74 Pulse Oximetry 96 94 Oxygen Delivery Nasal Cannula Oxygen Flow Rate 2 07/14/24 22:00 07/14/24 23:39 07/15/24 00:00 Temperature 97.2 F L Pulse Rate 88 78 78 Respiratory Rate 16 16 Blood Pressure 139/80 Pulse Oximetry 94 94 Oxygen Delivery Nasal Cannula Oxygen Flow Rate 2 07/15/24 00:00 07/15/24 02:00 07/15/24 04:00 Temperature Pulse Rate 87 68 68 Respiratory Rate 16 Blood Pressure Pulse Oximetry 94 Oxygen Delivery Nasal Cannula Oxygen Flow Rate 2 07/15/24 04:00 07/15/24 04:00 07/15/24 06:13 Temperature 97.5 F L Pulse Rate 62 86 83 Respiratory Rate 20 Blood Pressure 134/85 Pulse Oximetry 96 Oxygen Delivery Oxygen Flow Rate 07/15/24 08:00 07/15/24 10:00 07/15/24 12:00 Temperature 97.1 F L Pulse Rate 86 92 Respiratory Rate 20 Blood Pressure 131/86 Pulse Oximetry 100 97 Oxygen Delivery Nasal Cannula Oxygen Flow Rate 2 07/15/24 08:30 Temperature 96.9 F L Pulse Rate 87 Respiratory Rate 18 Blood Pressure 132/83 Pulse Oximetry 96 Oxygen Delivery Oxygen Flow Rate Intake/Output Intake/Output: Intake & Output 07/12/24 07/13/24 07/14/24 07/15/24 23:59 23:59 23:59 23:59 Intake Total 1999 1796.3 650 370 Output Total 950 2650 300 Balance 1050 -853.7 350 370 Meds/Results Medications: Active Medications Generic Name Dose Route Start Last Admin Trade Name Rubénq PRN Reason Stop Dose Admin Acetaminophen 650 mg 07/13/24 10:31 Acetaminophen 325 Mg Tablet PO Q6H PRN Mild Pain (1-3)
--- NOTE | 2024-07-15 13:21 | PM.IMPN ---
Progress Note: A&P Assessment and Plan (1) Tachycardia: Code(s): R00.0 - Tachycardia, unspecified Status: Acute (2) Elevated troponin: Code(s): R79.89 - Other specified abnormal findings of blood chemistry Status: Acute (3) Lactic acidemia: Code(s): E87.20 - Acidosis, unspecified Status: Acute (4) Episode of shaking: Code(s): R25.1 - Tremor, unspecified Status: Acute (5) Stage 3b chronic kidney disease: Code(s): N18.32 - Chronic kidney disease, stage 3b Status: Chronic (6) Hypertension: Qualifiers: Hypertension type: unspecified Qualified Code(s): I10 - Essential (primary) hypertension Code(s): I10 - Essential (primary) hypertension Status: Chronic Plan This 74-year-old female presented with generalized weakness and lower back pain which completely resolved by the time she arrived. Also had mild shortness of breath and nausea no lightheadedness numbness or weakness. In the ED evaluation see was tachycardic in 120s. Patient noted to get out of bed to urinate and her heart rate spike to 100 and 70s. EKG showed sinus tachycardia with no acute ST-T changes. Patient was feeling trembly and shaky with some mild discomfort in her lower back. No flank pain. She was outside doing a lot of yd work throughout the day yesterday. No chest pain shortness of breath or lightheadedness. No dysuria or hematuria. 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 Creatinine up to 2 today upper between mid 1s to 2s. Urinalysis showed more than 100 rbc's. Does not appear infected. Initial troponin was mildly elevated at 0.043 subsequent level came at 0.086 followed by 0.100. WBC count was normal however there was bandemia. No clear source of infection. CT scan of the head was negative for any acute abnormality. She was received IV fluids with improvement in her tachycardia. She has baseline chronic kidney disease with concern of PE a V/Q scan was performed which came back normal. She does require mild oxygen supplementation via nasal cannula. Possibility of partial seizure due to shaking episode however patient does not have any history of seizure in the past. CT head was negative as well. MRI brain has been ordered for further evaluation Initial lactic acid was elevated at 4.9 which improved down to 2.1 subsequently with IV hydration. TSH was 0.428 with normal free T4. SARS COVID flu swab was negative. CK level was low at 22. Cardiology has been consulted for possible non ST elevation [place]. patient has been started on heparin drip. Due to apprise in her troponin. PT OT would be consulted. Her right leg shakiness could be related to generalized weakness will rule out lumbar disc disorder with perhaps myelopathy. Will get spine to further evaluate. Neurology has also been consulted and appreciate his recommendations. CK level was normal negating against myopathy. However steroid induced myopathy is certainly a possibility as well. CT lumbar spine reviewed. No features of adrenal insufficiency noted. MRI spine and brain reviewed features of cord compression as have moderate advanced degenerative spondylosis and cervical area seen lumbar area. Elevated troponin echo sent grade 1 diastolic dysfunction, no significant valvular abnormality.. Off heparin drip. 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 Feeling much better. Remains on oxygen was taken off during the visit. Leg Shaking has improved significantly. MRI performed this a.m. and was reviewed with the patient. Review of Systems Review of Systems: All systems reviewed & are unremarkable except as noted in HPI
--- NOTE | 2024-07-15 15:02 | PM.DS ---
DS: Admitting Diagnosis Discharge Date 07/15/2024 Admitting Diagnosis Generalized weakness DS: Discharge Diagnosis Discharge Diagnosis (1) Tachycardia: Code(s): R00.0 - Tachycardia, unspecified Status: Acute (2) Elevated troponin: Code(s): R79.89 - Other specified abnormal findings of blood chemistry Status: Acute (3) Lactic acidemia: Code(s): E87.20 - Acidosis, unspecified Status: Acute (4) Episode of shaking: Code(s): R25.1 - Tremor, unspecified Status: Acute (5) Stage 3b chronic kidney disease: Code(s): N18.32 - Chronic kidney disease, stage 3b Status: Chronic (6) Hypertension: Qualifiers: Hypertension type: unspecified Qualified Code(s): I10 - Essential (primary) hypertension Code(s): I10 - Essential (primary) hypertension Status: Chronic DS: Summary Hospital Course Hospital Course: This 74-year-old female presented with generalized weakness and lower back pain which completely resolved by the time she arrived. Also had mild shortness of breath and nausea no lightheadedness numbness or weakness. In the ED evaluation see was tachycardic in 120s. Patient noted to get out of bed to urinate and her heart rate spike to 100 and 70s. EKG showed sinus tachycardia with no acute ST-T changes. Patient was feeling trembly and shaky with some mild discomfort in her lower back. No flank pain. She was outside doing a lot of yd work throughout the day yesterday. No chest pain shortness of breath or lightheadedness. No dysuria or hematuria. 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 Creatinine up to 2 at discharge. She had fluctuated between mid 1s to 2s. Urinalysis showed more than 100 rbc's. Does not appear infected. Initial troponin was mildly elevated at 0.043 subsequent level came at 0.086 followed by 0.100. WBC count was normal however there was bandemia. No clear source of infection. CT scan of the head was negative for any acute abnormality. She was received IV fluids with improvement in her tachycardia. She has baseline chronic kidney disease with concern of PE a V/Q scan was performed which came back normal. She does require mild oxygen supplementation via nasal cannula. Possibility of partial seizure due to shaking episode however patient does not have any history of seizure in the past. CT head was negative as well. Initial lactic acid was elevated at 4.9 which improved down to 2.1 subsequently with IV hydration. TSH was 0.428 with normal free T4. SARS COVID flu swab was negative. CK level was low at 22. Cardiology has been consulted for possible non ST elevation [place]. patient has been started on heparin drip. Due to uptick in her troponin. PT OT would be consulted. Her right leg shakiness could be related to generalized weakness. Neurology has also been consulted and appreciate his recommendations. CK level was normal negating against myopathy. However steroid induced myopathy is certainly a possibility as well. CT lumbar spine reviewed. No features of adrenal insufficiency noted. MRI spine and brain reviewed features of cord compression as have moderate advanced degenerative spondylosis and cervical area seen lumbar area. She will need to follow up as an outpatient basis. She seems to be asymptomatic with this. Elevated troponin echo sent grade 1 diastolic dysfunction, no significant valvular abnormality.. Off heparin drip. On aspirin 81 mg daily and atorvastatin which will be switched to 10 mg daily. 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
--- NOTE | 2024-07-15 16:42 | PCRCNOTE ---
HOME O2 EVAL DONE, NO HOME O2 NEEDED AT THIS TIME.
== END 2024-07-15 15:52 | disposition home or self-care (01) | DRG 683 ==
LOC: ANHED 09:52 → ANHIMU 16:13
PROVIDERS: Internal Medicine; Student in an Organized Health Care Education/Training Program; Admitting Provider Internal Medicine; Emergency Provider Emergency Medicine; PCP Family Medicine; Visit Provider Internal Medicine
DX: I12.9 Hypertensive chronic kidney disease with stage 1 through stage 4 chronic kidney disease, or unspecified chronic kidney disease (principal); E87.20 Acidosis, unspecified; I24.89 Other forms of acute ischemic heart disease; G95.9 Disease of spinal cord, unspecified; D63.1 Anemia in chronic kidney disease; E03.9 Hypothyroidism, unspecified; G25.81 Restless legs syndrome; G25.3 Myoclonus; I70.0 Atherosclerosis of aorta; M47.812 Spondylosis without myelopathy or radiculopathy, cervical region; M47.816 Spondylosis without myelopathy or radiculopathy, lumbar region; N18.32 Chronic kidney disease, stage 3b; R00.0 Tachycardia, unspecified; R79.89 Other specified abnormal findings of blood chemistry; Z20.822 Contact with and (suspected) exposure to COVID-19; Z79.82 Long term (current) use of aspirin; Z79.52 Long term (current) use of systemic steroids; Z88.0 Allergy status to penicillin; Z90.49 Acquired absence of other specified parts of digestive tract
CPT/HCPCS: 36415; 70450; 70553; 71045; 72131; 72141; 72146; 72148; 72195; 74177; 78582; 80053; 80061; 81001; 82550; 83605; 83690; 83735; 84145; 84439; 84443; 84480; 84484; 85025; 85055; 85610; 85730; 87040; 87637; 93005; 93306; 94618; 96361; 97161; 99285; A9270; A9540; A9558; A9577; G0378; J1644; J7030; J7120; J7512; Q9967

== ENCOUNTER 2024-08-07 15:51 | Emergency (ER) | payer MEDICARE, SELFPAY ==
[2024-08-07] VITALS (9 sets, daily range): BP systolic 117–142; BP diastolic 77–88; PULSE 82–88; RESP 16–31; TEMP 36.7; O2SAT 96–100
--- NOTE | 2024-08-07 16:06 | ECG_ITS ---
Test Date: 2024-08-07 16:29:23 Measurements Intervals [place] Rate: 83 P: 26 [place]: 163 QRS: 2 QRSD: 94 T: 11 QT: 364 QTc: 428 Interpretive Statements SINUS RHYTHM POSSIBLE LEFT ATRIAL ENLARGEMENT DELAYED PRECORDIAL R/S TRANSITION MINIMAL Q WAVES- HIGH LATERAL LEADS BORDERLINE T WAVE ABNORMALITY- INFERIOR LEADS BASELINE WANDER- V5-V6 BORDERLINE ECG Compared to ECG 07/12/2024 15:53:28 HEART RATE HAS DECREASED Electronically Signed On 08-07-2024 17:53:48 CDT by Crispin Christiansen D.O.
[2024-08-07 16:25] LABS: Alanine Aminotransferase 21 U/L (6-35); Albumin Level 3.6 g/dL (3.5-5.1); Alkaline Phosphatase 76 U/L (38-126); Anion Gap 11 mmol/L (4-12); Aspartate Amino Transferase 20 U/L (14-36); Bilirubin,Total 0.5 mg/dL (0.2-1.3); Blood Urea Nitrogen 34 mg/dL (7-17); Calcium 9.5 mg/dL (8.4-10.2); Carbon Dioxide 24 mmol/L (22-30); Chloride 104 mmol/L (98-107); Estimated CRCL calculation 16 ml/min; Estimated Glomerular Filt Rate 22; Glucose 87 mg/dL (65-110); Potassium 3.8 mmol/L (3.4-5.0); Sodium 139 mmol/L (137-145)
[2024-08-07 16:27] LABS: Basophils Percent Auto 0.5 % (0.2-1.2); Eosinophils Absolute Auto 0.1 K/mm3 (0-0.3); Eosinophils Percent Auto 1.4 % (0-4.4); Hematocrit 29.5 % (37.0-47.0); Hemoglobin 9.8 g/dL (12.0-15.0); Immature Granulocyte Absolute 0.29 K/mm3 (0.00-0.031); Lymphocytes Absolute Auto 0.57 K/mm3 (0.9-3.2); Lymphocytes Percent Auto 9.9 % (18.3-44.2); Mean Corpuscular HGB Conc 33.2 g/dl (32-36); Mean Corpuscular Hemoglobin 31.4 pg (26-34); Mean Corpuscular Volume 94.6 fl (80-100); Mean Platelet Volume 9.5 fl (7.4-10.4); Monocytes Absolute Auto 0.8 K/mm3 (0.1-0.6); Neutrophils Percent Auto 69.2 % (45.5-73.1); Platelet Count Result 149 k/mm3 (150-375); Red Blood Count 3.12 M/mm3 (4.2-5.4); Red Cell Distribution Width 15.5 % (11.5-14.5); White Blood Count 5.8 K/mm3 (4.5-10.0)
[2024-08-07 16:38] LABS: Prothrombin Time 13.7 Seconds (11.1-14.7)
[2024-08-07 16:39] LABS: Partial Thromboplastin Time 31.6 Seconds (22.3-36.8)
[2024-08-07] MEDS: SODIUM CHLORIDE 0.9% IV 1,000 ML 999 ML IV CONT (17:10)
--- NOTE | 2024-08-07 17:14 | ED.AMS ---
HPI - Altered Mental Status General Chief Complaint: Altered Mental Status Stated Complaint: ams Time Seen by Provider: 08/07/24 16:36 History of Present Illness HPI narrative: Patient is a 74-year-old female who presents ER with increased memory issues. Sent by PCP. Been an issue ongoing for several months. She has had outpatient workups. They were concerned that she potentially may have UTI now. Patient has no reports of pain in no reports of urinary symptoms. She denies having a dementia diagnosis. Patient is oriented to self/place/year but not month. She believes it is April. Related Data Home Medications Medication Instructions Recorded Confirmed multivitamin 1 tablet PO DAILY 11/11/19 08/01/24 Allergies Allergy/AdvReac Type Severity Reaction Status Date / Time Penicillins Allergy Unknown Hives Verified 08/07/24 16:09 prednisone AdvReac Intermediate Weakness Verified 08/07/24 16:09 Review of Systems Review of Systems: All systems reviewed & are unremarkable except as noted in HPI and below Constitutional: Constitutional: Reports no additional constitutional complaints ENT: Reports system reviewed and no additional complaints, except as documented Cardiovascular: Cardiovascular: Reports no additional cardiovascular complaints Respiratory: Respiratory: Reports no additional respiratory complaints Gastrointestinal: Gastrointestinal: Reports no additional gastrointestinal complaints PMFSH Past Medical History Medical History Anemia of chronic renal failure, stage 3 (moderate) CKD (chronic kidney disease) Confusion DVT prophylaxis Encephalopathy Fecal impaction (~03/20/20) 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 Hypokalemia Hypothyroidism Iron deficiency Myelopathy Myoclonus, segmental Pancytopenia Petechiae Prediabetes Protein malnutrition RLS (restless legs syndrome) Stercoral ulcer of large intestine (~03/20/20) Vitamin D deficiency, unspecified Surgical History Surgical History History of 2 sections History of cholecystectomy Family History Family History Mother Diabetes mellitus Father Alzheimer dementia Social History Social History Smoking status: Never smoker Second hand tobacco smoke exposure: No Alcohol intake: never Alcohol use details: hardly at all per patient Substance use: never Substance use type: does not use Do You Feel Safe in your Home?: Yes Lack of Transportation: No Lack of Food: Never True Current Housing: I Have Housing Concerned About Future Housing: No Difficulty Paying Gas/Electric Bills: No Difficulty Paying for Meds: No Currently Unemployed: No Education: High School Diploma/GED Difficulty w/ Childcare or Family Care: No Living arrangements: with family Gender identity (if verbalized by the patient): Female Spiritual care concerns: No Exam Narrative: GENERAL: Well-appearing, well-nourished, and in no acute distress. HEAD: Normocephalic, atraumatic. EYES: PERRL and EOMI. ENT: Mucous membranes moist. NECK: Supple. CHEST: Clear to auscultation. No respiratory distress. HEART: Regular rate and rhythm. Normal peripheral pulses. ABDOMEN: Soft, nontender, nondistended. EXTREMITIES: Normal range of motion. No edema. SKIN: Warm, dry, no rash. NEURO: Awake alert, oriented to self/place/year but not month nor day. Patient is unable to draw a clock with the hands pointing at 3:30 a.m.. She is able to remember 3 separate words at a 5 minute interval. No slurred speech or expressive aphasia. No facial droop. Course Vital Signs Vital signs: Vital Signs Temperature 98.1 F 08/07/24 15:55 Pulse Rate 86 09/
[2024-08-07 17:29] LABS: Add Urine Microscopic? YES; Appearance Urine Clear (Clear); Bacteria Urine None Seen /hpf; Bilirubin Urine Negative (Negative); Blood Urine 3+ (Negative); Color Urine Yellow (Yellow); Glucose Urine UA Negative (Negative); Ketones Urine Negative (Negative); Leukocyte Esterase Ur Negative LEU/UL (Negative); Nitrate Urine Negative (Negative); Non Pathogenic Casts 0-2; Protein Urine 1+ mg/dL (Negative); RBC Urine 21-50 /hpf (0-2); Specific Grav Ur 1.011 (1.001-1.035); Squamous Epithelial Cell Urine None Seen /hpf (Few); WBC Urine 0-5 /hpf (0-3)
== END 2024-08-07 19:03 | disposition home or self-care (01) ==
PROVIDERS: Emergency Medicine; Emergency Provider Emergency Medicine; PCP Family Medicine
DX: R41.3 Other amnesia (principal); D63.1 Anemia in chronic kidney disease; N18.30 Chronic kidney disease, stage 3 unspecified; E03.9 Hypothyroidism, unspecified; E61.1 Iron deficiency; E55.9 Vitamin D deficiency, unspecified; R73.03 Prediabetes; G25.81 Restless legs syndrome; Z90.49 Acquired absence of other specified parts of digestive tract
CPT/HCPCS: 36415; 80053; 81001; 85025; 85610; 85730; 93005; 96360; 99283; J7030

== ENCOUNTER 2024-08-12 14:10 | Inpatient (IN) | payer MEDICARE, SELFPAY ==
[2024-08-12] VITALS (7 sets, daily range): BP systolic 130–152; BP diastolic 81–89; PULSE 102–120; RESP 15–32; TEMP 36.7–37.9; O2SAT 94–98; BMI 23.5
--- NOTE | ~2024-08-12 | CT_ITS ---
EXAMINATION: CT diagnostic chest wo con DATE: 08/12/2024 19:03 INDICATION: eval pna TECHNIQUE: Computed tomography (CT) of the chest was performed without intravenous contrast. Addition al 3D reconstructions utilizing coronal maximum intensity projection (MIP) were performed. Automated exposure control and iterative reconstruction technique were employed. The dose-length product was 18 7.66 mGy-cm. COMPARISON: 06/06/2011 FINDINGS: There is moderate respiratory motion artifact which limits evaluation of fine pulmonary parenchymal d etail. Mild emphysema. Subtle round glass opacity in the dependent lungs and mild increased interstit ial opacities at the lung bases which could represent atelectasis, mild pulmonary edema, early pneumo gregg or chronic interstitial lung disease. No regions of more dense parenchymal consolidation. No pleu ral effusion. Cardiomegaly. Atherosclerotic coronary artery catheter skin site. No pericardial effusi on. Thoracic aorta is normal in caliber. No pathologically enlarged thoracic lymphadenopathy. Cholecy stectomy clips at the gallbladder fossa. Moderate thoracic spondylosis. IMPRESSION: 1. Mild emphysema with mild dependent groundglass opacities in the mid to lower lungs and mild inters titial opacities the bilateral lung bases for which differential would include atelectasis, mild pulm onary edema and chronic interstitial lung disease. Could not exclude early pneumonia but without more focal dense consolidation. 2. Cardiomegaly. Reviewed, dictated and finalized at location A. IMPRESSION: 1. Mild emphysema with mild dependent groundglass opacities in the mid to lower lungs and mild interstitial opacities the bilateral lung bases for which diffe rential would include atelectasis, mild pulmonary edema and chronic interstitia l lung disease. Could not exclude early pneumonia but without more focal dense consolidation. 2. Cardiomegaly.
--- NOTE | ~2024-08-12 | CT_ITS ---
EXAMINATION: CT brain wo con DATE: 08/12/2024 16:27 INDICATION: Altered mental status. TECHNIQUE: Computed tomography (CT) of the head was performed without intravenous contrast. The mA wa s adjusted according to patient size. Iterative reconstruction technique was employed. The dose-lengt h product was 681.00 mGy-cm. COMPARISON: Head CT 07/12/2024 FINDINGS: There are scattered areas of low attenuation in the cerebral white matter, which is within normal limits for the patient's age. There is no intracranial hemorrhage, acute infarction, or abnorm al intracranial mass lesion. The ventricles are normal in size. There are likely changes of ocular le ns replacement surgeries. There is mild mucosal thickening in the ethmoid sinuses. The mastoid air ce lls are normal. IMPRESSION: 1. Normal aging brain. Reviewed, dictated and finalized at location A. IMPRESSION: 1. Normal aging brain.
--- NOTE | ~2024-08-12 | XR_ITS ---
EXAMINATION: XR chest 1V portable DATE: 08/12/2024 17:32 INDICATION: Altered mental status TECHNIQUE: frontal view of the chest was obtained. COMPARISON: Chest radiograph dated 07/12/2024 FINDINGS: Cardiomegaly. Mild increased interstitial pattern in the visualized lower lungs suspicious for mild p ulmonary edema with differential including less likely pneumonia. No pleural effusion or pneumothorax . Mild to moderate scattered degenerative skeletal changes in the spine and bilateral shoulders. Chol ecystectomy clips in right upper quadrant. IMPRESSION: 1. Mild increased interstitial pattern in the bilateral lower lungs which could represent mild pulmon emma edema or pneumonia. 2. Cardiomegaly. Reviewed, dictated and finalized at location A. IMPRESSION: 1. Mild increased interstitial pattern in the bilateral lower lungs which could represent mild pulmonary edema or pneumonia. 2. Cardiomegaly.
--- NOTE | ~2024-08-12 | CT_ITS ---
EXAMINATION: CT brain wo con DATE: 08/15/2024 13:44 INDICATION: Increased confusion overnight. TECHNIQUE: Computed tomography (CT) of the head was performed without intravenous contrast. Sagittal and coronal reconstructions were performed. The mA was adjusted according to patient size. Iterative reconstruction technique was employed. The dose-length product was 605.00 mGy-cm. COMPARISON: head CT dated 08/12/2024 FINDINGS: No acute intracranial hemorrhage, acute infarction or abnormal extra axial fluid collection. There is mild scattered white matter hypoattenuation consistent with chronic small vessel ischemic disease. S ymmetric prominence of the sulci and subarachnoid spaces overlying the convexities consistent with mi ld age-appropriate diffuse cerebral volume loss. Ventricles are normal and symmetric. No mass/mass ef fect. Changes of bilateral intraocular lens replacement. The orbits, paranasal sinuses and mastoid ai r cells are normal. IMPRESSION: 1. Normal aging brain. No acute intracranial process. Reviewed, dictated and finalized at location A.
--- NOTE | 2024-08-12 16:09 | ECG_ITS ---
Test Date: 2024-08-12 16:45:07 Measurements Intervals [place] Rate: 99 P: 56 [place]: 164 QRS: 19 QRSD: 92 T: 44 QT: 328 QTc: 423 Interpretive Statements SINUS RHYTHM POSSIBLE LEFT ATRIAL ENLARGEMENT BASELINE ARTIFACT- I, II, III, AVR, AVL, V1-V2 BORDERLINE ECG Compared to ECG 08/07/2024 16:29:23 No significant changes Electronically Signed On 08-13-2024 14:36:12 CDT by Crispin Christiansen D.O.
[2024-08-12 16:42] LABS: Alveolar/Arterial O2 Gradient 41.9 mmHg; Base Excess ABG -2.3 mEq/l (+/-2.0); Fractional Inspired Oxygen 21 %; HCO3 ABG 20.6 mEq/l (22.0-26.0); Oxygen Saturation ABG 95.9 % (95.0-100.0); Oxyhemoglobin 94.8 % THb (90.0-100.0); PCO2 ABG 28.7 mmHg (35.0-45.0); PO2 ABG 73.5 mmHg (80.0-100.0); Total Hemoglobin 9.7 g/dL (12.0-18.0); pH ABG 7.473 (7.350-7.450)
[2024-08-12 16:43] LABS: Device ROOM AIR; Modified Allen's Test Pass; Site Drawn RIGHT BRACHIAL
[2024-08-12] MEDS: SODIUM CHLORIDE 0.9% IV 2,000 ML 999 ML IV CONT (17:26)
[2024-08-12] MEDS: predniSONE 20 MG TABLET 40 MG PO (17:26)
[2024-08-12 17:33] LABS: Basophils Percent Auto 0.3 % (0.2-1.2); Eosinophils Percent Auto 0.1 % (0-4.4); Hematocrit 28.4 % (37.0-47.0); Hemoglobin 9.1 g/dL (12.0-15.0); Immature Granulocyte Absolute 0.11 K/mm3 (0.00-0.031); Immature Granulocyte Percent A 0.8 % (0-0.5); Lymphocytes Absolute Auto 0.81 K/mm3 (0.9-3.2); Lymphocytes Percent Auto 5.7 % (18.3-44.2); Mean Corpuscular Hemoglobin 30.6 pg (26-34); Mean Corpuscular Volume 95.6 fl (80-100); Mean Platelet Volume 9.3 fl (7.4-10.4); Monocytes Absolute Auto 1.2 K/mm3 (0.1-0.6); Monocytes Percent Auto 8.5 % (2.6-8.5); Neutrophils Percent Auto 84.6 % (45.5-73.1); Platelet Count Result 148 k/mm3 (150-375); Red Blood Count 2.97 M/mm3 (4.2-5.4); Red Cell Distribution Width 15.8 % (11.5-14.5); White Blood Count 14.2 K/mm3 (4.5-10.0)
[2024-08-12 17:37] LABS: INR 1.1; Prothrombin Time 14.8 Seconds (11.1-14.7)
[2024-08-12 17:38] LABS: Partial Thromboplastin Time 40.2 Seconds (22.3-36.8)
[2024-08-12 17:44] LABS: Alanine Aminotransferase 17 U/L (6-35); Albumin Level 3.5 g/dL (3.5-5.1); Alkaline Phosphatase 84 U/L (38-126); Anion Gap 10 mmol/L (4-12); Aspartate Amino Transferase 18 U/L (14-36); Bilirubin,Total 0.8 mg/dL (0.2-1.3); Blood Urea Nitrogen 33 mg/dL (7-17); Calcium 9.2 mg/dL (8.4-10.2); Carbon Dioxide 22 mmol/L (22-30); Chloride 109 mmol/L (98-107); Estimated CRCL calculation 15 ml/min; Estimated Glomerular Filt Rate 19; Glucose 102 mg/dL (65-110); Lipase 30 U/L (23-300); Phosphorus 3.8 mg/dL (2.5-4.5); Potassium 3.5 mmol/L (3.4-5.0); Sodium 141 mmol/L (137-145)
[2024-08-12 17:45] LABS: Ethanol < 10 mg/dL (<10); Lactic Acid Reflex 1.4 mmol/L (0.7-2.0)
[2024-08-12 17:55] LABS: Troponin I 0.012 ng/mL (0.000-0.034)
--- NOTE | 2024-08-12 17:57 | ED.GENADULT ---
HPI - General Adult General Chief complaint: Unspecified Stated complaint: placement to facility/ unsafe at home Time Seen by Provider: 08/12/24 15:24 History of Present Illness HPI narrative: This is a 74-year-old female presenting to ED for confusion. Over the last week the patient has been more confused at home. She has been emotionally labile. She has been leaving the burners on the stove on. She has discontinued her chronic steroids because of the way she made her feel. She lives with her severely debilitated who is not capable of managing her at this time. This time the patient is A&O x2-3. She notes she has been having fevers and chills for the last week or so. She notes dyspnea on exertion. No productive cough, No chest pain or abdominal pain. She denies urinary symptoms. 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 Hypokalemia Hypothyroidism Iron deficiency Myelopathy Myoclonus, segmental Pancytopenia Petechiae Prediabetes Protein malnutrition RLS (restless legs syndrome) Stercoral ulcer of large intestine (~03/20/20) Vitamin D deficiency, unspecified Surgical History Surgical History History of 2 sections History of cholecystectomy Family History Family History Mother Diabetes mellitus Father Alzheimer dementia Social History Social History Smoking status: Never smoker Second hand tobacco smoke exposure: No Alcohol intake: never Alcohol use details: hardly at all per patient Substance use: never Substance use type: does not use Do You Feel Safe in your Home?: Yes Lack of Transportation: No Lack of Food: Never True Current Housing: I Have Housing Concerned About Future Housing: No Difficulty Paying Gas/Electric Bills: No Difficulty Paying for Meds: No Currently Unemployed: No Education: High School Diploma/GED Difficulty w/ Childcare or Family Care: No Living arrangements: with family Occupation/Education: retired Gender identity (if verbalized by the patient): Female Spiritual care concerns: No Agree to blood products: Yes Exam Narrative: APPEARANCE: A&O x3 but confused Head: atraumatic. EYES: EOMI, NOSE: Atraumatic NECK: Trachea midline RESPIRATORY: Tachypneic, clear to auscultation CARDIOVASCULAR: RRR, no peripheral edema ABDOMINAL: Non-distended, soft nontender MUSCULOSKELETAl: No obvious deformities NEURO: Alert. Moving 4/4 extremities SKIN:: Warm, dry. Normal color PSYCHIATRIC: Normal affect Course Course Emergency Course: ZYCH: Signed out pending results of CT CHEST. Patient will be then be admitted. Vital Signs Vital signs: Vital Signs Temperature 98.8 F 08/12/24 14:11 Pulse Rate 102 H 08/12/24 14:11 Respiratory Rate 15 08/12/24 14:11 Blood Pressure 130/85 08/12/24 14:11 Pulse Oximetry 98 08/12/24 14:11 Oxygen Delivery Room Air 08/12/24 14:11 Temperature 98.8 F 08/12/24 14:11 Pulse Rate 107 H 08/12/24 17:34 Respiratory Rate 28 H 08/12/24 17:34 Blood Pressure 137/89 08/12/24 17:34 Pulse Oximetry 98 08/12/24 17:34 Oxygen Delivery Room Air 08/12/24 14:11 Medical Decision Making MDM Narrat
[2024-08-12 18:02] LABS: Add Urine Microscopic? YES; Appearance Urine Turbid (Clear); Bacteria Urine 4+ /hpf; Bilirubin Urine Negative (Negative); Blood Urine 3+ (Negative); Color Urine Yellow (Yellow); Glucose Urine UA Negative (Negative); Ketones Urine Negative (Negative); Leukocyte Esterase Ur 2+ LEU/UL (Negative); Nitrate Urine Negative (Negative); Non Pathogenic Casts 0-2; Protein Urine 3+ mg/dL (Negative); RBC Urine 21-50 /hpf (0-2); Specific Grav Ur 1.012 (1.001-1.035); Squamous Epithelial Cell Urine None Seen /hpf (Few); WBC Urine >100 /hpf (0-3); pH Urine 5.5 (5.0-9.0)
[2024-08-12 18:09] LABS: Influenza A QL RT-PCR Negative (Negative); Influenza B QL RT-PCR Negative (Negative); RSV RNA, RT-PCR Negative (Negative); SARS-CoV-2 RNA PCR Negative (Negative)
[2024-08-12 18:15] LABS: Amphetamine Screen Urine Negative (Negative); Barbiturate Screen Urine Negative (Negative); Benzodiazepines Screen Urine Positive (Negative); Cannabinoid Screen Urine Negative (Negative); Cocaine Screen Urine Negative (Negative); Methadone Screen Urine Negative (Negative); Opiate Screen Urine Negative (Negative); Phencyclidine Screen Urine Negative (Negative)
[2024-08-12 18:58] LABS: Thyroid Stimulating Hormone Reflex 0.104 uIU/mL (0.465-4.68)
[2024-08-12] MEDS: AZITHROMYCIN 500 MG/NS 250 ML 500 MG/250 ML BAG 250 MG IVPB (19:36)
[2024-08-12 19:54] LABS: Free T4 Free Thyroxine Reflex 2.71 ng/dL (0.78-2.19)
--- NOTE | 2024-08-12 21:29 | PM.IMHP ---
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 Hypokalemia Hypothyroidism Iron deficiency Myelopathy Myoclonus, segmental Pancytopenia Petechiae Prediabetes Protein malnutrition RLS (restless legs syndrome) Stercoral ulcer of large intestine (~03/20/20) Vitamin D deficiency, unspecified Surgical History Surgical History History of 2 sections History of cholecystectomy Family History Family History Mother Diabetes mellitus Father Alzheimer dementia Social History Social History Smoking status: Never smoker Second hand tobacco smoke exposure: No Alcohol intake: never Alcohol use details: hardly at all per patient Substance use: never Substance use type: does not use Do You Feel Safe in your Home?: No Lack of Transportation: No Lack of Food: Never True Current Housing: I Have Housing Concerned About Future Housing: No Difficulty Paying Gas/Electric Bills: No Difficulty Paying for Meds: No Currently Unemployed: No Education: High School Diploma/GED Difficulty w/ Childcare or Family Care: No Living arrangements: with family Occupation/Education: retired Gender identity (if verbalized by the patient): Female Spiritual care concerns: No Agree to blood products: Yes Meds Home Medications and Allergies Home Medications Medication Instructions Recorded Confirmed Type multivitamin 1 tablet PO DAILY 11/11/19 08/12/24 History lisinopril 5 mg tablet 5 mg PO DAILY #90 tabs 01/29/24 08/12/24 Rx aspirin 81 mg tablet,delayed 81 mg PO QAM #30 tabs 07/15/24 08/12/24 Rx release atorvastatin 10 mg tablet 10 mg PO HS #30 tabs 07/15/24 08/12/24 Rx alprazolam 0.5 mg tablet (Xanax) 0.5 mg PO BID PRN anxiety #30 tabs 07/25/24 08/12/24 Rx levothyroxine 112 mcg capsule 112 mcg PO DAILY #60 caps 07/30/24 08/12/24 Rx ferrous sulfate 325 mg (65 mg 325 mg PO DAILY #30 tabs 08/07/24 08/12/24 Rx iron) tablet Allergies Allergy/AdvReac Type Severity Reaction Status Date / Time Penicillins Allergy Unknown Hives Verified 08/12/24 13:00 Vital Signs Vital Signs - 24 hr 08/12/24 14:11 08/12/24 17:34 08/12/24 17:34 Temperature 98.8 F Pulse Rate 102 H 107 H 107 H Respiratory Rate 15 28 H Blood Pressure 130/85 137/89 Pulse Oximetry 98 98 Oxygen Delivery Room Air 08/12/24 18:22 08/12/24 21:01 Temperature 98.1 F 100.2 F H Pulse Rate 116 H Respiratory Rate 32 H Blood Pressure 152/81 H Pulse Oximetry 94 Oxygen Delivery H&P: Results Labs Labs: Short CBC 08/12/24 Range/Units 17:19 WBC 14.2 H (4.5-10.0) K/mm3 Hgb 9.1 L (12.0-15.0) g/dL Hct 28.4 L (37.0-47.0) % Plt Count 148 L (150-375) k/mm3 BMP 08/12/24 17:19 Sodium 141 Potassium 3.5 Chloride 109 H Carbon Dioxide 22 BUN 33 H Creatinine 2.50 H Glucose 102 Calcium 9.2 Cardiac Enzymes 08/12/24 Range/Units 17:19 Troponin I 0.012 (0.000-0.034) ng/mL Liver Function 08/12/24 Range/Units 17:19 Total Bilirubin 0.8 (0.2-1.3) mg/dL AST 18 (14-36) U/L ALT 17 (6-35) U/L Alkaline Phosphatase 84 (38-126) U/L Albumin 3.5 (3.5-5.1) g/dL Urine 08/12/24 Range/Units 17:51 Urine Color Yellow (Yellow) Urine Appearance Turbid H (Clear) Urine pH 5.5 (5.0-9.0) Ur Specific [place] 1.012 (1.001-1.035) Urine Protein 3+ H (Negative) mg/dL Urine Glucose (UA) Negative (Negative) mg/dL
[2024-08-12 21:32] LABS: Troponin I 0.017 ng/mL (0.000-0.034)
[2024-08-12] MEDS: ACETAMINOPHEN 325 MG TABLET 650 MG PO (21:53)
[2024-08-13] VITALS (10 sets, daily range): BP systolic 108–122; BP diastolic 64–67; PULSE 93–112; RESP 16–32; TEMP 35.9–36.3; O2SAT 94–99; BMI 23.5
[2024-08-13] MEDS: risperiDONE 1 MG TABLET PO (00:15)
--- NOTE | 2024-08-13 01:37 | ADMGEN ---
This patient, Megan Raza, was admitted to Medical Room 248-01. Patient/family oriented to hospital policies and general routines including ID bracelet, bed and alarms, visiting hours, pain management, procedures, bathroom and other care routines, personal items, smoking policy, room service/diet, and visiting hours. Information on how to activate the Rapid Response Team has been discussed. Patient/Family are encouraged to report perceived risks to care and to ask questions if they do not understand what they are told or what they should do.
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
[2024-08-13 07:31] LABS: Basophils Percent Auto 0.2 % (0.2-1.2); Hematocrit 24.6 % (37.0-47.0); Hemoglobin 7.7 g/dL (12.0-15.0); Immature Granulocyte Absolute 0.16 K/mm3 (0.00-0.031); Immature Granulocyte Percent A 1.3 % (0-0.5); Lymphocytes Absolute Auto 0.36 K/mm3 (0.9-3.2); Lymphocytes Percent Auto 2.9 % (18.3-44.2); Mean Corpuscular HGB Conc 31.3 g/dl (32-36); Mean Corpuscular Volume 95.7 fl (80-100); Mean Platelet Volume 8.9 fl (7.4-10.4); Monocytes Absolute Auto 0.5 K/mm3 (0.1-0.6); Monocytes Percent Auto 3.6 % (2.6-8.5); Neutrophils Absolute Auto 11.4 K/mm3 (1.3-6.7); Platelet Count Result 101 k/mm3 (150-375); Red Blood Count 2.57 M/mm3 (4.2-5.4); Red Cell Distribution Width 15.8 % (11.5-14.5); White Blood Count 12.4 K/mm3 (4.5-10.0)
[2024-08-13 07:33] LABS: Alanine Aminotransferase 15 U/L (6-35); Alkaline Phosphatase 71 U/L (38-126); Anion Gap 12 mmol/L (4-12); Aspartate Amino Transferase 15 U/L (14-36); Bilirubin,Total 0.5 mg/dL (0.2-1.3); Blood Urea Nitrogen 32 mg/dL (7-17); Calcium 8.2 mg/dL (8.4-10.2); Carbon Dioxide 17 mmol/L (22-30); Chloride 111 mmol/L (98-107); Estimated CRCL calculation 16 ml/min; Estimated Glomerular Filt Rate 22; Glucose 177 mg/dL (65-110); Potassium 3.3 mmol/L (3.4-5.0); Sodium 140 mmol/L (137-145)
[2024-08-13] MEDS: POTASSIUM CHLORIDE 20 MEQ ER TABLET 40 MEQ PO (08:32)
[2024-08-13] MEDS: ASPIRIN 81 MG ENTERIC TABLET PO (08:33)
[2024-08-13] MEDS: SODIUM CHLORIDE 0.9% IV 1,000 ML 75 ML IV CONT ×2 (08:33→21:55)
[2024-08-13] MEDS: FERROUS SULFATE 325 MG TABLET DR PO (08:33)
[2024-08-13] MEDS: SODIUM BICARBONATE TAB 650 MG TABLET PO ×2 (08:33→17:18)
[2024-08-13] MEDS: lisinopriL 5 MG TABLET PO (08:33)
[2024-08-13] MEDS: cefTRIAXone 2 GM/NS 100 ML 2 GM/100 ML BAG IVPB (12:24)
[2024-08-13 15:53] LABS: Creatine Kinase 25 U/L (30-135)
[2024-08-13] MEDS: AZITHROMYCIN 250 MG TABLET 500 MG PO (17:18)
[2024-08-13] MEDS: ATORVASTATIN 10 MG TABLET PO (20:44)
[2024-08-14] VITALS (11 sets, daily range): BP systolic 136–152; BP diastolic 79–97; PULSE 61–116; RESP 18; TEMP 36.1–36.7; O2SAT 90–100
[2024-08-14 05:25] LABS: Basophils Percent Auto 0.2 % (0.2-1.2); Eosinophils Percent Auto 0.4 % (0-4.4); Hematocrit 22.7 % (37.0-47.0); Lymphocytes Absolute Auto 0.63 K/mm3 (0.9-3.2); Lymphocytes Percent Auto 6.5 % (18.3-44.2); Mean Corpuscular HGB Conc 30.8 g/dl (32-36); Mean Corpuscular Hemoglobin 30.3 pg (26-34); Mean Corpuscular Volume 98.3 fl (80-100); Mean Platelet Volume 9.1 fl (7.4-10.4); Monocytes Absolute Auto 0.8 K/mm3 (0.1-0.6); Monocytes Percent Auto 7.9 % (2.6-8.5); Neutrophils Absolute Auto 8.1 K/mm3 (1.3-6.7); Platelet Count Result 117 k/mm3 (150-375); Red Blood Count 2.31 M/mm3 (4.2-5.4); Red Cell Distribution Width 15.7 % (11.5-14.5); White Blood Count 9.7 K/mm3 (4.5-10.0)
[2024-08-14 05:30] LABS: Alanine Aminotransferase 14 U/L (6-35); Albumin Level 2.7 g/dL (3.5-5.1); Alkaline Phosphatase 69 U/L (38-126); Anion Gap 10 mmol/L (4-12); Aspartate Amino Transferase 16 U/L (14-36); Bilirubin,Total 0.3 mg/dL (0.2-1.3); Blood Urea Nitrogen 36 mg/dL (7-17); Calcium 8.1 mg/dL (8.4-10.2); Carbon Dioxide 18 mmol/L (22-30); Chloride 111 mmol/L (98-107); Estimated CRCL calculation 19 ml/min; Estimated Glomerular Filt Rate 26; Glucose 98 mg/dL (65-110); Potassium 3.4 mmol/L (3.4-5.0); Sodium 139 mmol/L (137-145)
[2024-08-14] MEDS: LEVOTHYROXINE SODIUM 112 MCG TABLET PO (06:28)
--- NOTE | 2024-08-14 08:19 | PM.IMPN ---
Progress Note: A&P Assessment and Plan (1) Sepsis: Code(s): A41.9 - Sepsis, unspecified organism Status: Acute Assessment and Plan: Meets SIRS criteria: leukocytosis, tachycardia, febrile - lactic acid: 1.4 - s/p 2L NS in ED - suspected source: UTI vs pneumonia - blood cultures drawn on 08/12: gram negative bacilli - UA: 3+ protein, 3+ blood, 2+ leukocytes, 21-50 RBC, >100 WBC, 4+ bacteria - UC obtained on 08/12: pending CXR: 1. Mild increased interstitial pattern in the bilateral lower lungs which could represent mild pulmonary edema or pneumonia. 2. Cardiomegaly Chest CT: 1. Mild emphysema with mild dependent groundglass opacities in the mid to lower lungs and mild interstitial opacities the bilateral lung bases for which differential would include atelectasis, mild pulmonary edema and chronic interstitial lung disease. Could not exclude early pneumonia but without more focal dense consolidation. 2. Cardiomegaly. - Antibiotics: azithromycin 08/13 and ceftriaxone 08/12 08/14- will repeat BC-ordered (2) Altered mental status: Code(s): R41.82 - Altered mental status, unspecified Status: Acute Assessment and Plan: Patient sent to the ED from PCP for altered mental status. - Head CT: Normal aging brain. - Monitor (3) Acute UTI: Code(s): N39.0 - Urinary tract infection, site not specified Status: Acute Assessment and Plan: - UA: 3+ protein, 3+ blood, 2+ leukocytes, 21-50 RBC, >100 WBC, 4+ bacteria - UC obtained on 08/12: pending - No previous micro to be reviewed - started on Rocephin on 08/12 (4) Falls: Code(s): R29.6 - Repeated falls Status: Acute Assessment and Plan: Frequent falls. No LOC or head trauma. - PT/OT (5) Pneumonia: Code(s): J18.9 - Pneumonia, unspecified organism Status: Acute Assessment and Plan: CXR: 1. Mild increased interstitial pattern in the bilateral lower lungs which could represent mild pulmonary edema or pneumonia. 2. Cardiomegaly Chest CT: 1. Mild emphysema with mild dependent groundglass opacities in the mid to lower lungs and mild interstitial opacities the bilateral lung bases for which differential would include atelectasis, mild pulmonary edema and chronic interstitial lung disease. Could not exclude early pneumonia but without more focal dense consolidation. 2. Cardiomegaly. - started on CAP tx: azithromycin 08/13 and ceftriaxone 08/12 - Viral PCR: negative for Flu/COVID/RSV - no supplemental O2 requirement - Monitor vital signs, I&Os, neuro status and patient is a fall risk - Follow WBC, serum electrolytes, temperature curves and cultures (6) Acute respiratory alkalosis: Code(s): E87.3 - Alkalosis Status: Acute Assessment and Plan: ABG: pH 7.473, pCO2 28.7, pO2 73.5, HCO3 20.6. Likely secondary to pneumonia vs underlying interstitial lung disease - Sodium bicarb tabs x1 day (7) Acute kidney injury superimposed on CKD: Code(s): N17.9 - Acute kidney failure, unspecified; N18.9 - Chronic kidney disease, unspecified Status: Acute Assessment and Plan: Chronic. BUN/Cr 33/2.5 with GFR 19 on admission. Per nephrology note on 08/01 baseline 1-1.5. Likely etiology dehydration. 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 Cage on 08/01/24. Spoke with Dr. Cage and since patient has been off of the steroid for several days and no large concern for adrenal insufficiency will hold off on resuming at this time. - Continu
[2024-08-14] MEDS: lisinopriL 5 MG TABLET PO (09:00)
[2024-08-14] MEDS: SODIUM BICARBONATE TAB 650 MG TABLET PO (09:00)
[2024-08-14] MEDS: FERROUS SULFATE 325 MG TABLET DR PO (09:00)
[2024-08-14] MEDS: ASPIRIN 81 MG ENTERIC TABLET PO (09:00)
[2024-08-14] MEDS: cefTRIAXone 2 GM/NS 100 ML 2 GM/100 ML BAG IVPB (09:00)
[2024-08-14] MEDS: SODIUM CHLORIDE 0.9% IV 1,000 ML 75 ML IV CONT (12:07)
[2024-08-14] MEDS: AZITHROMYCIN 250 MG TABLET 500 MG PO (17:54)
[2024-08-14] MEDS: MELATONIN 5 MG TABLET PO (20:48)
[2024-08-14] MEDS: ATORVASTATIN 10 MG TABLET PO (20:48)
[2024-08-15] VITALS (10 sets, daily range): BP systolic 143–154; BP diastolic 86–92; PULSE 96–116; RESP 20–102; TEMP 35.9–36.5; O2SAT 14–100
[2024-08-15] MEDS: SODIUM CHLORIDE 0.9% IV 1,000 ML 75 ML IV CONT ×2 (01:35→17:17)
[2024-08-15] MEDS: LEVOTHYROXINE SODIUM 112 MCG TABLET PO (05:55)
[2024-08-15 06:02] LABS: Basophils Percent Auto 0.5 % (0.2-1.2); Eosinophils Absolute Auto 0.1 K/mm3 (0-0.3); Eosinophils Percent Auto 1.1 % (0-4.4); Hematocrit 24.6 % (37.0-47.0); Hemoglobin 7.7 g/dL (12.0-15.0); Immature Granulocyte Absolute 0.08 K/mm3 (0.00-0.031); Immature Granulocyte Percent A 1.4 % (0-0.5); Lymphocytes Absolute Auto 0.24 K/mm3 (0.9-3.2); Lymphocytes Percent Auto 4.3 % (18.3-44.2); Mean Corpuscular HGB Conc 31.3 g/dl (32-36); Mean Corpuscular Hemoglobin 30.8 pg (26-34); Mean Corpuscular Volume 98.4 fl (80-100); Mean Platelet Volume 9.5 fl (7.4-10.4); Monocytes Absolute Auto 0.6 K/mm3 (0.1-0.6); Monocytes Percent Auto 10.1 % (2.6-8.5); Neutrophils Absolute Auto 4.6 K/mm3 (1.3-6.7); Neutrophils Percent Auto 82.6 % (45.5-73.1); Platelet Count Result 126 k/mm3 (150-375); Red Cell Distribution Width 15.7 % (11.5-14.5); White Blood Count 5.6 K/mm3 (4.5-10.0)
[2024-08-15 06:18] LABS: Alanine Aminotransferase 15 U/L (6-35); Alkaline Phosphatase 68 U/L (38-126); Anion Gap 10 mmol/L (4-12); Aspartate Amino Transferase 18 U/L (14-36); Bilirubin,Total 0.3 mg/dL (0.2-1.3); Blood Urea Nitrogen 25 mg/dL (7-17); Calcium 8.4 mg/dL (8.4-10.2); Carbon Dioxide 17 mmol/L (22-30); Chloride 115 mmol/L (98-107); Estimated CRCL calculation 24 ml/min; Estimated Glomerular Filt Rate 34; Glucose 90 mg/dL (65-110); Potassium 3.6 mmol/L (3.4-5.0); Sodium 142 mmol/L (137-145)
[2024-08-15] MEDS: ASPIRIN 81 MG ENTERIC TABLET PO (08:45)
[2024-08-15] MEDS: lisinopriL 5 MG TABLET PO (08:46)
[2024-08-15] MEDS: cefTRIAXone 2 GM/NS 100 ML 2 GM/100 ML BAG IVPB (08:46)
[2024-08-15] MEDS: FERROUS SULFATE 325 MG TABLET DR PO (08:46)
--- NOTE | 2024-08-15 09:27 | PM.IMPN ---
Progress Note: A&P Assessment and Plan (1) Sepsis: Code(s): A41.9 - Sepsis, unspecified organism Status: Acute Assessment and Plan: Meets SIRS criteria: leukocytosis, tachycardia, febrile - lactic acid: 1.4 - s/p 2L NS in ED - suspected source: UTI vs pneumonia - blood cultures drawn on 08/12: gram negative bacilli - UA: 3+ protein, 3+ blood, 2+ leukocytes, 21-50 RBC, >100 WBC, 4+ bacteria - UC obtained on 08/12: pending CXR: 1. Mild increased interstitial pattern in the bilateral lower lungs which could represent mild pulmonary edema or pneumonia. 2. Cardiomegaly Chest CT: 1. Mild emphysema with mild dependent groundglass opacities in the mid to lower lungs and mild interstitial opacities the bilateral lung bases for which differential would include atelectasis, mild pulmonary edema and chronic interstitial lung disease. Could not exclude early pneumonia but without more focal dense consolidation. 2. Cardiomegaly. - Antibiotics: azithromycin 08/13 and ceftriaxone 08/12 08/14- will repeat BC-ordered 08/15- repeated BC- prelim- negative so far, wbc wnl, afebrile (2) Altered mental status: Code(s): R41.82 - Altered mental status, unspecified Status: Acute Assessment and Plan: Patient sent to the ED from PCP for altered mental status. - Head CT: Normal aging brain. - Monitor -08/15 worsening confusion overnight- will order CT head and neuro consult (3) Acute UTI: Code(s): N39.0 - Urinary tract infection, site not specified Status: Acute Assessment and Plan: - UA: 3+ protein, 3+ blood, 2+ leukocytes, 21-50 RBC, >100 WBC, 4+ bacteria - UC obtained on 08/12: pending - No previous micro to be reviewed - started on Rocephin on 08/12 (4) Falls: Code(s): R29.6 - Repeated falls Status: Acute Assessment and Plan: Frequent falls. No LOC or head trauma. - PT/OT (5) Pneumonia: Code(s): J18.9 - Pneumonia, unspecified organism Status: Acute Assessment and Plan: CXR: 1. Mild increased interstitial pattern in the bilateral lower lungs which could represent mild pulmonary edema or pneumonia. 2. Cardiomegaly Chest CT: 1. Mild emphysema with mild dependent groundglass opacities in the mid to lower lungs and mild interstitial opacities the bilateral lung bases for which differential would include atelectasis, mild pulmonary edema and chronic interstitial lung disease. Could not exclude early pneumonia but without more focal dense consolidation. 2. Cardiomegaly. - started on CAP tx: azithromycin 08/13 and ceftriaxone 08/12 - Viral PCR: negative for Flu/COVID/RSV - no supplemental O2 requirement - Monitor vital signs, I&Os, neuro status and patient is a fall risk - Follow WBC, serum electrolytes, temperature curves and cultures (6) Acute respiratory alkalosis: Code(s): E87.3 - Alkalosis Status: Acute Assessment and Plan: ABG: pH 7.473, pCO2 28.7, pO2 73.5, HCO3 20.6. Likely secondary to pneumonia vs underlying interstitial lung disease - Sodium bicarb tabs x1 day (7) Acute kidney injury superimposed on CKD: Code(s): N17.9 - Acute kidney failure, unspecified; N18.9 - Chronic kidney disease, unspecified Status: Acute Assessment and Plan: Chronic. BUN/Cr 33/2.5 with GFR 19 on admission. Per nephrology note on 08/01 baseline 1-1.5. Likely etiology dehydration. 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 Cage on 08/01/24. Spoke with Dr. Cage and since patient has been
[2024-08-15 14:22] LABS: Add Urine Microscopic? YES; Appearance Urine Clear (Clear); Bacteria Urine None Seen /hpf; Bilirubin Urine Negative (Negative); Blood Urine 3+ (Negative); Color Urine Yellow (Yellow); Glucose Urine UA Negative (Negative); Ketones Urine Negative (Negative); Leukocyte Esterase Ur 1+ LEU/UL (Negative); Nitrate Urine Negative (Negative); Non Pathogenic Casts 0-2; Protein Urine 1+ mg/dL (Negative); RBC Urine 21-50 /hpf (0-2); Specific Grav Ur 1.011 (1.001-1.035); Squamous Epithelial Cell Urine None Seen /hpf (Few); Urobilinogen Urine 0.2 mg/dL (<2.0); WBC Urine 21-50 /hpf (0-3)
[2024-08-15] MEDS: AZITHROMYCIN 250 MG TABLET 500 MG PO (17:15)
--- NOTE | 2024-08-15 19:11 | WPDNEURCNPN ---
Assessment and Plan Assessment and plan (1) Metabolic encephalopathy: Code(s): G93.41 - Metabolic encephalopathy Status: Acute (2) Falls: Code(s): R29.6 - Repeated falls Status: Acute (3) Acute kidney injury superimposed on CKD: Code(s): N17.9 - Acute kidney failure, unspecified; N18.9 - Chronic kidney disease, unspecified Status: Acute (4) Acute respiratory alkalosis: Code(s): E87.3 - Alkalosis Status: Acute Plan Patient has significant medical or metabolic problems going Gram-negative septicemia, steroid treatment for renal disease, anemia, renal disease all of which can lead to changes in mental status and has the treatment with that of the underlying conditions. I did try to reach her daughter Alejandra at the given number was not available at the time back or her left arm extension while I am still in the dictation area. Consult date: 08/15/24 HPI: Megan Raza is a 74 year old female with history of changes in mental status. Patient herself is unable to give me much in the way of the history which was obtained from the review of the records. Now the patient has been found to have g negative septicemia. There is also history of falls. She is on steroids for her renal condition. Chest x-ray shows mild interstitial markings. Blood gases show pH was 7.47 pCO2 was 429 PO2 was 74. Hemoglobin 7.7 creatinine is 1.5 bicarb is 17 DARIAN is positive. She has not had any seizure-like activity. CT scan of brain was performed did not show any significant abnormalities. MRI of the brain was performed 07/15/2024 which should did not show any significant abnormalities other than some aging changes. 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 Hypokalemia Hypothyroidism Iron deficiency Metabolic encephalopathy Myelopathy Myoclonus, segmental Pancytopenia Petechiae Prediabetes Protein malnutrition RLS (restless legs syndrome) Stercoral ulcer of large intestine (~03/20/20) Vitamin D deficiency, unspecified Surgical History Surgical History History of 2 sections History of cholecystectomy Family History Family History Mother Diabetes mellitus Father Alzheimer dementia Social History Social History Smoking status: Never smoker Second hand tobacco smoke exposure: No Alcohol intake: never Alcohol use details: hardly at all per patient Substance use: never Substance use type: does not use Do You Feel Safe in your Home?: No Lack of Transportation: No Lack of Food: Never True Current Housing: I Have Housing Concerned About Future Housing: No Difficulty Paying Gas/Electric Bills: No Difficulty Paying for Meds: No Currently Unemployed: No Education: High School Diploma/GED Difficulty w/ Childcare or Family Care: No Living arrangements: with family Occupation/Education: retired Gender identity (if verbalized by the patient): Female Spiritual care concerns: No Agree to blood products: Yes Meds Home Medications and Allergies Home Medications Medication Instructions Recorded Confirmed Type multivitamin 1 tablet PO DAILY 11/11/19 08/12/24 History lisinopril 5 mg tablet 5 mg PO DAILY #90 tabs 01/29/24 08/12/24 Rx aspirin 81 mg tablet,delayed 81 mg PO QAM #30 tabs 07/15/24 08/12/24 Rx release atorvastatin 10 mg tablet 10 mg PO HS #30 tabs 07/15/24 08/12/24 Rx alprazolam 0.5 m
--- NOTE | 2024-08-15 20:41 | PC.NURSE ---
patient pulled out her IV and was adamant in her stance about not getting another one. Provider was notified and this nurse was informed that it was alright to not place another IV. Will continue to monitor throughout this shift.
[2024-08-15 22:55] LABS: Vitamin D 25 Hydroxy 60.2 ng/mL
[2024-08-15 23:09] LABS: Thyroid Stimulating Hormone 0.338 uIU/mL (0.465-4.680)
[2024-08-15 23:48] LABS: Folic Acid > 20.0 ng/mL (2.76->20); Vitamin B12 > 1000.0 pg/mL (239-931)
[2024-08-16] VITALS (9 sets, daily range): BP systolic 135–152; BP diastolic 87–93; PULSE 86–140; RESP 18; TEMP 36.4–36.6; O2SAT 96–100
--- NOTE | 2024-08-16 07:48 | PM.IMPN ---
Progress Note: A&P Assessment and Plan (1) Sepsis: Code(s): A41.9 - Sepsis, unspecified organism Status: Acute Assessment and Plan: Meets SIRS criteria: leukocytosis, tachycardia, febrile - lactic acid: 1.4 - s/p 2L NS in ED - suspected source: UTI vs pneumonia - blood cultures drawn on 08/12: gram negative bacilli - UA: 3+ protein, 3+ blood, 2+ leukocytes, 21-50 RBC, >100 WBC, 4+ bacteria - UC obtained on 08/12: pending CXR: 1. Mild increased interstitial pattern in the bilateral lower lungs which could represent mild pulmonary edema or pneumonia. 2. Cardiomegaly Chest CT: 1. Mild emphysema with mild dependent groundglass opacities in the mid to lower lungs and mild interstitial opacities the bilateral lung bases for which differential would include atelectasis, mild pulmonary edema and chronic interstitial lung disease. Could not exclude early pneumonia but without more focal dense consolidation. 2. Cardiomegaly. - Antibiotics: azithromycin 08/13 and ceftriaxone 08/12 08/14- will repeat BC-ordered 08/15- repeated BC- prelim- negative so far, wbc wnl, afebrile 08/16 continue antibiotics to complete the course. afebrile. wbc wnl (2) Altered mental status: Code(s): R41.82 - Altered mental status, unspecified Status: Acute Assessment and Plan: Patient sent to the ED from PCP for altered mental status. - Head CT: Normal aging brain. - Monitor -08/15 worsening confusion overnight- will order CT head and neuro consult 08/16- neurology is following- appreciate recommendations (3) Acute UTI: Code(s): N39.0 - Urinary tract infection, site not specified Status: Acute Assessment and Plan: - UA: 3+ protein, 3+ blood, 2+ leukocytes, 21-50 RBC, >100 WBC, 4+ bacteria - UC obtained on 08/12: pending - No previous micro to be reviewed - started on Rocephin on 08/12 (4) Falls: Code(s): R29.6 - Repeated falls Status: Acute Assessment and Plan: Frequent falls. No LOC or head trauma. - PT/OT (5) Pneumonia: Code(s): J18.9 - Pneumonia, unspecified organism Status: Acute Assessment and Plan: CXR: 1. Mild increased interstitial pattern in the bilateral lower lungs which could represent mild pulmonary edema or pneumonia. 2. Cardiomegaly Chest CT: 1. Mild emphysema with mild dependent groundglass opacities in the mid to lower lungs and mild interstitial opacities the bilateral lung bases for which differential would include atelectasis, mild pulmonary edema and chronic interstitial lung disease. Could not exclude early pneumonia but without more focal dense consolidation. 2. Cardiomegaly. - started on CAP tx: azithromycin 08/13 and ceftriaxone 08/12 - Viral PCR: negative for Flu/COVID/RSV - no supplemental O2 requirement - Monitor vital signs, I&Os, neuro status and patient is a fall risk - Follow WBC, serum electrolytes, temperature curves and cultures (6) Acute respiratory alkalosis: Code(s): E87.3 - Alkalosis Status: Acute Assessment and Plan: ABG: pH 7.473, pCO2 28.7, pO2 73.5, HCO3 20.6. Likely secondary to pneumonia vs underlying interstitial lung disease - Sodium bicarb tabs x1 day (7) Acute kidney injury superimposed on CKD: Code(s): N17.9 - Acute kidney failure, unspecified; N18.9 - Chronic kidney disease, unspecified Status: Acute Assessment and Plan: Chronic. BUN/Cr 33/2.5 with GFR 19 on admission. Per nephrology note on 08/01 baseline 1-1.5. Likely etiology dehydration. 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
[2024-08-16 07:58] LABS: Alanine Aminotransferase 17 U/L (6-35); Albumin Level 3.2 g/dL (3.5-5.1); Alkaline Phosphatase 76 U/L (38-126); Anion Gap 8 mmol/L (4-12); Aspartate Amino Transferase 21 U/L (14-36); Bilirubin,Total 0.3 mg/dL (0.2-1.3); Blood Urea Nitrogen 19 mg/dL (7-17); Calcium 8.7 mg/dL (8.4-10.2); Carbon Dioxide 22 mmol/L (22-30); Chloride 112 mmol/L (98-107); Estimated CRCL calculation 24 ml/min; Estimated Glomerular Filt Rate 34; Glucose 92 mg/dL (65-110); Potassium 3.6 mmol/L (3.4-5.0); Sodium 142 mmol/L (137-145)
[2024-08-16 08:12] LABS: Basophils Percent Auto 0.6 % (0.2-1.2); Eosinophils Absolute Auto 0.2 K/mm3 (0-0.3); Eosinophils Percent Auto 2.5 % (0-4.4); Hematocrit 25.4 % (37.0-47.0); Hemoglobin 8.1 g/dL (12.0-15.0); Immature Granulocyte Absolute 0.33 K/mm3 (0.00-0.031); Immature Granulocyte Percent A 4.9 % (0-0.5); Lymphocytes Absolute Auto 0.53 K/mm3 (0.9-3.2); Lymphocytes Percent Auto 7.9 % (18.3-44.2); Mean Corpuscular HGB Conc 31.9 g/dl (32-36); Mean Corpuscular Hemoglobin 30.3 pg (26-34); Mean Corpuscular Volume 95.1 fl (80-100); Mean Platelet Volume 9.2 fl (7.4-10.4); Monocytes Absolute Auto 0.8 K/mm3 (0.1-0.6); Monocytes Percent Auto 11.3 % (2.6-8.5); Neutrophils Absolute Auto 4.9 K/mm3 (1.3-6.7); Neutrophils Percent Auto 72.8 % (45.5-73.1); Platelet Count Result 163 k/mm3 (150-375); Red Blood Count 2.67 M/mm3 (4.2-5.4); Red Cell Distribution Width 15.6 % (11.5-14.5); White Blood Count 6.7 K/mm3 (4.5-10.0)
[2024-08-16] MEDS: SULFAMETHOXAZOLE/TRIMETHOPRIM 800/160 MG DS TABLET 1 TAB PO ×2 (09:27→20:52)
[2024-08-16] MEDS: FERROUS SULFATE 325 MG TABLET DR PO (09:27)
[2024-08-16] MEDS: lisinopriL 5 MG TABLET PO (09:27)
[2024-08-16] MEDS: ASPIRIN 81 MG ENTERIC TABLET PO (09:27)
[2024-08-16] MEDS: AZITHROMYCIN 250 MG TABLET 500 MG PO (18:04)
[2024-08-16] MEDS: MELATONIN 5 MG TABLET PO (20:52)
[2024-08-16] MEDS: ATORVASTATIN 10 MG TABLET PO (20:52)
[2024-08-17] VITALS (9 sets, daily range): BP systolic 132–146; BP diastolic 83–95; PULSE 83–123; RESP 18–20; TEMP 36.4–37; O2SAT 97–98
[2024-08-17 06:05] LABS: Basophils Percent Auto 0.5 % (0.2-1.2); Eosinophils Absolute Auto 0.2 K/mm3 (0-0.3); Eosinophils Percent Auto 2.3 % (0-4.4); Hematocrit 21.2 % (37.0-47.0); Immature Granulocyte Absolute 0.67 K/mm3 (0.00-0.031); Immature Granulocyte Percent A 8.4 % (0-0.5); Lymphocytes Absolute Auto 1.02 K/mm3 (0.9-3.2); Lymphocytes Percent Auto 12.8 % (18.3-44.2); Mean Corpuscular HGB Conc 32.5 g/dl (32-36); Mean Corpuscular Hemoglobin 30.5 pg (26-34); Mean Corpuscular Volume 93.8 fl (80-100); Mean Platelet Volume 8.4 fl (7.4-10.4); Monocytes Percent Auto 12.2 % (2.6-8.5); Neutrophils Absolute Auto 5.1 K/mm3 (1.3-6.7); Neutrophils Percent Auto 63.8 % (45.5-73.1); Platelet Count Result 136 k/mm3 (150-375); Red Blood Count 2.26 M/mm3 (4.2-5.4); Red Cell Distribution Width 15.2 % (11.5-14.5)
[2024-08-17 06:17] LABS: Alanine Aminotransferase 14 U/L (6-35); Albumin Level 2.8 g/dL (3.5-5.1); Alkaline Phosphatase 61 U/L (38-126); Anion Gap 8 mmol/L (4-12); Aspartate Amino Transferase 17 U/L (14-36); Bilirubin,Total 0.2 mg/dL (0.2-1.3); Blood Urea Nitrogen 17 mg/dL (7-17); Calcium 8.5 mg/dL (8.4-10.2); Carbon Dioxide 22 mmol/L (22-30); Chloride 113 mmol/L (98-107); Estimated CRCL calculation 22 ml/min; Estimated Glomerular Filt Rate 32; Glucose 85 mg/dL (65-110); Potassium 3.4 mmol/L (3.4-5.0); Sodium 143 mmol/L (137-145)
[2024-08-17] MEDS: LEVOTHYROXINE SODIUM 100 MCG TABLET PO (06:48)
[2024-08-17 06:50] LABS: Hemoglobin 6.9 g/dL (12.0-15.0)
[2024-08-17 06:53] LABS: Anisocytosis 1+; Crenated RBC 1+; Hypochromasia 1+; Platelet Estimate Adequate (Adequate)
[2024-08-17 06:54] LABS: Schistocytes None Seen
--- NOTE | 2024-08-17 08:16 | PM.IMPN ---
Progress Note: A&P Assessment and Plan (1) Sepsis: Code(s): A41.9 - Sepsis, unspecified organism Status: Acute Assessment and Plan: Meets SIRS criteria: leukocytosis, tachycardia, febrile - lactic acid: 1.4 - s/p 2L NS in ED - suspected source: UTI vs pneumonia - blood cultures drawn on 08/12: gram negative bacilli - UA: 3+ protein, 3+ blood, 2+ leukocytes, 21-50 RBC, >100 WBC, 4+ bacteria - UC obtained on 08/12: pending CXR: 1. Mild increased interstitial pattern in the bilateral lower lungs which could represent mild pulmonary edema or pneumonia. 2. Cardiomegaly Chest CT: 1. Mild emphysema with mild dependent groundglass opacities in the mid to lower lungs and mild interstitial opacities the bilateral lung bases for which differential would include atelectasis, mild pulmonary edema and chronic interstitial lung disease. Could not exclude early pneumonia but without more focal dense consolidation. 2. Cardiomegaly. - Antibiotics: azithromycin 08/13 and ceftriaxone 08/12 08/14 - will repeat BC-ordered 08/15 - repeated BC- prelim- negative so far, wbc wnl, afebrile 08/16 - continue antibiotics to complete the course. afebrile. wbc wnl 08/17 confusion improved- she was a little bit sassy this am with exam and was trying to quiz me on orientasiton questions. so improving from orientation standpoint. (2) Altered mental status: Code(s): R41.82 - Altered mental status, unspecified Status: Acute Assessment and Plan: Patient sent to the ED from PCP for altered mental status. - Head CT: Normal aging brain. - Monitor -08/15 worsening confusion overnight- will order CT head and neuro consult 08/16- neurology is following- appreciate recommendations 08/17- confusion improved- she was a little bit sassy this am with exam and was trying to quiz me on orientasiton questions. so improving from orientation standpoint. (3) Acute UTI: Code(s): N39.0 - Urinary tract infection, site not specified Status: Acute Assessment and Plan: - UA: 3+ protein, 3+ blood, 2+ leukocytes, 21-50 RBC, >100 WBC, 4+ bacteria - UC obtained on 08/12: pending - No previous micro to be reviewed - started on Rocephin on 08/12 (4) Falls: Code(s): R29.6 - Repeated falls Status: Acute Assessment and Plan: Frequent falls. No LOC or head trauma. - PT/OT (5) Pneumonia: Code(s): J18.9 - Pneumonia, unspecified organism Status: Acute Assessment and Plan: CXR: 1. Mild increased interstitial pattern in the bilateral lower lungs which could represent mild pulmonary edema or pneumonia. 2. Cardiomegaly Chest CT: 1. Mild emphysema with mild dependent groundglass opacities in the mid to lower lungs and mild interstitial opacities the bilateral lung bases for which differential would include atelectasis, mild pulmonary edema and chronic interstitial lung disease. Could not exclude early pneumonia but without more focal dense consolidation. 2. Cardiomegaly. - started on CAP tx: azithromycin 08/13 and ceftriaxone 08/12 - Viral PCR: negative for Flu/COVID/RSV - no supplemental O2 requirement - Monitor vital signs, I&Os, neuro status and patient is a fall risk - Follow WBC, serum electrolytes, temperature curves and cultures (6) Acute respiratory alkalosis: Code(s): E87.3 - Alkalosis Status: Acute Assessment and Plan: ABG: pH 7.473, pCO2 28.7, pO2 73.5, HCO3 20.6. Likely secondary to pneumonia vs underlying interstitial lung disease - Sodium bicarb tabs x1 day (7) Acute kidney injury superimposed on CKD: Code(s): N17.9 - Acute kidney failure, unspecified; N18.9 - Chronic kidney disease, unspecified Status: Acute Assessment and Plan: Chronic. BUN/Cr 33/2.5 with GFR 19 on admission. Per nephrology note on 08/01 baseline 1-1.5. Likely etiology dehydration. - BUN/Cr 32/2.20 - IV NS 75 ml/hr - Avoid nephrotoxic medications - Renally dose medications - Bonnie
[2024-08-17 08:18] LABS: Hematocrit 24.4 % (37.0-47.0); Hemoglobin 7.9 g/dL (12.0-15.0)
[2024-08-17 08:30] LABS: Iron 54 ug/dL (37-170)
[2024-08-17 08:41] LABS: Percent Iron Saturation 32 % (20-50)
[2024-08-17] MEDS: ASPIRIN 81 MG ENTERIC TABLET PO (09:28)
[2024-08-17] MEDS: SULFAMETHOXAZOLE/TRIMETHOPRIM 800/160 MG DS TABLET 1 TAB PO ×2 (09:28→21:56)
[2024-08-17] MEDS: lisinopriL 5 MG TABLET PO (09:28)
[2024-08-17] MEDS: FERROUS SULFATE 325 MG TABLET DR PO (09:28)
[2024-08-17] MEDS: MELATONIN 5 MG TABLET PO (21:56)
[2024-08-17] MEDS: ATORVASTATIN 10 MG TABLET PO (21:57)
[2024-08-18] VITALS: PULSE 93
[2024-08-18 05:23] LABS: Methylmalonic Acid 247 nmol/L (69-390)
[2024-08-18 05:24] VITALS: BP 117/84; PULSE 90; RESP 20; TEMP 36.8; O2SAT 98
[2024-08-18] MEDS: LEVOTHYROXINE SODIUM 100 MCG TABLET PO (06:19)
[2024-08-18 06:30] LABS: Basophils Absolute Auto 0.1 K/mm3 (0.0-0.1); Eosinophils Absolute Auto 0.2 K/mm3 (0-0.3); Eosinophils Percent Auto 2.5 % (0-4.4); Hematocrit 22.8 % (37.0-47.0); Hemoglobin 7.2 g/dL (12.0-15.0); Immature Granulocyte Absolute 0.73 K/mm3 (0.00-0.031); Immature Granulocyte Percent A 9.1 % (0-0.5); Lymphocytes Absolute Auto 0.82 K/mm3 (0.9-3.2); Lymphocytes Percent Auto 10.2 % (18.3-44.2); Mean Corpuscular HGB Conc 31.6 g/dl (32-36); Mean Corpuscular Hemoglobin 29.8 pg (26-34); Mean Corpuscular Volume 94.2 fl (80-100); Mean Platelet Volume 8.6 fl (7.4-10.4); Monocytes Absolute Auto 0.9 K/mm3 (0.1-0.6); Monocytes Percent Auto 11.7 % (2.6-8.5); Neutrophils Absolute Auto 5.3 K/mm3 (1.3-6.7); Neutrophils Percent Auto 65.5 % (45.5-73.1); Platelet Count Result 185 k/mm3 (150-375); Red Blood Count 2.42 M/mm3 (4.2-5.4); Red Cell Distribution Width 15.7 % (11.5-14.5); White Blood Count 8.1 K/mm3 (4.5-10.0)
[2024-08-18 06:46] LABS: Alanine Aminotransferase 15 U/L (6-35); Albumin Level 3.2 g/dL (3.5-5.1); Alkaline Phosphatase 73 U/L (38-126); Anion Gap 8 mmol/L (4-12); Aspartate Amino Transferase 21 U/L (14-36); Bilirubin,Total 0.3 mg/dL (0.2-1.3); Blood Urea Nitrogen 17 mg/dL (7-17); Calcium 8.7 mg/dL (8.4-10.2); Carbon Dioxide 21 mmol/L (22-30); Chloride 112 mmol/L (98-107); Estimated CRCL calculation 19 ml/min; Estimated Glomerular Filt Rate 26; Glucose 83 mg/dL (65-110); Potassium 3.5 mmol/L (3.4-5.0); Sodium 141 mmol/L (137-145)
[2024-08-18 06:54] LABS: Atypical Lymphocytes Present; Platelet Estimate Adequate (Adequate); Schistocytes Rare
[2024-08-18 06:55] LABS: Anisocytosis 1+; Hypochromasia 2+; Poikilocytosis 1+; Polychromasia 1+
--- NOTE | 2024-08-18 07:49 | PM.IMPN ---
Progress Note: A&P Assessment and Plan (1) Sepsis: Code(s): A41.9 - Sepsis, unspecified organism Status: Acute Assessment and Plan: Meets SIRS criteria: leukocytosis, tachycardia, febrile - lactic acid: 1.4 - s/p 2L NS in ED - suspected source: UTI vs pneumonia - blood cultures drawn on 08/12: gram negative bacilli - UA: 3+ protein, 3+ blood, 2+ leukocytes, 21-50 RBC, >100 WBC, 4+ bacteria - UC obtained on 08/12: pending CXR: 1. Mild increased interstitial pattern in the bilateral lower lungs which could represent mild pulmonary edema or pneumonia. 2. Cardiomegaly Chest CT: 1. Mild emphysema with mild dependent groundglass opacities in the mid to lower lungs and mild interstitial opacities the bilateral lung bases for which differential would include atelectasis, mild pulmonary edema and chronic interstitial lung disease. Could not exclude early pneumonia but without more focal dense consolidation. 2. Cardiomegaly. - Antibiotics: azithromycin 08/13 and ceftriaxone 08/12 08/14 - will repeat BC-ordered 08/15 - repeated BC- prelim- negative so far, wbc wnl, afebrile 08/16 - continue antibiotics to complete the course. afebrile. wbc wnl 08/17 confusion improved- she was a little bit sassy this am with exam and was trying to quiz me on orientasiton questions. so improving from orientation standpoint. 08/18 stable- no acute events overnight (2) Altered mental status: Code(s): R41.82 - Altered mental status, unspecified Status: Acute Assessment and Plan: Patient sent to the ED from PCP for altered mental status. - Head CT: Normal aging brain. - Monitor -08/15 worsening confusion overnight- will order CT head and neuro consult 08/16- neurology is following- appreciate recommendations 08/17- confusion improved- she was a little bit sassy this am with exam and was trying to quiz me on orientasiton questions. so improving from orientation standpoint. 08/18 stable- no acute events overnight (3) Acute UTI: Code(s): N39.0 - Urinary tract infection, site not specified Status: Acute Assessment and Plan: - UA: 3+ protein, 3+ blood, 2+ leukocytes, 21-50 RBC, >100 WBC, 4+ bacteria - UC obtained on 08/12: pending - No previous micro to be reviewed - started on Rocephin on 08/12 -on PO antibiotics now bactrim- end day 08/19 2100 (4) Falls: Code(s): R29.6 - Repeated falls Status: Acute Assessment and Plan: Frequent falls. No LOC or head trauma. - PT/OT (5) Pneumonia: Code(s): J18.9 - Pneumonia, unspecified organism Status: Acute Assessment and Plan: CXR: 1. Mild increased interstitial pattern in the bilateral lower lungs which could represent mild pulmonary edema or pneumonia. 2. Cardiomegaly Chest CT: 1. Mild emphysema with mild dependent groundglass opacities in the mid to lower lungs and mild interstitial opacities the bilateral lung bases for which differential would include atelectasis, mild pulmonary edema and chronic interstitial lung disease. Could not exclude early pneumonia but without more focal dense consolidation. 2. Cardiomegaly. - started on CAP tx: azithromycin 08/13 and ceftriaxone 08/12 - Viral PCR: negative for Flu/COVID/RSV - no supplemental O2 requirement - Monitor vital signs, I&Os, neuro status and patient is a fall risk - Follow WBC, serum electrolytes, temperature curves and cultures (6) Acute respiratory alkalosis: Code(s): E87.3 - Alkalosis Status: Acute Assessment and Plan: ABG: pH 7.473, pCO2 28.7, pO2 73.5, HCO3 20.6. Likely secondary to pneumonia vs underlying interstitial lung disease - Sodium bicarb tabs x1 day (7) Acute kidney injury superimposed on CKD: Code(s): N17.9 - Acute kidney failure, unspecified; N18.9 - Chronic kidney disease, unspecified Status: Acute Assessment and Plan: Chronic. BUN/Cr 33/2.5 with GFR 19 on admission. Per nephrology note on 08/01 baseline 1-1.5. Lik
[2024-08-18 08:00] VITALS: PULSE 106
[2024-08-18] MEDS: FERROUS SULFATE 325 MG TABLET DR PO (09:32)
[2024-08-18] MEDS: ASPIRIN 81 MG ENTERIC TABLET PO (09:32)
[2024-08-18] MEDS: lisinopriL 5 MG TABLET PO (09:33)
[2024-08-18] MEDS: SULFAMETHOXAZOLE/TRIMETHOPRIM 800/160 MG DS TABLET 1 TAB PO ×2 (10:26→21:39)
[2024-08-18 12:00] VITALS: PULSE 109
[2024-08-18 14:00] VITALS: BP 142/77; PULSE 109; RESP 32; TEMP 36.6; O2SAT 97
[2024-08-18] MEDS: ACETAMINOPHEN 325 MG TABLET 650 MG PO (16:04)
[2024-08-18] MEDS: DOCUSATE SODIUM 100 MG CAPSULE PO (16:04)
[2024-08-18] MEDS: polyethylene glycoL 3350 17 GM POWD.PACK PO (16:04)
[2024-08-18] MEDS: SODIUM CHLORIDE 0.9% IV 1,000 ML 100 ML IV CONT (16:08)
[2024-08-18 21:35] VITALS: BP 150/83; PULSE 96; RESP 18; TEMP 36.6; O2SAT 98
[2024-08-18] MEDS: MELATONIN 5 MG TABLET PO (21:39)
[2024-08-18] MEDS: ATORVASTATIN 10 MG TABLET PO (21:39)
[2024-08-19] VITALS (7 sets, daily range): BP systolic 158–176; BP diastolic 90–99; PULSE 87–106; RESP 18–20; TEMP 36.2–36.5; O2SAT 97–100
[2024-08-19] MEDS: LEVOTHYROXINE SODIUM 100 MCG TABLET PO (05:44)
[2024-08-19 08:15] LABS: Hematocrit 21.3 % (37.0-47.0); Mean Corpuscular HGB Conc 32.4 g/dl (32-36); Mean Corpuscular Hemoglobin 31.2 pg (26-34); Mean Corpuscular Volume 96.4 fl (80-100); Mean Platelet Volume 9.1 fl (7.4-10.4); Platelet Count Result 220 k/mm3 (150-375); Red Blood Count 2.21 M/mm3 (4.2-5.4); White Blood Count 6.1 K/mm3 (4.5-10.0)
[2024-08-19 08:18] LABS: Hemoglobin 6.9 g/dL (12.0-15.0)
--- NOTE | 2024-08-19 08:25 | P.PNIM_ITS ---
Progress Note: A&P Assessment and Plan (1) Sepsis: Code(s): A41.9 - Sepsis, unspecified organism Status: Acute Assessment and Plan: Meets SIRS criteria: leukocytosis, tachycardia, febrile - lactic acid: 1.4 - s/p 2L NS in ED - suspected source: UTI vs pneumonia - blood cultures drawn on 08/12: gram negative bacilli - UA: 3+ protein, 3+ blood, 2+ leukocytes, 21-50 RBC, >100 WBC, 4+ bacteria - UC obtained on 08/12: pending CXR: 1. Mild increased interstitial pattern in the bilateral lower lungs which could represent mild pulmonary edema or pneumonia. 2. Cardiomegaly Chest CT: 1. Mild emphysema with mild dependent groundglass opacities in the mid to lower lungs and mild interstitial opacities the bilateral lung bases for which differential would include atelectasis, mild pulmonary edema and chronic interstitial lung disease. Could not exclude early pneumonia but without more focal dense consolidation. 2. Cardiomegaly. - Antibiotics: azithromycin 08/13 and ceftriaxone 08/12 08/14 - will repeat BC-ordered 08/15 - repeated BC- prelim- negative so far, wbc wnl, afebrile 08/16 - continue antibiotics to complete the course. afebrile. wbc wnl 08/17 confusion improved- she was a little bit sassy this am with exam and was trying to quiz me on orientasiton questions. so improving from orientation standpoint. 08/18 stable- no acute events overnight. completed antibiotics. (2) Altered mental status: Code(s): R41.82 - Altered mental status, unspecified Status: Acute Assessment and Plan: Patient sent to the ED from PCP for altered mental status. - Head CT: Normal aging brain. - Monitor -08/15 worsening confusion overnight- will order CT head and neuro consult 08/16- neurology is following- appreciate recommendations 08/17- confusion improved- she was a little bit sassy this am with exam and was trying to quiz me on orientasiton questions. so improving from orientation standpoint. 08/18 stable- no acute events overnight (3) Acute UTI: Code(s): N39.0 - Urinary tract infection, site not specified Status: Acute Assessment and Plan: - UA: 3+ protein, 3+ blood, 2+ leukocytes, 21-50 RBC, >100 WBC, 4+ bacteria - UC obtained on 08/12: pending - No previous micro to be reviewed - started on Rocephin on 08/12 -on PO antibiotics now bactrim- end day 08/19 2100 (4) Falls: Code(s): R29.6 - Repeated falls Status: Acute Assessment and Plan: Frequent falls. No LOC or head trauma. - PT/OT (5) Pneumonia: Code(s): J18.9 - Pneumonia, unspecified organism Status: Acute Assessment and Plan: CXR: 1. Mild increased interstitial pattern in the bilateral lower lungs which could represent mild pulmonary edema or pneumonia. 2. Cardiomegaly Chest CT: 1. Mild emphysema with mild dependent groundglass opacities in the mid to lower lungs and mild interstitial opacities the bilateral lung bases for which differential would include atelectasis, mild pulmonary edema and chronic interstitial lung disease. Could not exclude early pneumonia but without more focal dense consolidation. 2. Cardiomegaly. - started on CAP tx: azithromycin 08/13 and ceftriaxone 08/12 - Viral PCR: negative for Flu/COVID/RSV - no supplemental O2 requirement - Monitor vital signs, I&Os, neuro status and patient is a fall risk - Follow WBC, serum electrolytes, temperature curves and cultures (6) Acute respiratory alkalosis: Code(s): E87.3 - Alkalosis Status: Acute Assessment and Plan: ABG: pH 7.473, pCO2 28.7, pO2 7
[2024-08-19 08:28] LABS: Anion Gap 9 mmol/L (4-12); Blood Urea Nitrogen 14 mg/dL (7-17); Calcium 8.1 mg/dL (8.4-10.2); Carbon Dioxide 20 mmol/L (22-30); Chloride 112 mmol/L (98-107); Estimated CRCL calculation 22 ml/min; Estimated Glomerular Filt Rate 32; Glucose 71 mg/dL (65-110); Potassium 3.6 mmol/L (3.4-5.0); Sodium 141 mmol/L (137-145)
[2024-08-19] MEDS: SULFAMETHOXAZOLE/TRIMETHOPRIM 800/160 MG DS TABLET 1 TAB PO ×2 (09:22→21:09)
[2024-08-19] MEDS: ASPIRIN 81 MG ENTERIC TABLET PO (09:22)
[2024-08-19] MEDS: FERROUS SULFATE 325 MG TABLET DR PO (09:22)
[2024-08-19] MEDS: lisinopriL 5 MG TABLET PO (09:22)
[2024-08-19 11:38] LABS: Homocysteine 17.2 umol/L (<10.4)
--- NOTE | 2024-08-19 12:18 | PCNFU ---
Nutrition Follow-Up Complete: Suboptimal Energy Intake as related to Delirium as evidenced by poor po and weight loss reported. Goal: Adequate Intake of at least 50% of diet order and supplements - Progressing toward goal. Intakes improved to 5-75% meals with some refusals. Continue with same goal Pt current nutrition is Regular diet. Nutritional ice cream BID for additional 270 kcal and 9 g protein each. Ensure Compact BID for additional 220 kcal and 9 g protein each. Nutrition recommendation: No new nutrition recommendations. Continue current nutrition care plan and orders. Agree with orders. Last recorded weight is 58.4 kg. Bowel Motility: +1 BM 08/16/24 Labs Reviewed: Hgb 6.9, Hct 21.3, GFR 32, Cre 1.6 Meds Noted: Colace, miralax Skin: No skin issues Additional Notes: Intakes are improving, remain varied. Working with therapy and may be discharging home. Continue current orders and monitoring. Will monitor weight, labs, skin, oral intake, meds every 5 days.
[2024-08-19] MEDS: BISACODYL 10 MG SUPPOSITORY RECTAL (17:24)
[2024-08-19 19:35] LABS: Hematocrit 27.8 % (37.0-47.0); Hemoglobin 9.1 g/dL (12.0-15.0)
[2024-08-19 20:22] LABS: IFOB Positive Control Positive; Immunochemical Fecal Occult Bl Positive (N)
[2024-08-19] MEDS: MELATONIN 5 MG TABLET PO (21:09)
[2024-08-19] MEDS: ATORVASTATIN 10 MG TABLET PO (21:09)
[2024-08-20 03:41] VITALS: BP 148/79; PULSE 87; RESP 18; TEMP 36.6; O2SAT 98
[2024-08-20] MEDS: LEVOTHYROXINE SODIUM 100 MCG TABLET PO (05:44)
--- NOTE | 2024-08-20 10:01 | WPDGICN ---
Assessment and Plan Assessment and plan (1) Heme positive stool: Code(s): R19.5 - Other fecal abnormalities Status: Acute (2) Anemia: Qualifiers: Anemia type: due to chronic kidney disease Chronic kidney disease stage: stage 3 (moderate) Chronic kidney disease stage 3 subtype: stage 3b (GFR 30-44) Qualified Code(s): N18.32 - Chronic kidney disease, stage 3b; D63.1 - Anemia in chronic kidney disease Code(s): D64.9 - Anemia, unspecified Status: Acute (3) Hemorrhoid: Qualifiers: Hemorrhoid type: other Qualified Code(s): K64.8 - Other hemorrhoids Code(s): K64.9 - Unspecified hemorrhoids Status: Acute (4) Personal history of colonic polyps: Code(s): Z86.010 - Personal history of colon polyps Status: Acute Plan 1. Heme positive stools / hemorrhoids / diverticulosis/personal Hx of polyps: Last colonoscopy 03/30/2020 showed extensive sigmoid diverticula without active bleeding, internal hemorrhoids without bleeding, and a few superficial stellate rectal ulcers with stigmata of bleeding. She reports normal bowel movements at home, formed, every day to every other day, without need for medications. She denies any blood in the stool or black stools at home. Patient with known hemorrhoids.She takes a daily baby aspirin but no other blood thinners or NSAIDs. No signs of active GI bleeding.DDX: Hemorrhoidal bleeding vs diverticular bleeding vs AVM vs neoplasm Likely hemorrhoidal bleeding given recent straining and known hemorrhoids Continue current management. Increase fluid and fiber intake. Avoid straining or constipation. Hemorrhoid care PRN - sitz baths, Preparation H, Anusol suppositories Follow-up outpatient in GI clinic. Due for surveillance colonoscopy in 2024 given history of colon polyps. 2. Chronic anemia: Likely multifactorial including secondary to chronic kidney disease. Patient denies any signs of active GI bleeding. HGB 10, HCT 28. Iron 54, TIBC 170, iron saturation 32%. B12 and folate normal.\ Patient to follow-up as outpatient for addition work up including possible EGD to be performed at time of next colonoscopy Thank you very much for allowing me to share in the care of this very nice patient. This report may have been done utilizing a voice recognition system. Attempts have been made to correct errors. However, there may be uncorrected grammatical, spelling, and recognition errors present. GI Consult Note Consult date/time: 08/20/24 10:01 Reason for consult: Heme positive stools HPI: This is a pleasant 74 year old female with a past medical surgical history of chronic kidney disease stage 3, glomerulonephritis ANCA, history of metabolic encephalopathy, history of fecal impaction in March of 2020, hypothyroidism, restless leg syndrome, x2, cholecystectomy she presented to the ER room 08/12/2024 with complaints of confusion. GI consulted for heme positive stools. She denies any abdominal pain, nausea, vomiting, dysphagia, odynophagia, reflux, weight loss, or appetite changes. Patient states that at home she is having a Formed non urgent bowel movement every 1-2 days without straining or need for medication. she denies abdominal pain, nausea, vomiting, bloating, odynophagia, dysphagia, reflux, regurgitation, early satiety, unexplained weight loss, appetite loss, diarrhea, constipation, hematochezia, or melena. She was on aspirin 81 mg daily prior to admission. Family history negative for CRC or IBD. ENDOSCOPY HISTORY: EGD: The patient has never had an EGD COLONOSCOPY: 03/30/2020 (Dr. Loaiza) constipation and fecal impaction Findings: In the mid sigmoid colon, extensive medium diverticula were present. The mucosa adjacent to the diverticula were edematous. The diverticula were not actively bleeding In the rectum a single medium-sized uncomplicated internal hemo
[2024-08-20] MEDS: FERROUS SULFATE 325 MG TABLET DR PO (10:03)
[2024-08-20] MEDS: lisinopriL 10 MG TABLET PO (10:03)
[2024-08-20] MEDS: ASPIRIN 81 MG ENTERIC TABLET PO (10:03)
--- NOTE | 2024-08-20 10:06 | PM.DS ---
DS: Admitting Diagnosis Discharge Date 08/20 Admitting Diagnosis weakness, ams DS: Discharge Diagnosis Discharge Diagnosis (1) Sepsis: Code(s): A41.9 - Sepsis, unspecified organism Status: Acute Assessment and Plan: Meets SIRS criteria: leukocytosis, tachycardia, febrile - lactic acid: 1.4 - s/p 2L NS in ED - suspected source: UTI vs pneumonia - blood cultures drawn on 08/12: gram negative bacilli - UA: 3+ protein, 3+ blood, 2+ leukocytes, 21-50 RBC, >100 WBC, 4+ bacteria - UC obtained on 08/12: pending CXR: 1. Mild increased interstitial pattern in the bilateral lower lungs which could represent mild pulmonary edema or pneumonia. 2. Cardiomegaly Chest CT: 1. Mild emphysema with mild dependent groundglass opacities in the mid to lower lungs and mild interstitial opacities the bilateral lung bases for which differential would include atelectasis, mild pulmonary edema and chronic interstitial lung disease. Could not exclude early pneumonia but without more focal dense consolidation. 2. Cardiomegaly. - Antibiotics: azithromycin 08/13 and ceftriaxone 08/12 08/14 - will repeat BC-ordered 08/15 - repeated BC- prelim- negative so far, wbc wnl, afebrile 08/16 - continue antibiotics to complete the course. afebrile. wbc wnl 08/17 confusion improved- she was a little bit sassy this am with exam and was trying to quiz me on orientasiton questions. so improving from orientation standpoint. 08/18 stable- no acute events overnight. completed antibiotics. (2) Altered mental status: Code(s): R41.82 - Altered mental status, unspecified Status: Acute Assessment and Plan: Patient sent to the ED from PCP for altered mental status. - Head CT: Normal aging brain. - Monitor -08/15 worsening confusion overnight- will order CT head and neuro consult 08/16- neurology is following- appreciate recommendations 08/17- confusion improved- she was a little bit sassy this am with exam and was trying to quiz me on orientasiton questions. so improving from orientation standpoint. 08/18 stable- no acute events overnight (3) Acute UTI: Code(s): N39.0 - Urinary tract infection, site not specified Status: Acute Assessment and Plan: - UA: 3+ protein, 3+ blood, 2+ leukocytes, 21-50 RBC, >100 WBC, 4+ bacteria - UC obtained on 08/12: pending - No previous micro to be reviewed - started on Rocephin on 08/12 -on PO antibiotics now bactrim- end day 08/19 2100 (4) Falls: Code(s): R29.6 - Repeated falls Status: Acute Assessment and Plan: Frequent falls. No LOC or head trauma. - PT/OT (5) Pneumonia: Code(s): J18.9 - Pneumonia, unspecified organism Status: Acute Assessment and Plan: CXR: 1. Mild increased interstitial pattern in the bilateral lower lungs which could represent mild pulmonary edema or pneumonia. 2. Cardiomegaly Chest CT: 1. Mild emphysema with mild dependent groundglass opacities in the mid to lower lungs and mild interstitial opacities the bilateral lung bases for which differential would include atelectasis, mild pulmonary edema and chronic interstitial lung disease. Could not exclude early pneumonia but without more focal dense consolidation. 2. Cardiomegaly. - started on CAP tx: azithromycin 08/13 and ceftriaxone 08/12 - Viral PCR: negative for Flu/COVID/RSV - no supplemental O2 requirement - Monitor vital signs, I&Os, neuro status and patient is a fall risk - Follow WBC, serum electrolytes, temperature curves and cultures (6) Acute respiratory alkalosis: Code(s): E87.3 - Alkalosis Status: Acute Assessment and Plan: ABG: pH 7.473, pCO2 28.7, pO2 73.5, HCO3 20.6. Likely secondary to pneumonia vs underlying interstitial lung disease - Sodium bicarb tabs x1 day (7) Acute kidney injury superimposed on CKD: Code(s): N17.9 - Acute kidney failure, unspecified; N18.9 - Chronic kidney disease, unspecified Status: Acute Asses
== END 2024-08-20 15:45 | DRG 871 ==
LOC: ANHED 19:26 → ANH2MED 20:03
PROVIDERS: Emergency Medicine; Physician Assistant; Psychiatry & Neurology Neurology; Student in an Organized Health Care Education/Training Program; Admitting Provider Internal Medicine; Emergency Provider Emergency Medicine; PCP Family Medicine; Visit Provider Nurse Practitioner
DX: A41.51 Sepsis due to Escherichia coli [E. coli] (principal); G93.41 Metabolic encephalopathy; J18.9 Pneumonia, unspecified organism; N39.0 Urinary tract infection, site not specified; E87.3 Alkalosis; N17.9 Acute kidney failure, unspecified; E46 Unspecified protein-calorie malnutrition; R19.5 Other fecal abnormalities; K64.8 Other hemorrhoids; N18.32 Chronic kidney disease, stage 3b; I77.82 Antineutrophilic cytoplasmic antibody [ANCA] vasculitis; R29.6 Repeated falls; E03.9 Hypothyroidism, unspecified; D63.1 Anemia in chronic kidney disease; G25.81 Restless legs syndrome; K64.9 Unspecified hemorrhoids; Z68.23 Body mass index [BMI] 23.0-23.9, adult; Z90.49 Acquired absence of other specified parts of digestive tract; Z86.0100 Personal history of colon polyps, unspecified
CPT/HCPCS: 36415; 36430; 36600; 70450; 71045; 71250; 80048; 80053; 80307; 81001; 82274; 82306; 82550; 82607; 82746; 82805; 82810; 83090; 83540; 83550; 83605; 83690; 83735; 83921; 84100; 84439; 84443; 84484; 85014; 85018; 85025; 85027; 85610; 85730; 86850; 86900; 86901; 86923; 87040; 87077; 87086; 87088; 87186; 87637; 93005; 96365; 97110; 97161; 97165; 97530; 97535; 99285; A9270; J0456; J0696; J7030; J7512; P9016

== ENCOUNTER 2025-11-04 12:49 | Outpatient (CLI) | payer MEDICARE, SELFPAY ==
--- NOTE | ~2025-11-04 | DEXA_ITS ---
Bone Density Report Name: JANNY RANDOLPH Age: 75 Sex: Female Ethnicity: White Date of : 1950 Indication: osteopenia; height loss; Referring Provider: JANIS VELASQUEZ Study: Bone densitometry was performed. Exam Date: November 04, 2025 Accession number: [id number] Bone Density: Region BMD T-score Z-score Classification AP Spine(L1-L4) 1.018 -0.3 2.1 Normal Femoral Neck (Left) 0.476 -3.4 -1.3 Osteoporosis Total Hip (Left) 0.591 -2.9 -1.1 Osteoporosis Femoral Neck (Right) 0.610 -2.2 -0.1 Osteopenia Total Hip (Right) 0.642 -2.5 -0.7 Osteoporosis Total Hip Mean 0.616 -2.7 -0.9 Osteoporosis World Health Organization criteria for BMD impression classify patients as: Normal (T-score at or above -1.0), Osteopenia (T-score between -1.0 and -2.5), or Osteoporosis (T-score at or below -2.5). 10-year Fracture Risk: FRAX not reported because: Some T-score for Spine Total or Hip Total or Femoral Neck at or below -2.5 Previous Exams: Region Exam Age BMD T-score BMD Change BMD Change Date g/cm2 vs Baseline vs Previous AP Spine (L1-L4) 11/04/2025 75 1.018 -0.3 -0.006 (-0.6%) -0.006 (-0.6%) 10/11/2023 73 1.024 -0.2 Total Hip(Left) 11/04/2025 75 0.591 -2.9 -0.068 (-10.3% -0.068 (-10.3% 10/11/2023 73 0.658 -2.3 Total Hip(Right) 11/04/2025 75 0.642 -2.5 -0.038 (-5.5%) -0.038 (-5.5%) 10/11/2023 73 0.680 -2.2 *Denotes significance at 95% confidence level, LSC for AP Spine = 0.022 g/cm2, LSC for Total Hip = 0.027 g/cm2 Clinical Information Provided by Patient: Has used the following medications: Vitamin D, Calcium Patient maximum height was 62 Menopause Age: 51 Does not regularly consume dairy products Drinks caffeinated beverages Onset of menses at age 13 Number of children 3 Impression: The patient has osteoporosis, based on the Left Femoral Neck T-score. The BMD for the Total Hip(Left) decreased, changing by -10.3% since the last DXA exam. The BMD for the Total Hip(Right) decreased, changing by -5.5% since the last DXA exam. Discussion: INCREASED RISK OF FRACTURE. BONE DENSITY IS UNDESIRABLY LOW AT ONE OR MORE SKELETAL SITES, CONSISTENT WITH POSTMENOPAUSAL OSTEOPOROSIS. This patient's lowest T-score meets the World Health Organization's (WHO) criteria for osteoporosis at one or more sites (T-score -2.5 or below). In untreated patients, the risk of osteoporotic fracture increases approximately two-fold for each 1.0 SD decrease in T-score. Low bone density is not the only risk factor for fracture; also consider factors such as patient's age, frailty or poor health, risk of falling, risk of injury, previous osteoporotic fracture, family history of osteoporosis, cigarette smoking, low body weight, etc. Not everyone with low bone mineral density has osteoporosis; osteomalacia and other metabolic bone disorders should also be considered. Patients who have osteoporosis should be evaluated for specific diseases and conditions (secondary causes) that may cause or contribute to bone loss. The [place] [employer] Endocrinologists (AACE) and National Osteoporosis Foundation (NOF) recommend pharmacologic intervention for all postmenopausal women whose T-score is in this range. The patient should follow a healthful lifestyle (good nutrition with adequate calcium and vitamin D, and appropriate weight-bearing exercise). Follow-Up: Consider a repeat BMD and Vertebral Fracture Assessment (VFA) exam in 2 years or sooner if medically necessary, to reassess this patient's status. Reported by: EUNICE on 11/04/2025 1:37:00 PM. Reviewed, dictated and finalized at location A.
--- OUTSIDE RECORDS SUMMARY | 2025-11-04 14:49 | XMS_ITS | Clinical Summary ---
Author Organization [facility] Address [address] [place] [address] Phone Care Team Providers Care Regional Project Manager Name Role Phone Jesus Loya DO Primary Care Provider [phone] Allergies Active Allergy Reactions Criticality Noted Date Comments Penicillins 10/16/2019 Medications levothyroxine (SYNTHROID) 100 MCG tablet Take 100 mcg by mouth 1 (one) time each day 09/27/2021 Active levothyroxine (SYNTHROID) 112 MCG tablet Take 112 mcg by mouth 1 (one) time each day 06/16/2022 Active lisinopril (PRINIVIL) 10 MG tablet Take 1 tablet (10 mg total) by mouth 3 (three) times a week Monday/Mon/ day 36 tablet 3 07/18/2022 Active Active Problems Problem Noted Date Diagnosed Date Chronic anemia 11/04/2020 Chronic kidney disease, stage 3 (moderate) 03/30 Spontaneous ecchymoses 03/30/2020 Hypothyroidism Immunizations Immunization Administration Dates Next Due Influenza, Injectable, Quadrivalent 08/20/2019 PPD Test 08/17/2018 Pneumococcal Conjugate 13-Valent 07/06/2016 Sars-cov-2, Unspecified 03/13/2021 Family History Medical History Relation Comments Kidney disease Neg Hx Nephrolithiasis Neg Hx Social History Tobacco Use Types Packs/Day Years Used Date Smoking Tobacco: Former Smokeless Tobacco: Never Alcohol Use Standard Drinks/Week Comments Yes 0 (1 standard drink = 0.6 oz pur e alcohol) occasional use Comments Unknown Sex and Gender Information Value Date Recorded Sex Assigned at Female 07/10/2021 10:38 AM MDT Legal Sex Female 10:55 AM MST Gender Identity Female 07/10/2021 10:38 AM MDT Sexual Orientation Straight 07/10/2021 10 :38 AM MDT Last Filed Vital Signs Vital Sign Reading Time Taken Comments Blood Pressure 126/72 07/18/2022 11:50 AM CDT Pulse - - Temperature 35.7 C (96.3 F) 07/18/2022 11:50 AM CDT Respiratory Rate 18 07/18/2022 11:50 AM CDT Oxygen Saturation - - Inhaled Oxygen Concentration - - Weight 64 kg (141 lb) 07/18/2022 11:50 AM CDT Height 157.5 cm (5' 2) 07/18/2022 11:50 AM CDT Body Mass Index 25.79 07/18/2022 11:50 AM CDT Plan of Treatment Health Maintenance Due Date Last Done Comments Pneumococcal PPSV23/PCV13 65 + Years / Low and Medium Risk (2 of 3 - PCV20 or PCV21) 07/06/2017 07/06/2016 Influenza Vaccine (#1) 2025 Insurance [employer] MEDICARE ADVANTAGE Care Teams Regional Project Manager Relationship Specialty Start Date End Date Jesus Loya DO [address] [place] [phone] PCP - General Internal Medicine 12/16/20
--- OUTSIDE RECORDS SUMMARY | 2025-11-04 14:49 | XMS_ITS | Encounter Summary ---
Author Organization [facility] Address [address] [facility] [place] [address] Care Team Providers Care Tube Coverer Name Role Phone Unavailable Primary Care Provider Unavailabl e Encounter Details Date Type Department Care Team (Late st Contact Info) Description 03/18/2020 Lab Requisition [facility] Care Pathology Lab [address] [place] [address] Woody Bates MD [address] [address] Social History Tobacco Use Types Packs/Day Years Used Date Smoking Tobacco: Never Assessed Comments Unknown Sex and Gender Information Value Date Recorded Sex Assigned at Not on file Legal Sex Female 11:03 AM CDT Gender Identity Not on file Sexual Orientation Not on file documented as of this encounter Plan of Treatment Not on file documented as of this encounter Procedures Procedure Name Priority Date/Time Associated Diagnosis Comments FLOW CYTOMETRY BONE MARROW Routine 03/18/2020 8:15 AM CDT documented in this encounter Results * FLOW CYTOMETRY BONE MARROW (03/18/2020 8:15 AM CDT) Case Report Flow Cytometry Case: [id number] Authorizing Provider: Woody Bates MD Collected: 03/18/2020 08:15 AM Ordering Location: [facility] Care Pathology Lab Received: 03/18/2020 12:56 PM Pathologist: Ashlie Briceno MD Specimen: Bone Marrow 03/18/2020 3:47 PM CDT [facility] Final Diagnosis Bone marrow, flow cytometric immunophenotypic analysis: - No evidence of non-Hodgkin lymphoma or high-grade myeloid neoplasm. - See interpretation. 03/18/2020 3:47 PM CDT [facility] at 1547 CDT Flow Cytometry Interpretation The bone marrow specimen has a viability of 100%. The lymphocyte, dim CD45, monocyte, and granulocyte kahn are normal in relative proportion. Within the lymphocyte gate, there is no monotypic B-cell population identified (kappa: lambda ratio = 1.2:1). There is no expanded T-cell population seen. By CD34, 0.1% of all events analyzed are blasts. A bone marrow aspirate smear prepared from the flow cytometry specimen is reviewed for housing quality standard inspector purposes. The bone marrow aspirate specimen shows no evidence of involvement by non-Hodgkin lymphoma or a high-grade myeloid neoplasm. Correlation with clinical findings, the concurrent bone marrow core biopsy, and relevant cytogenetic/molecu lar studies is required. 03/18/2020 3:47 PM [facility] Flow Cytometry Results Differential Result Comment Flow Cell Count /uL 6,800 Total Viability % 100.0 Lymphocytes % 20 Dim CD45 Region % 1 Monocytes % 6 Granulocytes % 73 03/18/2020 3:47 PM CDT [facility] Reason for test pancytopenia 020 3:47 PM CDT [facility] Client Specimen ID # [id number] 03/18/2020 3:47 PM [facility] Number of markers 10 were performed. A-2 Flow CD10 A-3 Flow CD13 A-5 Flow CD20 A-1 Flow CD5 A-4 Flow CD19 A-6 Flow CD33 A-7 Flow CD34 A-8 Flow CD45 A-9 [employer]+CD19+ A-10 Lambda+CD19+ 03/18/2020 3:47 PM [facility] Disclaimer Test performed at [facility], [address] [place] [address], [address]. *The established laboratory minimum viability is 70%. Values below the minimum may result in the failure to find an abnormal population of cells. This test was developed and its performance characteristics determined by the Flow Cytometry Laboratory. It has not been cleared by the [place] Food and Drug Administration (FDA). The FDA has determined that such clearance or approval is not necessary. This test is used for clinical purposes. It should not be regarded as investigational or for research. This laboratory is regulated under the Clinical Laboratory Improvement Amendments of 1998 (CLIA) as a qualified to perform high complexity clinical testing. 03/18/2020 3:47 PM [facility] Embedded Images 0 3:47 PM CDT [facility] Pathology/Cytolo gy BONE MARROW SPECIMEN / Unknown 03/18/2020 8:15 AM CDT 03/18/2020 12:56 PM CDT us Woody Bates MD LAB - PATHOLOGY/CYTOLOGY ORDER SHRUTI Final Result Performing Organization Address City/State/[facility] Co de Phone Number [facility] PATHOLOG[facility] LAB [address] [phone] documented in this encounter Visit Diagnoses Not on filedocumented in this encounter
--- OUTSIDE RECORDS SUMMARY | 2025-11-04 14:49 | XMS_ITS | Encounter Summary ---
Author Organization [facility] Address [address] [facility] [place] [address] Care Team Providers Care Data Communications Technician Name Role Phone Unavailable Primary Care Provider Unavailabl e Encounter Details Date Type Department Care Team (Late st Contact Info) Description 03/20/2020 Lab Requisition [facility] Care Pathology Lab [address] [place] [address] Woody aBtes MD [address] [facility] [address] [place] [address] Illness, unspecified Social History Tobacco Use Types Packs/Day Years [...] Procedure Name Priority Date/Time Associated Diagnosis Comments BONE MARROW BIOPSY (STL) Routine 03/18/2020 8:15 AM CDT Illness, unspecified documented in this encounter Results * BONE MARROW BIOPSY (STL) (03/18/2020 8:15 AM CDT) Case Report Bone Marrow Patholog y Report Case: [id number] Authorizing Provider: Woody Bates MD Collected: 03/18/2020 08:15 AM Ordering Location: [facility] Care Pathology Lab Received: 03/20/2020 09:58 AM Pathologist: Ashlie Briceno MD Specimens: A) - Bone Marrow Clot, [id number] B) - Bone Marrow Core, [id number] C) - Blood Peripheral, [id number] D) - Bone Marrow Aspirate, [id number] 03/20/2020 3:40 PM CDT [facility] Final Diagnosis Bone marrow, aspirate, clot section, and core biopsy: - Hypocellular marrow with maturing trilineage hematopoiesis. - No evidence of lymphoma or high-grade myeloid neoplasm. - See description Peripheral blood smear: - Pancytopenia 03/20/2020 3:40 PM [facility] at 1540 CDT AP Comment Overall, the bone marrow specimen is hypocellular for age with maturing trilineage hematopoiesis and no evidence of lymphoma, a high-grade myeloid neoplasm, or significant dyspoiesis. As no infiltrative process is identified in the marrow, other etiologies which may cause pancytopenia including infectious or autoimmune/inflammato ry conditions and low grade myelodysplastic syndrome should be further investigated. Correlation with clinical findings and relevant cytogenetic/molecular testing is required 03/20/2020 3:40 PM [facility] Peripheral Smear Description Manual Differential Count (100 cells): 79% neutrophils, 21% lymphocytes Leukocyte number: decreased. Granulocyte morphology: normal. Lymphocyte morphology: normal. Erythrocyte number: decreased. Erythrocyte morphology: normocytic. Anisopoikilocytosis: not signifcant. Polychromasia: not significant. Platelet number: decreased. Platelet morphology: normal. 03/20/2020 3:40 PM [facility] Bone Marrow Aspirate Due to the paucispicular, paucicellular, and hemodilute nature of the specimen, microscopic assessment of the bone marrow aspirate is not performed. Please note that due to the lack of spicules, the morphologic assessment is limited. An iron stain performed on the aspirate smear, with appropriately reactive control, shows decreased stainable storage and sideroblastic iron, but is suboptimal due to a lack of spicules and low number of erythroid progenitor cells present 03/20/2020 3:40 PM [facility] Bone Marrow Core Biopsy and Clot Section Description Specimen quality: adequate. Cellularity: 15-20 % Trilineage Hematopoiesis: adequate. Myeloid to Erythroid ratio: normal. Myeloid maturation and localization: normal. Erythroid maturation and localization: normal. Megakaryocyte number: normal. Megakaryocyte distribution: normal. Lymphoid aggregates: absent. Bone trabeculae: normal. Blood vessels: normal. Other: No sheets of blasts or granulomas noted Clot section marrow particles: absent. Core storage iron: Adequate Immunohistochemical stains are performed on the core in the [facility] Department of Pathology, with appropriately reactive controls, and demonstrate the following: CD34 shows no increase in blasts (less than 5%) 03/20/2020 3:40 PM [facility] Clinical History 03/20/2020 3:40 PM [facility] Materials Received Received are 17 slides and 3 blocks labeled as [id number] along with the outside pathology report. [place] [address]. All materials are returned to the referring institution, along with a copy of our final report. 03/20/2020 3:40 PM [facility] Disclaimer The performance characteristics of all immunohistochemical and indirect immunofluorescence stains (if any) cited in this report were determined by the Histopathology Laboratory of [facility]. Some of these tests were developed by our own laboratory and have not been cleared or approved by the US Food and Drug Administration. The FDA does not require this test to go through premarket FDA review. These tests are used for clinical purposes. They should not be regarded as investigational or for research. This laboratory is certified under the Clinical Laboratory Improvement Amendments (CLIA) as qualified to perform high complexity clinical laboratory testing. This case has been personally reviewed and interpreted by the attending (teaching) pathologist. 03/20/2020 3:40 PM [facility] Embedded Images 03/20/2020 3:40 PM [facility] Pathology/Cytology SPECIMEN FROM BONE MARROW OBTAINED BY ASPIRATION / Unknown 03/18/2020 8:15 AM CDT 03/20/2020 9:58 AM CDT Miscellaneous samples (specimen) BONE MARROW SPECIMEN / Unknown 03/18/2020 8:15 AM CDT 03/20/2020 9:58 AM CDT Miscellaneous samples (specimen) PERIPHERAL BLOOD / Unknown 03/18/2020 8:15 AM CDT 03/20/2020 9:58 AM CDT Miscellaneous samples (specimen) SPECIMEN FROM BONE MARROW OBTAINED BY ASPIRATION / Unknown 03/18/2020 8:15 AM CDT 03/20/2020 9:58 AM CDT us Woody Bates MD LAB - PATHOLOGY/CYTOLOGY ORDER SHRUTI Final Result [facility] [address] [facility] [place], [place] [id number] [place] [address] documented in this encounter Visit Diagnoses Diagnosis Illness, unspecified documented in this encounter
--- OUTSIDE RECORDS SUMMARY | 2025-11-04 14:49 | XMS_ITS | Clinical Summary ---
Author Organization [facility] Address [address] [place] [address] Care Team Providers Care Loss Claim Clerk Name Role Phone Tesha Millard OIL PROGRAM COMPLIANCE SPECIALIST Unavailable [phone] Jadon Gonzales MD Primary Care Provider [phone] Allergies Active Allergy Reactions Criticality Noted Date Comments Penicillins Rash Medium 10/16/2019 Medications ALPRAZolam (XANAX) 0.5 mg tablet Take 1 tablet (0.5 mg total) by mouth 08/20/2024 Active aspirin (Aspirin Childrens) 81 mg chewable tablet Take 1 tablet (81 mg total) by mouth daily 08/20/2024 Active atorvastatin (LIPITOR) 10 mg tablet Take 1 tablet (10 mg total) by mouth daily 08/20/2024 Active levothyroxine (SYNTHROID) 112 mcg tablet Take 1 tablet (112 mcg total) by mouth 08/20/2024 Active lisinopriL (PRINIVIL,ZESTRI L) 10 mg tablet Take 1 tablet (10 mg total) by mouth daily 08/20/2024 Active mycophenolate mofetil (CELLCEPT) 500 mg tablet Take 1 tablet (500 mg total) by mouth 04/03/2025 Active ferrous sulfate 325 mg (65 mg of elemental iron) tablet 1 tablet ONCE DAILY (route: oral) 08/20/2024 Active donepeziL (ARICEPT) 10 mg tabletIndication s: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 behavioral disturbance, psychotic disturbance, mood disturbance, or anxiety Take half tablet by mouth once a day for two weeks, then one tablet once a day 30 tablet 5 05/09/2025 Active doxepin (SINEquan) 25 mg capsule 08/21/2025 Active Active Problems Problem Noted Date Diagnosed Date 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 behavioral disturbance, psychotic disturbance, mood disturbance, or anxiety 05/09/2025 Encounter for screening mamm ogram for malignant neoplasm of breast 11/10/2021 Abnormal findings on diagnostic imaging of breas t 12/02/2020 Encounters Date Type Department Care Team Description 09/10/2025 Telephone [facility] Medicine Scheduling [address] [place] [address] Lidia Lares BS 08/27/2025 9:15 AM CDT Office Visit [facility] [address] [facility] [address] [place] [phone] Anjum Darby MD 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 behavioral disturbance, psychotic disturbance, mood disturbance, or anxiety (Primary Dx) from Last 3 Months Surgical History Surgery Date Site/Laterality Comments SECTION 1979 and 1981 GALLBLADDER SURGERY 11/20/1997 - 11/19/1998 OVARIAN CYST SURGERY 11/20/1969 - 11/19/1970 R ovary removed due to cyst [place] FLUORO GUIDED LUMBAR PUNCTURE 07/31/2025 Right Medical History Medical History Date Comments Thyroid disease Social History Tobacco Use Types Packs/Day Years Used Date Smoking Tobacco: Never Smokeless Tobacco: Never Tobacco Cessation:Counseling Given: Not Answered Alcohol Use Standard Drinks/Week Comments Yes 0 (1 standard drink = 0.6 oz pur e alcohol) socially Personal Safety Answer Date Recorded Have you ever been in or are you currently in a harmful physical or emotional relationship or is someone making you feel afraid or unsafe? Denies 07/31/2025 Comments Unknown Sex and Gender Information Value Date Recorded Sex Assigned at Not on file Legal Sex Female 1:32 PM RN MED SURG Gender Identity Not on file Sexual Orientation Straight 11/25/2020 4: 30 PM RN MED SURG Last Filed Vital Signs Vital Sign Reading Time Taken Comments Blood Pressure 113/75 08/27/2025 8:54 AM CDT Pulse 76 08/27/2025 8:54 AM CDT Temperature 35.8 C (96.4 F) 07/31/2025 8:03 AM CDT Respiratory Rate 16 07/31/2025 10:05 AM CDT Oxygen Saturation 96% 08/27/2025 8:54 AM CDT Inhaled Oxygen Concentration - - Weight 64 kg (141 lb 3.2 oz) 08/27/2025 8:54 AM CDT Height 157.5 cm (5' 2.01) 08/27/2025 8:54 AM CD T Body Mass Index 25.82 08/27/2025 8:54 AM CDT Plan of Treatment Health Maintenance Due Date Last Done Comments Colon Cancer Screening-Colonoscopy 1950 Depression Screening 1950 Hepatitis C Screening 1950 Osteoporosis Screening-Bone Density Scan 1951 Hepatitis B Screening 1969 Well Visit 65+ 2016 Breast Cancer Screening-Mammogram 11/10/2022 021 Influenza Vaccine (#1) 2025 , 09/13/2019, 08/20/2019, Additional history exists Fall Risk Assessment 07/31/2026 07/31/2025 DTaP/Tdap/Td Vaccine (3 - Td or Tdap) 05/26/2033 05/26/2023, 05/26/2023 Pneumococcal vaccine 65+ Completed 018, 09/03/2017, 07/06/2016 Zoster Vaccine Completed 03/04/2021, 04/2020, 09/08/2014 Procedures Procedure Name Priority Date/Time Associated Diagnosis Comments SCREENING MAMMOGRAM BILATERAL W SHAYNE Schedule Routine, Read Routine (OP Routine) 11/10/2021 1:42 PM RN MED SURG Abnormal findings on diagnostic imaging of breast Encounter for screening mammogram for malignant neoplasm of breast from Last 3 Months or Most Recently Relevant to Health Maintenance Results * Screening Mammogram Bilateral W Shayne (11/10/2021 1:42 PM RN MED SURG) Anatomical Region Laterality Modality Breast Bilateral Mammography Narrative 11/11/2021 8:29 AM RN MED SURG Mammogram Technique: Bilateral Digital Breast Tomosynthesis, Bilateral C-view 2D Screening mammogram. Views obtained: bilateral craniocaudal and bilateral mediolateral oblique. Computer Aided Detection was performed. Mammogram Findings: No prior imaging studies are available for comparison. There are scattered areas of fibroglandular density. There is no suspicious abnormality in either breast. Impression: There is no mammographic evidence of malignancy. Annual screening mammography is recommended. OVERALL FINAL ASSESSMENT: BI-RADS CATEGORY 1: Negative. Procedure Note Belkys Brunner MD - 11/11/2021 Mammogram Technique: Bilateral Digital Breast Tomosynthesis, Bilateral C-view 2D Screening mammogram. Views obtained: bilateral craniocaudal and bilateral mediolateral oblique. Computer Aided Detection was performed. Mammogram Findings: No prior imaging studies are available for comparison. There are scattered areas of fibroglandular density. There is no suspicious abnormality in either breast. Impression: There is no mammographic evidence of malignancy. Annual screening mammography is recommended. OVERALL FINAL ASSESSMENT: BI-RADS CATEGORY 1: Negative. Val Fraire NURSE AUDITOR IMG MAMMO PROCEDURES Final R esult from Last 3 Months or Most Recently Relevant to Health Maintenance Insurance [employer] MEDICARE ADVANTAGE [facility] Address: [facility] [address] [place] [address] [employer] MEDICARE ADVANTAGE Care Teams Loss Claim Clerk Relationship Specialty Start Date End Date Jadon Gonzales MD [address] [place] [address] PCP - General Family Practice 11/07/24 Tesha Millard NP Referring Physician Nurse Practitioner 11/09/20
--- OUTSIDE RECORDS SUMMARY | 2025-11-04 14:49 | XMS_ITS | Clinical Summary ---
Author Organization [facility] Yajaira jimenez [facility] Address [address] [address] Care Team Providers Care Zyglo Inspector Name Role Phone Jesus Loya Primary Care Provider [phone] Allergies Active Allergy Reactions Criticality Noted Date Comments Penicillins Rash Medium 10/16/2019 Medications lisinopriL (PRINIVIL) 10 mg tablet 10/29/2020 Active multivitamin (DAILY-YAHIR) tablet Take 1 Tablet by mouth daily. Active ascorbic acid, vitamin C, (VITAMIN C) 1,000 mg Tablet Take 1,000 mg by mouth daily. Active calcium as carbonate (CORAL CALCIUM) 1,000 mg (390 mg elemental) Tablet Take by mouth. Active levothyroxine 125 mcg tablet TAKE 1 TABLET BY MOUTH EVERY DAY 11/18/2020 Active Active Problems Problem Noted Date Diagnosed Date Chronic anemia 11/04/2020 Family History Medical History Relation Name Comments Heart Disease Brother 2 Diabetes Mother Relation Name Status Comments Brother 1 Alive Brother 2 Daughter 1 Alive Daughter 2 Alive Father Mother Alive Sister 1 Alive Sister 2 Alive Social History Tobacco Use Types Packs/Day Years Used Date Smoking Tobacco: Never Alcohol Use Standard Drinks/Week Comments Yes 0 (1 standard drink = 0.6 oz pur e alcohol) occasionally Comments No Sex and Gender Information Value Date Recorded Sex Assigned at Not on file Legal Sex Female 8:41 AM CDT Gender Identity Not on file Sexual Orientation Not on file Last Filed Vital Signs Vital Sign Reading Time Taken Comments Blood Pressure 134/86 08/30/2021 12:02 PM CDT Pulse 75 08/30/2021 12:02 PM CDT Temperature 37.1 C (98.8 F) 08/30/2021 12:02 PM CDT Respiratory Rate - - Oxygen Saturation 95% 08/30/2021 12: 02 PM CDT Inhaled Oxygen Concentration - - Weight 61.6 kg (135 lb 11.2 oz) 021 12:02 PM CDT Height 156.2 cm (5' 1.5) 08/30/2021 12 :02 PM CDT Body Mass Index 25.23 08/30/2021 12:02 PM CDT Plan of Treatment Health Maintenance Due Date Last Done Comments DTAP/TDAP/TD VACCINES (1 - Tdap) 1970 BREAST CANCER SCREENING 1991 COLORECTAL SCREENING 1996 Colorectal Cancer Screening 1996 FIT-DNA Q 3 years 1996 FIT/FOBT Q 1 year 1996 Flex Sig/CT Colonography Q 5 years 1996 ZOSTER VACCINE (1 of 2) 2001 OSTEOPOROSIS SCREENING 2016 PNEUMOCOCCAL VACCINE 50+ YEA RS (2 of 2 - PCV20 or PCV21) 07/06/2017 07/06/2016 INFLUENZA VACCINE (#1) 2025 08/20/2019 RSV VACCINE (60+ or ) (1 - 1-dose 75+ series) 2026 Insurance [employer] PPO MCR Care Teams Zyglo Inspector Relationship Specialty Start Date End Date Jesus Loya DO [address] [facility] [address] [place] [address] PCP - General Internal Medicine 11/27/20
--- OUTSIDE RECORDS SUMMARY | 2025-11-04 14:49 | XMS_ITS | Clinical Summary ---
Author Organization [facility] Address [address] [place] [address] Care Team Providers Care Egyptologist Name Role Phone Unavailable Primary Care Provider Unavailabl e Source Comments [facility],non-owned Affiliates and Associated Physician Practices is amultiple site organization consisting of ambulatory clinics and hospital sitesin [place], [place], [place] and [place]. This disclosure is being madepursuant to the Care Everywhere program and may not contain all information available regarding this patient. Last updated 18.[facility] Poynt Social History Tobacco Use Types Packs/Day Years Used Date Smoking Tobacco: Never Assessed Comments Unknown Sex and Gender Information Value Date Recorded Sex Assigned at Not on file Legal Sex Female 11:03 AM CDT Gender Identity Not on file Sexual Orientation Not on file Plan of Treatment Health Maintenance Due Date Last Done Comments BONE DENSITY TESTING 1950 COLOGUARD (AGES 45-75) - COL ON CA SCREENING 1950 COLON MONITORING 1950 COLONOSCOPY - COLON CA SCREENING 1950 CT COLONOGRAPHY - COLON CA SCREENING 1950 Colorectal Cancer Screening 1950 FIT - COLON CA SCREENING 1950 FLEX SIG - COLON CA SCREENING 1950 LIPID TESTING 1950 MAMMOGRAM 1950 HEPATITIS C SCREENING 04/07/1969 DTAP/TDAP/TD VACCINES (1 - Tdap) 1970 PNEUMOCOCCAL VACCINE 50+ (1 of 1 - PCV) 2001 ZOSTER VACCINE (1 of 2) 2001 DEPRESSION SCREENING 11/20/2024 COVID-19 VACCINE ( - 2024-2 6 season) 2025 INFLUENZA VACCINE (#1) 2025 Respiratory Syncytial Virus (RSV) Vaccine Pt: or over 60 yrs (1 - 1-dose 75+ series) 2026 HEPATITIS B VACCINE Aged Out No longe r eligible based on patient's age to complete this topic HIB VACCINE Aged Out No longer eligi ble based on patient's age to complete this topic HPV VACCINE Aged Out No longer eligi ble based on patient's age to complete this topic MENINGOCOCCAL (Group B) VACC INE SHARED DECISION-MAKING Aged Out No longer eligibl e based on patient's age to complete this topic MENINGOCOCCAL GROUPS A/C/Y/W VACCINE Aged Out No longer eligible b ased on patient's age to complete this topic Insurance [employer] [facility] [employer] [place] [id number] [facility] [employer]
== END 2025-11-04 12:50 | disposition home or self-care (01) ==
PROVIDERS: PCP Family Medicine; Visit Provider Family Medicine
DX: M81.0 Age-related osteoporosis without current pathological fracture (principal); M85.851 Other specified disorders of bone density and structure, right thigh
CPT/HCPCS: 77080